=== PATIENT | male | born 1960 | race Caucasian/White ===

== ENCOUNTER → 2017-04-27 | Outpatient (CLI) | payer BC ==
[2017-04-27 08:56] LABS: ALT 48 U/L (21-72); AST 31 U/L (17-59); Cholesterol 203 mg/dL (<200); HDL Cholesterol 48 mg/dL (40-60)
== END | disposition home or self-care (01) ==
LOC: LABWHC1 07:50
PROVIDERS: ATTEND Internal Medicine Cardiovascular Disease
DX: E78.2 Mixed hyperlipidemia (principal)
CPT/HCPCS: 36415; 80061; 84450; 84460

== ENCOUNTER → 2018-04-25 | Outpatient (CLI) | payer BC ==
[2018-04-25 08:35] LABS: Basophils % (A) 1 %; Eosinophils # (A) 0.3 k/uL (0-0.7); Eosinophils % (A) 4 %; HCT 40.7 % (39.0-53.0); HGB 13.1 gm/dL (13.0-17.5); Lymphocytes # (A) 1.9 k/uL (1.0-4.8); Lymphocytes % (A) 31 %; MCH 30.8 pg (25.0-35.0); MCHC 32.3 g/dL (31.0-37.0); MCV 95.5 fL (80.0-100.0); Mean Platelet Volume 7.4; Monocytes # (A) 0.4 k/uL (0-1.0); Monocytes % (A) 7 %; Neutrophils # (A) 3.4 k/uL (1.3-7.7); Neutrophils % (A) 56 %; Platelet Count 195 k/uL (150-450); RBC 4.27 m/uL (4.30-5.90); RDW 13.4 % (11.5-15.5); WBC 6.1 k/uL (3.8-10.6)
[2018-04-25 08:41] LABS: Cholesterol 185 mg/dL (<200); HDL Cholesterol 54 mg/dL (40-60); LDL Cholesterol,Calculated 110 mg/dL (0-99); Triglycerides 105 mg/dL (<150)
[2018-04-25 12:41] LABS: Erythrocyte Sedimentation Rate 13 mm/hr (0-15)
== END | disposition home or self-care (01) ==
LOC: LABWHC1 07:45
PROVIDERS: ATTEND Ophthalmology
DX: H34.231 Retinal artery branch occlusion, right eye (principal)
CPT/HCPCS: 36415; 80061; 85025; 85652

== ENCOUNTER → 2018-05-17 | Outpatient (CLI) | payer BC ==
--- NOTE | 2018-05-17 10:52 | ECHOF ---
Referral Reason:H34.23 Branch retinal artery occlusion..... MEASUREMENTS -------- HEIGHT: 177.8 cm WEIGHT: 95.3 kg BP: 169/83 RVIDd: 3.3 cm (< 3.3) IVSd: 1.3 cm (0.6 - 1.1) LVIDd: 5.5 cm (3.9 - 5.3) LVPWd: 1.3 cm (0.6 - 1.1) IVSs: 1.9 cm LVIDs: 4.0 cm LVPWs: 1.4 cm LA Diam: 3.8 cm (2.7 - 3.8) LAESV Index (A-L): 30.45 ml/m Ao Diam: 4.0 cm (2.0 - 3.7) AV Cusp: 2.8 cm (1.5 - 2.6) MV EXCURSION: 19.436 mm (> 18.000) MV EF SLOPE: 74 mm/s (70 - 150) EPSS: 0.8 cm MV E Keon: 0.85 m/s MV DecT: 321 ms MV A Keon: 0.82 m/s MV E/A Ratio: 1.04 FINDINGS -------- Sinus rhythm. Resting bradycardia (HR<60bpm). This was a technically adequate study. The left ventricular size is normal. There is mild concentric left ventricular hypertrophy. Overa ll left ventricular systolic function is mildly impaired with, an EF between 45 - 50 %. Apical ante rior LV wall motion is hypokinetic. Apical inferior LV wall motion is hypokinetic. Apical septu m LV wall motion is hypokinetic. The right ventricle is mildly enlarged. LA is midly dilated 29-33ml/m2. The right atrium is normal in size. The aortic valve is trileaflet and appears structurally normal. Mild mitral annular calcification present. Mild mitral regurgitation is present. The tricuspid valve appears structurally normal. No regurgitation noted Trace/mild (physiologic) pulmonic regurgitation. The aortic root is dilated measuring 4.0cm. Normal inferior vena cava with normal inspiratory collapse consistent with estimated right atrial pre ssure of 5 mmHg. There is no pericardial effusion. CONCLUSIONS -------- 1. Sinus rhythm. 2. Resting bradycardia (HR<60bpm). 3. This was a technically adequate study. 4. The left ventricular size is normal. 5. There is mild concentric left ventricular hypertrophy. 6. Overall left ventricular systolic function is mildly impaired with, an EF between 45 - 50 %. 7. Apical anterior LV wall motion is hypokinetic. 8. Apical inferior LV wall motion is hypokinetic. 9. Apical septum LV wall motion is hypokinetic. 10. The right ventricle is mildly enlarged. 11. LA is midly dilated 29-33ml/m2. 12. The aortic valve is trileaflet and appears structurally normal. 13. Mild mitral annular calcification present. 14. Mild mitral regurgitation is present. 15. The tricuspid valve appears structurally normal. 16. Trace/mild (physiologic) pulmonic regurgitation. 17. The aortic root is dilated measuring 4.0cm. 18. Normal inferior vena cava with normal inspiratory collapse consistent with estimated right atrial pressure of 5 mmHg. 19. There is no pericardial effusion. TYING MACHINE OPERATOR: Soumya Mtz RDCS
--- NOTE | 2018-05-17 12:18 | US ---
EXAMINATION TYPE: US carotid duplex BILAT DATE OF EXAM: 05/17/2018 COMPARISON: NONE CLINICAL HISTORY: H34.23 Branch retinal artery occlusion...... no symptoms per patient, no h/o stroke EXAM MEASUREMENTS: RIGHT: Peak Systolic Velocity (PSV) cm/sec ----- Right CCA: 85.2 ----- Right ICA: 79.8 ----- Right ECA: 71.2 ICA/CCA ratio: 0.9 RIGHT: End Diastole cm/sec ----- Right CCA: 14.0 ----- Right ICA: 22.6 ----- Right ECA: 9.2 LEFT: Peak Systolic Velocity (PSV) cm/sec ----- Left CCA: 76.4 ----- Left ICA: 67.1 ----- Left ECA: 96.0 ICA/CCA ratio: 0.9 LEFT: End Diastole cm/sec ----- Left CCA: 17.9 ----- Left ICA: 23.0 ----- Left ECA: 15.7 VERTEBRALS (direction of flow): Right Vertebral: Antegrade Left Vertebral: Antegrade Rhythm: Normal Mild heterogeneous plaque at bulbs, no significant stenosis seen IMPRESSION: Mild heterogeneous plaque at bulbs, no significant stenosis seen Criteria for Assigning % of Stenosis / Diameter reduction (Estimation based on the indirect measurements of the internal carotid artery velocities (ICA PSV). 1. Normal (no stenosis)=ICA PSV < 125 cm/s: ratio < 2.0: ICA EDV<40 cm/s. 2. Less than 50% stenosis=ICA PSV < 125 cm/s: ratio < 2.0: ICA EDV<40 cm/s. 3. 50 to 69% stenosis=ICA PSV of 125 to 230 cm/s: ration 2.0 ? 4.0: ICA EDV 40-100 cm/s. 4. Greater than 70% stenosis to near occlusion= ICA PSV > 230 cm/s: ratio > 4.0: ICA EDV > 100 cm/s. 5. Near occlusion= ICA PSV velocities may be low or undetectable: variable ratio and ICA EDV. 6. Total occlusion=unable to detect flow.
== END | disposition home or self-care (01) ==
LOC: RADUSMAIN 09:06
PROVIDERS: ATTEND Ophthalmology
DX: I65.23 Occlusion and stenosis of bilateral carotid arteries (principal); I34.0 Nonrheumatic mitral (valve) insufficiency; R00.1 Bradycardia, unspecified
CPT/HCPCS: 93306; 93880

== ENCOUNTER → 2019-06-10 | Outpatient (CLI) | payer BC ==
[2019-06-10 08:58] LABS: Basophils # (A) 0.1 k/uL (0-0.2); Basophils % (A) 1 %; Eosinophils # (A) 0.2 k/uL (0-0.7); Eosinophils % (A) 2 %; HCT 38.6 % (39.0-53.0); HGB 12.6 gm/dL (13.0-17.5); Lymphocytes # (A) 2.2 k/uL (1.0-4.8); Lymphocytes % (A) 30 %; MCH 32.8 pg (25.0-35.0); MCHC 32.7 g/dL (31.0-37.0); MCV 100.2 fL (80.0-100.0); Macrocytosis Slight; Mean Platelet Volume 7.2; Monocytes # (A) 0.5 k/uL (0-1.0); Monocytes % (A) 7 %; Neutrophils % (A) 56 %; Platelet Count 338 k/uL (150-450); RBC 3.85 m/uL (4.30-5.90); RDW 15.9 % (11.5-15.5); WBC 7.2 k/uL (3.8-10.6)
[2019-06-10 16:57] LABS: African American GFR (CKD) 94.4 (60.0-200.0); Albumin 4.5 g/dL (3.80-4.90); Albumin/Globulin Ratio 2.5 (1.60-3.17); Anion Gap 8.3 mmol/L (4.00-12.00); Calcium 9.1 mg/dL (8.7-10.3); Carbon Dioxide 25.7 mmol/L (21.6-31.8); Chol/HDL Ratio 3.46; Globulin 1.8 g/dL (1.6-3.3); LDL Cholesterol,Calculated 105.4 mg/dL (0.0-131.0); Magnesium 2.1 mg/dL (1.5-2.4); Potassium 4.9 mmol/L (3.5-5.5); Total Bilirubin 0.5 mg/dL (0.3-1.2); Total Protein 6.3 g/dL (6.2-8.2); VLDL Calculation 17.6 mg/dL (5.00-40.00)
[2019-06-10 17:47] LABS: Hemoglobin A1C 5.2 % (4.0-6.0)
== END | disposition home or self-care (01) ==
LOC: LABWHC1 07:35
PROVIDERS: ATTEND Internal Medicine
DX: E78.2 Mixed hyperlipidemia (principal); I10 Essential (primary) hypertension
CPT/HCPCS: 36415; 80053; 80061; 83036; 83735; 84439; 84443; 85025

== ENCOUNTER → 2019-07-16 | Outpatient (CLI) | payer BC ==
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
== END | disposition home or self-care (01) ==
LOC: RADCTMAIN 12:17
PROVIDERS: ATTEND Internal Medicine
DX: G44.311 Acute post-traumatic headache, intractable (principal)
CPT/HCPCS: 70450

== ENCOUNTER → 2019-10-22 | Outpatient (CLI) | payer BC ==
[2019-10-22 09:12] LABS: Basophils # (A) 0.1 k/uL (0-0.2); Basophils % (A) 1 %; Eosinophils # (A) 0.2 k/uL (0-0.7); Eosinophils % (A) 3 %; HCT 42.6 % (39.0-53.0); HGB 13.6 gm/dL (13.0-17.5); Lymphocytes # (A) 2.2 k/uL (1.0-4.8); Lymphocytes % (A) 35 %; MCH 30.6 pg (25.0-35.0); MCV 95.8 fL (80.0-100.0); Mean Platelet Volume 7.9; Monocytes # (A) 0.5 k/uL (0-1.0); Monocytes % (A) 8 %; Neutrophils # (A) 3.2 k/uL (1.3-7.7); Neutrophils % (A) 51 %; Platelet Count 209 k/uL (150-450); RBC 4.45 m/uL (4.30-5.90); RDW 13.5 % (11.5-15.5); WBC 6.3 k/uL (3.8-10.6)
[2019-10-22 16:36] LABS: African American GFR (CKD) 93.7 (60.0-200.0); Albumin 4.5 g/dL (3.80-4.90); Albumin/Globulin Ratio 2.25 (1.60-3.17); Anion Gap 8.4 mmol/L (4.00-12.00); Calcium 9.3 mg/dL (8.7-10.3); Carbon Dioxide 25.6 mmol/L (21.6-31.8); Chol/HDL Ratio 3.16; LDL Cholesterol,Calculated 102.8 mg/dL (0.0-131.0); Non-African American GFR(CKD) 80.9 (60.0-200.0); Potassium 4.8 mmol/L (3.5-5.5); Total Bilirubin 0.4 mg/dL (0.2-1.2); Total Protein 6.5 g/dL (6.2-8.2); VLDL Calculation 16.2 mg/dL (5.00-40.00)
== END | disposition home or self-care (01) ==
LOC: LABWHC1 08:25
PROVIDERS: ATTEND Internal Medicine
DX: I10 Essential (primary) hypertension (principal); E78.2 Mixed hyperlipidemia; N40.0 Benign prostatic hyperplasia without lower urinary tract symptoms
CPT/HCPCS: 36415; 80053; 80061; 84153; 84443; 85025

== ENCOUNTER 2020-11-07 05:53 | Inpatient (IN) | payer BC ==
[2020-11-07 06:28] LABS: Basophils % (A) 1 %; Eosinophils # (A) 0.2 k/uL (0-0.7); Eosinophils % (A) 3 %; HCT 41.7 % (39.0-53.0); HGB 13.9 gm/dL (13.0-17.5); Lymphocytes # (A) 2.3 k/uL (1.0-4.8); Lymphocytes % (A) 37 %; MCH 32.8 pg (25.0-35.0); MCHC 33.3 g/dL (31.0-37.0); MCV 98.5 fL (80.0-100.0); Mean Platelet Volume 7.5; Monocytes # (A) 0.5 k/uL (0-1.0); Monocytes % (A) 8 %; Neutrophils % (A) 49 %; Platelet Count 180 k/uL (150-450); RBC 4.23 m/uL (4.30-5.90); RDW 12.8 % (11.5-15.5); WBC 6.1 k/uL (3.8-10.6)
[2020-11-07] MEDS ORDERED: MECLIZINE 12.5 MG TAB PO STA (06:31)
[2020-11-07] MEDS ORDERED: ASPIRIN 81 MG PO STA (06:31)
[2020-11-07] MEDS ORDERED: diphenhydrAMINE 50 MG/ML 1 ML VIAL IVP STA (06:31)
[2020-11-07] MEDS ORDERED: DIAZEPAM 5 MG/ML 2 ML INJ IVP STA (06:31)
[2020-11-07 06:35] LABS: INR 0.9 (<1.2); Prothrombin Time 9.4 sec (9.0-12.0)
[2020-11-07 06:37] LABS: ALT 29 U/L (4-49); AST 30 U/L (17-59); African American GFR (CKD) >90 (>60 ml/min/1.73 sqM); Alkaline Phosphatase 65 U/L (38-126); Anion Gap 6 mmol/L; Blood Urea Nitrogen 14 mg/dL (9-20); Calcium 8.9 mg/dL (8.4-10.2); Carbon Dioxide 28 mmol/L (22-30); Chloride 106 mmol/L (98-107); Glucose 107 mg/dL (74-99); Magnesium 2.2 mg/dL (1.6-2.3); Non-African American GFR(CKD) 81 (>60 ml/min/1.73 sqM); Potassium 4.8 mmol/L (3.5-5.1); Sodium 140 mmol/L (137-145); Total Bilirubin 0.4 mg/dL (0.2-1.3); Total Protein 6.9 g/dL (6.3-8.2)
--- NOTE | 2020-11-07 06:51 | XR ---
EXAM: XR Chest, 2 Views CLINICAL HISTORY: ITS.REASON XR Reason: Chest Pain TECHNIQUE: Frontal and lateral views of the chest. COMPARISON: 10/07/15. FINDINGS: Lungs: Bilateral central lung opacities, more prominent compared to prior. Pleural space: No significant pleural effusion or pneumothorax. Heart: Stable cardiomediastinal silhouette. Mediastinum: See above. Bones/joints: No acute fracture. IMPRESSION: Bilateral central lung opacities. Correlate clinically regarding inflammatory/infectious process.
--- NOTE | 2020-11-07 07:11 | ED ---
General Adult HPI - General Chief complaint: Chest Pain Stated complaint: Arms feel numb Time Seen by Provider: 11/07/20 06:07 Source: patient, family Mode of arrival: wheelchair Limitations: no limitations - History of Present Illness Initial comments: 60 yo male presenting for dizziness, "feeling weird". Patient states he woke up this mornin and noticed any movement he felt "lightheaded" and "weird" he states that he felt dizzy/slightly off balance when turning his head/quick movements. He states he does struggle with tinnutus inthe past and is deaf in the left ear. Patient denies nausea, vomiting, speech changes, weakness of the UE or LE. Patient states he became anxious after feeling off and felt like both arms were tingling, that has since subsided. Patient denies chest pain/pressure, jaw pain, back pain. Patient states everytime this happens when he feels off, he comes in and is told that his "troponin is slightly elevated" and has to stay. I do not see elevated troponin on previous visits. Patient states that he has had "caths" but only see 1 in 2016, he did have AK at age 40 in 2000-transferred from [facility] to this facility. Patient denies additional complaints. Upon arrival patient appears well nontoxic in no acute distress. No diaphoresis. Patient took nitroglycerin prior to arrival and states that now he has a headache. - Related Data Home Medications Medication Instructions Recorded Confirmed Aspirin 325 mg PO DAILY 09/26/15 10/08/15 Clopidogrel Bisulfate [Clopidogrel] 75 mg PO DAILY 09/26/15 10/08/15 Enalapril [Vasotec] 5 mg PO DAILY 09/26/15 10/08/15 Ezetimibe [Zetia] 10 mg PO DAILY 09/26/15 10/08/15 Levothyroxine Sodium [Synthroid] 175 mcg PO DAILY 09/26/15 10/08/15 Pravastatin Sodium [Pravachol] 80 mg PO HS 09/26/15 10/08/15 Allergies Allergy/AdvReac Type Severity Reaction Status Date / Time No Known Allergies Allergy Verified 11/07/20 05:58 Review of Systems ROS Statement: Those systems with pertinent positive or pertinent negative responses have been documented in the HPI. ROS Other: All systems not noted in ROS Statement are negative. Past Medical History Past Medical History: Coronary Artery Disease (CAD), GERD/Reflux, Hyperlipidemia, Hypertension, Myocardial Infarction ([place]), Thyroid Disorder Last Myocardial Infarction Date:: 2000 History of Any Multi-Drug Resistant Organisms: None Reported Past Surgical History: Heart Catheterization With Stent Additional Past Surgical History / Comment(s): Ruptured bicep Past Anesthesia/Blood Transfusion Reactions: No Reported Reaction Date of Last Stent Placement:: 09/28/14 Past Psychological History: No Psychological Hx Reported Smoking Status: Current every day smoker Past Alcohol Use History: Occasional Past Drug Use History: None Reported - Past Family History Father Additional Family Medical History / Comment(s): Had prostate surg General Exam - General Exam Comments Initial Comments: General: The patient is awake and alert, in no distress Eye: +3 mm pupils are equal, round and reactive to light, extra-ocular movements are intact. No nystagmus. There is normal conjunctiva bilaterally. No signs of icterus. Ears, nose, mouth and throat: There are moist mucous membranes and no oral lesions. HINTS (-) Neck: The neck is supple, there is no tenderness or JVD. Cardiovascular: There is a regular rate and rhythm. No murmur, rub or gallop is appreciated. Respiratory: Lungs are clear to auscultation, respirations are non-labored, breath sounds are equal. No wheezes, stridor, rales, or rhonchi. Gastrointestinal: [Soft, non-distended, non-tender abdomen without masses or organomegaly noted. There is no rebound or guarding present. Musculoskeletal: Normal ROM, no tenderness. Strength 5/5. Sensation intact. Radial pulses equal bilaterally 2+. Neurological: A&O x 3. CN II-XII intact, memory intact to immediately, intermediate and continuous churn buttermaker recall. Able to follow simple verbal. Able to name a common object (pen). High quality, labial (pa) and lingual (la) speech. Low quality posterior pharynx/larynx (ga) voice sounds. Able to express general knowledge (days in a week). No hemineglect or inattention noted. Finger agnosia (-) and spatially oriented (identified L index finger touched R shoulder with L index finger). Light touch and temperature sensation present over the face, chest, abdomen, back, UE bilaterally, and LE bilaterally. Able to localize point during point localization b/l and extinction. No visible bulk atrophy, hypertrophy, fasciculations, or myoclonus of the UE or LE b/l. Full PROM in UE and LE b/l. Bilateral muscle strength 5/5 for the following muscles: deltoid, biceps, triceps, brachioradialis, wrist extensors/flexor, hip flexor, hip abductors/adductors, hamstrings, quadriceps, feet dorsiflexors/plantar flexors. Finger to nose, finger to the examiners finger, and heel to beatty coordinated and accurate b/l. Coordinated and even demonstration of hand flip, finger to thumb, and toe tap b/l. Gait is coordinated and even in stride with tandem. (-) pronator drift. No nuchal rigidity. (-) Brudzinskis and Kernig signs. Skin: Skin is warm and dry and no rashes or lesions are noted. Psychiatric: Cooperative, appropriate mood & affect, normal judgment. Limitations: no limitations Course Vital Signs 11/07/20 11/07/20 05:58 06:15 Temperature 97.9 F Pulse Rate 59 L Respiratory 18 Rate Blood Pressure 156/92 165/93 O2 Sat by Pulse 97 Oximetry EKG Findings - EKG Comments: EKG Findings:: Ventricular rate 61 bpm, MI interval 140 ms, QR pentecostalism 94 ms, QT/QTC 474/477 ms. This is sinus rhythm with occasional PVCs. No ST elevation or depression there is some artifact on the EKG however no obvious abnormality Medical Decision Making - Medical Decision Making 60yo male with hx of CAD/stent 2000. Cath 2016. Presenting dizziness/arms tingli ng/just feels off. No CP/NO dyspnea. Hx CAD. Troponin (+). Patient EKG no ST elevations. Patient case discussed with Dr. Schroeder who is agreeable to admission, recommends starting heparin and admitting patient for cardiology evaluation of suspected NSTEMI. Patient agreeable to admission and care plan. - Lab Data Result diagrams: 11/07/20 06:13 11/07/20 06:13 Lab Results 11/07/20 11/07/20 11/07/20 Range/Units 06:13 06:13 06:13 WBC 6.1 (3.8-10.6) k/uL RBC 4.23 L (4.30-5.90) m/uL Hgb 13.9 (13.0-17.5) gm/dL Hct 41.7 (39.0-53.0) % MCV 98.5 (80.0-100.0) fL MCH 32.8 (25.0-35.0) pg MCHC 33.3 (31.0-37.0) g/dL RDW 12.8 (11.5-15.5) % Plt Count 180 (150-450) k/uL MPV 7.5 Neutrophils % 49 % Lymphocytes % 37 % Monocytes % 8 % Eosinophils % 3 % Basophils % 1 % Neutrophils # 3.0 (1.3-7.7) k/uL Lymphocytes # 2.3 (1.0-4.8) k/uL Monocytes # 0.5 (0-1.0) k/uL Eosinophils # 0.2 (0-0.7) k/uL Basophils # 0.0 (0-0.2) k/uL PT 9.4 (9.0-12.0) sec INR 0.9 (<1.2) APTT 23.0 (22.0-30.0) sec Sodium 140 (137-145) mmol/L Potassium 4.8 (3.5-5.1) mmol/L Chloride 106 (98-107) mmol/L Carbon Dioxide 28 (22-30) mmol/L Anion Gap 6 mmol/L BUN 14 (9-20) mg/dL Creatinine 0.99 (0.66-1.25) mg/dL Est GFR (CKD-EPI)AfAm >90 (>60 ml/min/1.73 sqM) Est GFR (CKD-EPI)NonAf 81 (>60 ml/min/1.73 sqM) Glucose 107 H (74-99) mg/dL Calcium 8.9 (8.4-10.2) mg/dL Magnesium 2.2 (1.6-2.3) mg/dL Total Bilirubin 0.4 (0.2-1.3) mg/dL AST 30 (17-59) U/L ALT 29 (4-49) U/L Alkaline Phosphatase 65 (38-126) U/L Troponin I (0.000-0.034) ng/mL Total Protein 6.9 (6.3-8.2) g/dL Albumin 4.0 (3.5-5.0) g/dL 02/21/21 Range/Units 06:13 WBC (3.8-10.6) k/uL RBC (4.30-5.90) m/uL Hgb (13.0-17.5) gm/dL Hct (39.0-53.0) % MCV (80.0-100.0) fL MCH (25.0-35.0) pg MCHC (31.0-37.0) g/dL RDW (11.5-15.5) % Plt Count (150-450) k/uL MPV Neutrophils % % Lymphocytes % % Monocytes % % Eosinophils % % Basophils % % Neutrophils # (1.3-7.7) k/uL Lymphocytes # (1.0-4.8) k/uL Monocytes # (0-1.0) k/uL Eosinophils # (0-0.7) k/uL Basophils # (0-0.2) k/uL PT (9.0-12.0) sec INR (<1.2) APTT (22.0-30.0) sec Sodium (137-145) mmol/L Potassium (3.5-5.1) mmol/L Chloride (98-107) mmol/L Carbon Dioxide (22-30) mmol/L Anion Gap mmol/L BUN (9-20) mg/dL Creatinine (0.66-1.25) mg/dL Est GFR (CKD-EPI)AfAm (>60 ml/min/1.73 sqM) Est GFR (CKD-EPI)NonAf (>60 ml/min/1.73 sqM) Glucose (74-99) mg/dL Calcium (8.4-10.2) mg/dL Magnesium (1.6-2.3) mg/dL Total Bilirubin (0.2-1.3) mg/dL AST (17-59) U/L ALT (4-49) U/L Alkaline Phosphatase (38-126) U/L Troponin I 0.106 H* (0.000-0.034) ng/mL Total Protein (6.3-8.2) g/dL Albumin (3.5-5.0) g/dL Disposition Clinical Impression: Complaint of paresthesia, Elevated troponin Disposition: ADMITTED IP TO THIS [facility] Condition: Stable Is patient prescribed a controlled substance at d/c from ED?: No Referrals: Gloria Nugent MD [Primary Care Provider] - 1-2 days Time of Disposition: 07:44 Decision to Admit Reason: Admit from EC Decision Date: 11/07/20 Decision Time: 07:44
--- NOTE | 2020-11-07 07:14 | CT ---
EXAMINATION TYPE: CT brain wo con DATE OF EXAM: 11/07/2020 COMPARISON: 07/16/2019 HISTORY: Arms feel numb CT DLP: 1114.[address] of the brain was performed. The ventricles, basal cisterns and sulci overlying the cerebral convexities demonstrate mild enlargem ent. There is no evidence for intracranial hemorrhage or sulcal effacement. There is decreased attenuation about the periventricular white matter and deep white matter of both c erebral hemispheres, compatible with chronic small vessel ischemia. Differential diagnosis does inclu de demyelination. No mass effects are seen.No midline shift. Osseous calvarium is intact. If symptoms persist consider MRI. IMPRESSION: 1. Age related atrophic and chronic small vessel ischemic change without acute intracranial process s een at this time.
[2020-11-07] MEDS ORDERED: HEPARIN SODIUM,PORCINE 5,000 UNIT/ML 1 ML VIAL IV ONE (07:38)
[2020-11-07] MEDS ORDERED: NITROGLYCERIN SL TABS 0.4 MG TAB SUBLINGUAL PRN ×2 (07:38→10:45)
[2020-11-07] MEDS ORDERED: MORPHINE SULFATE 4 MG/ML SYRINGE IVP PRN (08:07)
[2020-11-07] MEDS: HEPARIN SOD,PORK IN 0.45% NACL 25,000 UNIT in 0.45% NACL 1 250ML.BAG IV SCH ×2 (08:12→23:03)
[2020-11-07] MEDS ORDERED: PRAVASTATIN SODIUM 80 MG TAB PO STA (09:35)
--- NOTE | 2020-11-07 09:36 | P.CRDCN ---
History of Present Illness Consult date: 11/07/20 Requesting physician: Gloria Nugent Consult reason: chest pain Chief complaint: Bilateral arm discomfort History of present illness: This is a 60-year-old gentleman with known history of hypertension, hyperlipidemia, nicotine dependence, coronary artery disease with multivessel intervention. In 2000 and 2006 patient underwent stenting of the LAD and circumflex. On September 28 in 2015 patient underwent a cardiac catheterization which revealed a patent right coronary artery and LAD stent, circumflex with that was also stented in the proximal section was patent. The LAD had approxima tely 30% lesion at the end of the stented segment and the right coronary artery and a 40-50% mid lesion. There was moderate calcification in both of these vessels, the circumflex which was stented was patent but the mid circumflex had a long area of 80% stenosis for which the patient underwent angioplasty with stent placement by Dr. Geoff Espinoza. Following that patient did return to the hospital with symptoms, cardiac catheterization was unchanged. Patient overall has been doing well, today the patient was generally just not feeling well, he had discomfort in both of his upper arms. According to the patient the symptoms are very similar to what he has experienced in the past, when he's required a stent placement. He denies any discomfort in the chest and overall his breathing has been stable. Patient has taken Lipitor in the past and has had muscle reactions from that and is unable to tolerate it. His blood pressure on presentation here 156/90 with a heart rate is 60, 97% on room air temperature 97.9. White blood cell count 6.1, hemoglobin 13.9, platelet count 180, sodium 140, potassium 4.8, chloride 106, CO2 28, BUN 14, creatinine 0.9, magnesium 2.2, initial troponin 0.106. Coronavirus test negative. Chest x-ray showed bilateral central lung [place]. Correlation suggested regarding inflammatory infectious process possibility. His initial EKG shows a normal sinus rhythm with occasional PVCs and nonspecific ST T wave changes. CAT scan of the brain was performed which revealed age-related atrophic and chronic small vessel ischemic change without any intracranial process. At the time of my examination this morning, patient continues to not feel like himself, he is having bilateral upper arm discomfort. Past Medical History Past Medical History: Coronary Artery Disease (CAD), GERD/Reflux, Hyperlipidemia, Hypertension, Myocardial Infarction ([place]), Thyroid Disorder Last Myocardial Infarction Date:: 2000 History of Any Multi-Drug Resistant Organisms: None Reported Past Surgical History: Heart Catheterization With Stent Additional Past Surgical History / Comment(s): Ruptured bicep Past Anesthesia/Blood Transfusion Reactions: No Reported Reaction Date of Last Stent Placement:: 09/28/14 Past Psychological History: No Psychological Hx Reported Smoking Status: Current every day smoker Past Alcohol Use History: Occasional Past Drug Use History: None Reported - Past Family History Father Additional Family Medical History / Comment(s): Had prostate surg Medications and Allergies Home Medications Medication Instructions Recorded Confirmed Type Clopidogrel Bisulfate [Clopidogrel] 75 mg PO DAILY 09/26/15 11/07/20 History Enalapril [Vasotec] 5 mg PO DAILY 09/26/15 11/07/20 History Levothyroxine Sodium [Synthroid] 175 mcg PO DAILY 09/26/15 11/07/20 History Aspirin [[place] Aspirin EC] 81 mg PO DAILY 11/07/20 11/07/20 History Simvastatin 80 mg PO DAILY 11/07/20 11/07/20 History Allergies Allergy/AdvReac Type Severity Reaction Status Date / Time No Known Allergies Allergy Verified 11/07/20 07:59 Physical Exam Vitals: Vital Signs Temp Pulse Resp BP Pulse Ox 11/07/20 06:15 165/93 11/07/20 05:58 97.9 F 59 L 18 156/92 97 Intake and Output 11/06/20 11/07/20 11/07/20 22:59 06:59 14:59 Other: Weight 90.718 kg PHYSICAL EXAMINATION: GENERAL: 60-year-old gentleman in no acute distress at the time of my examination HEENT: Head is atraumatic, normocephalic. Pupils equal, round. Sclera anicteric. Conjunctiva are clear. Mucous membranes of the mouth are moist. Neck is supple. There is no elevated jugular venous pressure. No carotid bruit is heard. HEART EXAMINATION: Heart S1, S2 normal. No murmur or gallop heard. CHEST EXAMINATION: Lungs are clear to auscultation and precussion. No chest wall tenderness is noted on palpation or with deep breathing. ABDOMEN: Soft, nontender. Bowel sounds are heard. No organomegaly noted. EXTREMITIES: 2+ peripheral pulses with no evidence of peripheral edema and no calf tenderness noted. Bilateral upper arm discomfort. NEUROLOGIC patient is awake, alert and oriented 3 . . Results 11/07/20 06:13 11/07/20 06:13 Cardiac Enzymes 11/07/20 11/07/20 Range/Units 06:13 06:13 AST 30 (17-59) U/L Troponin I 0.106 H* (0.000-0.034) ng/mL Coagulation 11/07/20 Range/Units 06:13 PT 9.4 (9.0-12.0) sec APTT 23.0 (22.0-30.0) sec CBC 11/07/20 Range/Units 06:13 WBC 6.1 (3.8-10.6) k/uL RBC 4.23 L (4.30-5.90) m/uL Hgb 13.9 (13.0-17.5) gm/dL Hct 41.7 (39.0-53.0) % Plt Count 180 (150-450) k/uL Comprehensive Metabolic Panel 11/07/20 Range/Units 06:13 Sodium 140 (137-145) mmol/L Potassium 4.8 (3.5-5.1) mmol/L Chloride 106 (98-107) mmol/L Carbon Dioxide 28 (22-30) mmol/L BUN 14 (9-20) mg/dL Creatinine 0.99 (0.66-1.25) mg/dL Glucose 107 H (74-99) mg/dL Calcium 8.9 (8.4-10.2) mg/dL AST 30 (17-59) U/L ALT 29 (4-49) U/L Alkaline Phosphatase 65 (38-126) U/L Total Protein 6.9 (6.3-8.2) g/dL Albumin 4.0 (3.5-5.0) g/dL Current Medications Generic Name Dose Route Start Last Admin Trade Name Freq PRN Reason Stop Dose Admin Aspirin 81 mg 11/08/20 09:00 Aspirin 81 Mg PO DAILY SHAINA Heparin Sodium (Porcine) 0 unit 11/07/20 07:38 Heparin Sodium,Porcine 5,000 Unit/Ml 1 Ml Vial IV PER PROTOCOL PRN Low PTT Protocol Heparin Sodium/Sodium Chloride 250 mls @ 10.006 mls/hr 11/07/20 07:45 11/07/20 08:12 25,000 unit/ Sodium Chloride IV 11.03 units/kg/hr .Q24H SHAINA 10.006 mls/hr Administration Protocol 11.03 UNITS/KG/HR Morphine Sulfate 4 mg 11/07/20 08:07 Morphine Sulfate 4 Mg/Ml Syringe IVP Q4HR PRN Pain Nitroglycerin 0.4 mg 11/07/20 07:38 Nitroglycerin Sl Tabs 0.4 Mg Tab SUBLINGUAL Q5M PRN Chest Pain Intake and Output 11/06/20 11/07/20 11/07/20 22:59 06:59 14:59 Other: Weight 90.718 kg 11/07/20 06:13 11/07/20 06:13 EKG Interpretations (text) Initial EKG shows a normal sinus rhythm with occasional PVC and nonspecific ST-T wave changes. Assessment and Plan Plan: Assessment and plan #1 symptoms of generalized malaise and not feeling well with associated bilateral upper arm discomfort, initial troponin 0.106. EKG shows normal sinus rhythm with occasional PVC and nonspecific ST-T wave changes. Clinical picture suggestive of acute coronary syndrome. #2 hypertension #3 hyperlipidemia, patient is intolerant to Lipitor, he takes Zocor 80 at home #4 nicotine dependence #5 history of myocardial infarction with prior multivessel stenting #6 hypothyroidism Plan We will obtain a repeat EKG this morning, obtain an echocardiogram with Doppler study, obtain 2 subsequent troponins. Continue IV heparin, baby aspirin, start the patient on Pravachol. Patient has been advised that he will need to undergo cardiac catheterization for more definitive diagnosis, the risks and the benefits were explained to the patient and his in detail and he is willing to proceed. Further recommendations to follow. DNP note has been reviewed, I agree with a documented findings and plan of care. Patient was seen and examined.
[2020-11-07] MEDS ORDERED: SODIUM CHLORIDE 0.9% 1,000 ML in EMPTY BAG 1 BAG IV ONE (10:45)
[2020-11-07] MEDS ORDERED: ALPRAZolam 0.5 MG TAB PO PRN (10:45)
[2020-11-07] MEDS ORDERED: ASPIRIN 325 MG TAB PO STA (10:45)
[2020-11-07] MEDS ORDERED: ATORVASTATIN 80 MG TAB PO STA (10:45)
[2020-11-07] MEDS ORDERED: ALPRAZolam 0.25 MG TAB PO PRN (10:45)
--- NOTE | 2020-11-07 11:12 | P.HPIM ---
History of Present Illness H&P Date: 11/07/20 Chief Complaint: NSTEMI This is a 60-year-old gentleman one of my patient with known history of hypertension and hypertensive cardio vascular disease,, hyperlipidemia, nicotine dependence, coronary artery disease with multivessel intervention. In 2000 and 2006 patient underwent stenting of the LAD and circumflex. On September 28 in 2015 patient underwent a cardiac catheterization which revealed a patent right coronary artery and LAD stent, circumflex with that was also stented in the proximal section was patent. The LAD had approximately 30% lesion at the en d of the stented segment and the right coronary artery and a 40-50% mid lesion. There was moderate calcification in both of these vessels, the circumflex which was stented was patent but the mid circumflex had a long area of 80% stenosis for which the patient underwent angioplasty with stent placement by Dr. Geoff Espinoza. Following that patient did return to the hospital with symptoms, cardiac catheterization was unchanged. Patient overall has been doing well, today he woke up at around 5:30 in the morning went to the bathroom and suddenly developed to have bilateral shoulder pain with shoulder numbness and he was breaking out into cold sweats, he felt a bit nauseated, he ended up coming to the emergency care for evaluation, his troponin was slightly elevated, his EKG showed nonspecific ST-T wave changes, patient was ruled in for non-ST elevation myocardial infarction and had a long conversation with the patient and his at the bedside we are going to go for a left heart catheterization with Dr. Miguel today. Review of Systems Constitutional: Reports chronic pain, Reports fatigue, Reports weakness, Denies anorexia, Denies chronic headaches Eyes: denies blurred vision, denies bulging eye, denies decreased vision Ears: deny: decreased hearing Ears, nose, mouth and throat: Denies dysphagia, Denies neck lump, Denies sore throat Cardiovascular: Reports chest pain, Reports decreased exercise tolerance, Reports dyspnea on exertion, Denies lightheadedness, Denies rapid heart beat, Denies shortness of breath, Denies syncope Respiratory: Denies congestion, Denies cough, Denies cough with sputum, Denies pain, Denies sleep apnea, Denies snoring, Denies wheezing Gastrointestinal: Reports nausea, Denies abdominal pain, Denies change in bowel habits, Denies heartburn, Denies melena, Denies vomiting Genitourinary: Reports nocturia, Denies dysuria Musculoskeletal: Denies myalgias Musculoskeletal: bilateral: shoulder pain, shoulder stiffness, absent: ankle pain, ankle stiffness, ankle swelling, elbow pain, elbow stiffness, elbow swelling, foot pain, foot stiffness, foot swelling, hand pain, hand stiffness, hand swelling, hip pain, hip stiffness, hip swelling, knee pain, knee stiffness, knee swelling, shoulder swelling, wrist pain, wrist stiffness, wrist swelling Integumentary: Denies pruritus, Denies rash Neurological: Denies numbness, Denies weakness Psychiatric: Reports anxiety, Denies depression, Denies sadness/tearfulness, Denies sleep disturbances, Denies suicidal ideation Endocrine: Denies fatigue, Denies weight change Past Medical History Past Medical History: Coronary Artery Disease (CAD), GERD/Reflux, Hyperlipidemia, Hypertension, Myocardial Infarction (IA), Osteoarthritis (OA), Prostate Disorder, Thyroid Disorder Last Myocardial Infarction Date:: 2000 History of Any Multi-Drug Resistant Organisms: None Reported Past Surgical History: Heart Catheterization With Stent Additional Past Surgical History / Comment(s): Ruptured bicep Past Anesthesia/Blood Transfusion Reactions: No Reported Reaction Date of Last Stent Placement:: 09/28/14 Past Psychological History: No Psychological Hx Reported Smoking Status: Current every day smoker Past Alcohol Use History: Occasional Past Drug Use History: None Reported - Past Family History Father Family Medical History: COPD (Father at age of 86 from COPD, ammonia, he had prostate surgery as well.) Additional Family Medical History / Comment(s): Had prostate surg Mother History Unknown: Yes Family Medical History: No Reported History (Mother is 84-year-old no major medical problems.) Brother(s) Family Medical History: Diabetes Mellitus (Patient has 5 brothers one of them with diabetes mellitus type 2, one had from metastatic cancer.) Daughter(s) Family Medical History: No Reported History (Patient has 2 daughters no major medical problems.) Medications and Allergies Home Medications Medication Instructions Recorded Confirmed Type Clopidogrel Bisulfate [Clopidogrel] 75 mg PO DAILY 09/26/15 11/07/20 History Enalapril [Vasotec] 5 mg PO DAILY 09/26/15 11/07/20 History Levothyroxine Sodium [Synthroid] 175 mcg PO DAILY 09/26/15 11/07/20 History Aspirin [[place] Aspirin EC] 81 mg PO DAILY 11/07/20 11/07/20 History Simvastatin 80 mg PO DAILY 11/07/20 11/07/20 History Allergies Allergy/AdvReac Type Severity Reaction Status Date / Time No Known Allergies Allergy Verified 11/07/20 07:59 Physical Exam Vitals: Vital Signs Temp Pulse Resp BP Pulse Ox 11/07/20 06:15 165/93 11/07/20 05:58 97.9 F 59 L 18 156/92 97 Intake and Output 11/06/20 11/07/20 11/07/20 22:59 06:59 14:59 Other: Weight 90.718 kg Physical examination: HEENT: Head is atraumatic, normocephalic, pupils were equal round reactive to light recommendation, extraocular muscle movement were intact, sclera nonicteric, conjunctivae were slightly pale, mucous membranes of mouth are somewhat dry. Neck: Supple, no JVD, no carotid bruits of adenopathy. Chest: Decreased breath sounds at the bases, few rhonchi, no expiratory wheezes, no chest wall tenderness, no intercostal retractions. Heart: First heart sound is depressed, second heart sound is normal, there is no gallop or murmur. Abdomen: Soft, nontender, nondistended, positive bowel sounds. Extremities: There is no edema, no calf tenderness, dorsalis is +2 bilaterally. Neurologic examination: Patient is awake alert and oriented in 3, cranial nerves 3-12 appear grossly intact, muscle power 5 out of 5 in upper and lower extremities bilaterally. Results CBC & Chem 7: 11/07/20 06:13 11/07/20 06:13 Labs: Abnormal Lab Results - Last 24 Hours (Table) 11/07/20 11/07/20 11/07/20 Range/Units 06:13 06:13 06:13 RBC 4.23 L (4.30-5.90) m/uL Glucose 107 H (74-99) mg/dL Troponin I 0.106 H* (0.000-0.034) ng/mL 11/07/20 Range/Units 08:54 RBC (4.30-5.90) m/uL Glucose (74-99) mg/dL Troponin I 0.088 H* (0.000-0.034) ng/mL Thrombosis Risk Factor Assmnt - DVT/VTE Prophylaxis DVT/VTE Prophylaxis: Pharmacologic Prophylaxis ordered, Mechanical Prophylaxis ordered Assessment and Plan Assessment: Assessment and plan: 1. Non-ST elevation IA. Continue heparin drip, continue aspirin 325 mg once every day, continue Plavix 75 mg once every day, continue with simvastatin 80 mg orally once every day, cardiac enzymes were slightly elevated, patient scheduled to go for left heart catheterization with Dr. Miguel later on today. 2. History of CAD post multiple PCI. Continue treatment as in paragraph #1. 3. Hypertension and hypertensive cardio vascular disease. Continue patient on enalapril 5 mg orally once every day. 4. Hyperlipidemia. Continue patient on low-cholesterol diet, total left side changes and risk factor modification, continue with simvastatin 80 mg orally once every day. 5. Hypothyroidism. Continue patient on Synthroid 175 g orally once every day. 6. Enlarged prostate. We will continue with Flomax 0.4 g orally once every day. 7. Chronic tobacco use and dependence. Patient was counseled about smoking cessation and increased risk of CAD, CVA, and malignancies. 8. DVT prophylaxis. Currently on heparin drip. 9. GI prophylaxis. Continue with PPI. 10. Admit to inpatient. Estimate a length of stay 2 midnights. 11. Patient is full code.
[2020-11-07] MEDS ORDERED: LIDOCAINE 1% INJ 10MG/ML (20 ML MDV) ONE (11:28)
[2020-11-07] MEDS ORDERED: HEPARIN SODIUM 1,000 UN/ML (10ML VL) ONE (11:28)
[2020-11-07] MEDS ORDERED: VERAPAMIL 2.5 MG/ML 2 ML AMP ONE (11:28)
[2020-11-07] MEDS ORDERED: [UNRECOGNIZED DRUG - REMARK] IV ONE (11:37)
[2020-11-07] MEDS ORDERED: MIDAZOLAM 2 MG/2 ML VIAL IV ONE (11:44)
[2020-11-07] MEDS ORDERED: LIDOCAINE 1% INJ 10MG/ML (20 ML MDV) SQ ONE (11:45)
[2020-11-07] MEDS: VERAPAMIL SYRINGE (5 MG/10 ML) INTRAARTER ONE ×2 (11:46→11:59)
[2020-11-07] MEDS ORDERED: HEPARIN SODIUM 1,000 UN/ML (10ML VL) IV ONE (11:48)
[2020-11-07] MEDS ORDERED: IOPAMIDOL-370 125ML BTL INJ ONE (11:59)
[2020-11-07] MEDS ORDERED: RX INFO: IV CONTRAST WAS GIVEN 1 EACH MISC MISCELLANE PRN (12:06)
[2020-11-07] MEDS ORDERED: SODIUM CHLORIDE 0.9% 1,000 ML IV SCH (12:15)
--- NOTE | 2020-11-07 13:03 | CC ---
CARDIAC CATHETERIZATION REPORT DATE OF SERVICE: November 07, 2020 PERFORMING PHYSICIAN: Titus Miguel MD. PROCEDURE PERFORMED: 1. Selective right and left coronary angiogram. 2. Left heart catheterization. INDICATION: This is a 60-year-old gentleman with coronary artery disease and prior stenting of the LAD and LCX performed by Dr. Espinoza and the patient does follow with Dr. Ruiz on a regular basis as well as history of hypertension and dyslipidemia, who presented to the hospital complaining of bilateral shoulder discomfort. No chest pain or chest discomfort. The EKG showed sinus rhythm without any ischemic ST or T-wave abnormalities. The cardiac enzymes came into be slightly abnormal and below 1. Because of the ongoing bilateral shoulder discomfort and because of the abnormal cardiac enzymes, a heart catheterization was advised. APPROACH: Right radial artery. COMPLICATION: None. LEVEL OF SEDATION: Moderate with sedation length of 15 minutes. PROCEDURE DESCRIPTION: After obtaining informed consent, the patient was brought to the cardiac drop crew laborer. The right radial artery was cannulated using micropuncture technique and a micropuncture wire passed easily. Then I placed a 5-Martiniquais sheath at the right radial artery. After that, I did selective right and left coronary angiogram. That was performed using JR4 for the right coronary artery and JL3.5 for the left coronary system. Left heart catheterization was performed using 5-Martiniquais pigtail catheter. The procedure was completed without any complication. SELECTIVE CORONARY ANGIOGRAM: 1. Right coronary artery: It is a large caliber vessel and it is a dominant vessel. The RCA overall is extremely calcified. The proximal RCA has mild plaque only. The mid RCA has a lesion appeared to be in the range of 99.9%. Distal to that lesion, there is haziness concerning for thrombus. The distal right coronary artery has another tubular lesion appeared to be in the range of 70% to 80%. The RCA bifurcates into a small PDA and large PLV branches. 2. The left main is angiographically normal. It bifurcates into LCX and LAD. 3. The LCX is a large caliber vessel. It is a nondominant vessel. The proximal left circumflex is angiographically normal and gives rise into a large 1st obtuse marginal branch. The proximal portion of that OM branch has a lesion appeared to be in the range of 70%. The mid OM branch has 2 stents seems to be patent. The distal OM appeared to be angiographically normal. 4. The LAD: The proximal LAD is stented with critical in-stent restenosis. The proximal LAD gives rise into a large diagonal branch which appeared to have an ostial lesion in the range of 40% to 50%. The mid LAD appeared to have another lesion in the range of 60% to 70%. and the LAD distally appeared to be angiographically normal. HEMODYNAMICS: The LVEDP appeared to be in the range of 10-12 mmHg without significant gradient across the aortic valve. CONCLUSION: 1. Extremely calcified right and left coronary systems. 2. Critical disease involving the mid right coronary artery and severe disease involving the distal right coronary artery. 3. Normal left main coronary artery. 4. Critical disease involving the proximal and mid left anterior descending artery. 5. Severe disease involving the proximal first obtuse marginal branch of the left circumflex which is a large caliber vessel. POSTPROCEDURE MANAGEMENT: 1. Given the above anatomy, I recommended obtaining an opinion from cardiothoracic surgeon for the evaluation of coronary artery bypass grafting. 2. Obtain an echocardiogram with Doppler to assess the ejection fraction. 3. Restart the patient back on heparin IV once we have right radial hemostasis. 4. Anti-ischemic medications and anti-platelet medications with aspirin. 5. Follow up with the patient. MMODL / IJN: [id number] /
--- NOTE | 2020-11-07 13:24 | LTR ---
DATE OF SERVICE: November 07, [address] Nugent: Mr. Osman Villagran underwent a heart catheterization today. It did show severe triple- vessel coronary artery disease. With this anatomy, I advised obtaining an opinion from surgeon for the evaluation of coronary artery bypass grafting. Thank you for allowing us to participate in the care of this patient. Sincerely, CECILIA / MIRANDAN: [id number] /
[2020-11-08] MEDS ORDERED: LEVOTHYROXINE 88 MCG TAB PO SCH (06:30)
[2020-11-08] MEDS ORDERED: LEVOTHYROXINE 175 MG PO SCH (06:30)
[2020-11-08] MEDS ORDERED: HEPARIN SODIUM,PORCINE 10,000 UNIT in SODIUM CHLORIDE 0.9% 1,000 ML IRRIGATION PRN (07:00)
[2020-11-08] MEDS ORDERED: HEPARIN SODIUM,PORCINE 2,500 UNIT in SODIUM CHLORIDE 0.9% 250 ML IRRIGATION PRN (07:00)
[2020-11-08] MEDS ORDERED: MD COMMUNICATION TO PHARMACY 1 EACH MISC PO ONE (07:53)
[2020-11-08 07:58] LABS: Basophils % (A) 1 %; Eosinophils # (A) 0.1 k/uL (0-0.7); Eosinophils % (A) 2 %; HCT 42.4 % (39.0-53.0); HGB 13.8 gm/dL (13.0-17.5); Lymphocytes # (A) 1.7 k/uL (1.0-4.8); Lymphocytes % (A) 23 %; MCH 31.9 pg (25.0-35.0); MCHC 32.6 g/dL (31.0-37.0); MCV 97.8 fL (80.0-100.0); Mean Platelet Volume 7.6; Monocytes # (A) 0.4 k/uL (0-1.0); Monocytes % (A) 6 %; Neutrophils # (A) 5.1 k/uL (1.3-7.7); Neutrophils % (A) 68 %; Platelet Count 181 k/uL (150-450); RBC 4.33 m/uL (4.30-5.90); RDW 13.2 % (11.5-15.5); WBC 7.5 k/uL (3.8-10.6)
[2020-11-08 08:04] LABS: Cholesterol 179 mg/dL (<200); HDL Cholesterol 54 mg/dL (40-60); LDL Cholesterol,Calculated 107 mg/dL (0-99); Triglycerides 91 mg/dL (<150)
[2020-11-08] MEDS: HEPARIN SODIUM,PORCINE 5,000 UNIT/ML 1 ML VIAL IV PRN ×2 (08:29→16:00)
[2020-11-08] MEDS: ENALAPRIL 5 MG PO SCH (08:31)
[2020-11-08 08:57] LABS: ALT 29 U/L (4-49); AST 30 U/L (17-59); African American GFR (CKD) >90 (>60 ml/min/1.73 sqM); Albumin 3.9 g/dL (3.5-5.0); Alkaline Phosphatase 73 U/L (38-126); Anion Gap 7 mmol/L; Blood Urea Nitrogen 13 mg/dL (9-20); Calcium 8.8 mg/dL (8.4-10.2); Carbon Dioxide 26 mmol/L (22-30); Chloride 106 mmol/L (98-107); Glucose 110 mg/dL (74-99); Magnesium 2.3 mg/dL (1.6-2.3); Non-African American GFR(CKD) >90 (>60 ml/min/1.73 sqM); Potassium 4.3 mmol/L (3.5-5.1); Sodium 139 mmol/L (137-145); Total Bilirubin 0.6 mg/dL (0.2-1.3); Total Protein 6.7 g/dL (6.3-8.2)
[2020-11-08] MEDS ORDERED: ATORVASTATIN 40 MG TAB PO SCH (09:00)
[2020-11-08] MEDS ORDERED: ASPIRIN 325 MG PO SCH (09:00)
[2020-11-08] MEDS ORDERED: CLOPIDOGREL 75 MG PO SCH (09:00)
[2020-11-08] MEDS ORDERED: SIMVASTATIN 80 MG PO SCH (09:00)
[2020-11-08] MEDS ORDERED: ASPIRIN 81 MG PO SCH (09:00)
[2020-11-08] MEDS ORDERED: CLOPIDOGREL 75 MG TAB PO SCH (09:00)
[2020-11-08] MEDS ORDERED: ASPIRIN 325 MG TAB PO SCH (09:00)
[2020-11-08] MEDS ORDERED: lisinopriL 10 MG TAB PO SCH (09:00)
[2020-11-08] MEDS: ASPIRIN 81 MG PO SCH (09:03)
[2020-11-08] MEDS: ATORVASTATIN 80 MG TAB PO SCH (09:03)
[2020-11-08 09:32] LABS: Appearance,Urine Clear (Clear); Bilirubin,Urine Negative (Negative); Blood,Urine Negative (Negative); Color,Urine Light Yellow; Glucose,Urine (UA) Negative (Negative); Ketones,Urine Negative (Negative); Leukocyte Esterase,Urine Negative (Negative); Nitrite,Urine Negative (Negative); Protein,Urine Negative (Negative); Specific Gravity,Urine 1.009 (1.001-1.035); Urobilinogen,Urine <2.0 mg/dL (<2.0)
--- NOTE | 2020-11-08 09:43 | US ---
EXAMINATION TYPE: US carotid duplex BILAT DATE OF EXAM: 11/08/2020 COMPARISON: 05/17/2018 CLINICAL HISTORY: 60-year-old male Pre-Op Cardiac Surgery. Pre-CABG TECHNIQUE: Carotid duplex ultrasound examination. Indirect Doppler criteria was utilized. FINDINGS: EXAM MEASUREMENTS: RIGHT: Peak Systolic Velocity (PSV) cm/sec ----- Right CCA: 100.2 ----- Right ICA: 76.2 ----- Right ECA: 87.5 ICA/CCA ratio: 0.8 RIGHT: End Diastole cm/sec ----- Right CCA: 20.2 ----- Right ICA: 18.1 ----- Right ECA: 18.1 LEFT: Peak Systolic Velocity (PSV) cm/sec ----- Left CCA: 76.2 ----- Left ICA: 72.3 ----- Left ECA: 103.2 ICA/CCA ratio: 0.9 LEFT: End Diastole cm/sec ----- Left CCA: 20.6 ----- Left ICA: 30.9 ----- Left ECA: 16.0 VERTEBRALS (direction of flow): Right Vertebral: Antegrade Left Vertebral: Antegrade Rhythm: Normal Net Sorter notes: Mild atherosclerotic change at the bifurcations. No elevated velocities or signifi cant stenosis. Plaque visualized in bilateral bulbs and in distal bilateral CCA. IMPRESSION: No hemodynamically significant internal carotid artery stenosis on either side. Criteria for Assigning % of Stenosis / Diameter reduction (Estimation based on the indirect measurements of the internal carotid artery velocities (ICA PSV). 1. Normal (no stenosis)=ICA PSV < 125 cm/s: ratio < 2.0: ICA EDV<40 cm/s. 2. Less than 50% stenosis=ICA PSV < 125 cm/s: ratio < 2.0: ICA EDV<40 cm/s. 3. 50 to 69% stenosis=ICA PSV of 125 to 230 cm/s: ration 2.0 ? 4.0: ICA EDV 40-100 cm/s. 4. Greater than 70% stenosis to near occlusion= ICA PSV > 230 cm/s: ratio > 4.0: ICA EDV > 100 cm/s. 5. Near occlusion= ICA PSV velocities may be low or undetectable: variable ratio and ICA EDV. 6. Total occlusion=unable to detect flow.
[2020-11-08 09:59] LABS: T4, Free (Free Thyroxine) 1.44 ng/dL (0.78-2.19)
--- NOTE | 2020-11-08 11:00 | ECHOF ---
Referral Reason:abn trop MEASUREMENTS -------- HEIGHT: 175.3 cm WEIGHT: 90.7 kg BP: RVIDd: 3.5 cm (< 3.3) IVSd: 1.4 cm (0.6 - 1.1) LVIDd: 5.8 cm (3.9 - 5.3) LVPWd: 1.3 cm (0.6 - 1.1) IVSs: 2.0 cm LVIDs: 3.7 cm LVPWs: 2.0 cm LA Diam: 4.3 cm (2.7 - 3.8) LAESV Index (A-L): 31.14 ml/m Ao Diam: 4.3 cm (2.0 - 3.7) AV Cusp: 2.8 cm (1.5 - 2.6) MV EXCURSION: 15.618 mm (> 18.000) MV EF SLOPE: 55 mm/s (70 - 150) EPSS: 0.8 cm MV E Keon: 0.80 m/s MV DecT: 264 ms MV A Ke[place]: 0.85 m/s MV E/A Ratio: 0.95 FINDINGS -------- Sinus rhythm. This was a technically good study. The left ventricular size is normal. There is moderate concentric left ventricular hypertrophy. O verall left ventricular systolic function is mild-moderately impaired with, an EF between 40 - 45 %. Apical anterior LV wall motion is hypokinetic. Apical lateral LV wall motion is hypokinetic. Apical inferior LV wall motion is hypokinetic. Apical septum LV wall motion is hypokinetic. The right ventricle is mildly enlarged. LA is midly dilated 29-33ml/m2. The right atrium is normal in size. Interatrial and interventricular septum intact. There is mild aortic valve sclerosis. The mitral valve leaflets are mildly thickened. Mild mitral annular calcification present. Mild m itral regurgitation is present. The tricuspid valve appears structurally normal. Trace/mild (physiologic) pulmonic regurgitation. The aortic root is dilated measuring 4.3cm. Normal inferior vena cava with normal inspiratory collapse consistent with estimated right atrial pre ssure of 5 mmHg. There is no pericardial effusion. CONCLUSIONS -------- 1. The left ventricular size is normal. 2. There is moderate concentric left ventricular hypertrophy. 3. Overall left ventricular systolic function is mild-moderately impaired with, an EF between 40 - 45 %. 4. Apical anterior LV wall motion is hypokinetic. 5. Apical lateral LV wall motion is hypokinetic. 6. Apical inferior LV wall motion is hypokinetic. 7. Apical septum LV wall motion is hypokinetic. 8. The right ventricle is mildly enlarged. 9. LA is midly dilated 29-33ml/m2. 10. There is mild aortic valve sclerosis. 11. The mitral valve leaflets are mildly thickened. 12. Mild mitral annular calcification present. 13. Mild mitral regurgitation is present. 14. Trace/mild (physiologic) pulmonic regurgitation. 15. The aortic root is dilated measuring 4.3cm. 16. There is no pericardial effusion. TRUCK DRIVER FLATBED: Soumya Mtz RDCS
--- NOTE | 2020-11-08 12:02 | PN ---
PROGRESS NOTE Mr. Villagran is a 60-year-old male who is followed on a regular basis with Dr. Ruiz who presented with symptoms of chest discomfort and evidence of non STEMI. Underwent cardiac catheterization by Dr. Miguel, was found to have severe triple-vessel coronary artery disease with slight calcified coronary arteries. Surgical evaluation was recommended for coronary artery bypass grafting. He is feeling well this morning. He has no further symptoms of chest pain. He denies any dizziness or palpitations. He denies any nausea. He continues to be at this time on aspirin once a day, Lipitor 80 mg daily, IV heparin. At home, he was on enalapril. PHYSICAL EXAMINATION: Blood pressure 120/60 with a heart rate in the 50s. LUNGS: Clear. HEART: Regular rate and rhythm. S1, S2. No S3 with a systolic murmur. No rub. ABDOMEN: Soft, nontender. EXTREMITIES: No edema. LAB DATA: Revealed BUN and creatinine 13 and 0.8, potassium 4.3. His hemoglobin is 13.8. IMPRESSION: 1. Non ST-segment elevation myocardial infarction with severe triple-vessel coronary artery disease. 2. History of hyperlipidemia. 3. History of hypertension. RECOMMENDATIONS: We will review the results of his echocardiogram. Will await the input of the cardiovascular service to undergo coronary artery bypass grafting. I have discussed those findings with the patient and depending on his progress, further recommendation will be made. MMODL / IJN: [id number] /
--- NOTE | 2020-11-08 12:22 | P.GSCN ---
<Marie Garcia - Last Filed: 11/08/20 12:07> History of Present Illness Consult date: 11/08/20 Reason for Consult: Triple-vessel coronary artery disease Requesting physician: Titus Miguel History of present illness: This is a 60-year-old active gentleman who follows on an outpatient basis with Dr. Nugent for primary care and Dr. Ruiz for cardiology. He has a previous medical history of coronary artery disease with myocardial infarction and multiple stent placement, hypertension, hyperlipidemia, hypothyroid, current tobacco dependence, and current daily EtOH use. He presented to [facility] emergency room with complaints of shoulder discomfort similar to when he's had had stents placed in the past. He denied any active chest pain, shortness of breath, nausea, vomiting, dizziness, or any other aggravating or alleviating symptoms. Troponins were mildly elevated, EKG demonstrated sinus rhythm with PVCs and nonspecific ST changes. Patient was ruled in for non-STEMI and admitted for evaluation and treatment with consultation placed to cardiology. He was recommended to undergo heart catheterization which was completed yes terday and which demonstrated proximal LAD with in-stent restenosis, mid LAD 60- 70%, first diagonal 40-50%, first obtuse marginal branch of the circumflex with 70% stenosis, patent stents in the second obtuse marginal artery, mid RCA stenosis of 99% with distal RCA stenosis 70-80%. Due to these findings consultation was placed to Dr. Hernandez from cardiothoracic surgery for surgical revascularization recommendations. Review of Systems Review of systems was completed and was negative except as noted - Cardiovascular Cardiovascular Comment(s): Denies chest pain although complains of shoulder discomfort similar to when he's had stents placed in the past Reports as per HPI Past Medical History Past Medical History: Coronary Artery Disease (CAD), GERD/Reflux, Hyperlipidemia, Hypertension, Myocardial Infarction ([place]), Osteoarthritis (OA), Prostate Disorder, Thyroid Disorder Last Myocardial Infarction Date:: 2000 History of Any Multi-Drug Resistant Organisms: None Reported Past Surgical History: Heart Catheterization With Stent Additional Past Surgical History / Comment(s): Ruptured bicep Past Anesthesia/Blood Transfusion Reactions: No Reported Reaction Date of Last Stent Placement:: 09/28/14 Past Psychological History: No Psychological Hx Reported Smoking Status: Current every day smoker Past Alcohol Use History: Daily Additional Past Alcohol Use History / Comment(s): Reports daily whiskey and beer, denies any history of withdrawal; admits to half pack per day smoking history 40 years Past Drug Use History: None Reported - Past Family History Mother History Unknown: Yes Family Medical History: No Reported History (Mother is 84-year-old no major medical problems.) Brother(s) Family Medical History: Diabetes Mellitus (Patient has 5 brothers one of them with diabetes mellitus type 2) Daughter(s) Family Medical History: No Reported History (Patient has 2 daughters no major medical problems.) Father Family Medical History: Cancer, COPD (Father at age of 86 from COPD, ammonia, he had prostate surgery as well.), Dementia Additional Family Medical History / Comment(s): Had prostate surg Medications and Allergies Home Medications Medication Instructions Recorded Confirmed Type Clopidogrel Bisulfate [Clopidogrel] 75 mg PO DAILY 09/26/15 11/07/20 History Enalapril [Vasotec] 5 mg PO DAILY 09/26/15 11/07/20 History Levothyroxine Sodium [Synthroid] 175 mcg PO DAILY 09/26/15 11/07/20 History Aspirin [Novinger Aspirin EC] 81 mg PO DAILY 11/07/20 11/07/20 History Simvastatin 80 mg PO DAILY 11/07/20 11/07/20 History Allergies Allergy/AdvReac Type Severity Reaction Status Date / Time No Known Allergies Allergy Verified 11/07/20 07:59 Surgical - Exam Vital Signs Temp Pulse Resp BP Pulse Ox 97.9 F 59 L 18 156/92 97 11/07/20 05:58 11/07/20 05:58 11/07/20 05:58 11/07/20 05:58 11/07/20 05:58 - General well developed, well nourished, no distress, no pain - Eyes PERRL, normal ocular movement - ENT no hearing loss - Neck no masses, no bruits, trachea midline - Respiratory Lungs sounds clear bilaterally. Respirations even, nonlabored. Currently on room air with oxygen saturation 95%. No chest wall deformities. No clubbing or cyanosis present. - Cardiovascular S1, S2 present. Regular rate and rhythm, sinus rhythm to sinus bradycardia on telemetry with heart rate in the high 50s to low 60s. Palpable peripheral pulses bilaterally. No edema present. No calf pain or tenderness noted. - Abdomen Abdomen: soft, non tender, bowel sounds - Genitourinary Deferred - Rectum Deferred - Integumentary no rash, no growths - Neurologic normal coordination, normal sensation - Musculoskeletal normal gait, normal posture - Psychiatric oriented to time, oriented to person, oriented to place, speech is normal, memory intact Results - Labs 11/08/20 07:18 11/08/20 07:18 Abnormal Lab Results - Last 24 Hours (Table) 11/07/20 11/08/20 11/08/20 Range/Units 14:09 07:18 07:18 Glucose 110 H (74-99) mg/dL Troponin I 0.082 H* (0.000-0.034) ng/mL LDL Cholesterol, Calc 107 H (0-99) mg/dL TSH <0.015 L (0.465-4.680) mIU/L Diabetes panel 11/08/20 11/08/20 Range/Units 07:18 07:18 Sodium 139 (137-145) mmol/L Potassium 4.3 (3.5-5.1) mmol/L Chloride 106 (98-107) mmol/L Carbon Dioxide 26 (22-30) mmol/L BUN 13 (9-20) mg/dL Creatinine 0.89 (0.66-1.25) mg/dL Glucose 110 H (74-99) mg/dL Calcium 8.8 (8.4-10.2) mg/dL AST 30 (17-59) U/L ALT 29 (4-49) U/L Alkaline Phosphatase 73 (38-126) U/L Total Protein 6.7 (6.3-8.2) g/dL Albumin 3.9 (3.5-5.0) g/dL Triglycerides 91 (<150) mg/dL HDL Cholesterol 54 (40-60) mg/dL Thyroid panel 11/08/20 Range/Units 07:18 TSH <0.015 L (0.465-4.680) mIU/L Calcium panel 11/08/20 Range/Units 07:18 Calcium 8.8 (8.4-10.2) mg/dL Albumin 3.9 (3.5-5.0) g/dL Pituitary panel 11/08/20 Range/Units 07:18 Sodium 139 (137-145) mmol/L Potassium 4.3 (3.5-5.1) mmol/L Chloride 106 (98-107) mmol/L Carbon Dioxide 26 (22-30) mmol/L BUN 13 (9-20) mg/dL Creatinine 0.89 (0.66-1.25) mg/dL Glucose 110 H (74-99) mg/dL Calcium 8.8 (8.4-10.2) mg/dL TSH <0.015 L (0.465-4.680) mIU/L Adrenal panel 11/08/20 Range/Units 07:18 Sodium 139 (137-145) mmol/L Potassium 4.3 (3.5-5.1) mmol/L Chloride 106 (98-107) mmol/L Carbon Dioxide 26 (22-30) mmol/L BUN 13 (9-20) mg/dL Creatinine 0.89 (0.66-1.25) mg/dL Glucose 110 H (74-99) mg/dL Calcium 8.8 (8.4-10.2) mg/dL Total Bilirubin 0.6 (0.2-1.3) mg/dL AST 30 (17-59) U/L ALT 29 (4-49) U/L Alkaline Phosphatase 73 (38-126) U/L Total Protein 6.7 (6.3-8.2) g/dL Albumin 3.9 (3.5-5.0) g/dL - Imaging Chest x-ray: report reviewed, image reviewed EKG: image reviewed Additional studies: Her catheterization films reviewed Assessment and Plan Assessment: 1. Triple-vessel coronary artery disease, non-STEMI this admission 2. History of coronary artery disease with myocardial infarction and multiple stent placement 3. History of hypertension, treated 4. History of hyperlipidemia, treated, cholesterol 179, LDL 107 5. Hypothyroid 6. Current chronic tobacco dependence 7. Current daily EtOH use Plan: The patient was seen and examined at the bedside. Chart/diagnostics were reviewed. Heart catheterization films reviewed with Dr. Hernandez. The usual perioperative course of coronary artery bypass surgery was discussed in detail with the patient, his , and his sister, all risks and benefits were reviewed, all questions answered to the best of my ability. Preoperative testing was initiated. 5 m walk test to be completed. Once all testing has been completed STS risk score will be calculated and discussed with the patient. At this time we recommend continuing aspirin, statin therapy as well as initiation of beta jono therapy. Patient will need to be off Plavix for 5-7 days prior to surgery, last Plavix taken was 11/06/2020. The patient currently denies any chest pain or shortness of breath, currently denies shoulder discomfort. Risk factor and lifestyle management, he was counseled regarding the need to quit smoking. Continue medical management per primary care, cardiology. More recommendations to follow. Thank you Dr. Miguel for this consult. Time with Patient: Greater than 30 <Dennis Hernandez - Last Filed: 11/08/20 14:32> Surgical - Exam Vital Signs Temp Pulse Resp BP Pulse Ox 97.9 F 59 L 18 156/92 97 11/07/20 05:58 11/07/20 05:58 11/07/20 05:58 11/07/20 05:58 11/07/20 05:58 Results - Labs 11/08/20 07:18 11/08/20 07:18 Abnormal Lab Results - Last 24 Hours (Table) 11/07/20 11/08/20 11/08/20 Range/Units 14:09 07:18 07:18 Glucose 110 H (74-99) mg/dL Troponin I 0.082 H* (0.000-0.034) ng/mL LDL Cholesterol, Calc 107 H (0-99) mg/dL TSH <0.015 L (0.465-4.680) mIU/L Diabetes panel 11/08/20 11/08/20 11/08/20 Range/Units 07:18 07:18 07:18 Sodium 139 (137-145) mmol/L Potassium 4.3 (3.5-5.1) mmol/L Chloride 106 (98-107) mmol/L Carbon Dioxide 26 (22-30) mmol/L BUN 13 (9-20) mg/dL Creatinine 0.89 (0.66-1.25) mg/dL Glucose 110 H (74-99) mg/dL Hemoglobin A1c 5.7 (4.0-6.0) % Calcium 8.8 (8.4-10.2) mg/dL AST 30 (17-59) U/L ALT 29 (4-49) U/L Alkaline Phosphatase 73 (38-126) U/L Total Protein 6.7 (6.3-8.2) g/dL Albumin 3.9 (3.5-5.0) g/dL Triglycerides 91 (<150) mg/dL HDL Cholesterol 54 (40-60) mg/dL Thyroid panel 11/08/20 Range/Units 07:18 TSH <0.015 L (0.465-4.680) mIU/L Calcium panel 11/08/20 Range/Units 07:18 Calcium 8.8 (8.4-10.2) mg/dL Albumin 3.9 (3.5-5.0) g/dL Pituitary panel 11/08/20 Range/Units 07:18 Sodium 139 (137-145) mmol/L Potassium 4.3 (3.5-5.1) mmol/L Chloride 106 (98-107) mmol/L Carbon Dioxide 26 (22-30) mmol/L BUN 13 (9-20) mg/dL Creatinine 0.89 (0.66-1.25) mg/dL Glucose 110 H (74-99) mg/dL Calcium 8.8 (8.4-10.2) mg/dL TSH <0.015 L (0.465-4.680) mIU/L Adrenal panel 11/08/20 Range/Units 07:18 Sodium 139 (137-145) mmol/L Potassium 4.3 (3.5-5.1) mmol/L Chloride 106 (98-107) mmol/L Carbon Dioxide 26 (22-30) mmol/L BUN 13 (9-20) mg/dL Creatinine 0.89 (0.66-1.25) mg/dL Glucose 110 H (74-99) mg/dL Calcium 8.8 (8.4-10.2) mg/dL Total Bilirubin 0.6 (0.2-1.3) mg/dL AST 30 (17-59) U/L ALT 29 (4-49) U/L Alkaline Phosphatase 73 (38-126) U/L Total Protein 6.7 (6.3-8.2) g/dL Albumin 3.9 (3.5-5.0) g/dL Assessment and Plan Assessment: Patient refused to be seen or examined by me. Plan: Pateint will be seen by tomorrow.
[2020-11-08 14:26] LABS: Hemoglobin A1C 5.7 % (4.0-6.0)
[2020-11-08] MEDS: HEPARIN SOD,PORK IN 0.45% NACL 25,000 UNIT in 0.45% NACL 1 250ML.BAG IV SCH (15:58)
[2020-11-08 18:12] LABS: Hepatitis A Antibody IgM Non-Reactive (Non-Reactive); Hepatitis B Surface Antigen Non-Reactive (Non-Reactive); Hepatitis C IgG Antibody Non-Reactive (Non-Reactive)
--- NOTE | 2020-11-08 19:27 | P.PN ---
Subjective Progress Note Date: 11/08/20 This is a 60-year-old gentleman one of my patient with known history of hypertension and hypertensive cardio vascular disease,, hyperlipidemia, nicotine dependence, coronary artery disease with multivessel intervention. In 2000 and 2006 patient underwent stenting of the LAD and circumflex. On September 28 in 2015 patient underwent a cardiac catheterization which revealed a patent right coronary artery and LAD stent, circumflex with that was also stented in the proximal section was patent. The LAD had approximately 30% lesion at the end of the stented segment and the right coronary artery and a 40-50% mid lesion. There was moderate calcification in both of these vessels, the circumflex which was stented was patent but the mid circumflex had a long area of 80% stenosis for which the patient underwent angioplasty with stent placement by Dr. Geoff Espinoza. Following that patient did return to the hospital with symptoms, cardiac catheterization was unchanged. Patient overall has been doing well, today he woke up at around 5:30 in the morning went to the bathroom and suddenly developed to have bilateral shoulder pain with shoulder numbness and he was breaking out into cold sweats, he felt a bit nauseated, he ended up coming to the emergency care for evaluation, his troponin was slightly elevated, his EKG showed nonspecific ST-T wave changes, patient was ruled in for non-ST elevat ion myocardial infarction and had a long conversation with the patient and his at the bedside we are going to go for a left heart catheterization with Dr. Miguel today. 11/08: Patient underwent left heart catheterization yesterday that did show 3 vessel disease patient will be seen by cardiothoracic surgery, the plan is to have a coronary artery bypass graft scheduled hopefully later on this week or next week, patient denies any chest pain, he has no shortness breath at this time has no abdominal pain, nausea vomiting or diarrhea he is maintained on aspirin 81 mg once every day, Lipitor 80 mg orally once every day, he is not on beta blockers because of bradycardia. Objective - Vital Signs Vital signs: Vital Signs Temp 98.2 F 11/08/20 12:00 Pulse 50 L 11/08/20 12:00 Resp 18 11/08/20 12:00 BP 138/86 11/08/20 12:00 Pulse Ox 95 11/08/20 12:00 Intake & Output 11/07/20 11/08/20 11/08/20 18:59 06:59 18:59 Intake Total 50 928.589 154.056 Output Total 400 1000 600 Balance -350 -71.411 -445.944 Weight 91.59 kg 91 kg Intake: IV 50 80 10 Heparin Sod,Pork in 0.45% 80 NaCl 25,000 unit In 0.45 % NaCl 1 250ml.bag @ 11. 03 UNITS/KG/HR 10.006 mls /hr IV .Q24H [facility] Rx#: [id number] Invasive Line 2 10 Intake, IV Titration 448.589 94.056 Amount Heparin Sod,Pork in 0.45% 148.589 94.056 NaCl 25,000 unit In 0.45 % NaCl 1 250ml.bag @ 11. 03 UNITS/KG/HR 10.006 mls /hr IV .Q24H [facility] Rx#: [id number] Sodium Chloride 0.9% 1, 300 000 ml @ 75 mls/hr IV . [id number] [facility] Rx#:[id number] Oral 400 50 Output: Urine 400 1000 600 Other: Voiding Method Urinal Urinal - Exam Review of Systems Constitutional: Reports chronic pain, Reports fatigue, Reports weakness, Denies anorexia, Denies chronic headaches Eyes: denies blurred vision, denies bulging eye, denies decreased vision Ears: deny: decreased hearing Ears, nose, mouth and throat: Denies dysphagia, Denies neck lump, Denies sore throat Cardiovascular: Reports chest pain, Reports decreased exercise tolerance, Reports dyspnea on exertion, Denies lightheadedness, Denies rapid heart beat, Denies shortness of breath, Denies syncope Respiratory: Denies congestion, Denies cough, Denies cough with sputum, Denies pain, Denies sleep apnea, Denies snoring, Denies wheezing Gastrointestinal: Reports nausea, Denies abdominal pain, Denies change in bowel habits, Denies heartburn, Denies melena, Denies vomiting Genitourinary: Reports nocturia, Denies dysuria Musculoskeletal: Denies myalgias Musculoskeletal: bilateral: shoulder pain, shoulder stiffness, absent: ankle pain, ankle stiffness, ankle swelling, elbow pain, elbow stiffness, elbow swelling, foot pain, foot stiffness, foot swelling, hand pain, hand stiffness, hand swelling, hip pain, hip stiffness, hip swelling, knee pain, knee stiffness, knee swelling, shoulder swelling, wrist pain, wrist stiffness, wrist swelling Integumentary: Denies pruritus, Denies rash Neurological: Denies numbness, Denies weakness Psychiatric: Reports anxiety, Denies depression, Denies sadness/tearfulness, Denies sleep disturbances, Denies suicidal ideation Endocrine: Denies fatigue, Denies weight change Physical examination: HEENT: Head is atraumatic, normocephalic, pupils were equal round reactive to light recommendation, extraocular muscle movement were intact, sclera nonicteric, conjunctivae were slightly pale, mucous membranes of mouth are somewhat dry. Neck: Supple, no JVD, no carotid bruits of adenopathy. Chest: Decreased breath sounds at the bases, few rhonchi, no expiratory wheezes, no chest wall tenderness, no intercostal retractions. Heart: First heart sound is depressed, second heart sound is normal, there is no gallop or murmur. Abdomen: Soft, nontender, nondistended, positive bowel sounds. Extremities: There is no edema, no calf tenderness, dorsalis is +2 bilaterally. Neurologic examination: Patient is awake alert and oriented in 3, cranial nerves 3-12 appear grossly intact, muscle power 5 out of 5 in upper and lower extremities bilaterally. - Labs CBC & Chem 7: 11/08/20 07:18 11/08/20 07:18 Labs: Abnormal Lab Results - Last 24 Hours (Table) 11/07/20 11/08/20 11/08/20 Range/Units 14:09 07:18 07:18 Glucose 110 H (74-99) mg/dL Troponin I 0.082 H* (0.000-0.034) ng/mL LDL Cholesterol, Calc 107 H (0-99) mg/dL TSH <0.015 L (0.465-4.680) mIU/L Assessment and Plan Assessment: Assessment and plan: 1. Non-ST elevation [place]. Post left heart catheterization that showed triple- vessel disease. Continue aspirin 81 mg orally once every day, Lipitor 80 mg once every day, no beta jono due to bradycardia, cardiothoracic surgery evaluation for coronary artery bypass graft . 2. History of CAD post multiple PCI. Continue treatment as in paragraph #1. 3. Hypertension and hypertensive cardiovascular disease. Continue patient on enalapril 5 mg orally once every day. 4. Hyperlipidemia. Continue patient on low-cholesterol diet, total lifestyle changes and risk factor modification, continue with Lipitor 80 mg orally once every day per 5. Hypothyroidism. Continue patient on Synthroid 175 g orally once every day. 6. Enlarged prostate. We will continue with Flomax 0.4 g orally once every day. 7. Chronic tobacco use and dependence. Patient was counseled about smoking cessation and increased risk of CAD, CVA, and malignancies. 8. DVT prophylaxis. Currently on heparin drip. 9. GI prophylaxis. Continue with PPI. 10. Await cardiothoracic surgery input.
[2020-11-09] MEDS: HEPARIN SOD,PORK IN 0.45% NACL 25,000 UNIT in 0.45% NACL 1 250ML.BAG IV SCH ×2 (04:50→20:12)
[2020-11-09 08:08] LABS: Basophils % (A) 1 %; Eosinophils # (A) 0.2 k/uL (0-0.7); Eosinophils % (A) 3 %; HCT 43.2 % (39.0-53.0); Lymphocytes % (A) 35 %; MCH 32.2 pg (25.0-35.0); MCHC 32.5 g/dL (31.0-37.0); MCV 99.1 fL (80.0-100.0); Mean Platelet Volume 7.6; Monocytes # (A) 0.3 k/uL (0-1.0); Monocytes % (A) 6 %; Neutrophils # (A) 3.2 k/uL (1.3-7.7); Neutrophils % (A) 55 %; Platelet Count 175 k/uL (150-450); RBC 4.36 m/uL (4.30-5.90); RDW 12.8 % (11.5-15.5); WBC 5.8 k/uL (3.8-10.6)
[2020-11-09] MEDS: NON FORMULARY DRUG PO SCH (08:48)
[2020-11-09] MEDS: ENALAPRIL 5 MG PO SCH (08:49)
[2020-11-09] MEDS: ASPIRIN 81 MG PO SCH (08:54)
[2020-11-09] MEDS: ATORVASTATIN 80 MG TAB PO SCH (08:57)
[2020-11-09 09:12] LABS: ALT 27 U/L (4-49); AST 31 U/L (17-59); African American GFR (CKD) >90 (>60 ml/min/1.73 sqM); Alkaline Phosphatase 69 U/L (38-126); Anion Gap 6 mmol/L; Blood Urea Nitrogen 17 mg/dL (9-20); Calcium 8.9 mg/dL (8.4-10.2); Carbon Dioxide 25 mmol/L (22-30); Chloride 108 mmol/L (98-107); Glucose 114 mg/dL (74-99); Non-African American GFR(CKD) >90 (>60 ml/min/1.73 sqM); Potassium 4.6 mmol/L (3.5-5.1); Sodium 139 mmol/L (137-145); Total Bilirubin 0.5 mg/dL (0.2-1.3); Total Protein 6.7 g/dL (6.3-8.2)
--- NOTE | 2020-11-09 09:21 | P.PN ---
Subjective Progress Note Date: 11/09/20 Principal diagnosis: Triple-vessel coronary artery disease, non-STEMI this admission. Previous medical history of coronary artery disease with myocardial infarction and multiple stent placement, hypertension, hyperlipidemia, hypothyroid, current chronic tobacco dependence, current daily EtOH use The patient's currently sitting up in a recliner on the cardiac stepdown unit in no acute distress. Denies any chest pain or shortness of breath, or any shoulder discomfort. Has been ambulatory the room without difficulty. Remains on IV heparin per cardiology. Preoperative testing has been completed. Patient to see Dr. Alicea today. Objective - Vital Signs Vital signs: Vital Signs Temp 98.6 F 11/09/20 04:00 Pulse 54 L 11/09/20 04:00 Resp 16 11/09/20 04:00 BP 120/64 11/09/20 04:00 Pulse Ox 97 11/09/20 08:22 Intake & Output 11/08/20 11/09/20 11/09/20 18:59 06:59 18:59 Intake Total 1039.970 727.107 Output Total 1700 900 Balance -660.030 -172.893 Weight 90.8 kg Intake: IV 20 Invasive Line 2 10 Invasive Line 3 10 Intake, IV Titration 189.970 187.107 Amount Heparin Sod,Pork in 0.45% 189.970 187.107 NaCl 25,000 unit In 0.45 % NaCl 1 250ml.bag @ 11. 03 UNITS/KG/HR 10.006 mls /hr IV .Q24H [facility] Rx#: [id number] Oral 830 540 Output: Urine 1700 900 Other: Voiding Method Urinal - Constitutional General appearance: Present: cooperative, no acute distress - Respiratory Details: Lungs sounds clear bilaterally. Respirations even, nonlabored. Currently on room air with oxygen saturation 97%. Able to achieve 3000 mL on his incentive spirometry. No clubbing or cyanosis present. - Cardiovascular Details: S1, S2 present. Regular rate and rhythm, sinus bradycardia on telemetry with heart rate in the 50s. Palpable peripheral pulses bilaterally. No edema present. No calf pain or tenderness noted. - Gastrointestinal Gastrointestinal Comment(s): Abdomen soft, nontender, nondistended. Active bowel sounds present 4 quadrants. Tolerating diet. - Genitourinary Genitourinary Comment(s): Continues to void - Integumentary Integumentary Comment(s): Skin is warm and dry with evidence of good perfusion - Neurologic Neurologic: Present: CNII-XII intact - Musculoskeletal Musculoskeletal: Present: gait normal, strength equal bilaterally - Psychiatric Psychiatric: Present: A&O x's 3, appropriate affect, intact judgment & insight - Allied health notes Allied health notes reviewed: nursing - Labs CBC & Chem 7: 11/09/20 07:37 11/09/20 07:37 Labs: Abnormal Lab Results - Last 24 Hours (Table) 11/08/20 11/08/20 11/08/20 Range/Units 07:18 15:22 21:53 APTT 40.7 H 53.7 H (22.0-30.0) sec Glucose 110 H (74-99) mg/dL TSH <0.015 L (0.465-4.680) mIU/L 11/09/20 Range/Units 07:37 APTT 52.3 H (22.0-30.0) sec Glucose (74-99) mg/dL TSH (0.465-4.680) mIU/L Microbiology - Last 24 Hours (Table) 11/08/20 09:27 Nasal Screen MRSA/MSSA - Preliminary Nasopharyngeal Swab Assessment and Plan Assessment: 1. Triple-vessel coronary artery disease, non-STEMI this admission 2. History of coronary artery disease with myocardial infarction and multiple stent placement 3. History of hypertension, treated 4. History of hyperlipidemia, treated, cholesterol 179, LDL 107 5. Hypothyroid 6. Current chronic tobacco dependence, current FEV1 109% of predicted 7. Current daily EtOH use Plan: 1. Continue aspirin, statin, IV heparin. Would prefer initiation of beta jono per ACC guidelines, however patient has been bradycardic in the 50s. Once timing of surgery has been determined to will discontinue Juan Jose 48 hours preoperatively to prevent intra-and postoperative hypotension. Continue to hold Plavix, last dose 11/06/20 2. Encourage incentive spirometry use 10 times every hour while awake 3. STS risk score calculated and discussed with the patient 4. Risk factor modification discussed, continue to encourage smoking cessation 5. Continue preoperative teaching 6. Increase activity, ambulate as tolerated 7. Dr. Alicea to meet with patient today to discuss pending surgery 8. Will consult pulmonology for preoperative management 9. Monitor for signs of alcohol withdrawal 10. More recommendations to follow Time with Patient: Greater than 30
--- NOTE | 2020-11-09 13:51 | P.PN ---
Subjective This is a pleasant 60- male who presented to the hospital with non-ST elevated myocardial infarction and underwent cardiac catheterization with Dr. Miguel. He was found to have severe triple vessel disease with ossified arteries. He has been seen in evaluation by CT surgery. He is currently pending their final recommendations. He is seen and examined sitting up in a recliner with family at bedside. He continues to be maintained on heparin infusion. He denies any symptoms of chest discomfort, shortness of breath, dizziness or palp itations. Blood pressure 133/76 heart rate 55 afebrile maintaining oxygen saturation on room air. Laboratory data reviewed, CBC unremarkable, sodium 139, potassium 4.6, creatinine 0.84. Echocardiogram obtained on this admission reveals impaired LV systolic function with ejection fraction 40-45%, apical anterior, apical lateral, apical inferior and apical septal LV wall motion hypokinesia, mild mitral regurgitation noted. GENERAL: Well-appearing, well-nourished and in no acute distress. NECK: Supple without JVD or thyromegaly. LUNGS: Breath sounds clear to auscultation bilaterally. Respiration equal and unlabored. No wheezes, rales or rhonchi. HEART: Regular rate and rhythm with systolic ejection murmur at the base, no rubs or gallops. S1 and S2 heard. EXTREMITIES: Normal range of motion, no edema. No clubbing or cyanosis. Peripheral pulses intact. ASSESSMENT Non-ST elevated myocardial infarction Severe triple-vessel coronary artery disease Dyslipidemia Ischemic cardiomyopathy Hypertension PLAN Continue current medical regimen. MENDOZA inhibitor has been placed on hold by CT surgery. Await final input and recommendations from CT surgery. Nurse Practitioner note has been reviewed, I agree with a documented findings and plan of care. Patient was seen and examined. Objective - Vital Signs Vital signs: Vital Signs Temp 97.3 F L 11/09/20 12:00 Pulse 55 L 11/09/20 12:00 Resp 16 11/09/20 12:00 BP 133/76 11/09/20 12:00 Pulse Ox 95 11/09/20 12:00 Intake & Output 11/08/20 11/09/20 11/09/20 18:59 06:59 18:59 Intake Total 1039.970 636.871 3033 Output Total 1700 900 Balance -660.030 -285.760 9901 Weight 90.8 kg Intake: IV 20 Invasive Line 2 10 Invasive Line 3 10 Intake, IV Titration 189.970 187.107 Amount Heparin Sod,Pork in 0.45% 189.970 187.107 NaCl 25,000 unit In 0.45 % NaCl 1 250ml.bag @ 11. 03 UNITS/KG/HR 10.006 mls /hr IV .Q24H [facility] Rx#: [id number] Oral 997 379 0196 Output: Urine 1700 900 Other: Voiding Method Urinal - Labs CBC & Chem 7: 11/09/20 07:37 11/09/20 07:37 Labs: Abnormal Lab Results - Last 24 Hours (Table) 11/08/20 11/08/20 11/09/20 Range/Units 15:22 21:53 07:37 APTT 40.7 H 53.7 H (22.0-30.0) sec Chloride 108 H (98-107) mmol/L Glucose 114 H (74-99) mg/dL 11/09/20 Range/Units 07:37 APTT 52.3 H (22.0-30.0) sec Chloride (98-107) mmol/L Glucose (74-99) mg/dL Microbiology - Last 24 Hours (Table) 11/08/20 09:27 Nasal Screen MRSA/MSSA - Preliminary Nasopharyngeal Swab
--- NOTE | 2020-11-09 14:21 | P.CNPUL ---
History of Present Illness Consult date: 11/09/20 Requesting physician: Gloria Nugent Chief complaint: Preop clearance History of present illness: This is a 60-year-old male presented to the emergency department on November 07, at 553. The patient apparently complained of feeling weird and dizzy. He was lightheaded, and just felt like his balance was off especially with quick head movements. He denied any nausea, vomiting, or changes in his speech as well as any complaints of weakness in the upper or lower extremities. He denied any chest pain or pressure, jaw pain, back pain, etc. He does have a previous history of cardiac catheterization with stent placement, and previous myocardial infarction at age 40. The patient was more recently evaluated by cardiac catheterization, and was found to have an extremely calcified right and left coronary system, with critical disease involving the mid right coronary artery and severe disease involving the distal right coronary artery. The patient had a normal left main coronary artery, and critical disease involving the proximal and mid left anterior descending artery, as well as severe disease involving the proximal first obtuse marginal branch of the left circumflex, which was a large caliber vessel. Bypass grafting was recommended. He apparently is going to have bypass surgery towards the end of this week. We were asked to see him for preop clearance. The patient is a heavy smoker having been smoking for about 35-40 years or so. The patient denies a prior history of lung disease and actually did very well on his preoperative spirometry. It was reported to me that his FEV1 was 109% of predicted. I've yet to see his PFTs. He denies any shortness of breath, coughing, wheezing, or phlegm production. His past medical history includes coronary artery disease, gastroesophageal reflux disease, hyperlipidemia, hypertension, myocardial infarction, and hypothyroidism. Review of Systems REVIEW OF SYSTEMS: CONSTITUTIONAL: Feeling off, or weird. NEUROLOGIC: Lightheadedness and dizziness. HEENT: [ Negative.] CARDIAC: Denies chest pain or chest discomfort. PULMONARY: [Negative.] GI: [Negative.] : [Negative.] RHEUMATOLOGIC: [ Negative.] IMMUNOLOGIC: [ Negative.] ENDOCRINE: [Negative. ] DERMATOLOGIC: [Negative.] Past Medical History Past Medical History: Coronary Artery Disease (CAD), GERD/Reflux, Hyperlipidemia , Hypertension, Myocardial Infarction (AL), Osteoarthritis (OA), Prostate Disorder, Thyroid Disorder Last Myocardial Infarction Date:: 2000 History of Any Multi-Drug Resistant Organisms: None Reported Past Surgical History: Heart Catheterization With Stent Additional Past Surgical History / Comment(s): Ruptured bicep Past Anesthesia/Blood Transfusion Reactions: No Reported Reaction Date of Last Stent Placement:: 09/28/14 Past Psychological History: No Psychological Hx Reported Smoking Status: Current every day smoker Past Alcohol Use History: Daily Additional Past Alcohol Use History / Comment(s): Reports daily whiskey and beer, denies any history of withdrawal; admits to half pack per day smoking history 40 years Past Drug Use History: None Reported - Past Family History Mother History Unknown: Yes Family Medical History: No Reported History (Mother is 84-year-old no major medical problems.) Brother(s) Family Medical History: Diabetes Mellitus (Patient has 5 brothers one of them with diabetes mellitus type 2) Daughter(s) Family Medical History: No Reported History (Patient has 2 daughters no major medical problems.) Father Family Medical History: Cancer, COPD (Father at age of 86 from COPD, ammonia, he had prostate surgery as well.), Dementia Additional Family Medical History / Comment(s): Had prostate surg Medications and Allergies Home Medications Medication Instructions Recorded Confirmed Type Clopidogrel Bisulfate [Clopidogrel] 75 mg PO DAILY 09/26/15 11/07/20 History Enalapril [Vasotec] 5 mg PO DAILY 09/26/15 11/07/20 History Levothyroxine Sodium [Synthroid] 175 mcg PO DAILY 09/26/15 11/07/20 History Aspirin [Brule Aspirin EC] 81 mg PO DAILY 11/07/20 11/07/20 History Simvastatin 80 mg PO DAILY 11/07/20 11/07/20 History Allergies Allergy/AdvReac Type Severity Reaction Status Date / Time No Known Allergies Allergy Verified 11/07/20 07:59 Physical Exam Osteopathic Statement: *. No significant issues noted on an osteopathic structural exam other than those noted in the History and Physical/Consult. Vitals: Vital Signs Temp Pulse Resp BP Pulse Ox 11/09/20 12:00 97.3 F L 55 L 16 133/76 95 11/09/20 08:47 98.6 F 51 L 16 150/91 94 L 11/09/20 08:22 97 11/09/20 04:00 98.6 F 54 L 16 120/64 97 02/23/21 01:17 54 L 16 11/09/20 00:00 98.2 F 54 L 16 124/72 94 L 11/08/20 20:00 98.7 F 62 18 152/81 96 11/08/20 16:00 98.6 F 56 L 18 134/85 95 Intake and Output 11/08/20 11/09/20 11/09/20 22:59 06:59 14:59 Intake Total 995.914 289.903 6129 Output Total 200 700 Balance 795.914 -422.755 6322 Intake: Intake, IV Titration 95.914 187.107 Amount Heparin Sod,Pork in 0.45% 95.914 187.107 NaCl 25,000 unit In 0.45 % NaCl 1 250ml.bag @ 11. 03 UNITS/KG/HR 10.006 mls /hr IV .Q24H [facility] Rx#: [id number] Oral 699 155 9379 Output: Urine 200 700 Other: Voiding Method Urinal Urinal Weight 90.8 kg No acute distress, oriented 3. HEENT examination is grossly unremarkable. Mucous membranes are moist. No oral lesions. Neck supple. Full range of motion. No adenopathy thyromegaly or neck vein distention. Cardiovascular examination reveals regular rhythm rate. S1-S2 normal. No S3 or S4. No discernible murmur noted. Heart rate is 55 bpm. Lungs reveal clear breath sounds. Her sounds are equal bilaterally. No adventitious lung sounds including wheezes rhonchi or crackles. Abdomen soft bowel sounds are heard. No masses or tenderness. Extremities are intact. No cyanosis clubbing or edema. Skin is without rash or lesion. Neurologic examination is brief but nonfocal. Results - Laboratory Findings CBC and BMP: 11/09/20 07:37 11/09/20 07:37 PT/INR, D-dimer PT 9.4 sec (9.0-12.0) 11/07/20 06:13 INR 0.9 (<1.2) 11/07/20 06:13 Abnormal lab findings: Abnormal Labs 11/07/20 11/07/20 11/07/20 06:13 06:13 06:13 RBC 4.23 L APTT Chloride Glucose 107 H Troponin I 0.106 H* LDL Cholesterol, Calc TSH 11/07/20 11/07/20 11/08/20 08:54 14:09 07:18 RBC APTT Chloride Glucose Troponin I 0.088 H* 0.082 H* LDL Cholesterol, Calc 107 H TSH 11/08/20 11/08/20 11/08/20 07:18 15:22 21:53 RBC APTT 40.7 H 53.7 H Chloride Glucose 110 H Troponin I LDL Cholesterol, Calc TSH <0.015 L 11/09/20 11/09/20 07:37 07:37 RBC APTT 52.3 H Chloride 108 H Glucose 114 H Troponin I LDL Cholesterol, Calc TSH - Diagnostic Findings Chest x-ray: image reviewed Assessment and Plan Assessment: Acute non-ST segment elevation myocardial infarction, with severe triple-vessel coronary disease. Anticipated bypass grafting later this week. History of heavy tobacco use, without symptoms of COPD, and apparently, relatively normal spirometry. History of hypertension. History of hyperlipidemia. History of coronary artery disease, with previous PCI and stent placement. Hypothyroidism. Ongoing tobacco use with nicotine addiction. Prior history of myocardial infarction. Plan: Plan dated 11/09/2020. The patient is encouraged to stop smoking. We have not yet seen his spirometry. Apparently it was reported that his FEV1 is 109% of predicted. The patient denies any evidence or symptoms of COPD. We will continue to follow this patient and make recommendations. I did explain to the patient what our role was in this whole process including getting him off mechanical ventilator, and also seeing him afterwards, to keep his lungs healthy. Additional recommendations suggestions are forthcoming. Time with Patient: Greater than 30
--- NOTE | 2020-11-09 18:54 | P.PN ---
Subjective Progress Note Date: 11/09/20 This is a 60-year-old gentleman one of my patient with known history of hypertension and hypertensive cardio vascular disease,, hyperlipidemia, nicotine dependence, coronary artery disease with multivessel intervention. In 2000 and 2006 patient underwent stenting of the LAD and circumflex. On September 28 in 2015 patient underwent a cardiac catheterization which revealed a patent right coronary artery and LAD stent, circumflex with that was also stented in the proximal section was patent. The LAD had approximately 30% lesion at the end of the stented segment and the right coronary artery and a 40-50% mid lesion. There was moderate calcification in both of these vessels, the circumflex which was stented was patent but the mid circumflex had a long area of 80% stenosis for which the patient underwent angioplasty with stent placement by Dr. Geoff Espinoza. Following that patient did return to the hospital with symptoms, cardiac catheterization was unchanged. Patient overall has been doing well, today he woke up at around 5:30 in the morning went to the bathroom and suddenly developed to have bilateral shoulder pain with shoulder numbness and he was breaking out into cold sweats, he felt a bit nauseated, he ended up coming to the emergency care for evaluation, his troponin was slightly elevated, his EKG showed nonspecific ST-T wave changes, patient was ruled in for non-ST elevat ion myocardial infarction and had a long conversation with the patient and his at the bedside we are going to go for a left heart catheterization with Dr. Miguel today. 11/08: Patient underwent left heart catheterization yesterday that did show 3 vessel disease patient will be seen by cardiothoracic surgery, the plan is to have a coronary artery bypass graft scheduled hopefully later on this week or next week, patient denies any chest pain, he has no shortness breath at this time has no abdominal pain, nausea vomiting or diarrhea he is maintained on aspirin 81 mg once every day, Lipitor 80 mg orally once every day, he is not on beta blockers because of bradycardia. 11/09: patient is sitting up in bed in distress, a bit anxious about upcoming procedure, was seen today by ,we will continue with heparin drip, ASA 81 mg orally daily, Atorvastatin 80 mg orally daily, no beta blockers due to bradycardia, seems to be ready for his CABG in the near future, had his 5 minute walk test, echocardiogram that showed moderate impairment in LVF 40-45 % with apical anterio, lateral and inferior hypokinesia, US of the carotids no hemodynamically significant stenosis, LHC showed severe proximal RCA disease, critical distal RCA disease, moderate OM1 disease, critical proximal LAD and di stal LAD disease, and normal Left main, patient is aware of smoking cessation and total life style changes as a must prior to his heart surgery. Objective - Vital Signs Vital signs: Vital Signs Temp 98.2 F 11/09/20 00:00 Pulse 54 L 11/09/20 01:17 Resp 16 11/09/20 01:17 BP 124/72 11/09/20 00:00 Pulse Ox 94 L 11/09/20 00:00 Intake & Output 11/08/20 11/08/20 11/09/20 06:59 18:59 06:59 Intake Total 341.471 5826.970 300 Output Total 1000 1700 200 Balance -71.411 -660.030 100 Weight 91 kg Intake: IV 80 20 Heparin Sod,Pork in 0.45% 80 NaCl 25,000 unit In 0.45 % NaCl 1 250ml.bag @ 11. 03 UNITS/KG/HR 10.006 mls /hr IV .Q24H [facility] Rx#: [id number] Invasive Line 2 10 Invasive Line 3 10 Intake, IV Titration 448.589 189.970 Amount Heparin Sod,Pork in 0.45% 148.589 189.970 NaCl 25,000 unit In 0.45 % NaCl 1 250ml.bag @ 11. 03 UNITS/KG/HR 10.006 mls /hr IV .Q24H [facility] Rx#: [id number] Sodium Chloride 0.9% 1, 300 000 ml @ 75 mls/hr IV . [id number] [facility] Rx#:[id number] Oral 400 830 300 Output: Urine 1000 1700 200 Other: Voiding Method Urinal Urinal - Exam Review of Systems Constitutional: Reports chronic pain, Reports fatigue, Reports weakness, Denies anorexia, Denies chronic headaches Eyes: denies blurred vision, denies bulging eye, denies decreased vision Ears: deny: decreased hearing Ears, nose, mouth and throat: Denies dysphagia, Denies neck lump, Denies sore throat Cardiovascular: Reports chest pain, Reports decreased exercise tolerance, Repo rts dyspnea on exertion, Denies lightheadedness, Denies rapid heart beat, Denies shortness of breath, Denies syncope Respiratory: Denies congestion, Denies cough, Denies cough with sputum, Denies pain, Denies sleep apnea, Denies snoring, Denies wheezing Gastrointestinal: Reports nausea, Denies abdominal pain, Denies change in bowel habits, Denies heartburn, Denies melena, Denies vomiting Genitourinary: Reports nocturia, Denies dysuria Musculoskeletal: Denies myalgias Musculoskeletal: bilateral: shoulder pain, shoulder stiffness, absent: ankle pain, ankle stiffness, ankle swelling, elbow pain, elbow stiffness, elbow swelling, foot pain, foot stiffness, foot swelling, hand pain, hand stiffness, hand swelling, hip pain, hip stiffness, hip swelling, knee pain, knee stiffness, knee swelling, shoulder swelling, wrist pain, wrist stiffness, wrist swelling Integumentary: Denies pruritus, Denies rash Neurological: Denies numbness, Denies weakness Psychiatric: Reports anxiety, Denies depression, Denies sadness/tearfulness, Denies sleep disturbances, Denies suicidal ideation Endocrine: Denies fatigue, Denies weight change Physical examination: HEENT: Head is atraumatic, normocephalic, pupils were equal round reactive to light recommendation, extraocular muscle movement were intact, sclera nonicteric, conjunctivae were slightly pale, mucous membranes of mouth are somewhat dry. Neck: Supple, no JVD, no carotid bruits of adenopathy. Chest: Decreased breath sounds at the bases, few rhonchi, no expiratory wheezes, no chest wall tenderness, no intercostal retractions. Heart: First heart sound is depressed, second heart sound is normal, there is no gallop or murmur. Abdomen: Soft, nontender, nondistended, positive bowel sounds. Extremities: There is no edema, no calf tenderness, dorsalis is +2 bilaterally. Neurologic examination: Patient is awake alert and oriented in 3, cranial nerves 3-12 appear grossly intact, muscle power 5 out of 5 in upper and lower extremities bilaterally. - Labs CBC & Chem 7: 11/08/20 07:18 11/08/20 07:18 Labs: Abnormal Lab Results - Last 24 Hours (Table) 11/08/20 11/08/20 11/08/20 Range/Units 07:18 07:18 15:22 APTT 40.7 H (22.0-30.0) sec Glucose 110 H (74-99) mg/dL LDL Cholesterol, Calc 107 H (0-99) mg/dL TSH <0.015 L (0.465-4.680) mIU/L 11/08/20 Range/Units 21:53 APTT 53.7 H (22.0-30.0) sec Glucose (74-99) mg/dL LDL Cholesterol, Calc (0-99) mg/dL TSH (0.465-4.680) mIU/L Microbiology - Last 24 Hours (Table) 11/08/20 09:27 Nasal Screen MRSA/MSSA - Preliminary Nasopharyngeal Swab Assessment and Plan Assessment: Assessment and plan: 1. Non-ST elevation NV. Post left heart catheterization that showed triple- vessel disease with critical disease in the proximal RCA and severe disease in the distal RCA, critical disease in the proximal and mid LAD and severe disease in the OM1 off the LCX with moderate impairement of the LVF Continue aspirin 81 mg orally once every day, Lipitor 80 mg once every day, no beta jono due to bradycardia Enalapril 5 mg orally daily, cardiothoracic surgery evaluation for coronary artery bypass graft . 2. History of CAD post multiple PCI. Continue ASA 81 mg orally daily, Atorvastatin 80 mg orally daily and Enalapril 5 mg orally daily. 3. Hypertension and hypertensive cardiovascular disease. Continue patient on enalapril 5 mg orally once every day. 4. Hyperlipidemia. Continue patient on low-cholesterol diet, total lifestyle changes and risk factor modification, continue with Lipitor 80 mg orally once every day per 5. Hypothyroidism. Continue patient on Synthroid 175 g orally once every day. 6. Enlarged prostate. We will continue with Flomax 0.4 g orally once every day. 7. Chronic tobacco use and dependence. Patient was counseled about smoking cessation and increased risk of CAD, CVA, and malignancies. 8. DVT prophylaxis. Currently on heparin drip. 9. GI prophylaxis. Continue with PPI. 10. Await cardiothoracic surgery input.
[2020-11-10] MEDS ORDERED: MD COMMUNICATION TO PHARMACY 1 EACH MISC PO ONE ×5 (08:11)
[2020-11-10 08:18] LABS: Basophils % (A) 1 %; Eosinophils # (A) 0.2 k/uL (0-0.7); Eosinophils % (A) 3 %; HGB 13.5 gm/dL (13.0-17.5); Lymphocytes # (A) 2.1 k/uL (1.0-4.8); Lymphocytes % (A) 34 %; MCH 33.8 pg (25.0-35.0); MCHC 34.5 g/dL (31.0-37.0); MCV 97.9 fL (80.0-100.0); Mean Platelet Volume 7.9; Monocytes # (A) 0.5 k/uL (0-1.0); Monocytes % (A) 7 %; Neutrophils # (A) 3.4 k/uL (1.3-7.7); Neutrophils % (A) 54 %; Platelet Count 160 k/uL (150-450); RBC 3.99 m/uL (4.30-5.90); RDW 12.8 % (11.5-15.5); WBC 6.3 k/uL (3.8-10.6)
[2020-11-10] MEDS ORDERED: MUPIROCIN 2% OINT 22 GM TUBE NASAL SCH (09:00)
[2020-11-10] MEDS: ASPIRIN 81 MG PO SCH (09:15)
[2020-11-10] MEDS: ATORVASTATIN 80 MG TAB PO SCH (09:15)
--- NOTE | 2020-11-10 09:40 | P.VSCSTY ---
Greater Saphenous Vein Mapping Bilateral radial artery studies: Reason for study: Preop CABG Date of study: 11/08/2020 Findings: We see no significant right to left or segmental pressure gradients. There are no critical pressure drops on digital plethysmography with radial artery compression. Imaging shows the right to measure 3.4 x 3.2 distally, 4.3 x 3.7 mm mid, and 4 x 4.3 mm proximally. The left radial measures 3.3 x 2.9 mm distally, 3.5 x 3 mm mid, and 3 x 3.5 mm proximally. Impression: Both radial arteries appear to be usable.
--- NOTE | 2020-11-10 09:41 | P.ARTDOP ---
Arterial Doppler LOWER EXTREMITY ARTERIAL DOPPLER: DATE OF SERVICE: 11/08/2020 Reason for study: Preop CABG. Doppler waveforms: Multiphasic bilaterally throughout. Pulse volume recording: []. Pressure gradients: None. Ankle-brachial indices: Greater than 1 bilaterally. Toe brachial indices: [] on the right, [] on the left Impression: Normal study.
--- NOTE | 2020-11-10 09:44 | P.VSCSTY ---
Greater Saphenous Vein Mapping This is bilateral lower extremity greater saphenous vein mapping. Date of service: 11/08/2020 Vein quality and ultrasound appearance: We see no intraluminal thrombus or obvious wall changes. Vein size groin right : 4.5 x 3.8 groin left: 9.8 x 8.8 High thigh right: 6.2 x 4.7 high thigh left: 6.1 x 4.6 Mid thigh right: 5.3 x 4.1 mid thigh left: 5.9 x 4.3 Above-knee right: 4.7 by 4.2 above-knee left: 4.5 x 4.1 Below knee right: 3.3 x 2.9 below-knee left: 4.2 x 3.3 Mid calf right: 3.3 x 2.1 mid calf left: 3.1 x 2.0 Ankle right: 4.0 x 2.5 ankle left: 2.8 x 2.0 Impression: Usable bilateral greater saphenous vein.
[2020-11-10] MEDS: NON FORMULARY DRUG PO SCH (10:47)
--- NOTE | 2020-11-10 11:01 | P.PN ---
Subjective This is a pleasant 60- male who presented to the hospital with non-ST elevated myocardial infarction and underwent cardiac catheterization with Dr. Miguel. He was found to have severe triple vessel disease with ossified arteries. He follows in the office with Dr. Ruiz. He is scheduled to undergo coronary artery bypass grafting tomorrow morning with Dr. Alicea. Echocardiogram obtained on this admission reveals impaired LV systolic function with ejection fraction 40-45%, apical anterior, apical lateral, apical inferior and apical septal LV wall motion hypokinesia, mild mitral regurgitation noted. He is seen and examined sitting up in the recliner in no acute distress. He continues to be maintained on heparin infusion. He denies chest pain, shortness of breath, dizziness or palpitations. Blood pressure 112/67 heart rate 44 afebrile and maintaining oxygen saturation on room air. GENERAL: Well-appearing, well-nourished and in no acute distress. NECK: Supple without JVD or thyromegaly. LUNGS: Breath sounds clear to auscultation bilaterally. Respiration equal and unlabored. No wheezes, rales or rhonchi. HEART: Regular rate and rhythm with systolic ejection murmur at the base, no rubs or gallops. S1 and S2 heard. EXTREMITIES: Normal range of motion, no edema. No clubbing or cyanosis. Peripheral pulses intact. ASSESSMENT Non-ST elevated myocardial infarction Severe triple-vessel coronary artery disease Dyslipidemia Ischemic cardiomyopathy Hypertension PLAN Continue current medical regimen. Heparin infusion per CT surgery. Continue aspirin and atorvastatin as previously ordered. Nurse Practitioner note has been reviewed, I agree with a documented findings and plan of care. Patient was seen and examined. Objective - Vital Signs Vital signs: Vital Signs Temp 98.0 F 11/10/20 04:00 Pulse 44 L 11/10/20 04:00 Resp 16 11/10/20 04:00 BP 112/67 11/10/20 04:00 Pulse Ox 97 11/10/20 04:00 Intake & Output 11/09/20 11/10/20 11/10/20 18:59 06:59 18:59 Intake Total 1340 763.462 Output Total 775 575 Balance 1340 -11.538 -575 Weight 91.5 kg Intake: Intake, IV Titration 223.462 Amount Heparin Sod,Pork in 0.45% 223.462 NaCl 25,000 unit In 0.45 % NaCl 1 250ml.bag @ 11. 03 UNITS/KG/HR 10.006 mls /hr IV .Q24H [facility] Rx#: [id number] Oral 1340 540 Output: Urine 775 575 Other: Voiding Method Urinal # Voids 2 - Labs CBC & Chem 7: 11/10/20 07:18 11/09/20 07:37 Labs: Abnormal Lab Results - Last 24 Hours (Table) 11/10/20 11/10/20 Range/Units 07:18 07:18 RBC 3.99 L (4.30-5.90) m/uL APTT 50.8 H (22.0-30.0) sec Microbiology - Last 24 Hours (Table) 11/08/20 09:27 Nasal Screen MRSA/MSSA - Final Nasopharyngeal Swab
--- NOTE | 2020-11-10 11:42 | P.PN ---
Subjective Progress Note Date: 11/10/20 Principal diagnosis: Preoperative clearance, coronary artery disease This is a 60-year-old male presented to the emergency department on November 07, at 553. The patient apparently complained of feeling weird and dizzy. He was lightheaded, and just felt like his balance was off especially with quick head movements. He denied any nausea, vomiting, or changes in his speech as well as any complaints of weakness in the upper or lower extremities. He denied any chest pain or pressure, jaw pain, back pain, etc. He does have a previous history of cardiac catheterization with stent placement, and previous myocardial infarction at age 40. The patient was more recently evaluated by cardiac catheterization, and was found to have an extremely calcified right and left coronary system, with critical disease involving the mid right coronary artery and severe disease involving the distal right coronary artery. The patient had a normal left main coronary artery, and critical disease involving the proximal and mid left anterior descending artery, as well as severe disease involving the proximal first obtuse marginal branch of the left circumflex, which was a large caliber vessel. Bypass grafting was recommended. He apparently is going to have bypass surgery towards the end of this week. We were asked to see him for preop clearance. The patient is a heavy smoker having been smoking for about 35-40 years or so. The patient denies a prior history of lung disease and actually did very well on his preoperative spirometry. It was reported to me that his FEV1 was 109% of predicted. I've yet to see his PFTs. He denies any shortness of breath, coughing, wheezing, or phlegm production. His past medical history includes coronary artery disease, gastroesophageal reflux disease, hyperlipidemia, hypertension, myocardial infarction, and hypothyroidism. On 11/10/2020 patient seen in follow-up on selective care unit, he is ambulating around the hallway, denied any chest pain with exertion, no shortness of breath, he is on room air, he is breathing comfortably, pulse ox on room air is 97%, vital signs have been stable, heparin was discontinued yesterday. Today's labs have been reviewed, CBC was done only. Relatively unremarkable, no acute events overnight. No cough, no chest pain, no wheezing or phlegm production. Objective - Vital Signs Vital signs: Vital Signs Temp 98.2 F 11/10/20 08:00 Pulse 62 11/10/20 08:00 Resp 18 11/10/20 08:00 BP 133/81 11/10/20 08:00 Pulse Ox 96 11/10/20 08:00 Intake & Output 11/09/20 11/10/20 11/10/20 18:59 06:59 18:59 Intake Total 1340 763.462 Output Total 775 575 Balance 1340 -11.538 -575 Weight 91.5 kg Intake: Intake, IV Titration 223.462 Amount Heparin Sod,Pork in 0.45% 223.462 NaCl 25,000 unit In 0.45 % NaCl 1 250ml.bag @ 11. 03 UNITS/KG/HR 10.006 mls /hr IV .Q24H [facility] Rx#: [id number] Oral 1340 540 Output: Urine 775 575 Other: Voiding Method Urinal Urinal # Voids 2 - Exam GENERAL EXAM: Alert, very pleasant, 60-year-old white male, on room air, ambulating in the hallway, comfortable in no apparent distress. HEAD: Normocephalic/atraumatic. EYES: Normal reaction of pupils, equal size. Conjunctiva pink, sclera white. NOSE: Clear with pink turbinates. THROAT: No erythema or exudates. NECK: No masses, no JVD, no thyroid enlargement, no adenopathy. CHEST: No chest wall deformity. Symmetrical expansion. LUNGS: Equal air entry with no crackles, wheeze, rhonchi or dullness. CVS: Regular rate and rhythm, normal S1 and S2, no gallops, no murmurs, no rubs ABDOMEN: Soft, nontender. No hepatosplenomegaly, normal bowel sounds, no guarding or rigidity. EXTREMITIES: No clubbing, no edema, no cyanosis, 2+ pulses and upper and lower extremities. MUSCULOSKELETAL: Muscle strength and tone normal. SPINE: No scoliosis or deformity SKIN: No rashes CENTRAL NERVOUS SYSTEM: Alert and oriented -3. No focal deficits, tone is normal in all 4 extremities. PSYCHIATRIC: Alert and oriented -3. Appropriate affect. Intact judgment and insight. - Labs CBC & Chem 7: 11/10/20 07:18 11/09/20 07:37 Labs: Abnormal Lab Results - Last 24 Hours (Table) 11/10/20 11/10/20 Range/Units 07:18 07:18 RBC 3.99 L (4.30-5.90) m/uL APTT 50.8 H (22.0-30.0) sec Microbiology - Last 24 Hours (Table) 11/08/20 09:27 Nasal Screen MRSA/MSSA - Final Nasopharyngeal Swab Assessment and Plan Plan: Assessment: Acute non-ST segment elevation myocardial infarction, with severe triple-vessel coronary disease. Anticipated bypass grafting later this week. History of heavy tobacco use, without symptoms of COPD, and apparently, r elatively normal spirometry with preop FEV1 of 109% of predicted History of hypertension. History of hyperlipidemia. History of coronary artery disease, with previous PCI and stent placement. Hypothyroidism. Ongoing tobacco use with nicotine addiction. Prior history of myocardial infarction. Plan: Continue encouraging deep breathing and coughing, incentive spirometry use, patient is tolerating ambulation, no symptoms of chest pain or shortness of breath, he is on room air, no acute events overnight. We'll continue to follow I performed a history & physical examination of the patient and discussed their management with my nurse practitioner, Dasha Silveira. I reviewed the nurse pra ctitioner's note and agree with the documented findings and plan of care. Lung sounds are positive for diminished breath sounds. The findings and the impression was discussed with the patient. I attest to the documentation by the nurse practitioner. Time with Patient: Less than 30
--- NOTE | 2020-11-10 12:39 | P.PN ---
Subjective Progress Note Date: 11/10/20 This is a 60-year-old gentleman one of my patient with known history of hypertension and hypertensive cardio vascular disease,, hyperlipidemia, nicotine dependence, coronary artery disease with multivessel intervention. In 2000 and 2006 patient underwent stenting of the LAD and circumflex. On September 28 in 2015 patient underwent a cardiac catheterization which revealed a patent right coronary artery and LAD stent, circumflex with that was also stented in the proximal section was patent. The LAD had approximately 30% lesion at the end of the stented segment and the right coronary artery and a 40-50% mid lesion. There was moderate calcification in both of these vessels, the circumflex which was stented was patent but the mid circumflex had a long area of 80% stenosis for which the patient underwent angioplasty with stent placement by Dr. Geoff Espinoza. Following that patient did return to the hospital with symptoms, cardiac catheterization was unchanged. Patient overall has been doing well, today he woke up at around 5:30 in the morning went to the bathroom and suddenly developed to have bilateral shoulder pain with shoulder numbness and he was breaking out into cold sweats, he felt a bit nauseated, he ended up coming to the emergency care for evaluation, his troponin was slightly elevated, his EKG showed nonspecific ST-T wave changes, patient was ruled in for non-ST elevat ion myocardial infarction and had a long conversation with the patient and his at the bedside we are going to go for a left heart catheterization with Dr. Miguel today. 11/08: Patient underwent left heart catheterization yesterday that did show 3 vessel disease patient will be seen by cardiothoracic surgery, the plan is to have a coronary artery bypass graft scheduled hopefully later on this week or next week, patient denies any chest pain, he has no shortness breath at this time has no abdominal pain, nausea vomiting or diarrhea he is maintained on aspirin 81 mg once every day, Lipitor 80 mg orally once every day, he is not on beta blockers because of bradycardia. 11/09: patient is sitting up in bed in distress, a bit anxious about upcoming procedure, was seen today by ,we will continue with heparin drip, ASA 81 mg orally daily, Atorvastatin 80 mg orally daily, no beta blockers due to bradycardia, seems to be ready for his CABG in the near future, had his 5 minute walk test, echocardiogram that showed moderate impairment in LVF 40-45 % with apical anterio, lateral and inferior hypokinesia, US of the carotids no hemodynamically significant stenosis, LHC showed severe proximal RCA disease, critical distal RCA disease, moderate OM1 disease, critical proximal LAD and di stal LAD disease, and normal Left main, patient is aware of smoking cessation and total life style changes as a must prior to his heart surgery. 11/10: She denies having any chest pain or shortness of breath. He has no complaints of lightheadedness or dizziness. Patient denies having any cough, sp utum production, fever or chills. He has been ambulating without difficulty. Patient is scheduled to see cardiothoracic surgery today. Patient is followed by cardiology and pulmonary medicine. Patient is afebrile, heart rate 62, blood pressure 133/81, pulse ox 96% on 2 L nasal cannula. monitoring analyst is a sinus rhythm with PVCs. Repeat CBC today is unremarkable. Patient is off heparin drip. Patient is reaching 3000 miles on incentive spirometry. Objective - Vital Signs Vital signs: Vital Signs Temp 98.2 F 11/10/20 08:00 Pulse 62 11/10/20 08:00 Resp 18 11/10/20 08:00 BP 133/81 11/10/20 08:00 Pulse Ox 96 11/10/20 08:00 Intake & Output 11/09/20 11/10/20 11/10/20 18:59 06:59 18:59 Intake Total 1340 763.462 Output Total 775 575 Balance 1340 -11.538 -575 Weight 91.5 kg Intake: Intake, IV Titration 223.462 Amount Heparin Sod,Pork in 0.45% 223.462 NaCl 25,000 unit In 0.45 % NaCl 1 250ml.bag @ 11. 03 UNITS/KG/HR 10.006 mls /hr IV .Q24H [facility] Rx#: [id number] Oral 1340 540 Output: Urine 775 575 Other: Voiding Method Urinal Urinal # Voids 2 - Exam Review of Systems Constitutional: Reports chronic pain, Reports fatigue, Reports weakness, Denies anorexia, Denies chronic headaches Eyes: denies blurred vision, denies bulging eye, denies decreased vision Ears: deny: decreased hearing Ears, nose, mouth and throat: Denies dysphagia, Denies neck lump, Denies sore throat Cardiovascular: Denies chest pain, Reports decreased exercise tolerance, Reports dyspnea on exertion, Denies lightheadedness, Denies rapid heart beat, Denies shortness of breath, Denies syncope Respiratory: Denies congestion, Denies cough, Denies cough with sputum, Denies pain, Denies sleep apnea, Denies snoring, Denies wheezing Gastrointestinal: Reports nausea, Denies abdominal pain, Denies change in bowel habits, Denies heartburn, Denies melena, Denies vomiting Genitourinary: Reports nocturia, Denies dysuria Musculoskeletal: Denies myalgias Musculoskeletal: bilateral: shoulder pain, shoulder stiffness, absent: ankle pain, ankle stiffness, ankle swelling, elbow pain, elbow stiffness, elbow swelling, foot pain, foot stiffness, foot swelling, hand pain, hand stiffness, hand swelling, hip pain, hip stiffness, hip swelling, knee pain, knee stiffness, knee swelling, shoulder swelling, wrist pain, wrist stiffness, wrist swelling Integumentary: Denies pruritus, Denies rash Neurological: Denies numbness, Denies weakness Psychiatric: Reports anxiety, Denies depression, Denies sadness/tearfulness, Denies sleep disturbances, Denies suicidal ideation Endocrine: Denies fatigue, Denies weight change Physical examination: HEENT: Head is atraumatic, normocephalic, pupils were equal round reactive to light recommendation, extraocular muscle movement were intact, sclera nonicteric, conjunctivae were slightly pale, mucous membranes of mouth are somewhat dry. Neck: Supple, no JVD, no carotid bruits of adenopathy. Chest: Decreased breath sounds at the bases, few rhonchi, no expiratory wheezes, no chest wall tenderness, no intercostal retractions. Heart: First heart sound is depressed, second heart sound is normal, there is no gallop or murmur. Abdomen: Soft, nontender, nondistended, positive bowel sounds. Extremities: There is no edema, no calf tenderness, dorsalis is +2 bilaterally. Neurologic examination: Patient is awake alert and oriented in 3, cranial nerves 3-12 appear grossly intact, muscle power 5 out of 5 in upper and lower extremities bilaterally. - Labs CBC & Chem 7: 11/10/20 07:18 11/09/20 07:37 Labs: Abnormal Lab Results - Last 24 Hours (Table) 11/10/20 11/10/20 Range/Units 07:18 07:18 RBC 3.99 L (4.30-5.90) m/uL APTT 50.8 H (22.0-30.0) sec Microbiology - Last 24 Hours (Table) 11/08/20 09:27 Nasal Screen MRSA/MSSA - Final Nasopharyngeal Swab Assessment and Plan Plan: 1. Non-ST elevation [place]. Post left heart catheterization that showed triple- vessel disease with critical disease in the proximal RCA and severe disease in the distal RCA, critical disease in the proximal and mid LAD and severe disease in the OM1 off the LCX with moderate impairement of the LVF Continue aspirin 81 mg orally once every day, Lipitor 80 mg once every day, no beta jono due to bradycardia Enalapril 5 mg orally daily, cardiothoracic surgery evaluation for coronary artery bypass graft. Anticipate patient will be scheduled for surgery this week. 2. History of CAD post multiple PCI. Continue ASA 81 mg orally daily, Atorvastatin 80 mg orally daily and Enalapril 5 mg orally daily. 3. Hypertension and hypertensive cardiovascular disease. Continue patient on enalapril 5 mg orally once every day. 4. Hyperlipidemia. Continue patient on low-cholesterol diet, total lifestyle changes and risk factor modification, continue with Lipitor 80 mg orally once every day per 5. Hypothyroidism. Continue patient on Synthroid 175 g orally once every day. 6. Enlarged prostate. We will continue with Flomax 0.4 g orally once every day. 7. Chronic tobacco use and dependence. Patient was counseled about smoking cessation and increased risk of CAD, CVA, and malignancies. 8. DVT prophylaxis. Currently on heparin drip. 9. GI prophylaxis. Continue with PPI. 10. Await cardiothoracic surgery input. Discharge plan: To be determined Impression and plan of care have been directed as dictated by the signing physician. Payton Santos nurse practitioner acting as scribe for signing physician.
[2020-11-10] MEDS: FOLIC ACID 1 MG TAB PO SCH (13:04)
[2020-11-10] MEDS: THIAMINE 100 MG TAB PO SCH (13:04)
[2020-11-10] MEDS: HEPARIN SOD,PORK IN 0.45% NACL 25,000 UNIT in 0.45% NACL 1 250ML.BAG IV SCH (13:10)
--- NOTE | 2020-11-10 14:52 | P.PN ---
Subjective Progress Note Date: 11/10/20 This is a 60-year-old gentleman one of my patient with known history of hypertension and hypertensive cardio vascular disease,, hyperlipidemia, nicotine dependence, coronary artery disease with multivessel intervention. In 2000 and 2006 patient underwent stenting of the LAD and circumflex. On September 28 in 2015 patient underwent a cardiac catheterization which revealed a patent right coronary artery and LAD stent, circumflex with that was also stented in the proximal section was patent. The LAD had approximately 30% lesion at the end of the stented segment and the right coronary artery and a 40-50% mid lesion. There was moderate calcification in both of these vessels, the circumflex which was stented was patent but the mid circumflex had a long area of 80% stenosis for which the patient underwent angioplasty with stent placement by Dr. Geoff Espinoza. Following that patient did return to the hospital with symptoms, cardiac catheterization was unchanged. Patient overall has been doing well, today he woke up at around 5:30 in the morning went to the bathroom and suddenly developed to have bilateral shoulder pain with shoulder numbness and he was breaking out into cold sweats, he felt a bit nauseated, he ended up coming to the emergency care for evaluation, his troponin was slightly elevated, his EKG showed nonspecific ST-T wave changes, patient was ruled in for non-ST elevat ion myocardial infarction and had a long conversation with the patient and his at the bedside we are going to go for a left heart catheterization with Dr. Miguel today. 11/08: Patient underwent left heart catheterization yesterday that did show 3 vessel disease patient will be seen by cardiothoracic surgery, the plan is to have a coronary artery bypass graft scheduled hopefully later on this week or next week, patient denies any chest pain, he has no shortness breath at this time has no abdominal pain, nausea vomiting or diarrhea he is maintained on aspirin 81 mg once every day, Lipitor 80 mg orally once every day, he is not on beta blockers because of bradycardia. 11/09: patient is sitting up in bed in distress, a bit anxious about upcoming procedure, was seen today by ,we will continue with heparin drip, ASA 81 mg orally daily, Atorvastatin 80 mg orally daily, no beta blockers due to bradycardia, seems to be ready for his CABG in the near future, had his 5 minute walk test, echocardiogram that showed moderate impairment in LVF 40-45 % with apical anterio, lateral and inferior hypokinesia, US of the carotids no hemodynamically significant stenosis, LHC showed severe proximal RCA disease, critical distal RCA disease, moderate OM1 disease, critical proximal LAD and di stal LAD disease, and normal Left main, patient is aware of smoking cessation and total life style changes as a must prior to his heart surgery. 11/10: patient has been seen by pulmonary medicine yesterday as well as Cardiothoracic surgery and reinforced smoking cessation and the way to do it, has no chest pain or shortness of breath, no abdominal pain , nausea, vomiting or diarrhea, reviewed test results with him , his and his relative physician at the beside, wanda plan to proceed with CABG X 3 hopefully in AM. Objective - Vital Signs Vital signs: Vital Signs Temp 98.0 F 11/10/20 04:00 Pulse 44 L 11/10/20 04:00 Resp 16 11/10/20 04:00 BP 112/67 11/10/20 04:00 Pulse Ox 97 11/10/20 04:00 Intake & Output 11/09/20 11/09/20 11/10/20 06:59 18:59 06:59 Intake Total 968.159 4922 763.462 Output Total 900 775 Balance -066.696 2350 -11.538 Weight 90.8 kg Intake: Intake, IV Titration 187.107 223.462 Amount Heparin Sod,Pork in 0.45% 187.107 223.462 NaCl 25,000 unit In 0.45 % NaCl 1 250ml.bag @ 11. 03 UNITS/KG/HR 10.006 mls /hr IV .Q24H [facility] Rx#: [id number] Oral 540 1340 540 Output: Urine 900 775 Other: Voiding Method Urinal Urinal # Voids 2 - Exam Review of Systems Constitutional: Reports chronic pain, Reports fatigue, Reports weakness, Denies anorexia, Denies chronic headaches Eyes: denies blurred vision, denies bulging eye, denies decreased vision Ears: deny: decreased hearing Ears, nose, mouth and throat: Denies dysphagia, Denies neck lump, Denies sore throat Cardiovascular: Reports chest pain, Reports decreased exercise tolerance, Reports dyspnea on exertion, Denies lightheadedness, Denies rapid heart beat, Denies shortness of breath, Denies syncope Respiratory: Denies congestion, Denies cough, Denies cough with sputum, Denies pain, Denies sleep apnea, Denies snoring, Denies wheezing Gastrointestinal: Reports nausea, Denies abdominal pain, Denies change in bowel habits, Denies heartburn, Denies melena, Denies vomiting Genitourinary: Reports nocturia, Denies dysuria Musculoskeletal: Denies myalgias Musculoskeletal: bilateral: shoulder pain, shoulder stiffness, absent: ankle pain, ankle stiffness, ankle swelling, elbow pain, elbow stiffness, elbow swelling, foot pain, foot stiffness, foot swelling, hand pain, hand stiffness, hand swelling, hip pain, hip stiffness, hip swelling, knee pain, knee stiffness, knee swelling, shoulder swelling, wrist pain, wrist stiffness, wrist swelling Integumentary: Denies pruritus, Denies rash Neurological: Denies numbness, Denies weakness Psychiatric: Reports anxiety, Denies depression, Denies sadness/tearfulness, Denies sleep disturbances, Denies suicidal ideation Endocrine: Denies fatigue, Denies weight change Physical examination: HEENT: Head is atraumatic, normocephalic, pupils were equal round reactive to light recommendation, extraocular muscle movement were intact, sclera nonicteric, conjunctivae were slightly pale, mucous membranes of mouth are somewhat dry. Neck: Supple, no JVD, no carotid bruits of adenopathy. Chest: Decreased breath sounds at the bases, few rhonchi, no expiratory wheezes, no chest wall tenderness, no intercostal retractions. Heart: First heart sound is depressed, second heart sound is normal, there is no gallop or murmur. Abdomen: Soft, nontender, nondistended, positive bowel sounds. Extremities: There is no edema, no calf tenderness, dorsalis is +2 bilaterally. Neurologic examination: Patient is awake alert and oriented in 3, cranial nerves 3-12 appear grossly intact, muscle power 5 out of 5 in upper and lower extremities bilaterally. - Labs CBC & Chem 7: 11/10/20 07:18 11/09/20 07:37 Labs: Abnormal Lab Results - Last 24 Hours (Table) 11/09/20 11/09/20 Range/Units 07:37 07:37 APTT 52.3 H (22.0-30.0) sec Chloride 108 H (98-107) mmol/L Glucose 114 H (74-99) mg/dL Microbiology - Last 24 Hours (Table) 11/08/20 09:27 Nasal Screen MRSA/MSSA - Final Nasopharyngeal Swab Assessment and Plan Assessment: Assessment and plan: 1. Non-ST elevation [place]. Post left heart catheterization that showed triple- vessel disease with critical disease in the proximal RCA and severe disease in the distal RCA, critical disease in the proximal and mid LAD and severe disease in the OM1 off the LCX with moderate impairement of the LVF Continue aspirin 81 mg orally once every day, Lipitor 80 mg once every day, no beta jono due to bradycardia Enalapril 5 mg orally daily, cardiothoracic surgery evaluation for coronary artery bypass graft hopefully in AM. 2. History of CAD post multiple PCI. Continue ASA 81 mg orally daily, Atorvastatin 80 mg orally daily and Enalapril 5 mg orally daily. 3. Hypertension and hypertensive cardiovascular disease. Continue patient on enalapril 5 mg orally once every day. 4. Hyperlipidemia. Continue patient on low-cholesterol diet, total lifestyle changes and risk factor modification, continue with Lipitor 80 mg orally once every day per 5. Hypothyroidism. Continue patient on Synthroid 175 g orally once every day. 6. Enlarged prostate. We will continue with Flomax 0.4 g orally once every day. 7. Chronic tobacco use and dependence. Patient was counseled about smoking cessation and increased risk of CAD, CVA, and malignancies. 8. DVT prophylaxis. Currently on heparin drip. 9. GI prophylaxis. Continue with PPI. 10. Hopefully CABG x 3 in AM.
--- NOTE | 2020-11-10 15:18 | P.PN ---
Subjective Progress Note Date: 11/10/20 Principal diagnosis: Triple-vessel coronary artery disease, non-STEMI this admission. Past medical history significant for coronary artery disease with myocardial infarction and m ultiple stent placement, hypertension, hyperlipidemia, hypothyroid, current chronic tobacco dependence, current daily EtOH use. The patient was seen in follow-up today 11/10/2020 at his bedside on the cardiac stepdown unit. Currently he is sitting up to the bedside chair, is awake, alert and oriented 3. Denies any complaints of pain or shortness of breath at this time. The patient reports that he has been ambulating in the cardiac stepdown unit hallway without difficulty. Heparin drip remains infusing per protocol. The importance of smoking cessation was discussed with the patient. Pre operative teaching was reinforced with the patient. Questions were answered to the best my ability. Oxygen saturations are 97% on room air and he is achieving 3500 mL on his incentive spirometry. Objective - Vital Signs Vital signs: Vital Signs Temp 98.2 F 11/10/20 08:00 Pulse 62 11/10/20 08:00 Resp 18 11/10/20 08:00 BP 133/81 11/10/20 08:00 Pulse Ox 96 11/10/20 08:00 Intake & Output 11/09/20 11/10/20 11/10/20 18:59 06:59 18:59 Intake Total 1340 763.462 246.729 Output Total 775 575 Balance 1340 -11.538 -328.271 Weight 91.5 kg Intake: Intake, IV Titration 223.462 246.729 Amount Heparin Sod,Pork in 0.45% 223.462 246.729 NaCl 25,000 unit In 0.45 % NaCl 1 250ml.bag @ 11. 03 UNITS/KG/HR 10.006 mls /hr IV .Q24H [facility] Rx#: [id number] Oral 1340 540 Output: Urine 775 575 Other: Voiding Method Urinal Urinal # Voids 2 - Constitutional General appearance: Present: average body habitus, cooperative, no acute distress - EENT Eyes: Present: normal appearance. Absent: scleral icterus ENT: Present: hearing grossly normal - Neck Details: Neck is supple, no JVD. - Respiratory Details: Lung sounds essentially clear throughout. No wheezes, rhonchi or crackles. Respirations are symmetrical and nonlabored. Oxygen saturation 97% on room air. Achieving 3500 mL on his incentive spirometry. - Cardiovascular Details: Regular rhythm and rate. S1 and S2 present, negative for S3, gallop or murmur. No edema present. Remote telemetry showing sinus bradycardia heart rate 57 BPM. - Gastrointestinal Gastrointestinal Comment(s): Abdomen is soft, nontender nondistended. Active bowel sounds present in all 4 abdominal quadrants. No guarding or rigidity. No organomegaly appreciated. - Genitourinary Genitourinary Comment(s): Continues to void. - Integumentary Integumentary Comment(s): Skin is warm and dry. No clubbing or cyanosis is present. No rash or abnormal pigmentation is present. - Neurologic Neurologic: Present: CNII-XII intact. Absent: focal deficits - Musculoskeletal Musculoskeletal: Present: gait normal, strength equal bilaterally - Psychiatric Psychiatric: Present: A&O x's 3, appropriate affect, intact judgment & insight - Allied health notes Allied health notes reviewed: nursing - Labs CBC & Chem 7: 11/10/20 07:18 11/09/20 07:37 Labs: Abnormal Lab Results - Last 24 Hours (Table) 11/10/20 11/10/20 Range/Units 07:18 07:18 RBC 3.99 L (4.30-5.90) m/uL APTT 50.8 H (22.0-30.0) sec Microbiology - Last 24 Hours (Table) 11/08/20 09:27 Nasal Screen MRSA/MSSA - Final Nasopharyngeal Swab Assessment and Plan Assessment: 1. Triple-vessel coronary artery disease, non-STEMI this admission 2. History of coronary artery disease with myocardial infarction and multiple stent placement 3. History of hypertension, treated 4. History of hyperlipidemia, treated, cholesterol 179, LDL 107 5. Hypothyroid 6. Current chronic tobacco dependence, current FEV1 109% of predicted 7. Current daily EtOH use Plan: 1. Continue aspirin, statin, IV heparin per protocol. Would prefer initiation of beta jono per ACC guidelines, however patient has been bradycardic in the 50s. MENDOZA inhibitor has been discontinued to prevent intra-and postoperative hypotension. Continue to hold Plavix, last dose 11/06/20. 2. Encourage incentive spirometry use 10 times every hour while awake. 3. STS risk score calculated and has been discussed with the patient. 4. Risk factor modification discussed, continue to encourage smoking cessation. 5. Preoperative teaching reinforced with the patient. 6. Increase activity, ambulate as tolerated. 7. Discontinue heparin drip 2 hours prior to surgery at 6 AM tomorrow 11/11/2020. 8. Patient was started on thiamine and folic acid 4 history of EtOH use daily. 9. Continue to monitor for signs of alcohol withdrawal. 10. The patient has been scheduled for myocardial revascularization surgery with left internal mammary artery, endoscopic vein harvest and possible left radial artery endoscopic harvest tomorrow 11/11/2020 to be performed by Dr. Roberto Alicea. 11. Nothing by mouth after midnight. 12. More recommendations to follow based on patient's clinical course. Time with Patient: Greater than 30
[2020-11-10 19:32] LABS: African American GFR (CKD) >90 (>60 ml/min/1.73 sqM); Anion Gap 9 mmol/L; Blood Urea Nitrogen 24 mg/dL (9-20); Carbon Dioxide 26 mmol/L (22-30); Chloride 105 mmol/L (98-107); Glucose 155 mg/dL (74-99); Magnesium 2.1 mg/dL (1.6-2.3); Non-African American GFR(CKD) 84 (>60 ml/min/1.73 sqM); Potassium 4.2 mmol/L (3.5-5.1); Sodium 140 mmol/L (137-145)
[2020-11-10 20:06] LABS: Hepatitis B Core IgM Non-Reactive (Non-Reactive)
[2020-11-11] MEDS ORDERED: MAGNESIUM SULFATE SYG 4.06 MEQ/ML SYRINGE IV ONE (05:00)
[2020-11-11] MEDS ORDERED: CLEVIDIPINE BUTYRATE 25 MG in EMPTY BAG 1 BAG IV SCH (05:00)
[2020-11-11] MEDS ORDERED: HEPARIN SODIUM,PORCINE 5,000 UNIT in SODIUM CHLORIDE 0.9% 500 ML 500 ML IV ONE (05:00)
[2020-11-11] MEDS ORDERED: TRANEXAMIC ACID 2,000 MG in SODIUM CHLORIDE 0.9% 80 ML IV ONE (05:00)
[2020-11-11] MEDS ORDERED: DILTIAZEM 125 MG in SODIUM CHLORIDE 0.9% 100 ML IV SCH (05:00)
[2020-11-11] MEDS ORDERED: NITROGLYCERIN-D5W PMX 50 MG in DEXTROSE/WATER 1 250ML.BAG IV SCH ×2 (05:00→13:51)
[2020-11-11] MEDS ORDERED: NOREPINEPHRINE 4 MG in SODIUM CHLORIDE 0.9% 250 ML IV SCH (05:00)
[2020-11-11] MEDS ORDERED: PROTAMINE SULFATE 250 MG in EMPTY BAG 1 BAG IV ONE (05:00)
[2020-11-11] MEDS ORDERED: PAPAVERINE 360 MG in SODIUM CHLORIDE 0.9% 90 ML IV ONE ×2 (05:00→09:43)
[2020-11-11] MEDS ORDERED: SODIUM BICARB 8.4% 50 ML SYR (1 MEQ/ML) IV ONE (05:00)
[2020-11-11] MEDS ORDERED: CHLORHEXIDINE GLUCONATE 15 ML CUP MUCOUS MEM ONE (05:00)
[2020-11-11] MEDS ORDERED: HEPARIN SODIUM 1,000 UN/ML (10ML VL) IV ONE (05:00)
[2020-11-11] MEDS ORDERED: ceFAZolin 1,000 MG in SODIUM CHLORIDE 0.9% IRRIGATIO 1,000 ML IRRIGATION ONE (05:00)
[2020-11-11] MEDS ORDERED: PHENYLEPHRINE 40 MG in SODIUM CHLORIDE 0.9% 250 ML IV ONE (05:00)
[2020-11-11] MEDS ORDERED: METOPROLOL TARTRATE 12.5 MG TAB PO ONE (05:00)
[2020-11-11] MEDS ORDERED: ATORVASTATIN 10 MG TAB PO ONE (05:00)
[2020-11-11] MEDS ORDERED: CALCIUM CHLORIDE 100 MG/ML 10 ML SYRINGE IVP ONE (05:00)
[2020-11-11] MEDS ORDERED: NITROGLYCERIN-D5W PMX 25 MG/250 ML BTL IV ONE (05:00)
[2020-11-11] MEDS ORDERED: PROTAMINE SULFATE 10 MG/ML 25 ML VIAL IV ONE ×2 (05:00→07:36)
[2020-11-11] MEDS ORDERED: ALBUMIN HUMAN 25% 50 ML in EMPTY BAG 1 BAG IVPB ONE (05:00)
[2020-11-11] MEDS ORDERED: MANNITOL 25% 12.5 GM/50 ML VIAL IV ONE ×2 (05:00)
[2020-11-11] MEDS ORDERED: ALBUMIN HUMAN 5% 500 ML in EMPTY BAG 1 BAG IVPB ONE ×6 (05:00)
[2020-11-11] MEDS ORDERED: ASPIRIN 81 MG PO ONE (05:00)
[2020-11-11 05:27] LABS: Glucose,Whole Blood 110 mg/dL (75-99)
[2020-11-11] MEDS ORDERED: IV FLUID CONTINUATION 1,000 ML IV ONE (05:55)
[2020-11-11] MEDS ORDERED: DEXTROSE 5% IN WATER 1,000 ML with POTASSIUM CHLORIDE 25 MEQ, SODIUM CHLORIDE 4MEQ/ML V... IV SCH ×6 (06:00)
[2020-11-11] MEDS ORDERED: INSULIN REGULAR 100 UNIT in SODIUM CHLORIDE 0.9% 100 ML IV SCH ×2 (06:00→13:51)
[2020-11-11] MEDS ORDERED: DEXTROSE 5% IN WATER 1,000 ML with POTASSIUM CHLORIDE 110 MEQ, MAGNESIUM SULFATE 16 MEQ... IV SCH ×5 (06:00)
[2020-11-11 06:01] LABS: Basophils # (A) 0.1 k/uL (0-0.2); Basophils % (A) 1 %; Eosinophils # (A) 0.2 k/uL (0-0.7); Eosinophils % (A) 3 %; HCT 43.2 % (39.0-53.0); HGB 14.3 gm/dL (13.0-17.5); Lymphocytes # (A) 2.8 k/uL (1.0-4.8); Lymphocytes % (A) 36 %; MCH 32.2 pg (25.0-35.0); MCHC 33.2 g/dL (31.0-37.0); MCV 97.2 fL (80.0-100.0); Mean Platelet Volume 7.8; Monocytes # (A) 0.6 k/uL (0-1.0); Monocytes % (A) 7 %; Neutrophils % (A) 52 %; Platelet Count 176 k/uL (150-450); RBC 4.45 m/uL (4.30-5.90); RDW 12.7 % (11.5-15.5); WBC 7.8 k/uL (3.8-10.6)
[2020-11-11 06:02] LABS: Prothrombin Time 10.3 sec (9.0-12.0)
[2020-11-11 06:19] LABS: African American GFR (CKD) >90 (>60 ml/min/1.73 sqM); Anion Gap 7 mmol/L; Blood Urea Nitrogen 18 mg/dL (9-20); Calcium 9.3 mg/dL (8.4-10.2); Carbon Dioxide 27 mmol/L (22-30); Chloride 105 mmol/L (98-107); Glucose 112 mg/dL (74-99); Non-African American GFR(CKD) >90 (>60 ml/min/1.73 sqM); Potassium 4.3 mmol/L (3.5-5.1); Sodium 139 mmol/L (137-145)
[2020-11-11] MEDS ORDERED: INSULIN REGULAR 100 UNIT/ML VIAL ONE (07:36)
[2020-11-11] MEDS ORDERED: VECURONIUM 10 MG VIAL IV ONE (07:36)
[2020-11-11] MEDS ORDERED: MIDAZOLAM 2 MG/2 ML VIAL ONE (07:36)
[2020-11-11] MEDS ORDERED: MAGNESIUM SULFATE 4 MEQ/ML 10ML VIAL ONE (07:36)
[2020-11-11] MEDS ORDERED: TRANEXAMIC ACID 1,000 MG/10 ML VIAL ONE (07:36)
[2020-11-11] MEDS ORDERED: NITROGLYCERIN-D5W PMX 50 MG/250 ML BOTTLE IV ONE (07:36)
[2020-11-11] MEDS ORDERED: fentaNYL (PF) 50 MCG/ML 50 ML VIAL ONE (07:36)
[2020-11-11] MEDS ORDERED: LIDOCAINE 2% SYG (PF) 100 MG/5 ML ONE (07:36)
[2020-11-11] MEDS ORDERED: SODIUM CHLORIDE 0.9% 250 ML BAG ONE (07:36)
[2020-11-11] MEDS ORDERED: ELECTROLYTE-R (PH 7.4) 1,000 ML IV.SOLN IV ONE (07:36)
[2020-11-11] MEDS ORDERED: SUCCINYLCHOLINE CHLORIDE 100 MG/5 ML SYR IV ONE (07:36)
[2020-11-11] MEDS ORDERED: ePHEDrine SULFATE/0.9% NACL/PF 50 MG/5 ML SYRINGE IV ONE (07:36)
[2020-11-11] MEDS ORDERED: HEPARIN SODIUM,PORCINE 10,000 UNIT/ML 1 ML VIAL ONE (07:36)
[2020-11-11] MEDS ORDERED: PROPOFOL 10 MG/ML 20 ML VIAL IV ONE (07:36)
[2020-11-11] MEDS ORDERED: SODIUM CHLORIDE 0.9% IRRIG 1,000 ML BTL IRRIGATION ONE (07:36)
[2020-11-11] MEDS ORDERED: fentaNYL (PF) 50 MCG/ML 2 ML AMP ONE (07:36)
[2020-11-11 08:42] LABS: ABG Base Excess 1.2 mmol/L; ABG Glucose Whole Blood 102 mg/dL (75-99); ABG HCO3 27 mmol/L (21-25); ABG Hematocrit 40 % (34.0-46.0); ABG Ionized Calcium 4.6 mg/dL (4.5-5.3); ABG Lactic Acid Whole Blood 0.8 mmol/L (0.5-1.6); ABG PCO2 45 mmHg (35-45); ABG PH 7.38 (7.35-7.45); ABG Potassium Whole Blood 4.8 mmol/L (3.4-4.5); ABG Sodium Whole Blood 141 mmol/L (135-146); ABG TCO2 28 mmol/L (19-24)
[2020-11-11] MEDS ORDERED: ceFAZolin 1,000 MG in SODIUM CHLORIDE 0.9% 1,000 ML IRRIGATION ONE (09:43)
[2020-11-11] MEDS ORDERED: SODIUM CHLORIDE 0.9% 500 ML 500 ML with HEPARIN SODIUM,PORCINE 5,000 UNIT IV ONE ×2 (09:43)
[2020-11-11 09:48] LABS: ABG Base Excess -1.3 mmol/L; ABG Glucose Whole Blood 133 mg/dL (75-99); ABG HCO3 27 mmol/L (21-25); ABG Hematocrit 39 % (34.0-46.0); ABG Ionized Calcium 4.7 mg/dL (4.5-5.3); ABG Lactic Acid Whole Blood 0.5 mmol/L (0.5-1.6); ABG Oxygen Saturation 99.1 % (94-97); ABG PCO2 58 mmHg (35-45); ABG PH 7.27 (7.35-7.45); ABG PO2 173 mmHg (83-108); ABG Potassium Whole Blood 4.4 mmol/L (3.4-4.5); ABG Sodium Whole Blood 141 mmol/L (135-146); ABG TCO2 28 mmol/L (19-24)
[2020-11-11 11:05] LABS: ABG Base Excess -1.5 mmol/L; ABG Glucose Whole Blood 197 mg/dL (75-99); ABG HCO3 25 mmol/L (21-25); ABG Hematocrit 33 % (34.0-46.0); ABG Ionized Calcium 4.3 mg/dL (4.5-5.3); ABG Lactic Acid Whole Blood 0.8 mmol/L (0.5-1.6); ABG Oxygen Saturation 99.6 % (94-97); ABG PCO2 49 mmHg (35-45); ABG PH 7.32 (7.35-7.45); ABG PO2 211 mmHg (83-108); ABG Potassium Whole Blood 5.2 mmol/L (3.4-4.5); ABG Sodium Whole Blood 136 mmol/L (135-146); ABG TCO2 26 mmol/L (19-24)
[2020-11-11 11:30] LABS: ABG Base Excess -1.9 mmol/L; ABG Glucose Whole Blood 189 mg/dL (75-99); ABG HCO3 24 mmol/L (21-25); ABG Hematocrit 34 % (34.0-46.0); ABG Ionized Calcium 4.3 mg/dL (4.5-5.3); ABG Lactic Acid Whole Blood 1.2 mmol/L (0.5-1.6); ABG Oxygen Saturation 99.8 % (94-97); ABG PCO2 45 mmHg (35-45); ABG PH 7.33 (7.35-7.45); ABG PO2 325 mmHg (83-108); ABG Potassium Whole Blood 4.7 mmol/L (3.4-4.5); ABG Sodium Whole Blood 138 mmol/L (135-146); ABG TCO2 26 mmol/L (19-24)
[2020-11-11 12:09] LABS: ABG Base Excess -2.1 mmol/L; ABG Glucose Whole Blood 136 mg/dL (75-99); ABG HCO3 24 mmol/L (21-25); ABG Hematocrit 33 % (34.0-46.0); ABG Ionized Calcium 4.4 mg/dL (4.5-5.3); ABG Lactic Acid Whole Blood 1.9 mmol/L (0.5-1.6); ABG Oxygen Saturation 99.6 % (94-97); ABG PCO2 47 mmHg (35-45); ABG PH 7.32 (7.35-7.45); ABG PO2 247 mmHg (83-108); ABG Potassium Whole Blood 4.3 mmol/L (3.4-4.5); ABG Sodium Whole Blood 139 mmol/L (135-146); ABG TCO2 26 mmol/L (19-24)
[2020-11-11 13:25] LABS: ABG Base Excess -1.2 mmol/L; ABG Glucose Whole Blood 56 mg/dL (75-99); ABG HCO3 25 mmol/L (21-25); ABG Hematocrit 36 % (34.0-46.0); ABG Ionized Calcium 4.6 mg/dL (4.5-5.3); ABG Lactic Acid Whole Blood 1.4 mmol/L (0.5-1.6); ABG Oxygen Saturation 96.6 % (94-97); ABG PCO2 47 mmHg (35-45); ABG PH 7.33 (7.35-7.45); ABG PO2 91 mmHg (83-108); ABG Potassium Whole Blood 3.7 mmol/L (3.4-4.5); ABG Sodium Whole Blood 142 mmol/L (135-146); ABG TCO2 26 mmol/L (19-24)
[2020-11-11 13:26] LABS: ABG PO2 >420 mmHg (83-108)
[2020-11-11] MEDS ORDERED: METOCLOPRAMIDE 5 MG/ML 2 ML VIAL IVP PRN (13:51)
[2020-11-11] MEDS ORDERED: DEXMEDETOMIDINE/0.9% NACL(PMX) 400 MCG in EMPTY BAG 1 BAG IV SCH (13:51)
[2020-11-11] MEDS ORDERED: Phosphorus Replacement Protoco 1 EACH MISC MISCELLANE PRN (13:51)
[2020-11-11] MEDS ORDERED: Magnesium Replacement Protocol 1 EACH MISC MISCELLANE PRN (13:51)
[2020-11-11] MEDS ORDERED: IPRATROPIUM-ALBUTEROL 3 ML NEB INHALATION PRN (13:51)
[2020-11-11] MEDS ORDERED: AMIODARONE 360 MG in DEXTROSE 5% IN WATER 200 ML IV PRN ×2 (13:51)
[2020-11-11] MEDS ORDERED: AMIODARONE 450 MG in DEXTROSE 5% IN WATER 250 ML IV PRN ×2 (13:51)
[2020-11-11] MEDS ORDERED: CALCIUM GLUCONATE 2 GM in SODIUM CHLORIDE 0.9% 100 ML IVPB PRN (13:51)
[2020-11-11] MEDS ORDERED: DEXTROSE 5% IN WATER 100 ML with AMIODARONE 150 MG IV PRN (13:51)
[2020-11-11] MEDS ORDERED: hydrALAZINE HCL 20 MG/ML 1 ML VIAL IVP PRN (13:51)
[2020-11-11] MEDS ORDERED: BENZOCAINE/MENTHOL LOZENG 1 EACH LOZENGE MUCOUS MEM PRN (13:51)
[2020-11-11] MEDS ORDERED: Potassium Replacement Protocol 1 EACH MISC MISCELLANE PRN (13:51)
[2020-11-11] MEDS ORDERED: ONDANSETRON 4 MG/2 ML VIAL IVP PRN (13:51)
[2020-11-11 14:32] LABS: Basophils % (A) 0 %; Eosinophils % (A) 0 %; HCT 34.9 % (39.0-53.0); HGB 11.8 gm/dL (13.0-17.5); Lymphocytes # (A) 1.4 k/uL (1.0-4.8); Lymphocytes % (A) 12 %; MCH 33.1 pg (25.0-35.0); MCHC 33.8 g/dL (31.0-37.0); MCV 98.1 fL (80.0-100.0); Mean Platelet Volume 8.8; Monocytes # (A) 0.7 k/uL (0-1.0); Monocytes % (A) 6 %; Neutrophils # (A) 9.1 k/uL (1.3-7.7); Neutrophils % (A) 81 %; Platelet Count 111 k/uL (150-450); RBC 3.55 m/uL (4.30-5.90); RDW 12.8 % (11.5-15.5); WBC 11.2 k/uL (3.8-10.6)
[2020-11-11 14:36] LABS: Ionized Calcium 5.1 mg/dL (4.5-5.3)
[2020-11-11 14:41] LABS: Glucose,Whole Blood 70 mg/dL (75-99)
[2020-11-11 14:43] LABS: ALT 33 U/L (4-49); AST 45 U/L (17-59); African American GFR (CKD) >90 (>60 ml/min/1.73 sqM); Albumin 3.6 g/dL (3.5-5.0); Alkaline Phosphatase 42 U/L (38-126); Anion Gap 7 mmol/L; Blood Urea Nitrogen 16 mg/dL (9-20); Calcium 8.3 mg/dL (8.4-10.2); Carbon Dioxide 26 mmol/L (22-30); Chloride 107 mmol/L (98-107); Glucose 71 mg/dL (74-99); Magnesium 2.8 mg/dL (1.6-2.3); Non-African American GFR(CKD) >90 (>60 ml/min/1.73 sqM); Potassium 4.4 mmol/L (3.5-5.1); Sodium 140 mmol/L (137-145); Total Bilirubin 0.5 mg/dL (0.2-1.3); Total Protein 5.7 g/dL (6.3-8.2)
[2020-11-11 14:44] LABS: Partial Thromboplastin Time 22.3 sec (22.0-30.0); Prothrombin Time 10.8 sec (9.0-12.0)
[2020-11-11] MEDS: CLEVIDIPINE BUTYRATE 25 MG in EMPTY BAG 1 BAG IV SCH (14:50)
[2020-11-11] MEDS: THIAMINE 100 MG TAB PO SCH (14:51)
[2020-11-11] MEDS: ATORVASTATIN 80 MG TAB PO SCH (14:51)
[2020-11-11] MEDS: FOLIC ACID 1 MG TAB PO SCH (14:51)
[2020-11-11] MEDS: DILTIAZEM 125 MG in SODIUM CHLORIDE 0.9% 100 ML IV SCH (14:52)
[2020-11-11] MEDS: LACTATED RINGERS 1,000 ML IV SCH (14:52)
--- NOTE | 2020-11-11 14:58 | XR ---
EXAMINATION TYPE: XR chest 1V portable DATE OF EXAM: 11/11/2020 CLINICAL HISTORY: Post open cardiac surgery. TECHNIQUE: Single AP portable supine view of the chest is obtained. COMPARISON: Chest x-ray from 4 days earlier FINDINGS: There is new endotracheal tube terminating below clavicles roughly 6 cm above heidy. Ther e is new orogastric tube projecting below diaphragm.. New right internal jugular Cullen-Tejinder catheter t erminating at level of pulmonary outflow tract. There are 2 new overlying mediastinal drainage cathet ers. There is new left basilar chest tube. New left-sided subcutaneous emphysema without visualized l eft-sided pneumothorax. Lateral left basilar linear atelectatic change. Sternal wires and mediastinal clips. New left atrial appendage clipping. New overlying epicardial pac er wires. Right lung remains clear. New Cardiomegaly. No new mediastinal shift. Osseous structures ar e intact. IMPRESSION: 1. New tubes and lines satisfactory in position as detailed above. 2. New left-sided chest tube without pneumothorax. New lateral left basilar linear atelectatic change . New cardiomegaly.
[2020-11-11 15:07] LABS: Glucose,Whole Blood 95 mg/dL (75-99)
[2020-11-11 15:13] LABS: ABG Base Excess -1.2 mmol/L; ABG HCO3 24 mmol/L (21-25); ABG PCO2 44 mmHg (35-45); ABG PH 7.35 (7.35-7.45); ABG PO2 322 mmHg (83-108); ABG TCO2 26 mmol/L (19-24); Allen Test Performed? Yes
--- NOTE | 2020-11-11 15:44 | P.PN ---
Subjective Progress Note Date: 11/11/20 Principal diagnosis: Preoperative clearance, coronary artery disease This is a 60-year-old male presented to the emergency department on November 07, at 553. The patient apparently complained of feeling weird and dizzy. He was lightheaded, and just felt like his balance was off especially with quick head movements. He denied any nausea, vomiting, or changes in his speech as well as any complaints of weakness in the upper or lower extremities. He denied any chest pain or pressure, jaw pain, back pain, etc. He does have a previous history of cardiac catheterization with stent placement, and previous myocardial infarction at age 40. The patient was more recently evaluated by cardiac catheterization, and was found to have an extremely calcified right and left coronary system, with critical disease involving the mid right coronary artery and severe disease involving the distal right coronary artery. The patient had a normal left main coronary artery, and critical disease involving the proximal and mid left anterior descending artery, as well as severe disease involving the proximal first obtuse marginal branch of the left circumflex, which was a large caliber vessel. Bypass grafting was recommended. He apparently is going to have bypass surgery towards the end of this week. We were asked to see him for preop clearance. The patient is a heavy smoker having been smoking for about 35-40 years or so. The patient denies a prior history of lung disease and actually did very well on his preoperative spirometry. It was reported to me that his FEV1 was 109% of predicted. I've yet to see his PFTs. He denies any shortness of breath, coughing, wheezing, or phlegm production. His past medical history includes coronary artery disease, gastroesophageal reflux disease, hyperlipidemia, hypertension, myocardial infarction, and hypothyroidism. On 11/10/2020 patient seen in follow-up on selective care unit, he is ambulating around the hallway, denied any chest pain with exertion, no shortness of breath, he is on room air, he is breathing comfortably, pulse ox on room air is 97%, vital signs have been stable, heparin was discontinued yesterday. Today's labs have been reviewed, CBC was done only. Relatively unremarkable, no acute events overnight. No cough, no chest pain, no wheezing or phlegm production. On 11/11/2020 patient seen in follow-up in the intensive care unit following his four-vessel bypass with PHAM to the LAD, left radial graft to the OM, SVG to the diagonal, and SVG to the PLB, and exclusion of the left atrial appendage with 35 mm atriclip. Patient is sedated, intubated on mechanical ventilator, with assist control mode of ventilation, with a rate of 12, tidal volume is 400, FiO2 100% and PEEP of 5, postoperative blood gases showed pO2 of 322, pCO2 44, and pH of 7.35, this was done 100%, and FiO2 was cut back to 40%. He is currently on lactated Ringer's at 50 ML per hour, Diprivan and is at 20 mics per kilo per min derrick, Cardizem drip is at 5 mg per hour, and nitroglycerin is at 5 mics per kilo per minute. He is in sinus mechanism with a rate of 59-60 BPM, PA pressures 29/16, CVP is 12, cardiac output is 8.2, and cardiac index is 4.0. Postoperative blood gas shows a new lateral left basilar atelectasis. Labs have been reviewed, white blood cell count is 11.2, hemoglobin is 11.8, renal profile and electrolytes are unremarkable, mediastinal chest tubes 2 with a total of 400 mL of sanguinous output, and left pleural chest tube with no output. Hemodynamically patient is stable. He is starting to wake up. Objective - Vital Signs Vital signs: Vital Signs Temp 97.5 F L 11/11/20 05:55 Pulse 58 L 11/11/20 05:55 Resp 16 11/11/20 05:55 BP 174/94 11/11/20 05:55 Pulse Ox 97 11/11/20 05:55 Intake & Output 11/10/20 11/11/20 11/11/20 18:59 06:59 18:59 Intake Total 1666.729 540 6.567 Output Total 621 503 2824 Balance 1091.729 -160 -2293.433 Weight 90.9 kg Intake: IV 6 Intake, IV Titration 246.729 0.567 Amount Clevidipine Butyrate 25 0.567 mg In Empty Bag 1 bag @ 1 MG/HR 2 mls/hr IV .Q24H [facility] Rx#:[id number] Heparin Sod,Pork in 0.45% 246.729 NaCl 25,000 unit In 0.45 % NaCl 1 250ml.bag @ 11. 03 UNITS/KG/HR 10.006 mls /hr IV .Q24H [facility] Rx#: [id number] Oral 1420 540 Output: Urine 595 334 6459 Estimated Blood Loss 1100 Other: Voiding Method Urinal Urinal # Voids 4 - Exam GENERAL EXAM: Sedated, intubated 60-year-old white male, on Diprivan on 20 mics/kg/min, on assist control mode of ventilation, with a rate of 16, tidal volume 400, FiO2 100%, PEEP of 5 HEAD: Normocephalic/atraumatic. EYES: Normal reaction of pupils, equal size. Conjunctiva pink, sclera white. NOSE: Clear with pink turbinates. THROAT: No erythema or exudates. NECK: No masses, no JVD, no thyroid enlargement, no adenopathy. CHEST: No chest wall deformity. Symmetrical expansion. Midsternal incision is clean dry and intact, 2 mediastinal and left pleural chest tubes in place. There is 100 cc out of the mediastinal chest tubes that are connected together and draining into the same for Pleuravac, no output in the left pleural chest tube Pleur-evac LUNGS: Equal air entry with no crackles, wheeze, rhonchi or dullness. CVS: Regular rate and rhythm, normal S1 and S2, no gallops, no murmurs, no rubs ABDOMEN: Soft, nontender. No hepatosplenomegaly, normal bowel sounds, no guarding or rigidity. EXTREMITIES: No clubbing, no edema, no cyanosis, 2+ pulses and upper and lower extremities. Left lower leg incision covered with dressings, and left radial graft site covered with dressings, and Juan Jose wrapped MUSCULOSKELETAL: Muscle strength and tone normal. SPINE: No scoliosis or deformity SKIN: No rashes CENTRAL NERVOUS SYSTEM: Sedated No focal deficits, tone is normal in all 4 extremities. - Labs CBC & Chem 7: 11/11/20 14:24 11/11/20 14:24 Labs: Abnormal Lab Results - Last 24 Hours (Table) 11/10/20 11/11/20 11/11/20 Range/Units 18:37 05:24 05:24 WBC (3.8-10.6) k/uL RBC (4.30-5.90) m/uL Hgb (13.0-17.5) gm/dL Hct (39.0-53.0) % Plt Count (150-450) k/uL Neutrophils # (1.3-7.7) k/uL ABG pH (7.35-7.45) ABG pCO2 (35-45) mmHg ABG pO2 (83-108) mmHg ABG HCO3 (21-25) mmol/L ABG Total CO2 (19-24) mmol/L ABG O2 Saturation (94-97) % ABG Hematocrit (34.0-46.0) % ABG Potassium (3.4-4.5) mmol/L ABG Ionized Calcium (4.5-5.3) mg/dL ABG Glucose (75-99) mg/dL ABG Lactic Acid (0.5-1.6) mmol/L Hemoglobin (13.0-17.5) gm/dL BUN 24 H (9-20) mg/dL Glucose 155 H 112 H (74-99) mg/dL POC Glucose (mg/dL) 110 H (75-99) mg/dL Calcium (8.4-10.2) mg/dL Magnesium (1.6-2.3) mg/dL Total Protein (6.3-8.2) g/dL Arterial Blood Potassium (3.4-4.5) mmol/L Arterial Blood Glucose (75-99) mg/dL Crossmatch 11/11/20 11/11/20 11/11/20 Range/Units 05:31 08:43 09:50 WBC (3.8-10.6) k/uL RBC (4.30-5.90) m/uL Hgb (13.0-17.5) gm/dL Hct (39.0-53.0) % Plt Count (150-450) k/uL Neutrophils # (1.3-7.7) k/uL ABG pH 7.27 L (7.35-7.45) ABG pCO2 58 H (35-45) mmHg ABG pO2 >420 H 173 H (83-108) mmHg ABG HCO3 27 H 27 H (21-25) mmol/L ABG Total CO2 28 H 28 H (19-24) mmol/L ABG O2 Saturation 100.0 H 99.1 H (94-97) % ABG Hematocrit (34.0-46.0) % ABG Potassium 4.8 H (3.4-4.5) mmol/L ABG Ionized Calcium (4.5-5.3) mg/dL ABG Glucose 102 H 133 H (75-99) mg/dL ABG Lactic Acid (0.5-1.6) mmol/L Hemoglobin 12.9 L (13.0-17.5) gm/dL BUN (9-20) mg/dL Glucose (74-99) mg/dL POC Glucose (mg/dL) (75-99) mg/dL Calcium (8.4-10.2) mg/dL Magnesium (1.6-2.3) mg/dL Total Protein (6.3-8.2) g/dL Arterial Blood Potassium 4.8 H (3.4-4.5) mmol/L Arterial Blood Glucose 102 H 133 H (75-99) mg/dL Crossmatch See Detail 11/11/20 11/11/20 11/11/20 Range/Units 11:07 11:31 12:11 WBC (3.8-10.6) k/uL RBC (4.30-5.90) m/uL Hgb (13.0-17.5) gm/dL Hct (39.0-53.0) % Plt Count (150-450) k/uL Neutrophils # (1.3-7.7) k/uL ABG pH 7.32 L 7.33 L 7.32 L (7.35-7.45) ABG pCO2 49 H 47 H (35-45) mmHg ABG pO2 211 H 325 H 247 H (83-108) mmHg ABG HCO3 (21-25) mmol/L ABG Total CO2 26 H 26 H 26 H (19-24) mmol/L ABG O2 Saturation 99.6 H 99.8 H 99.6 H (94-97) % ABG Hematocrit 33 L 33 L (34.0-46.0) % ABG Potassium 5.2 H 4.7 H (3.4-4.5) mmol/L ABG Ionized Calcium 4.3 L 4.3 L 4.4 L (4.5-5.3) mg/dL ABG Glucose 197 H 189 H 136 H (75-99) mg/dL ABG Lactic Acid 1.9 H (0.5-1.6) mmol/L Hemoglobin 10.9 L 11.0 L 10.9 L (13.0-17.5) gm/dL BUN (9-20) mg/dL Glucose (74-99) mg/dL POC Glucose (mg/dL) (75-99) mg/dL Calcium (8.4-10.2) mg/dL Magnesium (1.6-2.3) mg/dL Total Protein (6.3-8.2) g/dL Arterial Blood Potassium 5.2 H 4.7 H (3.4-4.5) mmol/L Arterial Blood Glucose 197 H 189 H 136 H (75-99) mg/dL Crossmatch 11/11/20 11/11/20 11/11/20 Range/Units 13:27 14:24 14:24 WBC 11.2 H (3.8-10.6) k/uL RBC 3.55 L (4.30-5.90) m/uL Hgb 11.8 L (13.0-17.5) gm/dL Hct 34.9 L (39.0-53.0) % Plt Count 111 L (150-450) k/uL Neutrophils # 9.1 H (1.3-7.7) k/uL ABG pH 7.33 L (7.35-7.45) ABG pCO2 47 H (35-45) mmHg ABG pO2 (83-108) mmHg ABG HCO3 (21-25) mmol/L ABG Total CO2 26 H (19-24) mmol/L ABG O2 Saturation (94-97) % ABG Hematocrit (34.0-46.0) % ABG Potassium (3.4-4.5) mmol/L ABG Ionized Calcium (4.5-5.3) mg/dL ABG Glucose 56 L (75-99) mg/dL ABG Lactic Acid (0.5-1.6) mmol/L Hemoglobin 11.7 L (13.0-17.5) gm/dL BUN (9-20) mg/dL Glucose 71 L (74-99) mg/dL POC Glucose (mg/dL) (75-99) mg/dL Calcium 8.3 L (8.4-10.2) mg/dL Magnesium 2.8 H (1.6-2.3) mg/dL Total Protein 5.7 L (6.3-8.2) g/dL Arterial Blood Potassium (3.4-4.5) mmol/L Arterial Blood Glucose 56 L (75-99) mg/dL Crossmatch 11/11/20 11/11/20 Range/Units 14:29 15:11 WBC (3.8-10.6) k/uL RBC (4.30-5.90) m/uL Hgb (13.0-17.5) gm/dL Hct (39.0-53.0) % Plt Count (150-450) k/uL Neutrophils # (1.3-7.7) k/uL ABG pH (7.35-7.45) ABG pCO2 (35-45) mmHg ABG pO2 322 H (83-108) mmHg ABG HCO3 (21-25) mmol/L ABG Total CO2 26 H (19-24) mmol/L ABG O2 Saturation 100.0 H (94-97) % ABG Hematocrit (34.0-46.0) % ABG Potassium (3.4-4.5) mmol/L ABG Ionized Calcium (4.5-5.3) mg/dL ABG Glucose (75-99) mg/dL ABG Lactic Acid (0.5-1.6) mmol/L Hemoglobin (13.0-17.5) gm/dL BUN (9-20) mg/dL Glucose (74-99) mg/dL POC Glucose (mg/dL) 70 L (75-99) mg/dL Calcium (8.4-10.2) mg/dL Magnesium (1.6-2.3) mg/dL Total Protein (6.3-8.2) g/dL Arterial Blood Potassium (3.4-4.5) mmol/L Arterial Blood Glucose (75-99) mg/dL Crossmatch Assessment and Plan Plan: Assessment: #1. Triple-vessel coronary artery disease, status post four-vessel bypass grafting with PHAM to the LAD, left radial artery graft to the OM, SVG to the diagonal, and SCDs to the PLV, left atrial appendage exclusion, postoperative day #0 #2. Routine postoperative ventilator management #3. Acute non-ST segment elevation myocardial infarction, with severe triple-vessel coronary disease. Anticipated bypass grafting later this week. #4. History of heavy tobacco use, without symptoms of COPD, and apparently, relatively normal spirometry with preop FEV1 of 109% of predicted #5. History of hypertension. #6. History of hyperlipidemia. #7. History of coronary artery disease, with previous PCI and stent placement. #8. Hypothyroidism. #9. Ongoing tobacco use with nicotine addiction. #10. Prior history of myocardial infarction. Plan: Blood gases have been reviewed, labs have been reviewed, chest x-ray reviewed, hemodynamically patient is stable, no significant chest tube output, not requiring any vasopressor support, we'll proceed with spontaneous breathing trials and extubation once the patient is awake. Continue DuoNeb every 4 hours while on the vent, and 4 times a day once extubated. Incentive spirometry to the bedside, follow-up chest x-ray and labs in the morning, continue close hemodynamic monitoring, maintain pain control, continue to monitor in the intensive care unit.` I performed a history & physical examination of the patient and discussed their management with my nurse practitioner, Dasha Silveira. I reviewed the nurse practitioner's note and agree with the documented findings and plan of care. Lung sounds are positive for diminished breath sounds. The findings and the impression was discussed with the patient. I attest to the documentation by the nurse practitioner. Time with Patient: Greater than 30
[2020-11-11] MEDS ORDERED: IPRATROPIUM-ALBUTEROL 3 ML NEB INHALATION SCH (16:00)
[2020-11-11] MEDS ORDERED: LORazepam 2 MG/ML INJ IV PRN ×3 (16:18)
[2020-11-11 16:21] LABS: Glucose,Whole Blood 132 mg/dL (75-99)
[2020-11-11 17:04] LABS: Glucose,Whole Blood 134 mg/dL (75-99)
[2020-11-11] MEDS: ALBUMIN HUMAN 5% 250 ML in EMPTY BAG 1 BAG IVPB PRN (17:15)
[2020-11-11 17:21] LABS: Basophils % (A) 0 %; Eosinophils % (A) 0 %; HCT 34.7 % (39.0-53.0); HGB 11.8 gm/dL (13.0-17.5); Lymphocytes # (A) 0.7 k/uL (1.0-4.8); Lymphocytes % (A) 7 %; MCHC 33.9 g/dL (31.0-37.0); MCV 97.4 fL (80.0-100.0); Mean Platelet Volume 8.2; Monocytes # (A) 0.7 k/uL (0-1.0); Monocytes % (A) 7 %; Neutrophils # (A) 9.2 k/uL (1.3-7.7); Neutrophils % (A) 85 %; Platelet Count 133 k/uL (150-450); RBC 3.56 m/uL (4.30-5.90); RDW 12.8 % (11.5-15.5); WBC 10.8 k/uL (3.8-10.6)
[2020-11-11] MEDS: ACETAMINOPHEN IV (For NPO) 1,000 MG in EMPTY BAG 1 BAG IVPB SCH (17:57)
[2020-11-11 17:58] LABS: Glucose,Whole Blood 141 mg/dL (75-99)
[2020-11-11] MEDS: KETOROLAC 15 MG/ML 1 ML VIAL IVP SCH (18:01)
[2020-11-11 19:04] LABS: Glucose,Whole Blood 102 mg/dL (75-99)
[2020-11-11] MEDS: IPRATROPIUM-ALBUTEROL 3 ML NEB INHALATION SCH ×2 (19:41→22:28)
[2020-11-11 20:06] LABS: Glucose,Whole Blood 120 mg/dL (75-99)
[2020-11-11 20:13] LABS: Basophils % (A) 0 %; Eosinophils % (A) 0 %; HCT 31.9 % (39.0-53.0); HGB 10.7 gm/dL (13.0-17.5); Lymphocytes # (A) 0.7 k/uL (1.0-4.8); Lymphocytes % (A) 7 %; MCH 32.5 pg (25.0-35.0); MCHC 33.6 g/dL (31.0-37.0); MCV 96.8 fL (80.0-100.0); Mean Platelet Volume 9.3; Monocytes # (A) 0.6 k/uL (0-1.0); Monocytes % (A) 7 %; Neutrophils # (A) 8.4 k/uL (1.3-7.7); Neutrophils % (A) 85 %; Platelet Count 125 k/uL (150-450); RBC 3.29 m/uL (4.30-5.90); RDW 12.7 % (11.5-15.5); WBC 9.9 k/uL (3.8-10.6)
[2020-11-11 21:02] LABS: Glucose,Whole Blood 123 mg/dL (75-99)
--- NOTE | 2020-11-11 21:02 | OP ---
OPERATIVE REPORT DATE OF SURGERY: 11/11/2020 PREOPERATIVE DIAGNOSIS: Coronary artery disease. POSTOPERATIVE DIAGNOSIS: Coronary artery disease. PROCEDURES: 1. Coronary artery bypass grafting x 4 vessels (left internal mammary artery to left anterior descending artery, radial artery to obtuse marginal artery, saphenous vein graft to diagonal artery, saphenous vein graft to posterolateral branch of right coronary artery). 2. Endoscopic harvest of left greater saphenous vein. 3. Endoscopic harvest of left radial artery. 4. Epiaortic ultrasound. 5. Ligation of left atrial appendage using 35 mm AtriClip. 6. Transesophageal cardiogram. 7. Biopsy of mammary bed lymph node. SURGEON: Roberto Alicea MD. ASSISTANTS: 1. VENANCIO Holland. 2. VENANCIO Oconnor. ANESTHESIA: General. SPECIMEN: Mammary bed lymph node. COMPLICATIONS: None. INDICATION: The patient is a 60-year-old male with a past medical history significant for coronary artery disease, status post multiple stents, GERD, hyperlipidemia, hypertension, myocardial infarction, tobacco use and alcohol use who presented to the hospital with shoulder discomfort. Workup revealed a [id number] myocardial infarction. Cardiac catheterization revealed multivessel coronary artery disease, including in- stent restenosis. Coronary artery bypass was recommended. The risks, benefits and alternatives to this procedure were discussed with the patient. All of his questions were answered. Consent was obtained. Plavix was held 4 days prior to surgical intervention. FINDINGS: The left internal mammary artery was a good conduit with brisk flow. The saphenous vein was a good conduit. The radial artery was a good conduit. The LAD measured 1.5 mm. The diagonal artery measured 1.5 mm. The OM measured 1.5 mm. The PLB measured 1.3 mm. PROCEDURE IN DETAIL: The patient was taken to the operating room and placed supine on the operating table. After the induction of general anesthesia, he was prepped and draped in the usual sterile fashion. Preoperative transesophageal echocardiogram confirmed an ejection fraction of approximately 40% with trace to mild mitral regurgitation. A median sternotomy was performed. The left internal mammary artery was harvested in the standard fashion, taking care to clip all branches. Intravenous heparin was administered and the vessel was transected distally, revealing brisk flow. It should be noted that a mammary lymph node was encountered while dissecting out the left internal mammary artery. This lymph node was sent to Pathology. Simultaneously, greater saphenous vein was harvested from the left lower extremity using endoscopic technique. All branches were tied. In addition, the radial artery was harvested from the left upper extremity using endoscopic technique. All 3 vessels were good conduits. A pericardial cradle was created. The ascending aorta was palpated. There was no significant calcific plaque noted. Epiaortic ultrasound was then performed on the ascending aorta. Again no calcific plaque or atheromatous disease was identified. An arterial cannula was placed in the distal ascending aorta. A venous cannula was placed through the right atrial appendage and directed into the IVC. Both antegrade and retrograde catheters were placed as well. The patient was then placed on cardiopulmonary bypass with good decompression of the heart. The aortic cross- clamp was applied. Cold blood potassium cardioplegia was delivered in both antegrade and retrograde fashion to achieve arrest of the heart. Of note, cardioplegia was delivered every 15 to 20 minutes while the patient remained under cross-clamp. I began by identifying the left atrial appendage. A 35 mm AtriClip was placed across its base to ensure ligation. Next the inferior wall was inspected. Both the PDA and PLB were identified. The PDA was diffusely diseased. The PLB had a good target proximally just before it bifurcated. A small arteriotomy was created in the PLB. This vessel accepted a 1.0 mm probe. Using the saphenous vein in a reverse fashion, an end- to-side anastomosis was created. This was performed using running 7-0 Prolene suture. The graft was hemostatic and had great flow. Next, the lateral wall was inspected. The obtuse marginal was identified. It was dissected free in its mid portion. A small arteriotomy was created. This vessel accepted a 1.5 mm probe distally. Using the radial artery, an end-to-side anastomosis was created. This was performed using running 7-0 Prolene suture. The graft was hemostatic and great flow. Next, the anterior wall was inspected. The diagonal artery was dissected free. A small arteriotomy was created. This vessel accepted a 1.5 mm probe. Using the saphenous vein in a reverse fashion, an end-to-side anastomosis was created. This was performed using running 7-0 Prolene suture. The graft was hemostatic and had great flow. Finally the left anterior descending artery was identified. It was dissected free in its mid portion. A small arteriotomy was created. This vessel accepted a 1.5 mm probe. Using the left internal mammary artery, an end-to-side anastomosis was created. This was performed running 8-0 Prolene suture. The anastomosis was hemostatic. The mammary pedicle was then tacked down to the anterior surface of the heart. Attention was then turned to the proximal anastomoses. These were all performed in an end-to-side fashion using running 6-0 Prolene suture. One liter of warm blood was delivered in retrograde fashion. Both lidocaine and magnesium were administered as well. The aortic cross-clamp was removed. The vein grafts were de-aired in the standard fashion. Distal anastomoses were inspected and appeared to be hemostatic. Temporary atrial and ventricular pacing wires were placed and brought through skin. The patient was then weaned off cardiopulmonary bypass. He without the addition of any pressor support. Follow-up transesophageal cardiogram confirmed improvement in the ejection fraction and no change in valvular pathology. Protamine was administered. There were no adverse reactions. The remaining cannulas were removed. The mediastinum was copiously irrigated with warm saline solution. Again all surgical sites were inspected and appeared to be hemostatic. Soft tissues were reapproximated over the ascending aorta as well as over the apex of the heart. Straight 32-Romansh chest tubes were placed in both the left pleural space and the mediastinum. These were all secured to the skin using sutures. The sternum was then reapproximated using the Maybeury cable system. The cables were placed in a [id number] fashion. At the completion of the closure, the sternum was well aligned. The remainder of the wound was closed in layers. A sterile dressing was applied. The patient appeared to tolerate the procedure well. There were no immediate complications. He returned to the ICU in critical but stable condition. It should be noted that he did not receive any intraoperative blood products and he was not on any pressor support. MMODL / IJN: [id number] / MTDD
[2020-11-11] MEDS: HEPARIN SODIUM,PORCINE 5,000 UNIT/ML 1 ML VIAL SQ SCH (21:50)
[2020-11-11 22:02] LABS: Glucose,Whole Blood 142 mg/dL (75-99)
[2020-11-11 23:12] LABS: Glucose,Whole Blood 146 mg/dL (75-99)
[2020-11-12 00:17] LABS: Glucose,Whole Blood 141 mg/dL (75-99)
[2020-11-12] MEDS: ACETAMINOPHEN IV (For NPO) 1,000 MG in EMPTY BAG 1 BAG IVPB SCH (00:20)
[2020-11-12] MEDS: KETOROLAC 15 MG/ML 1 ML VIAL IVP SCH ×5 (00:21→23:33)
[2020-11-12] MEDS ORDERED: HYDROcodone/APAP 5-325MG 1 EACH TAB PO PRN (01:04)
[2020-11-12 01:21] LABS: Glucose,Whole Blood 120 mg/dL (75-99)
[2020-11-12 02:13] LABS: Glucose,Whole Blood 120 mg/dL (75-99)
[2020-11-12 03:20] LABS: Glucose,Whole Blood 129 mg/dL (75-99)
[2020-11-12] MEDS: DILTIAZEM 125 MG in SODIUM CHLORIDE 0.9% 100 ML IV SCH (03:42)
[2020-11-12] MEDS: HYDROcodone/APAP 5-325MG 1 EACH TAB PO PRN ×4 (03:50→20:54)
[2020-11-12 04:26] LABS: Glucose,Whole Blood 133 mg/dL (75-99)
[2020-11-12 04:30] LABS: Basophils % (A) 0 %; Eosinophils % (A) 0 %; HCT 31.6 % (39.0-53.0); HGB 10.7 gm/dL (13.0-17.5); Lymphocytes # (A) 1.2 k/uL (1.0-4.8); Lymphocytes % (A) 12 %; MCH 32.8 pg (25.0-35.0); MCHC 33.7 g/dL (31.0-37.0); MCV 97.2 fL (80.0-100.0); Mean Platelet Volume 9.3; Monocytes # (A) 0.8 k/uL (0-1.0); Monocytes % (A) 8 %; Neutrophils % (A) 78 %; Platelet Count 135 k/uL (150-450); RBC 3.25 m/uL (4.30-5.90); RDW 12.9 % (11.5-15.5); WBC 10.2 k/uL (3.8-10.6)
[2020-11-12 04:45] LABS: Ionized Calcium 4.7 mg/dL (4.5-5.3)
[2020-11-12 04:56] LABS: ALT 32 U/L (4-49); AST 61 U/L (17-59); African American GFR (CKD) >90 (>60 ml/min/1.73 sqM); Albumin 3.5 g/dL (3.5-5.0); Alkaline Phosphatase 41 U/L (38-126); Anion Gap 9 mmol/L; Blood Urea Nitrogen 21 mg/dL (9-20); Calcium 8.1 mg/dL (8.4-10.2); Carbon Dioxide 23 mmol/L (22-30); Chloride 101 mmol/L (98-107); Glucose 130 mg/dL (74-99); Magnesium 1.9 mg/dL (1.6-2.3); Non-African American GFR(CKD) >90 (>60 ml/min/1.73 sqM); Potassium 4.2 mmol/L (3.5-5.1); Sodium 133 mmol/L (137-145); Total Bilirubin 0.7 mg/dL (0.2-1.3); Total Protein 5.5 g/dL (6.3-8.2)
[2020-11-12 05:09] LABS: Glucose,Whole Blood 138 mg/dL (75-99)
[2020-11-12] MEDS: MAGNESIUM SULFATE-D5W PMX 1 GM in DEXTROSE/WATER 1 100ML.BAG IVPB SCH ×2 (05:11→06:24)
[2020-11-12] MEDS: ALBUMIN HUMAN 5% 250 ML in EMPTY BAG 1 BAG IVPB PRN (06:11)
[2020-11-12 06:46] LABS: Glucose,Whole Blood 156 mg/dL (75-99)
[2020-11-12 07:45] LABS: Glucose,Whole Blood 161 mg/dL (75-99)
--- NOTE | 2020-11-12 07:56 | XR ---
EXAMINATION TYPE: XR chest 1V portable DATE OF EXAM: 11/12/2020 HISTORY: Post Op CABG COMPARISON: 11/11/2020 TECHNIQUE: Single view of the chest is submitted. FINDINGS: Endotracheal tube, NG tube, SG catheter, mediastinal drains and chest tubes are appropriately placed. Post operative changes of CABG. No sizeable pneumothorax. Scattered Pleural-parenchymal opacities may reflect atelectasis. The heart is not enlarged. IMPRESSION: 1. Post operative changes of CABG.
[2020-11-12] MEDS: CLOPIDOGREL 75 MG TAB PO SCH (08:26)
[2020-11-12] MEDS: ATORVASTATIN 80 MG TAB PO SCH (08:26)
[2020-11-12] MEDS: FOLIC ACID 1 MG TAB PO SCH (08:26)
[2020-11-12] MEDS: METOPROLOL TARTRATE 12.5 MG TAB PO SCH ×2 (08:27→20:54)
[2020-11-12] MEDS: HEPARIN SODIUM,PORCINE 5,000 UNIT/ML 1 ML VIAL SQ SCH ×3 (08:27→23:34)
[2020-11-12] MEDS: THIAMINE 100 MG TAB PO SCH (08:27)
[2020-11-12] MEDS: ASPIRIN 325 MG TAB PO SCH (08:27)
[2020-11-12] MEDS: MULTIVITAMINS, THERA 1 EACH TAB PO SCH (08:27)
[2020-11-12] MEDS: amLODIPine 5 MG TAB PO SCH (08:27)
--- NOTE | 2020-11-12 08:35 | PN ---
PROGRESS NOTE Mr. Villagran is a 60-year-old male with history of coronary artery disease, presented with non ST-segment elevation myocardial infarction, underwent cardiac catheterization and was found to have significant obstructive coronary artery disease, underwent coronary artery bypass grafting yesterday by Dr. Alicea where he received a PHAM to the LAD, radial to the obtuse marginal branch, saphenous vein grafts to the diagonal, saphenous vein graft to the PLV. He is extubated, sitting up in the chair, feeling well. He has chest wall tenderness, but no anginal pain. He is in sinus mechanism. Hemodynamically, he is stable. He continues to be at this time on aspirin once a day, Lipitor 80 mg daily and metoprolol tartrate 12.5 mg twice a day. PHYSICAL EXAMINATION: Blood pressure 115/50 with the heart rate in the 60s. LUNGS: With no crackles or wheezes. HEART: Regular rate and rhythm. S1, S2. No S3, plus rub. ABDOMEN: Soft, nontender. EXTREMITIES: No edema. LAB DATA: Lab data revealed BUN and creatinine 21and 0.86. Hemoglobin 10.7, white blood cell of 10.2. IMPRESSION: 1. Status post coronary artery bypass grafting, stable. 2. History of hyperlipidemia. 3. Prior history of coronary artery disease. 4. Hypertension. RECOMMENDATION: From the cardiac standpoint, will continue present therapy, increase his level of activity, follow his blood pressure, reinitiate MENDOZA inhibitor as tolerated. MMODL / IJN: [id number] /
[2020-11-12] MEDS: IPRATROPIUM-ALBUTEROL 3 ML NEB INHALATION SCH ×4 (08:57→18:48)
[2020-11-12] MEDS ORDERED: PANTOPRAZOLE 40 MG/10 ML VIAL IVP SCH (09:00)
[2020-11-12] MEDS ORDERED: bisacodyL 10 MG SUPP RECTAL PRN (09:00)
[2020-11-12] MEDS ORDERED: MAGNESIUM HYDROXIDE 2,400 MG/10 ML CUP PO PRN (09:00)
[2020-11-12 09:02] LABS: Glucose,Whole Blood 119 mg/dL (75-99)
--- NOTE | 2020-11-12 09:20 | P.PN ---
Subjective Progress Note Date: 11/12/20 Principal diagnosis: Triple-vessel coronary artery disease, non-STEMI this admission. Previous medical history of coronary artery disease with myocardial infarction and multiple stent placement, hypertension, hyperlipidemia, hypothyroid, current chronic tobacco dependence, current daily EtOH use POD #1 coronary artery bypass grafting 4 vessels, left internal mammary artery to left anterior descending artery, radial artery to the obtuse marginal artery, reverse saphenous vein graft to the diagonal artery, reverse saphenous vein graft to the posterior lateral branch of the right coronary artery. Endoscopic harvesting of the left greater saphenous vein. Endoscopic harvesting of the left radial artery. Epi-aortic ultrasound. Ligation of left atrial appendage using a 35 mm AtriClip. Intraoperative transesophageal echocardiogram. Biopsy of mammary bed lymph node. The patient's currently sitting up in a recliner in the ICU in no acute distress. He was successfully extubated yesterday at 16:44. States post surgical pain controlled on current medication regimen, denies shortness of breath. Remains in sinus rhythm, hemodynamically stable on no inotropes or p ressors. IV Cardizem and nitro infusing. Right internal jugular [place], right radial arterial line, mediastinal and left pleural chest tubes all remain. No new concerns. Objective - Vital Signs Vital signs: Vital Signs Temp 99.1 F 11/12/20 08:00 Pulse 68 11/12/20 08:57 Resp 15 11/12/20 08:00 BP 118/52 11/12/20 08:00 Pulse Ox 97 11/12/20 08:00 Intake & Output 11/11/20 11/12/20 11/12/20 18:59 06:59 18:59 Intake Total 788.375 9990.762 224.121 Output Total 3270 1120 127 Balance -2873.354 2420.762 97.121 Weight 94 kg Intake: IV 376 1306 145 Albumin Human 5% 500 ml 500 In Empty Bag 1 bag @ 250 mls/hr IVPB ONCE ONE Rx#: [id number] CO/CI 120 140 30 Lactated Ringers 1,000 ml 250 600 100 @ 20 mls/hr IV .Q24H SHAINA Rx#:[id number] pressure bag 66 15 Intake, IV Titration 20.646 74.762 79.121 Amount Clevidipine Butyrate 25 11.101 mg In Empty Bag 1 bag @ 1 MG/HR 2 mls/hr IV .Q24H SHAINA Rx#:[id number] Dexmedetomidine/0.9% NaCl 9.545 (Pmx) 400 mcg In Empty Bag 1 bag @ Titrate IV . Q0M SHAINA Rx#:[id number] Diltiazem 125 mg In 64.167 Sodium Chloride 0.9% 100 ml @ 5 MG/HR 5 mls/hr IV .Q24H SHAINA Rx#:[id number] Insulin Regular 100 unit 10.595 2.146 In Sodium Chloride 0.9% 100 ml @ Per Protocol IV .Q0M SHAINA Rx#:[id number] Nitroglycerin-D5w Pmx 50 26.975 mg In Dextrose/Water 1 250ml.bag @ 5 MCG/MIN 1.5 mls/hr IV .Q24H SHAINA Rx#: [id number] ceFAZolin 2 gm In Sodium 50 Chloride 0.9% 50 ml @ 100 mls/hr IVPB Q8HR SHAINA Rx# :[id number] Oral 2160 Output: Chest Tube Drainage 360 455 37 LP 30 145 17 MS x2 330 310 20 Urine 1810 665 90 Estimated Blood Loss 1100 Other: Voiding Method Indwelling Catheter Indwelling Catheter ABP, PAP, CO, CI - Last Documented Arterial Blood Pressure 101/43 Pulmonary Artery Pressure 19/7 Cardiac Output 6.6 Cardiac Index 3.2 - Constitutional General appearance: Present: cooperative, no acute distress - Respiratory Details: Lungs sounds diminished bilaterally. Respirations even, nonlabored. Currently on 2 L nasal cannula with oxygen saturation 96%. Able to achieve 1250 mL on his incentive spirometry. Strong cough. Mediastinal chest tubes present to continuous wall suction, 200 mL serosanguineous drainage overnight, 750 mL since surgery, no air leak present. Left pleural chest tube present to continuous wall suction, 125 mL serosanguineous drainage overnight, 200 mL since surgery, no air leaks present. - Cardiovascular Details: S1, S2 present. Regular rate and rhythm, sinus rhythm on telemetry. Sternum stable. A/V epicardial pacemaker wires present, grounded. Palpable peripheral pulses bilaterally. No edema present. No calf pain or tenderness noted. Heart hugger in place with patient demonstrating appropriate use. Antiembolism stockings, SCDs present. Right internal [place], right radial arterial line present, last CO/CI 6.6/3.2, PA 19/7, CVP 5 on no inotropes or pressors. - Gastrointestinal Gastrointestinal Comment(s): Abdomen soft, nontender, nondistended. Hypoactive bowel sounds present 4 quadrants. Tolerating clear liquids. Positive belching, negative flatus - Genitourinary Genitourinary Comment(s): Linares present draining clear, yellow urine. Output 25-75 mL/h overnight, 2475 mL last 24 hours - Integumentary Integumentary Comment(s): Skin is warm and dry with evidence of good perfusion. Anterior chest incision well approximated and covered with dry intact dressing. Left radial artery harvest site well approximated with bandages in place, patient has numbness and tingling in his ring finger and pinky finger, skin is warm and pink, patient able to automobile brake bonder appropriately. Left lower extremity EVH site well approximated without redness or drainage. - Neurologic Neurologic: Present: CNII-XII intact - Musculoskeletal Musculoskeletal: Present: gait normal, strength equal bilaterally - Psychiatric Psychiatric: Present: A&O x's 3, appropriate affect, intact judgment & insight - Allied health notes Allied health notes reviewed: nursing - Labs CBC & Chem 7: 11/12/20 04:10 11/12/20 04:10 Labs: Abnormal Lab Results - Last 24 Hours (Table) 11/11/20 11/11/20 11/11/20 Range/Units 05:31 08:43 09:50 WBC (3.8-10.6) k/uL RBC (4.30-5.90) m/uL Hgb (13.0-17.5) gm/dL Hct (39.0-53.0) % Plt Count (150-450) k/uL Neutrophils # (1.3-7.7) k/uL Lymphocytes # (1.0-4.8) k/uL ABG pH 7.27 L (7.35-7.45) ABG pCO2 58 H (35-45) mmHg ABG pO2 >420 H 173 H (83-108) mmHg ABG HCO3 27 H 27 H (21-25) mmol/L ABG Total CO2 28 H 28 H (19-24) mmol/L ABG O2 Saturation 100.0 H 99.1 H (94-97) % ABG Hematocrit (34.0-46.0) % ABG Potassium 4.8 H (3.4-4.5) mmol/L ABG Ionized Calcium (4.5-5.3) mg/dL ABG Glucose 102 H 133 H (75-99) mg/dL ABG Lactic Acid (0.5-1.6) mmol/L Hemoglobin 12.9 L (13.0-17.5) gm/dL Sodium (137-145) mmol/L BUN (9-20) mg/dL Glucose (74-99) mg/dL POC Glucose (mg/dL) (75-99) mg/dL Calcium (8.4-10.2) mg/dL Magnesium (1.6-2.3) mg/dL AST (17-59) U/L Total Protein (6.3-8.2) g/dL Arterial Blood Potassium 4.8 H (3.4-4.5) mmol/L Arterial Blood Glucose 102 H 133 H (75-99) mg/dL Crossmatch See Detail 11/11/20 11/11/20 11/11/20 Range/Units 11:07 11:31 12:11 WBC (3.8-10.6) k/uL RBC (4.30-5.90) m/uL Hgb (13.0-17.5) gm/dL Hct (39.0-53.0) % Plt Count (150-450) k/uL Neutrophils # (1.3-7.7) k/uL Lymphocytes # (1.0-4.8) k/uL ABG pH 7.32 L 7.33 L 7.32 L (7.35-7.45) ABG pCO2 49 H 47 H (35-45) mmHg ABG pO2 211 H 325 H 247 H (83-108) mmHg ABG HCO3 (21-25) mmol/L ABG Total CO2 26 H 26 H 26 H (19-24) mmol/L ABG O2 Saturation 99.6 H 99.8 H 99.6 H (94-97) % ABG Hematocrit 33 L 33 L (34.0-46.0) % ABG Potassium 5.2 H 4.7 H (3.4-4.5) mmol/L ABG Ionized Calcium 4.3 L 4.3 L 4.4 L (4.5-5.3) mg/dL ABG Glucose 197 H 189 H 136 H (75-99) mg/dL ABG Lactic Acid 1.9 H (0.5-1.6) mmol/L Hemoglobin 10.9 L 11.0 L 10.9 L (13.0-17.5) gm/dL Sodium (137-145) mmol/L BUN (9-20) mg/dL Glucose (74-99) mg/dL POC Glucose (mg/dL) (75-99) mg/dL Calcium (8.4-10.2) mg/dL Magnesium (1.6-2.3) mg/dL AST (17-59) U/L Total Protein (6.3-8.2) g/dL Arterial Blood Potassium 5.2 H 4.7 H (3.4-4.5) mmol/L Arterial Blood Glucose 197 H 189 H 136 H (75-99) mg/dL Crossmatch 11/11/20 11/11/20 11/11/20 Range/Units 13:27 14:24 14:24 WBC 11.2 H (3.8-10.6) k/uL RBC 3.55 L (4.30-5.90) m/uL Hgb 11.8 L (13.0-17.5) gm/dL Hct 34.9 L (39.0-53.0) % Plt Count 111 L (150-450) k/uL Neutrophils # 9.1 H (1.3-7.7) k/uL Lymphocytes # (1.0-4.8) k/uL ABG pH 7.33 L (7.35-7.45) ABG pCO2 47 H (35-45) mmHg ABG pO2 (83-108) mmHg ABG HCO3 (21-25) mmol/L ABG Total CO2 26 H (19-24) mmol/L ABG O2 Saturation (94-97) % ABG Hematocrit (34.0-46.0) % ABG Potassium (3.4-4.5) mmol/L ABG Ionized Calcium (4.5-5.3) mg/dL ABG Glucose 56 L (75-99) mg/dL ABG Lactic Acid (0.5-1.6) mmol/L Hemoglobin 11.7 L (13.0-17.5) gm/dL Sodium (137-145) mmol/L BUN (9-20) mg/dL Glucose 71 L (74-99) mg/dL POC Glucose (mg/dL) (75-99) mg/dL Calcium 8.3 L (8.4-10.2) mg/dL Magnesium 2.8 H (1.6-2.3) mg/dL AST (17-59) U/L Total Protein 5.7 L (6.3-8.2) g/dL Arterial Blood Potassium (3.4-4.5) mmol/L Arterial Blood Glucose 56 L (75-99) mg/dL Crossmatch 11/11/20 11/11/20 11/11/20 Range/Units 14:29 15:11 16:19 WBC (3.8-10.6) k/uL RBC (4.30-5.90) m/uL Hgb (13.0-17.5) gm/dL Hct (39.0-53.0) % Plt Count (150-450) k/uL Neutrophils # (1.3-7.7) k/uL Lymphocytes # (1.0-4.8) k/uL ABG pH (7.35-7.45) ABG pCO2 (35-45) mmHg ABG pO2 322 H (83-108) mmHg ABG HCO3 (21-25) mmol/L ABG Total CO2 26 H (19-24) mmol/L ABG O2 Saturation 100.0 H (94-97) % ABG Hematocrit (34.0-46.0) % ABG Potassium (3.4-4.5) mmol/L ABG Ionized Calcium (4.5-5.3) mg/dL ABG Glucose (75-99) mg/dL ABG Lactic Acid (0.5-1.6) mmol/L Hemoglobin (13.0-17.5) gm/dL Sodium (137-145) mmol/L BUN (9-20) mg/dL Glucose (74-99) mg/dL POC Glucose (mg/dL) 70 L 132 H (75-99) mg/dL Calcium (8.4-10.2) mg/dL Magnesium (1.6-2.3) mg/dL AST (17-59) U/L Total Protein (6.3-8.2) g/dL Arterial Blood Potassium (3.4-4.5) mmol/L Arterial Blood Glucose (75-99) mg/dL Crossmatch 11/11/20 11/11/20 11/11/20 Range/Units 17:00 17:02 17:57 WBC 10.8 H (3.8-10.6) k/uL RBC 3.56 L (4.30-5.90) m/uL Hgb 11.8 L (13.0-17.5) gm/dL Hct 34.7 L (39.0-53.0) % Plt Count 133 L (150-450) k/uL Neutrophils # 9.2 H (1.3-7.7) k/uL Lymphocytes # 0.7 L (1.0-4.8) k/uL ABG pH (7.35-7.45) ABG pCO2 (35-45) mmHg ABG pO2 (83-108) mmHg ABG HCO3 (21-25) mmol/L ABG Total CO2 (19-24) mmol/L ABG O2 Saturation (94-97) % ABG Hematocrit (34.0-46.0) % ABG Potassium (3.4-4.5) mmol/L ABG Ionized Calcium (4.5-5.3) mg/dL ABG Glucose (75-99) mg/dL ABG Lactic Acid (0.5-1.6) mmol/L Hemoglobin (13.0-17.5) gm/dL Sodium (137-145) mmol/L BUN (9-20) mg/dL Glucose (74-99) mg/dL POC Glucose (mg/dL) 134 H 141 H (75-99) mg/dL Calcium (8.4-10.2) mg/dL Magnesium (1.6-2.3) mg/dL AST (17-59) U/L Total Protein (6.3-8.2) g/dL Arterial Blood Potassium (3.4-4.5) mmol/L Arterial Blood Glucose (75-99) mg/dL Crossmatch 11/11/20 11/11/20 11/11/20 Range/Units 19:02 20:00 20:04 WBC (3.8-10.6) k/uL RBC 3.29 L (4.30-5.90) m/uL Hgb 10.7 L (13.0-17.5) gm/dL Hct 31.9 L (39.0-53.0) % Plt Count 125 L (150-450) k/uL Neutrophils # 8.4 H (1.3-7.7) k/uL Lymphocytes # 0.7 L (1.0-4.8) k/uL ABG pH (7.35-7.45) ABG pCO2 (35-45) mmHg ABG pO2 (83-108) mmHg ABG HCO3 (21-25) mmol/L ABG Total CO2 (19-24) mmol/L ABG O2 Saturation (94-97) % ABG Hematocrit (34.0-46.0) % ABG Potassium (3.4-4.5) mmol/L ABG Ionized Calcium (4.5-5.3) mg/dL ABG Glucose (75-99) mg/dL ABG Lactic Acid (0.5-1.6) mmol/L Hemoglobin (13.0-17.5) gm/dL Sodium (137-145) mmol/L BUN (9-20) mg/dL Glucose (74-99) mg/dL POC Glucose (mg/dL) 102 H 120 H (75-99) mg/dL Calcium (8.4-10.2) mg/dL Magnesium (1.6-2.3) mg/dL AST (17-59) U/L Total Protein (6.3-8.2) g/dL Arterial Blood Potassium (3.4-4.5) mmol/L Arterial Blood Glucose (75-99) mg/dL Crossmatch 11/11/20 11/11/20 11/11/20 Range/Units 21:00 22:00 23:11 WBC (3.8-10.6) k/uL RBC (4.30-5.90) m/uL Hgb (13.0-17.5) gm/dL Hct (39.0-53.0) % Plt Count (150-450) k/uL Neutrophils # (1.3-7.7) k/uL Lymphocytes # (1.0-4.8) k/uL ABG pH (7.35-7.45) ABG pCO2 (35-45) mmHg ABG pO2 (83-108) mmHg ABG HCO3 (21-25) mmol/L ABG Total CO2 (19-24) mmol/L ABG O2 Saturation (94-97) % ABG Hematocrit (34.0-46.0) % ABG Potassium (3.4-4.5) mmol/L ABG Ionized Calcium (4.5-5.3) mg/dL ABG Glucose (75-99) mg/dL ABG Lactic Acid (0.5-1.6) mmol/L Hemoglobin (13.0-17.5) gm/dL Sodium (137-145) mmol/L BUN (9-20) mg/dL Glucose (74-99) mg/dL POC Glucose (mg/dL) 123 H 142 H 146 H (75-99) mg/dL Calcium (8.4-10.2) mg/dL Magnesium (1.6-2.3) mg/dL AST (17-59) U/L Total Protein (6.3-8.2) g/dL Arterial Blood Potassium (3.4-4.5) mmol/L Arterial Blood Glucose (75-99) mg/dL Crossmatch 11/12/20 11/12/20 11/12/20 Range/Units 00:14 01:20 02:11 WBC (3.8-10.6) k/uL RBC (4.30-5.90) m/uL Hgb (13.0-17.5) gm/dL Hct (39.0-53.0) % Plt Count (150-450) k/uL Neutrophils # (1.3-7.7) k/uL Lymphocytes # (1.0-4.8) k/uL ABG pH (7.35-7.45) ABG pCO2 (35-45) mmHg ABG pO2 (83-108) mmHg ABG HCO3 (21-25) mmol/L ABG Total CO2 (19-24) mmol/L ABG O2 Saturation (94-97) % ABG Hematocrit (34.0-46.0) % ABG Potassium (3.4-4.5) mmol/L ABG Ionized Calcium (4.5-5.3) mg/dL ABG Glucose (75-99) mg/dL ABG Lactic Acid (0.5-1.6) mmol/L Hemoglobin (13.0-17.5) gm/dL Sodium (137-145) mmol/L BUN (9-20) mg/dL Glucose (74-99) mg/dL POC Glucose (mg/dL) 141 H 120 H 120 H (75-99) mg/dL Calcium (8.4-10.2) mg/dL Magnesium (1.6-2.3) mg/dL AST (17-59) U/L Total Protein (6.3-8.2) g/dL Arterial Blood Potassium (3.4-4.5) mmol/L Arterial Blood Glucose (75-99) mg/dL Crossmatch 11/12/20 11/12/20 11/12/20 Range/Units 03:18 04:10 04:10 WBC (3.8-10.6) k/uL RBC 3.25 L (4.30-5.90) m/uL Hgb 10.7 L (13.0-17.5) gm/dL Hct 31.6 L (39.0-53.0) % Plt Count 135 L (150-450) k/uL Neutrophils # 8.0 H (1.3-7.7) k/uL Lymphocytes # (1.0-4.8) k/uL ABG pH (7.35-7.45) ABG pCO2 (35-45) mmHg ABG pO2 (83-108) mmHg ABG HCO3 (21-25) mmol/L ABG Total CO2 (19-24) mmol/L ABG O2 Saturation (94-97) % ABG Hematocrit (34.0-46.0) % ABG Potassium (3.4-4.5) mmol/L ABG Ionized Calcium (4.5-5.3) mg/dL ABG Glucose (75-99) mg/dL ABG Lactic Acid (0.5-1.6) mmol/L Hemoglobin (13.0-17.5) gm/dL Sodium 133 L (137-145) mmol/L BUN 21 H (9-20) mg/dL Glucose 130 H (74-99) mg/dL POC Glucose (mg/dL) 129 H (75-99) mg/dL Calcium 8.1 L (8.4-10.2) mg/dL Magnesium (1.6-2.3) mg/dL AST 61 H (17-59) U/L Total Protein 5.5 L (6.3-8.2) g/dL Arterial Blood Potassium (3.4-4.5) mmol/L Arterial Blood Glucose (75-99) mg/dL Crossmatch 11/12/20 11/12/20 11/12/20 Range/Units 04:20 05:07 06:45 WBC (3.8-10.6) k/uL RBC (4.30-5.90) m/uL Hgb (13.0-17.5) gm/dL Hct (39.0-53.0) % Plt Count (150-450) k/uL Neutrophils # (1.3-7.7) k/uL Lymphocytes # (1.0-4.8) k/uL ABG pH (7.35-7.45) ABG pCO2 (35-45) mmHg ABG pO2 (83-108) mmHg ABG HCO3 (21-25) mmol/L ABG Total CO2 (19-24) mmol/L ABG O2 Saturation (94-97) % ABG Hematocrit (34.0-46.0) % ABG Potassium (3.4-4.5) mmol/L ABG Ionized Calcium (4.5-5.3) mg/dL ABG Glucose (75-99) mg/dL ABG Lactic Acid (0.5-1.6) mmol/L Hemoglobin (13.0-17.5) gm/dL Sodium (137-145) mmol/L BUN (9-20) mg/dL Glucose (74-99) mg/dL POC Glucose (mg/dL) 133 H 138 H 156 H (75-99) mg/dL Calcium (8.4-10.2) mg/dL Magnesium (1.6-2.3) mg/dL AST (17-59) U/L Total Protein (6.3-8.2) g/dL Arterial Blood Potassium (3.4-4.5) mmol/L Arterial Blood Glucose (75-99) mg/dL Crossmatch 11/12/20 11/12/20 Range/Units 07:44 09:00 WBC (3.8-10.6) k/uL RBC (4.30-5.90) m/uL Hgb (13.0-17.5) gm/dL Hct (39.0-53.0) % Plt Count (150-450) k/uL Neutrophils # (1.3-7.7) k/uL Lymphocytes # (1.0-4.8) k/uL ABG pH (7.35-7.45) ABG pCO2 (35-45) mmHg ABG pO2 (83-108) mmHg ABG HCO3 (21-25) mmol/L ABG Total CO2 (19-24) mmol/L ABG O2 Saturation (94-97) % ABG Hematocrit (34.0-46.0) % ABG Potassium (3.4-4.5) mmol/L ABG Ionized Calcium (4.5-5.3) mg/dL ABG Glucose (75-99) mg/dL ABG Lactic Acid (0.5-1.6) mmol/L Hemoglobin (13.0-17.5) gm/dL Sodium (137-145) mmol/L BUN (9-20) mg/dL Glucose (74-99) mg/dL POC Glucose (mg/dL) 161 H 119 H (75-99) mg/dL Calcium (8.4-10.2) mg/dL Magnesium (1.6-2.3) mg/dL AST (17-59) U/L Total Protein (6.3-8.2) g/dL Arterial Blood Potassium (3.4-4.5) mmol/L Arterial Blood Glucose (75-99) mg/dL Crossmatch - Imaging and Cardiology Chest x-ray: report reviewed, image reviewed Assessment and Plan Assessment: 1. Triple-vessel coronary artery disease, non-STEMI this admission, status post four-vessel CABG 2. History of coronary artery disease with myocardial infarction and multiple stent placement 3. History of hypertension, treated 4. History of hyperlipidemia, treated, cholesterol 179, LDL 107 5. Hypothyroid 6. Current chronic tobacco dependence, current FEV1 109% of predicted 7. Current daily EtOH use Plan: 1. Continue aspirin, statin, Plavix, low-dose beta jono. Will increase beta jono as tolerated. Discontinue IV nitro 2. Will start oral calcium channel jono for radial artery spasm prophylaxis, discontinue IV Cardizem after oral administration. Do not discontinue CCB without discussing with surgery 3. Wean O2 as tolerated. Encourage incentive spirometry use 10 times every h our while awake. Bronchodilators per pulmonology 4. Risk factor modification discussed, continue to encourage smoking cessation 5. Increase activity, ambulate as tolerated. PT/OT/cardiac rehab consulted 6. Will monitor daily labs and x-rays. Electrolyte replacement per protocol 7. GI/DVT prophylaxis 8. Pain control current medication regimen 9. Insulin management per primary care service. Patient is not diabetic, hemoglobin A1c 5.7% 10. Discontinue [place]. Connect Cordis to continuous CVP monitoring 11. Will continue mediastinal, left pleural chest tubes for another 24 hours 12. Continue [place] for another 24 hours. Strict accurate intake and output. Daily weight 13. Monitor for signs of alcohol withdrawal, CIWA protocol 14. More recommendations to follow Time with Patient: Greater than 30
[2020-11-12] MEDS: LACTATED RINGERS 1,000 ML IV SCH (09:26)
[2020-11-12 10:02] LABS: Glucose,Whole Blood 116 mg/dL (75-99)
--- NOTE | 2020-11-12 10:56 | P.PN ---
Subjective Progress Note Date: 11/12/20 Principal diagnosis: Ventilator management/ICU management This is a 60-year-old male presented to the emergency department on November 07, at 553. The patient apparently complained of feeling weird and dizzy. He was lightheaded, and just felt like his balance was off especially with quick head movements. He denied any nausea, vomiting, or changes in his speech as well as any complaints of weakness in the upper or lower extremities. He denied any chest pain or pressure, jaw pain, back pain, etc. He does have a previous history of cardiac catheterization with stent placement, and previous myocardial infarction at age 40. The patient was more recently evaluated by cardiac catheterization, and was found to have an extremely calcified right and left coronary system, with critical disease involving the mid right coronary artery and severe disease involving the distal right coronary artery. The patient had a normal left main coronary artery, and critical disease involving the proximal and mid left anterior descending artery, as well as severe disease involving the proximal first obtuse marginal branch of the left circumflex, which was a large caliber vessel. Bypass grafting was recommended. He apparently is going to have bypass surgery towards the end of this week. We were asked to see him for preop clearance. The patient is a heavy smoker having been smoking for about 35-40 years or so. The patient denies a prior history of lung disease and actually did very well on his preoperative spirometry. It was reported to me that his FEV1 was 109% of predicted. I've yet to see his PFTs. He denies any shortness of breath, coughing, wheezing, or phlegm production. His past medical history includes coronary artery disease, gastroesophageal reflux disease, hyperlipidemia, hypertension, myocardial infarction, and hypothyroidism. On 11/10/2020 patient seen in follow-up on selective care unit, he is ambulating around the hallway, denied any chest pain with exertion, no shortness of breath, he is on room air, he is breathing comfortably, pulse ox on room air is 97%, vital signs have been stable, heparin was discontinued yesterday. Today's labs have been reviewed, CBC was done only. Relatively unremarkable, no acute events overnight. No cough, no chest pain, no wheezing or phlegm production. On 11/11/2020 patient seen in follow-up in the intensive care unit following his four-vessel bypass with PHAM to the LAD, left radial graft to the OM, SVG to the diagonal, and SVG to the PLB, and exclusion of the left atrial appendage with 35 mm atriclip. Patient is sedated, intubated on mechanical ventilator, with assist control mode of ventilation, with a rate of 12, tidal volume is 400, FiO2 100% and PEEP of 5, postoperative blood gases showed pO2 of 322, pCO2 44, and pH of 7.35, this was done 100%, and FiO2 was cut back to 40%. He is currently on lactated Ringer's at 50 ML per hour, Diprivan and is at 20 mics per kilo per minute, Cardizem drip is at 5 mg per hour, and nitroglycerin is at 5 mics per kilo per minute. He is in sinus mechanism with a rate of 59-60 BPM, PA pressures 29/16, CVP is 12, cardiac output is 8.2, and cardiac index is 4.0. Postoperative blood gas shows a new lateral left basilar atelectasis. Labs have been reviewed, white blood cell count is 11.2, hemoglobin is 11.8, renal profile and electrolytes are unremarkable, mediastinal chest tubes 2 with a total of 400 mL of sanguinous output, and left pleural chest tube with no output. Hemodynamically patient is stable. He is starting to wake up. Progress note dated 11/12/2020. 60-year-old male, postop day #1, status post four-vessel bypass grafting. The patient was extubated in less than 3 hours after leaving the operating room. Currently, he is on 2 L nasal cannula. He is getting lactated Ringer's at 50 mL an hour, Cardizem drip at 5 mg an hour, nitroglycerin drip at 5 mcg/m, and insulin drip at 3.5 units per hour. Currently, he sitting up in a chair. He is very stable. He has no major complaints other than pain at the surgical site. He had a four-vessel bypass grafting. It was done by Dr. Alicea. Current white count is 10.2, hemoglobin 10.7, hematocrit 31.6, and platelet count 135,000. Sodium 133, potassium 4.2, chlorides 101, CO2 23, anion gap is 9, BUN 21, and creatinine 0.86. Chest x-ray shows typical postoperative changes, with some bibasilar atelectasis. There also may be small effusions bilaterally. Objective - Vital Signs Vital signs: Vital Signs Temp 99.1 F 11/12/20 08:00 Pulse 77 11/12/20 10:00 Resp 28 H 11/12/20 10:00 BP 108/63 11/12/20 09:00 Pulse Ox 97 11/12/20 10:00 Intake & Output 11/11/20 11/12/20 11/12/20 18:59 06:59 18:59 Intake Total 249.335 5756.762 532.863 Output Total 3270 1120 327 Balance -2873.354 2420.762 205.863 Weight 94 kg Intake: IV 376 1306 323 Albumin Human 5% 500 ml 500 In Empty Bag 1 bag @ 250 mls/hr IVPB ONCE ONE Rx#: [id number] CO/CI 120 140 90 Lactated Ringers 1,000 ml 250 600 200 @ 20 mls/hr IV .Q24H SHAINA Rx#:[id number] pressure bag 66 33 Intake, IV Titration 20.646 74.762 109.863 Amount Clevidipine Butyrate 25 11.101 mg In Empty Bag 1 bag @ 1 MG/HR 2 mls/hr IV .Q24H SHAINA Rx#:[id number] Dexmedetomidine/0.9% NaCl 9.545 (Pmx) 400 mcg In Empty Bag 1 bag @ Titrate IV . Q0M SHAINA Rx#:[id number] Diltiazem 125 mg In 64.167 26.5 Sodium Chloride 0.9% 100 ml @ 5 MG/HR 5 mls/hr IV .Q24H SHAINA Rx#:[id number] Insulin Regular 100 unit 10.595 6.388 In Sodium Chloride 0.9% 100 ml @ Per Protocol IV .Q0M SHAINA Rx#:[id number] Nitroglycerin-D5w Pmx 50 26.975 mg In Dextrose/Water 1 250ml.bag @ 5 MCG/MIN 1.5 mls/hr IV .Q24H SHAINA Rx#: [id number] ceFAZolin 2 gm In Sodium 50 Chloride 0.9% 50 ml @ 100 mls/hr IVPB Q8HR SHAINA Rx# :[id number] Oral 2160 100 Output: Chest Tube Drainage 360 455 47 LP 30 145 22 MS x2 330 310 25 Urine 1810 665 280 Estimated Blood Loss 1100 Other: Voiding Method Indwelling Catheter Indwelling Catheter Indwelling Catheter ABP, PAP, CO, CI - Last Documented Arterial Blood Pressure 128/49 Pulmonary Artery Pressure 23/10 Cardiac Output 6.6 Cardiac Index 3.2 - Exam GENERAL EXAM: Extubated, on nasal O2 at 2 L, sitting at the bedside. HEAD: Normocephalic/atraumatic. EYES: Normal reaction of pupils, equal size. Conjunctiva pink, sclera white. NOSE: Clear with pink turbinates. THROAT: No erythema or exudates. NECK: No masses, no JVD, no thyroid enlargement, no adenopathy. CHEST: No chest wall deformity. Symmetrical expansion. Midsternal incision is clean dry and intact, 2 mediastinal and left pleural chest tubes in place. LUNGS: Equal air entry with no crackles, wheeze, rhonchi or dullness. CVS: Regular rate and rhythm, normal S1 and S2, no gallops, no murmurs, no rubs ABDOMEN: Soft, nontender. No hepatosplenomegaly, normal bowel sounds, no guarding or rigidity. EXTREMITIES: No clubbing, no edema, no cyanosis, 2+ pulses and upper and lower extremities. Left lower leg incision covered with dressings, and left radial graft site covered with dressings, and Juan Jose wrapped MUSCULOSKELETAL: Muscle strength and tone normal. SPINE: No scoliosis or deformity SKIN: No rashes CENTRAL NERVOUS SYSTEM: Alert and oriented. Neurologic examination is brief but nonfocal. - Labs CBC & Chem 7: 11/12/20 04:10 11/12/20 04:10 Labs: Abnormal Lab Results - Last 24 Hours (Table) 11/11/20 11/11/20 11/11/20 Range/Units 05:31 08:43 09:50 WBC (3.8-10.6) k/uL RBC (4.30-5.90) m/uL Hgb (13.0-17.5) gm/dL Hct (39.0-53.0) % Plt Count (150-450) k/uL Neutrophils # (1.3-7.7) k/uL Lymphocytes # (1.0-4.8) k/uL ABG pH 7.27 L (7.35-7.45) ABG pCO2 58 H (35-45) mmHg ABG pO2 >420 H 173 H (83-108) mmHg ABG HCO3 27 H 27 H (21-25) mmol/L ABG Total CO2 28 H 28 H (19-24) mmol/L ABG O2 Saturation 100.0 H 99.1 H (94-97) % ABG Hematocrit (34.0-46.0) % ABG Potassium 4.8 H (3.4-4.5) mmol/L ABG Ionized Calcium (4.5-5.3) mg/dL ABG Glucose 102 H 133 H (75-99) mg/dL ABG Lactic Acid (0.5-1.6) mmol/L Hemoglobin 12.9 L (13.0-17.5) gm/dL Sodium (137-145) mmol/L BUN (9-20) mg/dL Glucose (74-99) mg/dL POC Glucose (mg/dL) (75-99) mg/dL Calcium (8.4-10.2) mg/dL Magnesium (1.6-2.3) mg/dL AST (17-59) U/L Total Protein (6.3-8.2) g/dL Arterial Blood Potassium 4.8 H (3.4-4.5) mmol/L Arterial Blood Glucose 102 H 133 H (75-99) mg/dL Crossmatch See Detail 11/11/20 11/11/20 11/11/20 Range/Units 11:07 11:31 12:11 WBC (3.8-10.6) k/uL RBC (4.30-5.90) m/uL Hgb (13.0-17.5) gm/dL Hct (39.0-53.0) % Plt Count (150-450) k/uL Neutrophils # (1.3-7.7) k/uL Lymphocytes # (1.0-4.8) k/uL ABG pH 7.32 L 7.33 L 7.32 L (7.35-7.45) ABG pCO2 49 H 47 H (35-45) mmHg ABG pO2 211 H 325 H 247 H (83-108) mmHg ABG HCO3 (21-25) mmol/L ABG Total CO2 26 H 26 H 26 H (19-24) mmol/L ABG O2 Saturation 99.6 H 99.8 H 99.6 H (94-97) % ABG Hematocrit 33 L 33 L (34.0-46.0) % ABG Potassium 5.2 H 4.7 H (3.4-4.5) mmol/L ABG Ionized Calcium 4.3 L 4.3 L 4.4 L (4.5-5.3) mg/dL ABG Glucose 197 H 189 H 136 H (75-99) mg/dL ABG Lactic Acid 1.9 H (0.5-1.6) mmol/L Hemoglobin 10.9 L 11.0 L 10.9 L (13.0-17.5) gm/dL Sodium (137-145) mmol/L BUN (9-20) mg/dL Glucose (74-99) mg/dL POC Glucose (mg/dL) (75-99) mg/dL Calcium (8.4-10.2) mg/dL Magnesium (1.6-2.3) mg/dL AST (17-59) U/L Total Protein (6.3-8.2) g/dL Arterial Blood Potassium 5.2 H 4.7 H (3.4-4.5) mmol/L Arterial Blood Glucose 197 H 189 H 136 H (75-99) mg/dL Crossmatch 11/11/20 11/11/20 11/11/20 Range/Units 13:27 14:24 14:24 WBC 11.2 H (3.8-10.6) k/uL RBC 3.55 L (4.30-5.90) m/uL Hgb 11.8 L (13.0-17.5) gm/dL Hct 34.9 L (39.0-53.0) % Plt Count 111 L (150-450) k/uL Neutrophils # 9.1 H (1.3-7.7) k/uL Lymphocytes # (1.0-4.8) k/uL ABG pH 7.33 L (7.35-7.45) ABG pCO2 47 H (35-45) mmHg ABG pO2 (83-108) mmHg ABG HCO3 (21-25) mmol/L ABG Total CO2 26 H (19-24) mmol/L ABG O2 Saturation (94-97) % ABG Hematocrit (34.0-46.0) % ABG Potassium (3.4-4.5) mmol/L ABG Ionized Calcium (4.5-5.3) mg/dL ABG Glucose 56 L (75-99) mg/dL ABG Lactic Acid (0.5-1.6) mmol/L Hemoglobin 11.7 L (13.0-17.5) gm/dL Sodium (137-145) mmol/L BUN (9-20) mg/dL Glucose 71 L (74-99) mg/dL POC Glucose (mg/dL) (75-99) mg/dL Calcium 8.3 L (8.4-10.2) mg/dL Magnesium 2.8 H (1.6-2.3) mg/dL AST (17-59) U/L Total Protein 5.7 L (6.3-8.2) g/dL Arterial Blood Potassium (3.4-4.5) mmol/L Arterial Blood Glucose 56 L (75-99) mg/dL Crossmatch 11/11/20 11/11/20 11/11/20 Range/Units 14:29 15:11 16:19 WBC (3.8-10.6) k/uL RBC (4.30-5.90) m/uL Hgb (13.0-17.5) gm/dL Hct (39.0-53.0) % Plt Count (150-450) k/uL Neutrophils # (1.3-7.7) k/uL Lymphocytes # (1.0-4.8) k/uL ABG pH (7.35-7.45) ABG pCO2 (35-45) mmHg ABG pO2 322 H (83-108) mmHg ABG HCO3 (21-25) mmol/L ABG Total CO2 26 H (19-24) mmol/L ABG O2 Saturation 100.0 H (94-97) % ABG Hematocrit (34.0-46.0) % ABG Potassium (3.4-4.5) mmol/L ABG Ionized Calcium (4.5-5.3) mg/dL ABG Glucose (75-99) mg/dL ABG Lactic Acid (0.5-1.6) mmol/L Hemoglobin (13.0-17.5) gm/dL Sodium (137-145) mmol/L BUN (9-20) mg/dL Glucose (74-99) mg/dL POC Glucose (mg/dL) 70 L 132 H (75-99) mg/dL Calcium (8.4-10.2) mg/dL Magnesium (1.6-2.3) mg/dL AST (17-59) U/L Total Protein (6.3-8.2) g/dL Arterial Blood Potassium (3.4-4.5) mmol/L Arterial Blood Glucose (75-99) mg/dL Crossmatch 11/11/20 11/11/20 11/11/20 Range/Units 17:00 17:02 17:57 WBC 10.8 H (3.8-10.6) k/uL RBC 3.56 L (4.30-5.90) m/uL Hgb 11.8 L (13.0-17.5) gm/dL Hct 34.7 L (39.0-53.0) % Plt Count 133 L (150-450) k/uL Neutrophils # 9.2 H (1.3-7.7) k/uL Lymphocytes # 0.7 L (1.0-4.8) k/uL ABG pH (7.35-7.45) ABG pCO2 (35-45) mmHg ABG pO2 (83-108) mmHg ABG HCO3 (21-25) mmol/L ABG Total CO2 (19-24) mmol/L ABG O2 Saturation (94-97) % ABG Hematocrit (34.0-46.0) % ABG Potassium (3.4-4.5) mmol/L ABG Ionized Calcium (4.5-5.3) mg/dL ABG Glucose (75-99) mg/dL ABG Lactic Acid (0.5-1.6) mmol/L Hemoglobin (13.0-17.5) gm/dL Sodium (137-145) mmol/L BUN (9-20) mg/dL Glucose (74-99) mg/dL POC Glucose (mg/dL) 134 H 141 H (75-99) mg/dL Calcium (8.4-10.2) mg/dL Magnesium (1.6-2.3) mg/dL AST (17-59) U/L Total Protein (6.3-8.2) g/dL Arterial Blood Potassium (3.4-4.5) mmol/L Arterial Blood Glucose (75-99) mg/dL Crossmatch 11/11/20 11/11/20 11/11/20 Range/Units 19:02 20:00 20:04 WBC (3.8-10.6) k/uL RBC 3.29 L (4.30-5.90) m/uL Hgb 10.7 L (13.0-17.5) gm/dL Hct 31.9 L (39.0-53.0) % Plt Count 125 L (150-450) k/uL Neutrophils # 8.4 H (1.3-7.7) k/uL Lymphocytes # 0.7 L (1.0-4.8) k/uL ABG pH (7.35-7.45) ABG pCO2 (35-45) mmHg ABG pO2 (83-108) mmHg ABG HCO3 (21-25) mmol/L ABG Total CO2 (19-24) mmol/L ABG O2 Saturation (94-97) % ABG Hematocrit (34.0-46.0) % ABG Potassium (3.4-4.5) mmol/L ABG Ionized Calcium (4.5-5.3) mg/dL ABG Glucose (75-99) mg/dL ABG Lactic Acid (0.5-1.6) mmol/L Hemoglobin (13.0-17.5) gm/dL Sodium (137-145) mmol/L BUN (9-20) mg/dL Glucose (74-99) mg/dL POC Glucose (mg/dL) 102 H 120 H (75-99) mg/dL Calcium (8.4-10.2) mg/dL Magnesium (1.6-2.3) mg/dL AST (17-59) U/L Total Protein (6.3-8.2) g/dL Arterial Blood Potassium (3.4-4.5) mmol/L Arterial Blood Glucose (75-99) mg/dL Crossmatch 11/11/20 11/11/20 11/11/20 Range/Units 21:00 22:00 23:11 WBC (3.8-10.6) k/uL RBC (4.30-5.90) m/uL Hgb (13.0-17.5) gm/dL Hct (39.0-53.0) % Plt Count (150-450) k/uL Neutrophils # (1.3-7.7) k/uL Lymphocytes # (1.0-4.8) k/uL ABG pH (7.35-7.45) ABG pCO2 (35-45) mmHg ABG pO2 (83-108) mmHg ABG HCO3 (21-25) mmol/L ABG Total CO2 (19-24) mmol/L ABG O2 Saturation (94-97) % ABG Hematocrit (34.0-46.0) % ABG Potassium (3.4-4.5) mmol/L ABG Ionized Calcium (4.5-5.3) mg/dL ABG Glucose (75-99) mg/dL ABG Lactic Acid (0.5-1.6) mmol/L Hemoglobin (13.0-17.5) gm/dL Sodium (137-145) mmol/L BUN (9-20) mg/dL Glucose (74-99) mg/dL POC Glucose (mg/dL) 123 H 142 H 146 H (75-99) mg/dL Calcium (8.4-10.2) mg/dL Magnesium (1.6-2.3) mg/dL AST (17-59) U/L Total Protein (6.3-8.2) g/dL Arterial Blood Potassium (3.4-4.5) mmol/L Arterial Blood Glucose (75-99) mg/dL Crossmatch 11/12/20 11/12/20 11/12/20 Range/Units 00:14 01:20 02:11 WBC (3.8-10.6) k/uL RBC (4.30-5.90) m/uL Hgb (13.0-17.5) gm/dL Hct (39.0-53.0) % Plt Count (150-450) k/uL Neutrophils # (1.3-7.7) k/uL Lymphocytes # (1.0-4.8) k/uL ABG pH (7.35-7.45) ABG pCO2 (35-45) mmHg ABG pO2 (83-108) mmHg ABG HCO3 (21-25) mmol/L ABG Total CO2 (19-24) mmol/L ABG O2 Saturation (94-97) % ABG Hematocrit (34.0-46.0) % ABG Potassium (3.4-4.5) mmol/L ABG Ionized Calcium (4.5-5.3) mg/dL ABG Glucose (75-99) mg/dL ABG Lactic Acid (0.5-1.6) mmol/L Hemoglobin (13.0-17.5) gm/dL Sodium (137-145) mmol/L BUN (9-20) mg/dL Glucose (74-99) mg/dL POC Glucose (mg/dL) 141 H 120 H 120 H (75-99) mg/dL Calcium (8.4-10.2) mg/dL Magnesium (1.6-2.3) mg/dL AST (17-59) U/L Total Protein (6.3-8.2) g/dL Arterial Blood Potassium (3.4-4.5) mmol/L Arterial Blood Glucose (75-99) mg/dL Crossmatch 11/12/20 11/12/20 11/12/20 Range/Units 03:18 04:10 04:10 WBC (3.8-10.6) k/uL RBC 3.25 L (4.30-5.90) m/uL Hgb 10.7 L (13.0-17.5) gm/dL Hct 31.6 L (39.0-53.0) % Plt Count 135 L (150-450) k/uL Neutrophils # 8.0 H (1.3-7.7) k/uL Lymphocytes # (1.0-4.8) k/uL ABG pH (7.35-7.45) ABG pCO2 (35-45) mmHg ABG pO2 (83-108) mmHg ABG HCO3 (21-25) mmol/L ABG Total CO2 (19-24) mmol/L ABG O2 Saturation (94-97) % ABG Hematocrit (34.0-46.0) % ABG Potassium (3.4-4.5) mmol/L ABG Ionized Calcium (4.5-5.3) mg/dL ABG Glucose (75-99) mg/dL ABG Lactic Acid (0.5-1.6) mmol/L Hemoglobin (13.0-17.5) gm/dL Sodium 133 L (137-145) mmol/L BUN 21 H (9-20) mg/dL Glucose 130 H (74-99) mg/dL POC Glucose (mg/dL) 129 H (75-99) mg/dL Calcium 8.1 L (8.4-10.2) mg/dL Magnesium (1.6-2.3) mg/dL AST 61 H (17-59) U/L Total Protein 5.5 L (6.3-8.2) g/dL Arterial Blood Potassium (3.4-4.5) mmol/L Arterial Blood Glucose (75-99) mg/dL Crossmatch 11/12/20 11/12/20 11/12/20 Range/Units 04:20 05:07 06:45 WBC (3.8-10.6) k/uL RBC (4.30-5.90) m/uL Hgb (13.0-17.5) gm/dL Hct (39.0-53.0) % Plt Count (150-450) k/uL Neutrophils # (1.3-7.7) k/uL Lymphocytes # (1.0-4.8) k/uL ABG pH (7.35-7.45) ABG pCO2 (35-45) mmHg ABG pO2 (83-108) mmHg ABG HCO3 (21-25) mmol/L ABG Total CO2 (19-24) mmol/L ABG O2 Saturation (94-97) % ABG Hematocrit (34.0-46.0) % ABG Potassium (3.4-4.5) mmol/L ABG Ionized Calcium (4.5-5.3) mg/dL ABG Glucose (75-99) mg/dL ABG Lactic Acid (0.5-1.6) mmol/L Hemoglobin (13.0-17.5) gm/dL Sodium (137-145) mmol/L BUN (9-20) mg/dL Glucose (74-99) mg/dL POC Glucose (mg/dL) 133 H 138 H 156 H (75-99) mg/dL Calcium (8.4-10.2) mg/dL Magnesium (1.6-2.3) mg/dL AST (17-59) U/L Total Protein (6.3-8.2) g/dL Arterial Blood Potassium (3.4-4.5) mmol/L Arterial Blood Glucose (75-99) mg/dL Crossmatch 11/12/20 11/12/20 11/12/20 Range/Units 07:44 09:00 10:00 WBC (3.8-10.6) k/uL RBC (4.30-5.90) m/uL Hgb (13.0-17.5) gm/dL Hct (39.0-53.0) % Plt Count (150-450) k/uL Neutrophils # (1.3-7.7) k/uL Lymphocytes # (1.0-4.8) k/uL ABG pH (7.35-7.45) ABG pCO2 (35-45) mmHg ABG pO2 (83-108) mmHg ABG HCO3 (21-25) mmol/L ABG Total CO2 (19-24) mmol/L ABG O2 Saturation (94-97) % ABG Hematocrit (34.0-46.0) % ABG Potassium (3.4-4.5) mmol/L ABG Ionized Calcium (4.5-5.3) mg/dL ABG Glucose (75-99) mg/dL ABG Lactic Acid (0.5-1.6) mmol/L Hemoglobin (13.0-17.5) gm/dL Sodium (137-145) mmol/L BUN (9-20) mg/dL Glucose (74-99) mg/dL POC Glucose (mg/dL) 161 H 119 H 116 H (75-99) mg/dL Calcium (8.4-10.2) mg/dL Magnesium (1.6-2.3) mg/dL AST (17-59) U/L Total Protein (6.3-8.2) g/dL Arterial Blood Potassium (3.4-4.5) mmol/L Arterial Blood Glucose (75-99) mg/dL Crossmatch Assessment and Plan Assessment: Acute non-ST segment elevation myocardial infarction, with severe triple-vessel coronary disease. Postop day #1, status post four-vessel bypass grafting. Routine postoperative ventilator management, with extubation less than 3 hours after leaving the operating room. History of heavy tobacco use, without symptoms of COPD, and apparently, relatively normal spirometry. History of hypertension. History of hyperlipidemia. History of coronary artery disease, with previous PCI and stent placement. Hypothyroidism. Ongoing tobacco use with nicotine addiction. Prior history of myocardial infarction. Plan: Plan dated 11/12/2020. The patient was extubated yesterday, less than 3 hours after leaving the operating room. Mean parameters were excellent, and he had a positive cuff leak test. His rapid shallow breathing index was in the 35 range. The patient's currently on 2 L nasal cannula. He is getting lactated Ringer's at 50 mL an hour. He remains on a Cardizem drip at 5 mg an hour, and nitroglycerin drip at 5 mcg/m. The patient's also on insulin drip at 3.5 units an hour. We will encourage the patient to deep breathe, cough, and clear secretions. We also recommend that he use the incentive spirometer every hour while awake. The patient's out of bed which is good. We will continue to follow. Additional recommendations and suggestions are forthcoming. Time with Patient: Greater than 30
[2020-11-12 11:16] LABS: Glucose,Whole Blood 128 mg/dL (75-99)
[2020-11-12] MEDS: LEVOTHYROXINE 88 MCG TAB PO SCH (11:34)
[2020-11-12] MEDS: CLEVIDIPINE BUTYRATE 25 MG in EMPTY BAG 1 BAG IV SCH (11:37)
--- NOTE | 2020-11-12 12:11 | P.PN ---
Subjective Progress Note Date: 11/11/20 This is a 60-year-old gentleman one of my patient with known history of hypertension and hypertensive cardio vascular disease,, hyperlipidemia, nicotine dependence, coronary artery disease with multivessel intervention. In 2000 and 2006 patient underwent stenting of the LAD and circumflex. On September 28 in 2015 patient underwent a cardiac catheterization which revealed a patent right coronary artery and LAD stent, circumflex with that was also stented in the proximal section was patent. The LAD had approximately 30% lesion at the end of the stented segment and the right coronary artery and a 40-50% mid lesion. There was moderate calcification in both of these vessels, the circumflex which was stented was patent but the mid circumflex had a long area of 80% stenosis for which the patient underwent angioplasty with stent placement by Dr. Geoff Espinoza. Following that patient did return to the hospital with symptoms, cardiac catheterization was unchanged. Patient overall has been doing well, today he woke up at around 5:30 in the morning went to the bathroom and suddenly developed to have bilateral shoulder pain with shoulder numbness and he was breaking out into cold sweats, he felt a bit nauseated, he ended up coming to the emergency care for evaluation, his troponin was slightly elevated, his EKG showed nonspecific ST-T wave changes, patient was ruled in for non-ST elevat ion myocardial infarction and had a long conversation with the patient and his at the bedside we are going to go for a left heart catheterization with Dr. Miguel today. 11/08: Patient underwent left heart catheterization yesterday that did show 3 vessel disease patient will be seen by cardiothoracic surgery, the plan is to have a coronary artery bypass graft scheduled hopefully later on this week or next week, patient denies any chest pain, he has no shortness breath at this time has no abdominal pain, nausea vomiting or diarrhea he is maintained on aspirin 81 mg once every day, Lipitor 80 mg orally once every day, he is not on beta blockers because of bradycardia. 11/09: patient is sitting up in bed in distress, a bit anxious about upcoming procedure, was seen today by ,we will continue with heparin drip, ASA 81 mg orally daily, Atorvastatin 80 mg orally daily, no beta blockers due to bradycardia, seems to be ready for his CABG in the near future, had his 5 minute walk test, echocardiogram that showed moderate impairment in LVF 40-45 % with apical anterio, lateral and inferior hypokinesia, US of the carotids no hemodynamically significant stenosis, LHC showed severe proximal RCA disease, critical distal RCA disease, moderate OM1 disease, critical proximal LAD and di stal LAD disease, and normal Left main, patient is aware of smoking cessation and total life style changes as a must prior to his heart surgery. 11/10: patient has been seen by pulmonary medicine yesterday as well as Cardiothoracic surgery and reinforced smoking cessation and the way to do it, has no chest pain or shortness of breath, no abdominal pain , nausea, vomiting or diarrhea, reviewed test results with him , his and his relative physician at the beside, wanda plan to proceed with CABG X 3 hopefully in AM. 11/11: Patient underwent coronary artery bypass grafting 4 vessels, left inte rnal mammary artery to left anterior descending artery, radial artery to the obtuse marginal artery, reverse saphenous vein graft to the diagonal artery, reverse saphenous vein graft to the posterior lateral branch of the right coronary artery by Dr. Alicea, postop day 0. Patient is seen today sitting up in the ICU room. He was intubated and on mechanical ventilation with tidal volume 400, FiO2 100% and PEEP of 5. He has mediastinal chest tubes [address] with sanguinous output. A left pleural chest tube is also in place with no output. 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 Patient is not requiring vasopressors. Plan is for patient to be extubated this afternoon. Objective - Vital Signs Vital signs: Vital Signs Temp 97.5 F L 11/11/20 05:55 Pulse 58 L 11/11/20 05:55 Resp 16 11/11/20 05:55 BP 174/94 11/11/20 05:55 Pulse Ox 97 11/11/20 05:55 Intake & Output 11/10/20 11/11/20 11/11/20 18:59 06:59 18:59 Intake Total 1666.729 540 6 Output Total 631 665 3318 Balance 1091.729 -160 2298 Weight 90.9 kg Intake: IV 6 Intake, IV Titration 246.729 Amount Heparin Sod,Pork in 0.45% 246.729 NaCl 25,000 unit In 0.45 % NaCl 1 250ml.bag @ 11. 03 UNITS/KG/HR 10.006 mls /hr IV .Q24H [facility] Rx#: [id number] Oral 1420 540 Output: Urine 631 137 9366 Estimated Blood Loss 1100 Other: Voiding Method Urinal Urinal # Voids 4 - Exam Review of Systems Unable to obtain due to intubation Physical examination: HEENT: Head is atraumatic, normocephalic, pupils were equal round, sclera nonicteric, conjunctivae were slightly pale, mucous membranes of mouth are moist. Oral ET tube. Neck: Supple, no JVD, no carotid bruits of adenopathy. Chest: Decreased breath sounds at the bases, few rhonchi, no expiratory wheezes, no chest wall tenderness, no intercostal retractions. Heart: First heart sound is depressed, second heart sound is normal, there is no gallop or murmur. Abdomen: Soft, nontender, nondistended, positive bowel sounds. Extremities: There is no edema, no calf tenderness, dorsalis is +2 bilaterally. Neurologic examination: Patient is sedated. - Labs CBC & Chem 7: 11/12/20 04:10 11/12/20 04:10 Labs: Abnormal Lab Results - Last 24 Hours (Table) 11/10/20 11/11/20 11/11/20 Range/Units 18:37 05:24 05:24 ABG pH (7.35-7.45) ABG pCO2 (35-45) mmHg ABG pO2 (83-108) mmHg ABG HCO3 (21-25) mmol/L ABG Total CO2 (19-24) mmol/L ABG O2 Saturation (94-97) % ABG Hematocrit (34.0-46.0) % ABG Potassium (3.4-4.5) mmol/L ABG Ionized Calcium (4.5-5.3) mg/dL ABG Glucose (75-99) mg/dL ABG Lactic Acid (0.5-1.6) mmol/L Hemoglobin (13.0-17.5) gm/dL BUN 24 H (9-20) mg/dL Glucose 155 H 112 H (74-99) mg/dL POC Glucose (mg/dL) 110 H (75-99) mg/dL Arterial Blood Potassium (3.4-4.5) mmol/L Arterial Blood Glucose (75-99) mg/dL Crossmatch 02/11/11/20 11/11/20 Range/Units 05:31 08:43 09:50 ABG pH 7.27 L (7.35-7.45) ABG pCO2 58 H (35-45) mmHg ABG pO2 >420 H 173 H (83-108) mmHg ABG HCO3 27 H 27 H (21-25) mmol/L ABG Total CO2 28 H 28 H (19-24) mmol/L ABG O2 Saturation 100.0 H 99.1 H (94-97) % ABG Hematocrit (34.0-46.0) % ABG Potassium 4.8 H (3.4-4.5) mmol/L ABG Ionized Calcium (4.5-5.3) mg/dL ABG Glucose 102 H 133 H (75-99) mg/dL ABG Lactic Acid (0.5-1.6) mmol/L Hemoglobin 12.9 L (13.0-17.5) gm/dL BUN (9-20) mg/dL Glucose (74-99) mg/dL POC Glucose (mg/dL) (75-99) mg/dL Arterial Blood Potassium 4.8 H (3.4-4.5) mmol/L Arterial Blood Glucose 102 H 133 H (75-99) mg/dL Crossmatch See Detail 11/11/20 11/11/20 11/11/20 Range/Units 11:07 11:31 12:11 ABG pH 7.32 L 7.33 L 7.32 L (7.35-7.45) ABG pCO2 49 H 47 H (35-45) mmHg ABG pO2 211 H 325 H 247 H (83-108) mmHg ABG HCO3 (21-25) mmol/L ABG Total CO2 26 H 26 H 26 H (19-24) mmol/L ABG O2 Saturation 99.6 H 99.8 H 99.6 H (94-97) % ABG Hematocrit 33 L 33 L (34.0-46.0) % ABG Potassium 5.2 H 4.7 H (3.4-4.5) mmol/L ABG Ionized Calcium 4.3 L 4.3 L 4.4 L (4.5-5.3) mg/dL ABG Glucose 197 H 189 H 136 H (75-99) mg/dL ABG Lactic Acid 1.9 H (0.5-1.6) mmol/L Hemoglobin 10.9 L 11.0 L 10.9 L (13.0-17.5) gm/dL BUN (9-20) mg/dL Glucose (74-99) mg/dL POC Glucose (mg/dL) (75-99) mg/dL Arterial Blood Potassium 5.2 H 4.7 H (3.4-4.5) mmol/L Arterial Blood Glucose 197 H 189 H 136 H (75-99) mg/dL Crossmatch 11/11/20 Range/Units 13:27 ABG pH 7.33 L (7.35-7.45) ABG pCO2 47 H (35-45) mmHg ABG pO2 (83-108) mmHg ABG HCO3 (21-25) mmol/L ABG Total CO2 26 H (19-24) mmol/L ABG O2 Saturation (94-97) % ABG Hematocrit (34.0-46.0) % ABG Potassium (3.4-4.5) mmol/L ABG Ionized Calcium (4.5-5.3) mg/dL ABG Glucose 56 L (75-99) mg/dL ABG Lactic Acid (0.5-1.6) mmol/L Hemoglobin 11.7 L (13.0-17.5) gm/dL BUN (9-20) mg/dL Glucose (74-99) mg/dL POC Glucose (mg/dL) (75-99) mg/dL Arterial Blood Potassium (3.4-4.5) mmol/L Arterial Blood Glucose 56 L (75-99) mg/dL Crossmatch Assessment and Plan Assessment: Assessment and plan: 1. Non-ST elevation [place]. Post left heart catheterization that showed triple- vessel disease with critical disease in the proximal RCA and severe disease in the distal RCA, critical disease in the proximal and mid LAD and severe disease in the OM1 off the LCX with moderate impairement of the LVF. Status post coronary artery bypass grafting 4 vessels, left internal mammary artery to left anterior descending artery, radial artery to the obtuse marginal artery, reverse saphenous vein graft to the diagonal artery, reverse saphenous vein graft to the posterior lateral branch of the right coronary artery performed today by Dr. Alicea. Continue aspirin 325 mg orally once every day, Lipitor 80 mg once every day, Lopressor 12.5 mg twice daily, currently off MENDOZA inhibitor. Continue current management per cardiothoracic team. 2. History of CAD post multiple PCI. Continue ASA 325 mg orally daily, Atorvastatin 80 mg orally daily. 3. Hypertension and hypertensive cardiovascular disease. Continue Lopressor 12.5 mg twice daily. 4. Hyperlipidemia. Continue patient on low-cholesterol diet, total lifestyle changes and risk factor modification, continue with Lipitor 80 mg orally once every day per 5. Hypothyroidism. Continue patient on Synthroid 175 g orally once every day. 6. Enlarged prostate. We will continue with Flomax 0.4 g orally once every day. 7. Chronic tobacco use and dependence. Patient was counseled about smoking osiris sation and increased risk of CAD, CVA, and malignancies. 8. DVT prophylaxis. Currently on heparin drip. 9. GI prophylaxis. Continue with PPI. 10. Discharge plan: To be determined.
--- NOTE | 2020-11-12 12:22 | P.PN ---
Subjective Progress Note Date: 11/12/20 This is a 60-year-old gentleman one of my patient with known history of hypertension and hypertensive cardio vascular disease,, hyperlipidemia, nicotine dependence, coronary artery disease with multivessel intervention. In 2000 and 2006 patient underwent stenting of the LAD and circumflex. On September 28 in 2015 patient underwent a cardiac catheterization which revealed a patent right coronary artery and LAD stent, circumflex with that was also stented in the proximal section was patent. The LAD had approximately 30% lesion at the end of the stented segment and the right coronary artery and a 40-50% mid lesion. There was moderate calcification in both of these vessels, the circumflex which was stented was patent but the mid circumflex had a long area of 80% stenosis for which the patient underwent angioplasty with stent placement by Dr. Geoff Espinoza. Following that patient did return to the hospital with symptoms, cardiac catheterization was unchanged. Patient overall has been doing well, today he woke up at around 5:30 in the morning went to the bathroom and suddenly developed to have bilateral shoulder pain with shoulder numbness and he was breaking out into cold sweats, he felt a bit nauseated, he ended up coming to the emergency care for evaluation, his troponin was slightly elevated, his EKG showed nonspecific ST-T wave changes, patient was ruled in for non-ST elevat ion myocardial infarction and had a long conversation with the patient and his at the bedside we are going to go for a left heart catheterization with Dr. Miguel today. 11/08: Patient underwent left heart catheterization yesterday that did show 3 vessel disease patient will be seen by cardiothoracic surgery, the plan is to have a coronary artery bypass graft scheduled hopefully later on this week or next week, patient denies any chest pain, he has no shortness breath at this time has no abdominal pain, nausea vomiting or diarrhea he is maintained on aspirin 81 mg once every day, Lipitor 80 mg orally once every day, he is not on beta blockers because of bradycardia. 11/09: patient is sitting up in bed in distress, a bit anxious about upcoming procedure, was seen today by ,we will continue with heparin drip, ASA 81 mg orally daily, Atorvastatin 80 mg orally daily, no beta blockers due to bradycardia, seems to be ready for his CABG in the near future, had his 5 minute walk test, echocardiogram that showed moderate impairment in LVF 40-45 % with apical anterio, lateral and inferior hypokinesia, US of the carotids no hemodynamically significant stenosis, LHC showed severe proximal RCA disease, critical distal RCA disease, moderate OM1 disease, critical proximal LAD and di stal LAD disease, and normal Left main, patient is aware of smoking cessation and total life style changes as a must prior to his heart surgery. 11/10: patient has been seen by pulmonary medicine yesterday as well as Cardiothoracic surgery and reinforced smoking cessation and the way to do it, has no chest pain or shortness of breath, no abdominal pain , nausea, vomiting or diarrhea, reviewed test results with him , his and his relative physician at the beside, wanda plan to proceed with CABG X 3 hopefully in AM. 11/11: Patient underwent coronary artery bypass grafting 4 vessels, left inte rnal mammary artery to left anterior descending artery, radial artery to the obtuse marginal artery, reverse saphenous vein graft to the diagonal artery, reverse saphenous vein graft to the posterior lateral branch of the right coronary artery by Dr. Alicea, postop day 0. Patient is seen today sitting up in the ICU room. He was intubated and on mechanical ventilation with tidal volume 400, FiO2 100% and PEEP of 5. He has mediastinal chest tubes [address] with sanguinous output. A left pleural chest tube is also in place with no output. 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 Patient is not requiring vasopressors. Plan is for patient to be extubated this afternoon. 11/12: Patient was successfully extubated yesterday afternoon and currently on 2 L nasal cannula Patient is continued on insulin drip Repeat chest x-ray reveals. Objective - Vital Signs Vital signs: Vital Signs Temp 99.1 F 11/12/20 08:00 Pulse 73 11/12/20 11:00 Resp 22 11/12/20 11:00 BP 108/63 11/12/20 09:00 Pulse Ox 97 11/12/20 11:00 Intake & Output 11/11/20 11/12/20 11/12/20 18:59 06:59 18:59 Intake Total 187.522 0247.762 625.120 Output Total 3270 1120 652 Balance -2873.354 2420.762 -26.880 Weight 94 kg Intake: IV 376 1306 412 Albumin Human 5% 500 ml 500 In Empty Bag 1 bag @ 250 mls/hr IVPB ONCE ONE Rx#: [id number] CO/CI 120 140 120 Lactated Ringers 1,000 ml 250 600 250 @ 20 mls/hr IV .Q24H [facility] Rx#:[id number] pressure bag 66 42 Intake, IV Titration 20.646 74.762 113.120 Amount Clevidipine Butyrate 25 11.101 mg In Empty Bag 1 bag @ 1 MG/HR 2 mls/hr IV .Q24H [facility] Rx#:[id number] Dexmedetomidine/0.9% NaCl 9.545 (Pmx) 400 mcg In Empty Bag 1 bag @ Titrate IV . Q0M [facility] Rx#:[id number] Diltiazem 125 mg In 64.167 26.5 Sodium Chloride 0.9% 100 ml @ 5 MG/HR 5 mls/hr IV .Q24H [facility] Rx#:[id number] Insulin Regular 100 unit 10.595 9.645 In Sodium Chloride 0.9% 100 ml @ Per Protocol IV .Q0M [facility] Rx#:[id number] Nitroglycerin-D5w Pmx 50 26.975 mg In Dextrose/Water 1 250ml.bag @ 5 MCG/MIN 1.5 mls/hr IV .Q24H [facility] Rx#: [id number] ceFAZolin 2 gm In Sodium 50 Chloride 0.9% 50 ml @ 100 mls/hr IVPB Q8HR [facility] Rx# :[id number] Oral 2160 100 Output: Chest Tube Drainage 360 455 47 LP 30 145 22 MS x2 330 310 25 Urine 1810 665 605 Estimated Blood Loss 1100 Other: Voiding Method Indwelling Catheter Indwelling Catheter Indwelling Catheter ABP, PAP, CO, CI - Last Documented Arterial Blood Pressure 112/52 Pulmonary Artery Pressure 21/6 Cardiac Output 6.6 Cardiac Index 3.2 - Exam Review of Systems Constitutional: Reports chronic pain, Reports fatigue, Reports weakness, Denies anorexia, Denies chronic headaches Eyes: denies blurred vision, denies bulging eye, denies decreased vision Ears: deny: decreased hearing Ears, nose, mouth and throat: Denies dysphagia, Denies neck lump, Denies sore throat Cardiovascular: Mild chest discomfort from surgery, Reports decreased exercise tolerance, Reports dyspnea on exertion, Denies lightheadedness, Denies rapid heart beat, Denies shortness of breath, Denies syncope Respiratory: Denies congestion, Denies cough, Denies cough with sputum, Denies pain, Denies sleep apnea, Denies snoring, Denies wheezing Gastrointestinal: Reports nausea, Denies abdominal pain, Denies change in bowel habits, Denies heartburn, Denies melena, Denies vomiting Genitourinary: Reports nocturia, Denies dysuria Musculoskeletal: Denies myalgias Musculoskeletal: bilateral: shoulder pain, shoulder stiffness, absent: ankle pain, ankle stiffness, ankle swelling, elbow pain, elbow stiffness, elbow swelling, foot pain, foot stiffness, foot swelling, hand pain, hand stiffness, hand swelling, hip pain, hip stiffness, hip swelling, knee pain, knee stiffness, knee swelling, shoulder swelling, wrist pain, wrist stiffness, wrist swelling Integumentary: Denies pruritus, Denies rash Neurological: Denies numbness, Denies weakness Psychiatric: Reports anxiety, Denies depression, Denies sadness/tearfulness, Denies sleep disturbances, Denies suicidal ideation Endocrine: Denies fatigue, Denies weight change Physical examination: HEENT: Head is atraumatic, normocephalic, pupils were equal round, sclera nonicteric, conjunctivae were slightly pale, mucous membranes of mouth are moist. Neck: Supple, no JVD, no carotid bruits of adenopathy. Chest: Decreased breath sounds at the bases, few rhonchi, no expiratory wheezes, no chest wall tenderness, no intercostal retractions. Mediastinal incision with dressing. 2 mediastinal and one left pleural chest tubes in place. Heart: First heart sound is depressed, second heart sound is normal, there is no gallop or murmur. Abdomen: Soft, nontender, nondistended, positive bowel sounds. Extremities: There is no edema, no calf tenderness, dorsalis is +2 bilaterally. Neurologic examination: Patient is awake, alert and oriented 3.. - Labs CBC & Chem 7: 11/12/20 04:10 11/12/20 04:10 Labs: Abnormal Lab Results - Last 24 Hours (Table) 11/11/20 11/11/20 11/11/20 Range/Units 05:31 08:43 09:50 WBC (3.8-10.6) k/uL RBC (4.30-5.90) m/uL Hgb (13.0-17.5) gm/dL Hct (39.0-53.0) % Plt Count (150-450) k/uL Neutrophils # (1.3-7.7) k/uL Lymphocytes # (1.0-4.8) k/uL ABG pH 7.27 L (7.35-7.45) ABG pCO2 58 H (35-45) mmHg ABG pO2 >420 H 173 H (83-108) mmHg ABG HCO3 27 H 27 H (21-25) mmol/L ABG Total CO2 28 H 28 H (19-24) mmol/L ABG O2 Saturation 100.0 H 99.1 H (94-97) % ABG Hematocrit (34.0-46.0) % ABG Potassium 4.8 H (3.4-4.5) mmol/L ABG Ionized Calcium (4.5-5.3) mg/dL ABG Glucose 102 H 133 H (75-99) mg/dL ABG Lactic Acid (0.5-1.6) mmol/L Hemoglobin 12.9 L (13.0-17.5) gm/dL Sodium (137-145) mmol/L BUN (9-20) mg/dL Glucose (74-99) mg/dL POC Glucose (mg/dL) (75-99) mg/dL Calcium (8.4-10.2) mg/dL Magnesium (1.6-2.3) mg/dL AST (17-59) U/L Total Protein (6.3-8.2) g/dL Arterial Blood Potassium 4.8 H (3.4-4.5) mmol/L Arterial Blood Glucose 102 H 133 H (75-99) mg/dL Crossmatch See Detail 11/11/20 11/11/20 11/11/20 Range/Units 11:07 11:31 12:11 WBC (3.8-10.6) k/uL RBC (4.30-5.90) m/uL Hgb (13.0-17.5) gm/dL Hct (39.0-53.0) % Plt Count (150-450) k/uL Neutrophils # (1.3-7.7) k/uL Lymphocytes # (1.0-4.8) k/uL ABG pH 7.32 L 7.33 L 7.32 L (7.35-7.45) ABG pCO2 49 H 47 H (35-45) mmHg ABG pO2 211 H 325 H 247 H (83-108) mmHg ABG HCO3 (21-25) mmol/L ABG Total CO2 26 H 26 H 26 H (19-24) mmol/L ABG O2 Saturation 99.6 H 99.8 H 99.6 H (94-97) % ABG Hematocrit 33 L 33 L (34.0-46.0) % ABG Potassium 5.2 H 4.7 H (3.4-4.5) mmol/L ABG Ionized Calcium 4.3 L 4.3 L 4.4 L (4.5-5.3) mg/dL ABG Glucose 197 H 189 H 136 H (75-99) mg/dL ABG Lactic Acid 1.9 H (0.5-1.6) mmol/L Hemoglobin 10.9 L 11.0 L 10.9 L (13.0-17.5) gm/dL Sodium (137-145) mmol/L BUN (9-20) mg/dL Glucose (74-99) mg/dL POC Glucose (mg/dL) (75-99) mg/dL Calcium (8.4-10.2) mg/dL Magnesium (1.6-2.3) mg/dL AST (17-59) U/L Total Protein (6.3-8.2) g/dL Arterial Blood Potassium 5.2 H 4.7 H (3.4-4.5) mmol/L Arterial Blood Glucose 197 H 189 H 136 H (75-99) mg/dL Crossmatch 11/11/20 11/11/20 11/11/20 Range/Units 13:27 14:24 14:24 WBC 11.2 H (3.8-10.6) k/uL RBC 3.55 L (4.30-5.90) m/uL Hgb 11.8 L (13.0-17.5) gm/dL Hct 34.9 L (39.0-53.0) % Plt Count 111 L (150-450) k/uL Neutrophils # 9.1 H (1.3-7.7) k/uL Lymphocytes # (1.0-4.8) k/uL ABG pH 7.33 L (7.35-7.45) ABG pCO2 47 H (35-45) mmHg ABG pO2 (83-108) mmHg ABG HCO3 (21-25) mmol/L ABG Total CO2 26 H (19-24) mmol/L ABG O2 Saturation (94-97) % ABG Hematocrit (34.0-46.0) % ABG Potassium (3.4-4.5) mmol/L ABG Ionized Calcium (4.5-5.3) mg/dL ABG Glucose 56 L (75-99) mg/dL ABG Lactic Acid (0.5-1.6) mmol/L Hemoglobin 11.7 L (13.0-17.5) gm/dL Sodium (137-145) mmol/L BUN (9-20) mg/dL Glucose 71 L (74-99) mg/dL POC Glucose (mg/dL) (75-99) mg/dL Calcium 8.3 L (8.4-10.2) mg/dL Magnesium 2.8 H (1.6-2.3) mg/dL AST (17-59) U/L Total Protein 5.7 L (6.3-8.2) g/dL Arterial Blood Potassium (3.4-4.5) mmol/L Arterial Blood Glucose 56 L (75-99) mg/dL Crossmatch 11/11/20 11/11/20 11/11/20 Range/Units 14:29 15:11 16:19 WBC (3.8-10.6) k/uL RBC (4.30-5.90) m/uL Hgb (13.0-17.5) gm/dL Hct (39.0-53.0) % Plt Count (150-450) k/uL Neutrophils # (1.3-7.7) k/uL Lymphocytes # (1.0-4.8) k/uL ABG pH (7.35-7.45) ABG pCO2 (35-45) mmHg ABG pO2 322 H (83-108) mmHg ABG HCO3 (21-25) mmol/L ABG Total CO2 26 H (19-24) mmol/L ABG O2 Saturation 100.0 H (94-97) % ABG Hematocrit (34.0-46.0) % ABG Potassium (3.4-4.5) mmol/L ABG Ionized Calcium (4.5-5.3) mg/dL ABG Glucose (75-99) mg/dL ABG Lactic Acid (0.5-1.6) mmol/L Hemoglobin (13.0-17.5) gm/dL Sodium (137-145) mmol/L BUN (9-20) mg/dL Glucose (74-99) mg/dL POC Glucose (mg/dL) 70 L 132 H (75-99) mg/dL Calcium (8.4-10.2) mg/dL Magnesium (1.6-2.3) mg/dL AST (17-59) U/L Total Protein (6.3-8.2) g/dL Arterial Blood Potassium (3.4-4.5) mmol/L Arterial Blood Glucose (75-99) mg/dL Crossmatch 11/11/20 11/11/20 11/11/20 Range/Units 17:00 17:02 17:57 WBC 10.8 H (3.8-10.6) k/uL RBC 3.56 L (4.30-5.90) m/uL Hgb 11.8 L (13.0-17.5) gm/dL Hct 34.7 L (39.0-53.0) % Plt Count 133 L (150-450) k/uL Neutrophils # 9.2 H (1.3-7.7) k/uL Lymphocytes # 0.7 L (1.0-4.8) k/uL ABG pH (7.35-7.45) ABG pCO2 (35-45) mmHg ABG pO2 (83-108) mmHg ABG HCO3 (21-25) mmol/L ABG Total CO2 (19-24) mmol/L ABG O2 Saturation (94-97) % ABG Hematocrit (34.0-46.0) % ABG Potassium (3.4-4.5) mmol/L ABG Ionized Calcium (4.5-5.3) mg/dL ABG Glucose (75-99) mg/dL ABG Lactic Acid (0.5-1.6) mmol/L Hemoglobin (13.0-17.5) gm/dL Sodium (137-145) mmol/L BUN (9-20) mg/dL Glucose (74-99) mg/dL POC Glucose (mg/dL) 134 H 141 H (75-99) mg/dL Calcium (8.4-10.2) mg/dL Magnesium (1.6-2.3) mg/dL AST (17-59) U/L Total Protein (6.3-8.2) g/dL Arterial Blood Potassium (3.4-4.5) mmol/L Arterial Blood Glucose (75-99) mg/dL Crossmatch 11/11/20 11/11/20 11/11/20 Range/Units 19:02 20:00 20:04 WBC (3.8-10.6) k/uL RBC 3.29 L (4.30-5.90) m/uL Hgb 10.7 L (13.0-17.5) gm/dL Hct 31.9 L (39.0-53.0) % Plt Count 125 L (150-450) k/uL Neutrophils # 8.4 H (1.3-7.7) k/uL Lymphocytes # 0.7 L (1.0-4.8) k/uL ABG pH (7.35-7.45) ABG pCO2 (35-45) mmHg ABG pO2 (83-108) mmHg ABG HCO3 (21-25) mmol/L ABG Total CO2 (19-24) mmol/L ABG O2 Saturation (94-97) % ABG Hematocrit (34.0-46.0) % ABG Potassium (3.4-4.5) mmol/L ABG Ionized Calcium (4.5-5.3) mg/dL ABG Glucose (75-99) mg/dL ABG Lactic Acid (0.5-1.6) mmol/L Hemoglobin (13.0-17.5) gm/dL Sodium (137-145) mmol/L BUN (9-20) mg/dL Glucose (74-99) mg/dL POC Glucose (mg/dL) 102 H 120 H (75-99) mg/dL Calcium (8.4-10.2) mg/dL Magnesium (1.6-2.3) mg/dL AST (17-59) U/L Total Protein (6.3-8.2) g/dL Arterial Blood Potassium (3.4-4.5) mmol/L Arterial Blood Glucose (75-99) mg/dL Crossmatch 11/11/20 11/11/20 11/11/20 Range/Units 21:00 22:00 23:11 WBC (3.8-10.6) k/uL RBC (4.30-5.90) m/uL Hgb (13.0-17.5) gm/dL Hct (39.0-53.0) % Plt Count (150-450) k/uL Neutrophils # (1.3-7.7) k/uL Lymphocytes # (1.0-4.8) k/uL ABG pH (7.35-7.45) ABG pCO2 (35-45) mmHg ABG pO2 (83-108) mmHg ABG HCO3 (21-25) mmol/L ABG Total CO2 (19-24) mmol/L ABG O2 Saturation (94-97) % ABG Hematocrit (34.0-46.0) % ABG Potassium (3.4-4.5) mmol/L ABG Ionized Calcium (4.5-5.3) mg/dL ABG Glucose (75-99) mg/dL ABG Lactic Acid (0.5-1.6) mmol/L Hemoglobin (13.0-17.5) gm/dL Sodium (137-145) mmol/L BUN (9-20) mg/dL Glucose (74-99) mg/dL POC Glucose (mg/dL) 123 H 142 H 146 H (75-99) mg/dL Calcium (8.4-10.2) mg/dL Magnesium (1.6-2.3) mg/dL AST (17-59) U/L Total Protein (6.3-8.2) g/dL Arterial Blood Potassium (3.4-4.5) mmol/L Arterial Blood Glucose (75-99) mg/dL Crossmatch 11/12/20 11/12/20 11/12/20 Range/Units 00:14 01:20 02:11 WBC (3.8-10.6) k/uL RBC (4.30-5.90) m/uL Hgb (13.0-17.5) gm/dL Hct (39.0-53.0) % Plt Count (150-450) k/uL Neutrophils # (1.3-7.7) k/uL Lymphocytes # (1.0-4.8) k/uL ABG pH (7.35-7.45) ABG pCO2 (35-45) mmHg ABG pO2 (83-108) mmHg ABG HCO3 (21-25) mmol/L ABG Total CO2 (19-24) mmol/L ABG O2 Saturation (94-97) % ABG Hematocrit (34.0-46.0) % ABG Potassium (3.4-4.5) mmol/L ABG Ionized Calcium (4.5-5.3) mg/dL ABG Glucose (75-99) mg/dL ABG Lactic Acid (0.5-1.6) mmol/L Hemoglobin (13.0-17.5) gm/dL Sodium (137-145) mmol/L BUN (9-20) mg/dL Glucose (74-99) mg/dL POC Glucose (mg/dL) 141 H 120 H 120 H (75-99) mg/dL Calcium (8.4-10.2) mg/dL Magnesium (1.6-2.3) mg/dL AST (17-59) U/L Total Protein (6.3-8.2) g/dL Arterial Blood Potassium (3.4-4.5) mmol/L Arterial Blood Glucose (75-99) mg/dL Crossmatch 11/12/20 11/12/20 11/12/20 Range/Units 03:18 04:10 04:10 WBC (3.8-10.6) k/uL RBC 3.25 L (4.30-5.90) m/uL Hgb 10.7 L (13.0-17.5) gm/dL Hct 31.6 L (39.0-53.0) % Plt Count 135 L (150-450) k/uL Neutrophils # 8.0 H (1.3-7.7) k/uL Lymphocytes # (1.0-4.8) k/uL ABG pH (7.35-7.45) ABG pCO2 (35-45) mmHg ABG pO2 (83-108) mmHg ABG HCO3 (21-25) mmol/L ABG Total CO2 (19-24) mmol/L ABG O2 Saturation (94-97) % ABG Hematocrit (34.0-46.0) % ABG Potassium (3.4-4.5) mmol/L ABG Ionized Calcium (4.5-5.3) mg/dL ABG Glucose (75-99) mg/dL ABG Lactic Acid (0.5-1.6) mmol/L Hemoglobin (13.0-17.5) gm/dL Sodium 133 L (137-145) mmol/L BUN 21 H (9-20) mg/dL Glucose 130 H (74-99) mg/dL POC Glucose (mg/dL) 129 H (75-99) mg/dL Calcium 8.1 L (8.4-10.2) mg/dL Magnesium (1.6-2.3) mg/dL AST 61 H (17-59) U/L Total Protein 5.5 L (6.3-8.2) g/dL Arterial Blood Potassium (3.4-4.5) mmol/L Arterial Blood Glucose (75-99) mg/dL Crossmatch 11/12/20 11/12/20 11/12/20 Range/Units 04:20 05:07 06:45 WBC (3.8-10.6) k/uL RBC (4.30-5.90) m/uL Hgb (13.0-17.5) gm/dL Hct (39.0-53.0) % Plt Count (150-450) k/uL Neutrophils # (1.3-7.7) k/uL Lymphocytes # (1.0-4.8) k/uL ABG pH (7.35-7.45) ABG pCO2 (35-45) mmHg ABG pO2 (83-108) mmHg ABG HCO3 (21-25) mmol/L ABG Total CO2 (19-24) mmol/L ABG O2 Saturation (94-97) % ABG Hematocrit (34.0-46.0) % ABG Potassium (3.4-4.5) mmol/L ABG Ionized Calcium (4.5-5.3) mg/dL ABG Glucose (75-99) mg/dL ABG Lactic Acid (0.5-1.6) mmol/L Hemoglobin (13.0-17.5) gm/dL Sodium (137-145) mmol/L BUN (9-20) mg/dL Glucose (74-99) mg/dL POC Glucose (mg/dL) 133 H 138 H 156 H (75-99) mg/dL Calcium (8.4-10.2) mg/dL Magnesium (1.6-2.3) mg/dL AST (17-59) U/L Total Protein (6.3-8.2) g/dL Arterial Blood Potassium (3.4-4.5) mmol/L Arterial Blood Glucose (75-99) mg/dL Crossmatch 11/12/20 11/12/20 11/12/20 Range/Units 07:44 09:00 10:00 WBC (3.8-10.6) k/uL RBC (4.30-5.90) m/uL Hgb (13.0-17.5) gm/dL Hct (39.0-53.0) % Plt Count (150-450) k/uL Neutrophils # (1.3-7.7) k/uL Lymphocytes # (1.0-4.8) k/uL ABG pH (7.35-7.45) ABG pCO2 (35-45) mmHg ABG pO2 (83-108) mmHg ABG HCO3 (21-25) mmol/L ABG Total CO2 (19-24) mmol/L ABG O2 Saturation (94-97) % ABG Hematocrit (34.0-46.0) % ABG Potassium (3.4-4.5) mmol/L ABG Ionized Calcium (4.5-5.3) mg/dL ABG Glucose (75-99) mg/dL ABG Lactic Acid (0.5-1.6) mmol/L Hemoglobin (13.0-17.5) gm/dL Sodium (137-145) mmol/L BUN (9-20) mg/dL Glucose (74-99) mg/dL POC Glucose (mg/dL) 161 H 119 H 116 H (75-99) mg/dL Calcium (8.4-10.2) mg/dL Magnesium (1.6-2.3) mg/dL AST (17-59) U/L Total Protein (6.3-8.2) g/dL Arterial Blood Potassium (3.4-4.5) mmol/L Arterial Blood Glucose (75-99) mg/dL Crossmatch 11/12/20 Range/Units 11:15 WBC (3.8-10.6) k/uL RBC (4.30-5.90) m/uL Hgb (13.0-17.5) gm/dL Hct (39.0-53.0) % Plt Count (150-450) k/uL Neutrophils # (1.3-7.7) k/uL Lymphocytes # (1.0-4.8) k/uL ABG pH (7.35-7.45) ABG pCO2 (35-45) mmHg ABG pO2 (83-108) mmHg ABG HCO3 (21-25) mmol/L ABG Total CO2 (19-24) mmol/L ABG O2 Saturation (94-97) % ABG Hematocrit (34.0-46.0) % ABG Potassium (3.4-4.5) mmol/L ABG Ionized Calcium (4.5-5.3) mg/dL ABG Glucose (75-99) mg/dL ABG Lactic Acid (0.5-1.6) mmol/L Hemoglobin (13.0-17.5) gm/dL Sodium (137-145) mmol/L BUN (9-20) mg/dL Glucose (74-99) mg/dL POC Glucose (mg/dL) 128 H (75-99) mg/dL Calcium (8.4-10.2) mg/dL Magnesium (1.6-2.3) mg/dL AST (17-59) U/L Total Protein (6.3-8.2) g/dL Arterial Blood Potassium (3.4-4.5) mmol/L Arterial Blood Glucose (75-99) mg/dL Crossmatch Assessment and Plan Assessment: Assessment and plan: 1. Non-ST elevation OK. Post left heart catheterization that showed triple- vessel disease with critical disease in the proximal RCA and severe disease in the distal RCA, critical disease in the proximal and mid LAD and severe disease in the OM1 off the LCX with moderate impairement of the LVF. Status post coronary artery bypass grafting 4 vessels, left internal mammary artery to left anterior descending artery, radial artery to the obtuse marginal artery, reverse saphenous vein graft to the diagonal artery, reverse saphenous vein graft to the posterior lateral branch of the right coronary artery performed today by Dr. Alicea, stopped a #1. Continue aspirin 325 mg orally once every day, Lipitor 80 mg once every day, Lopressor 12.5 mg twice daily, currently off MENDOZA inhibitor. Continue current management per cardiothoracic team. Patient was successfully extubated yesterday afternoon. 2. History of CAD post multiple PCI. Continue ASA 325 mg orally daily, Atorvastatin 80 mg orally daily. 3. Hypertension and hypertensive cardiovascular disease. Continue Lopressor 12.5 mg twice daily. 4. Hyperlipidemia. Continue patient on low-cholesterol diet, total lifestyle changes and risk factor modification, continue with Lipitor 80 mg orally once every day per 5. Hypothyroidism. Continue patient on Synthroid 175 g orally once every day. 6. Enlarged prostate. We will continue with Flomax 0.4 g orally once every day. 7. Chronic tobacco use and dependence. Patient was counseled about smoking cessation and increased risk of CAD, CVA, and malignancies. 8. DVT prophylaxis. Currently on heparin drip. 9. GI prophylaxis. Continue with PPI. 10. Discharge plan: To be determined.
[2020-11-12 12:39] LABS: Glucose,Whole Blood 124 mg/dL (75-99)
[2020-11-12 12:56] LABS: Glucose,Whole Blood 112 mg/dL (75-99)
[2020-11-12 13:29] VITALS: BMI 30.6
[2020-11-12 14:05] LABS: Glucose,Whole Blood 180 mg/dL (75-99)
[2020-11-12 15:36] LABS: Glucose,Whole Blood 133 mg/dL (75-99)
[2020-11-12 16:31] LABS: Glucose,Whole Blood 134 mg/dL (75-99)
[2020-11-12 17:10] LABS: Glucose,Whole Blood 161 mg/dL (75-99)
[2020-11-12 18:01] LABS: Glucose,Whole Blood 150 mg/dL (75-99)
[2020-11-12 19:11] LABS: Glucose,Whole Blood 164 mg/dL (75-99)
[2020-11-12 20:18] LABS: Glucose,Whole Blood 126 mg/dL (75-99)
[2020-11-12] MEDS: SENNOSIDES-DOCUSATE SODIUM 1 EACH TAB PO SCH (20:54)
[2020-11-12 21:06] LABS: Glucose,Whole Blood 113 mg/dL (75-99)
[2020-11-12 23:06] LABS: Glucose,Whole Blood 141 mg/dL (75-99)
[2020-11-13 00:08] LABS: Glucose,Whole Blood 129 mg/dL (75-99)
[2020-11-13] MEDS: HYDROcodone/APAP 5-325MG 1 EACH TAB PO PRN ×2 (00:30→13:23)
[2020-11-13 01:44] LABS: Glucose,Whole Blood 130 mg/dL (75-99)
[2020-11-13] MEDS: ALBUMIN HUMAN 5% 250 ML in EMPTY BAG 1 BAG IVPB PRN (02:41)
[2020-11-13 02:49] LABS: Glucose,Whole Blood 119 mg/dL (75-99)
[2020-11-13 03:46] LABS: Glucose,Whole Blood 124 mg/dL (75-99)
[2020-11-13 04:06] LABS: Ionized Calcium 4.8 mg/dL (4.5-5.3)
[2020-11-13 04:17] LABS: ALT 23 U/L (4-49); AST 49 U/L (17-59); African American GFR (CKD) >90 (>60 ml/min/1.73 sqM); Albumin 3.4 g/dL (3.5-5.0); Alkaline Phosphatase 40 U/L (38-126); Anion Gap 4 mmol/L; Blood Urea Nitrogen 20 mg/dL (9-20); Calcium 8.3 mg/dL (8.4-10.2); Carbon Dioxide 26 mmol/L (22-30); Chloride 98 mmol/L (98-107); Glucose 114 mg/dL (74-99); Magnesium 2.3 mg/dL (1.6-2.3); Non-African American GFR(CKD) >90 (>60 ml/min/1.73 sqM); Potassium 4.3 mmol/L (3.5-5.1); Sodium 128 mmol/L (137-145); Total Bilirubin 0.9 mg/dL (0.2-1.3); Total Protein 5.5 g/dL (6.3-8.2)
[2020-11-13 04:34] LABS: Basophils % (A) 0 %; Eosinophils % (A) 1 %; HGB 9.6 gm/dL (13.0-17.5); Lymphocytes # (A) 1.4 k/uL (1.0-4.8); Lymphocytes % (A) 16 %; MCH 33.4 pg (25.0-35.0); MCHC 34.3 g/dL (31.0-37.0); MCV 97.3 fL (80.0-100.0); Mean Platelet Volume 8.6; Monocytes # (A) 0.7 k/uL (0-1.0); Monocytes % (A) 8 %; Neutrophils # (A) 6.4 k/uL (1.3-7.7); Neutrophils % (A) 73 %; Platelet Count 102 k/uL (150-450); RBC 2.88 m/uL (4.30-5.90); RDW 12.9 % (11.5-15.5); WBC 8.7 k/uL (3.8-10.6)
[2020-11-13 05:00] LABS: Glucose,Whole Blood 120 mg/dL (75-99)
[2020-11-13] MEDS: KETOROLAC 15 MG/ML 1 ML VIAL IVP SCH ×3 (05:55→20:57)
[2020-11-13] MEDS: LEVOTHYROXINE 88 MCG TAB PO SCH (05:55)
--- NOTE | 2020-11-13 06:47 | XR ---
EXAMINATION TYPE: XR chest 1V portable DATE OF EXAM: 11/13/2020 CLINICAL HISTORY: Difficulty breathing progress study. Postopen cardiac surgery TECHNIQUE: Single AP portable upright view of the chest is obtained. COMPARISON: Chest x-ray from one day earlier and older studies. FINDINGS: Interval removal of right internal jugular [place]-Tejinder catheter, a Cordis sheath remains pr esent. There are persistent 2 mediastinal drainage catheters and left basilar chest tube. Overlying s ternal wires and mediastinal clips along with left atrial appendage clip are redemonstrated. Persistent cardiomegaly and chronic parenchymal change with patchy left basilar atelectasis. No pneum othorax seen. Lung apices not entirely imaged. Visualized osseous structures are intact. IMPRESSION: Cardiomegaly and chronic parenchymal changes with patchy left basilar atelectasis all rem ain present. No pneumothorax noted with left-sided chest tube in place.
[2020-11-13] MEDS: PANTOPRAZOLE 40 MG TABLET PO SCH (06:50)
[2020-11-13 06:55] LABS: Glucose,Whole Blood 115 mg/dL (75-99)
[2020-11-13] MEDS: IPRATROPIUM-ALBUTEROL 3 ML NEB INHALATION SCH ×4 (07:38→19:58)
[2020-11-13] MEDS: ASPIRIN 325 MG TAB PO SCH (08:11)
[2020-11-13] MEDS: ATORVASTATIN 80 MG TAB PO SCH (08:11)
[2020-11-13] MEDS: METOPROLOL TARTRATE 12.5 MG TAB PO SCH ×2 (08:11→20:58)
[2020-11-13] MEDS: CLOPIDOGREL 75 MG TAB PO SCH (08:11)
[2020-11-13] MEDS: HEPARIN SODIUM,PORCINE 5,000 UNIT/ML 1 ML VIAL SQ SCH ×2 (08:12→15:47)
[2020-11-13] MEDS: FOLIC ACID 1 MG TAB PO SCH (08:12)
[2020-11-13] MEDS: amLODIPine 5 MG TAB PO SCH (08:12)
[2020-11-13] MEDS: THIAMINE 100 MG TAB PO SCH (08:12)
[2020-11-13] MEDS: MULTIVITAMINS, THERA 1 EACH TAB PO SCH (08:12)
[2020-11-13 08:23] LABS: Glucose,Whole Blood 189 mg/dL (75-99)
--- NOTE | 2020-11-13 08:41 | PN ---
PROGRESS NOTE Mr. Villagran is a 60-year-old male status post coronary artery bypass grafting. He is doing well this morning. He has continued to be in sinus mechanism. He denies any chest discomfort. He denies any dizziness or palpitation. He denies any nausea. Hemodynamically, he is stable. He is on no vasopressor. He is doing well with the incentive spirometry. He continues to be at this time on aspirin once a day, Plavix 75 mg daily, amlodipine 5 mg daily, Lipitor 80 mg daily, metoprolol tartrate 12.5 mg twice a day. PHYSICAL EXAMINATION: VITAL SIGNS: Blood pressure 122/50 with a heart rate in 70s. LUNGS: With a few crackles at the bases. HEART: Regular rate and rhythm, S1, S2. No S3. No rub. ABDOMEN: Soft, nontender. EXTREMITIES: No edema. LAB DATA: Lab data revealed BUN and creatinine 20 and 0.87, potassium 4.3, hemoglobin 9.6, sodium 128. IMPRESSION: 1. Status post coronary artery bypass grafting, stable. 2. History of hypertension. 3. History of hyperlipidemia. RECOMMENDATION: From the cardiac standpoint he is stable. We will continue to increase his activity. Continue incentive spirometry. Depending on his progress, further recommendations will be made. MMODL / IJN: [id number] /
--- NOTE | 2020-11-13 08:45 | P.PN ---
Subjective Progress Note Date: 11/13/20 Principal diagnosis: Ventilator management/ICU management This is a 60-year-old male presented to the emergency department on November 07, at 553. The patient apparently complained of feeling weird and dizzy. He was lightheaded, and just felt like his balance was off especially with quick head movements. He denied any nausea, vomiting, or changes in his speech as well as any complaints of weakness in the upper or lower extremities. He denied any chest pain or pressure, jaw pain, back pain, etc. He does have a previous history of cardiac catheterization with stent placement, and previous myocardial infarction at age 40. The patient was more recently evaluated by cardiac catheterization, and was found to have an extremely calcified right and left coronary system, with critical disease involving the mid right coronary artery and severe disease involving the distal right coronary artery. The patient had a normal left main coronary artery, and critical disease involving the proximal and mid left anterior descending artery, as well as severe disease involving the proximal first obtuse marginal branch of the left circumflex, which was a large caliber vessel. Bypass grafting was recommended. He apparently is going to have bypass surgery towards the end of this week. We were asked to see him for preop clearance. The patient is a heavy smoker having been smoking for about 35-40 years or so. The patient denies a prior history of lung disease and actually did very well on his preoperative spirometry. It was reported to me that his FEV1 was 109% of predicted. I've yet to see his PFTs. He denies any shortness of breath, coughing, wheezing, or phlegm production. His past medical history includes coronary artery disease, gastroesophageal reflux disease, hyperlipidemia, hypertension, myocardial infarction, and hypothyroidism. On 11/10/2020 patient seen in follow-up on selective care unit, he is ambulating around the hallway, denied any chest pain with exertion, no shortness of breath, he is on room air, he is breathing comfortably, pulse ox on room air is 97%, vital signs have been stable, heparin was discontinued yesterday. Today's labs have been reviewed, CBC was done only. Relatively unremarkable, no acute events overnight. No cough, no chest pain, no wheezing or phlegm production. On 11/11/2020 patient seen in follow-up in the intensive care unit following his four-vessel bypass with PHAM to the LAD, left radial graft to the OM, SVG to the diagonal, and SVG to the PLB, and exclusion of the left atrial appendage with 35 mm atriclip. Patient is sedated, intubated on mechanical ventilator, with assist control mode of ventilation, with a rate of 12, tidal volume is 400, FiO2 100% and PEEP of 5, postoperative blood gases showed pO2 of 322, pCO2 44, and pH of 7.35, this was done 100%, and FiO2 was cut back to 40%. He is currently on lactated Ringer's at 50 ML per hour, Diprivan and is at 20 mics per kilo per minute, Cardizem drip is at 5 mg per hour, and nitroglycerin is at 5 mics per kilo per minute. He is in sinus mechanism with a rate of 59-60 BPM, PA pressures 29/16, CVP is 12, cardiac output is 8.2, and cardiac index is 4.0. Postoperative blood gas shows a new lateral left basilar atelectasis. Labs have been reviewed, white blood cell count is 11.2, hemoglobin is 11.8, renal profile and electrolytes are unremarkable, mediastinal chest tubes 2 with a total of 400 mL of sanguinous output, and left pleural chest tube with no output. Hemodynamically patient is stable. He is starting to wake up. Progress note dated 11/12/2020. 60-year-old male, postop day #1, status post four-vessel bypass grafting. The patient was extubated in less than 3 hours after leaving the operating room. Currently, he is on 2 L nasal cannula. He is getting lactated Ringer's at 50 mL an hour, Cardizem drip at 5 mg an hour, nitroglycerin drip at 5 mcg/m, and insulin drip at 3.5 units per hour. Currently, he sitting up in a chair. He is very stable. He has no major complaints other than pain at the surgical site. He had a four-vessel bypass grafting. It was done by Dr. Alicea. Current white count is 10.2, hemoglobin 10.7, hematocrit 31.6, and platelet count 135,000. Sodium 133, potassium 4.2, chlorides 101, CO2 23, anion gap is 9, BUN 21, and creatinine 0.86. Chest x-ray shows typical postoperative changes, with some bibasilar atelectasis. There also may be small effusions bilaterally. Progress note dated 11/13/2020. 60-year-old male, postop day #2, status post four-vessel bypass grafting. The patient's currently on 2 L nasal cannula, and lactated Ringer's at 20 mL an hour. He is getting about 1500 on his incentive spirometer. Patient is doing well without major complaints. The Cardizem drip and nitroglycerin drip at both been turned off. Also, his insulin drip has been turned off. His vital signs are stable. He is not having any issues with his breathing very chest x-ray looks excellent. We encourage him to continue with incentive spirometer every hour, and also deep breathing, coughing, clearing of secretions. Current laboratory data includes a white count of 8.7, hemoglobin 9.6, hematocrit 28.0, platelet count 102,000. Sodium 128, potassium 4.3, chlorides 98, CO2 26, anion gap 4, BUN 20, creatinine 0.87. Objective - Vital Signs Vital signs: Vital Signs Temp 98 F 11/13/20 08:00 Pulse 80 11/13/20 08:00 Resp 17 11/13/20 08:00 BP 108/63 11/12/20 12:00 Pulse Ox 95 11/13/20 08:00 Intake & Output 11/12/20 11/13/20 11/13/20 18:59 06:59 18:59 Intake Total 1359.055 645.212 25.811 Output Total 1432 1405 0 Balance -72.945 -759.788 25.811 Weight 94 kg 102.4 kg Intake: IV 834 333 23 CO/CI 150 Lactated Ringers 1,000 ml 600 270 20 @ 20 mls/hr IV .Q24H [facility] Rx#:[id number] pressure bag 84 63 3 Intake, IV Titration 125.055 12.212 2.811 Amount Diltiazem 125 mg In 26.5 Sodium Chloride 0.9% 100 ml @ 5 MG/HR 5 mls/hr IV .Q24H [facility] Rx#:[id number] Insulin Regular 100 unit 21.580 12.212 2.811 In Sodium Chloride 0.9% 100 ml @ Per Protocol IV .Q0M [facility] Rx#:[id number] Nitroglycerin-D5w Pmx 50 26.975 mg In Dextrose/Water 1 250ml.bag @ 5 MCG/MIN 1.5 mls/hr IV .Q24H [facility] Rx#: [id number] ceFAZolin 2 gm In Sodium 50 Chloride 0.9% 50 ml @ 100 mls/hr IVPB Q8HR [facility] Rx# :[id number] Oral 400 300 Output: Chest Tube Drainage 202 240 LP 87 120 MS x2 115 120 Urine 1230 1165 0 Other: Voiding Method Indwelling Catheter Indwelling Catheter ABP, PAP, CO, CI - Last Documented Arterial Blood Pressure 132/57 Pulmonary Artery Pressure 22/10 Cardiac Output 6.4 Cardiac Index 3.1 - Exam GENERAL EXAM: Extubated, on nasal O2 at 2 L, sitting at the bedside. HEAD: Normocephalic/atraumatic. EYES: Normal reaction of pupils, equal size. Conjunctiva pink, sclera white. NOSE: Clear with pink turbinates. THROAT: No erythema or exudates. NECK: No masses, no JVD, no thyroid enlargement, no adenopathy. CHEST: No chest wall deformity. Symmetrical expansion. Midsternal incision is clean dry and intact. LUNGS: Equal air entry with no crackles, wheeze, rhonchi or dullness. CVS: Regular rate and rhythm, normal S1 and S2, no gallops, no murmurs, no rubs. Heart rate 80 bpm. ABDOMEN: Soft, nontender. No hepatosplenomegaly, normal bowel sounds, no guarding or rigidity. EXTREMITIES: No clubbing, no edema, no cyanosis, 2+ pulses and upper and lower extremities. Left lower leg incision covered with dressings, and left radial graft site covered with dressings, and Juan Jose wrapped MUSCULOSKELETAL: Muscle strength and tone normal. SPINE: No scoliosis or deformity SKIN: No rashes CENTRAL NERVOUS SYSTEM: Alert and oriented. Neurologic examination is brief but nonfocal. - Labs CBC & Chem 7: 11/13/20 03:40 11/13/20 03:40 Labs: Abnormal Lab Results - Last 24 Hours (Table) 11/11/20 11/12/20 11/12/20 Range/Units 05:31 09:00 10:00 RBC (4.30-5.90) m/uL Hgb (13.0-17.5) gm/dL Hct (39.0-53.0) % Plt Count (150-450) k/uL Sodium (137-145) mmol/L Glucose (74-99) mg/dL POC Glucose (mg/dL) 119 H 116 H (75-99) mg/dL Calcium (8.4-10.2) mg/dL Total Protein (6.3-8.2) g/dL Albumin (3.5-5.0) g/dL Crossmatch See Detail 11/12/20 11/12/20 11/12/20 Range/Units 11:15 12:38 12:54 RBC (4.30-5.90) m/uL Hgb (13.0-17.5) gm/dL Hct (39.0-53.0) % Plt Count (150-450) k/uL Sodium (137-145) mmol/L Glucose (74-99) mg/dL POC Glucose (mg/dL) 128 H 124 H 112 H (75-99) mg/dL Calcium (8.4-10.2) mg/dL Total Protein (6.3-8.2) g/dL Albumin (3.5-5.0) g/dL Crossmatch 11/12/20 11/12/20 11/12/20 Range/Units 14:03 15:34 16:29 RBC (4.30-5.90) m/uL Hgb (13.0-17.5) gm/dL Hct (39.0-53.0) % Plt Count (150-450) k/uL Sodium (137-145) mmol/L Glucose (74-99) mg/dL POC Glucose (mg/dL) 180 H 133 H 134 H (75-99) mg/dL Calcium (8.4-10.2) mg/dL Total Protein (6.3-8.2) g/dL Albumin (3.5-5.0) g/dL Crossmatch 11/12/20 11/12/20 11/12/20 Range/Units 17:08 18:00 19:10 RBC (4.30-5.90) m/uL Hgb (13.0-17.5) gm/dL Hct (39.0-53.0) % Plt Count (150-450) k/uL Sodium (137-145) mmol/L Glucose (74-99) mg/dL POC Glucose (mg/dL) 161 H 150 H 164 H (75-99) mg/dL Calcium (8.4-10.2) mg/dL Total Protein (6.3-8.2) g/dL Albumin (3.5-5.0) g/dL Crossmatch 11/12/20 11/12/20 11/12/20 Range/Units 20:17 21:05 23:04 RBC (4.30-5.90) m/uL Hgb (13.0-17.5) gm/dL Hct (39.0-53.0) % Plt Count (150-450) k/uL Sodium (137-145) mmol/L Glucose (74-99) mg/dL POC Glucose (mg/dL) 126 H 113 H 141 H (75-99) mg/dL Calcium (8.4-10.2) mg/dL Total Protein (6.3-8.2) g/dL Albumin (3.5-5.0) g/dL Crossmatch 11/13/20 11/13/20 11/13/20 Range/Units 00:07 01:43 02:48 RBC (4.30-5.90) m/uL Hgb (13.0-17.5) gm/dL Hct (39.0-53.0) % Plt Count (150-450) k/uL Sodium (137-145) mmol/L Glucose (74-99) mg/dL POC Glucose (mg/dL) 129 H 130 H 119 H (75-99) mg/dL Calcium (8.4-10.2) mg/dL Total Protein (6.3-8.2) g/dL Albumin (3.5-5.0) g/dL Crossmatch 11/13/20 11/13/20 11/13/20 Range/Units 03:40 03:40 03:44 RBC 2.88 L (4.30-5.90) m/uL Hgb 9.6 L (13.0-17.5) gm/dL Hct 28.0 L (39.0-53.0) % Plt Count 102 L (150-450) k/uL Sodium 128 L (137-145) mmol/L Glucose 114 H (74-99) mg/dL POC Glucose (mg/dL) 124 H (75-99) mg/dL Calcium 8.3 L (8.4-10.2) mg/dL Total Protein 5.5 L (6.3-8.2) g/dL Albumin 3.4 L (3.5-5.0) g/dL Crossmatch 11/13/20 11/13/20 11/13/20 Range/Units 04:59 06:53 08:22 RBC (4.30-5.90) m/uL Hgb (13.0-17.5) gm/dL Hct (39.0-53.0) % Plt Count (150-450) k/uL Sodium (137-145) mmol/L Glucose (74-99) mg/dL POC Glucose (mg/dL) 120 H 115 H 189 H (75-99) mg/dL Calcium (8.4-10.2) mg/dL Total Protein (6.3-8.2) g/dL Albumin (3.5-5.0) g/dL Crossmatch Assessment and Plan Assessment: Acute non-ST segment elevation myocardial infarction, with severe triple-vessel coronary disease. Postop day #2, status post four-vessel bypass grafting. Routine postoperative ventilator management, with extubation less than 3 hours after leaving the operating room. History of heavy tobacco use, without symptoms of COPD, and apparently, relatively normal spirometry. History of hypertension. History of hyperlipidemia. History of coronary artery disease, with previous PCI and stent placement. Hypothyroidism. Ongoing tobacco use with nicotine addiction. Prior history of myocardial infarction. Plan: Plan dated 11/13/2020. The patient seems to be improving and progressing very nicely. Patient's labs are reviewed. Vital signs are reviewed. Chest x-ray looks excellent other than for some mild bibasilar atelectasis. The patient's postop day #2. He is on 2 L nasal cannula. He is getting 1500 mL on his incentive spirometer. He is on lactated Ringer's at 20 mL an hour. No additional recommendations are made. We will continue to follow make recommendations were appropriate. The patient will have follow-up in my office post discharge. Time with Patient: Less than 30
[2020-11-13 10:52] LABS: Glucose,Whole Blood 112 mg/dL (75-99)
[2020-11-13 11:56] LABS: Glucose,Whole Blood 101 mg/dL (75-99)
[2020-11-13] MEDS: INSULIN ASPART (NovoLOG) 100 UNIT/ML VIAL SQ SCH ×3 (12:18→20:58)
--- NOTE | 2020-11-13 12:46 | P.PN ---
Subjective Progress Note Date: 11/13/20 This is a 60-year-old gentleman one of my patient with known history of hypertension and hypertensive cardio vascular disease,, hyperlipidemia, nicotine dependence, coronary artery disease with multivessel intervention. In 2000 and 2006 patient underwent stenting of the LAD and circumflex. On September 28 in 2015 patient underwent a cardiac catheterization which revealed a patent right coronary artery and LAD stent, circumflex with that was also stented in the proximal section was patent. The LAD had approximately 30% lesion at the end of the stented segment and the right coronary artery and a 40-50% mid lesion. There was moderate calcification in both of these vessels, the circumflex which was stented was patent but the mid circumflex had a long area of 80% stenosis for which the patient underwent angioplasty with stent placement by Dr. Geoff Espinoza. Following that patient did return to the hospital with symptoms, cardiac catheterization was unchanged. Patient overall has been doing well, today he woke up at around 5:30 in the morning went to the bathroom and suddenly developed to have bilateral shoulder pain with shoulder numbness and he was breaking out into cold sweats, he felt a bit nauseated, he ended up coming to the emergency care for evaluation, his troponin was slightly elevated, his EKG showed nonspecific ST-T wave changes, patient was ruled in for non-ST elevation myocardial infarction and had a long conversation with the patient and his at the bedside we are going to go for a left heart catheterization with Dr. Miguel today. 11/08: Patient underwent left heart catheterization yesterday that did show 3 vessel disease patient will be seen by cardiothoracic surgery, the plan is to have a coronary artery bypass graft scheduled hopefully later on this week or next week, patient denies any chest pain, he has no shortness breath at this time has no abdominal pain, nausea vomiting or diarrhea he is maintained on aspirin 81 mg once every day, Lipitor 80 mg orally once every day, he is not on beta blockers because of bradycardia. 11/09: patient is sitting up in bed in distress, a bit anxious about upcoming procedure, was seen today by ,we will continue with heparin drip, ASA 81 mg orally daily, Atorvastatin 80 mg orally daily, no beta blockers due to bradycardia, seems to be ready for his CABG in the near future, had his 5 minute walk test, echocardiogram that showed moderate impairment in LVF 40-45 % with apical anterio, lateral and inferior hypokinesia, US of the carotids no hemodynamically significant stenosis, LHC showed severe proximal RCA disease, critical distal RCA disease, moderate OM1 disease, critical proximal LAD and dis nestor LAD disease, and normal Left main, patient is aware of smoking cessation and total life style changes as a must prior to his heart surgery. 11/10: patient has been seen by pulmonary medicine yesterday as well as Cardiothoracic surgery and reinforced smoking cessation and the way to do it, has no chest pain or shortness of breath, no abdominal pain , nausea, vomiting or diarrhea, reviewed test results with him , his and his relative physician at the beside, wanda plan to proceed with CABG X 3 hopefully in AM. 11/11: Patient underwent coronary artery bypass grafting 4 vessels, left inter nal mammary artery to left anterior descending artery, radial artery to the obtuse marginal artery, reverse saphenous vein graft to the diagonal artery, reverse saphenous vein graft to the posterior lateral branch of the right coronary artery by Dr. Alicea, postop day 0. Patient is seen today sitting up in the ICU room. He was intubated and on mechanical ventilation with tidal volume 400, FiO2 100% and PEEP of 5. He has mediastinal chest tubes [address] with sanguinous output. A left pleural chest tube is also in place with no output. monitoring manager is a sinus rhythm. Patient is not requiring vasopressors. Plan is for patient to be extubated this afternoon. 11/12: Patient was successfully extubated yesterday afternoon and currently on 2 L nasal cannula Patient is continued on insulin drip Repeat chest x-ray reveals. 11/13: Patient seen in follow-up in ICU, he is off of 2 days postextubation currently on 2 L nasal cannula saturating above 90%. 2 mediastinal and one left pleural chest tubes remain in place. He is off of vasoactive drips. Blood sugars controlled with current regimen, 101 this afternoon. Constitutional: Reports chronic pain, Reports fatigue, Reports weakness, Cardiovascular: Mild chest discomfort from surgery, Reports decreased exercise tolerance, Reports dyspnea on exertion, Denies lightheadedness, Denies rapid heart beat, Denies shortness of breath, Denies syncope Respiratory: Denies congestion, Denies cough, Denies cough with sputum, Gastrointestinal: Reports nausea, Denies abdominal pain, Genitourinary: Reports nocturia, Denies dysuria Neurological: Denies numbness, Denies weakness Endocrine: Denies fatigue, Denies weight change Objective - Vital Signs Vital signs: Vital Signs Temp 99 F 11/13/20 12:00 Pulse 86 11/13/20 12:00 Resp 18 11/13/20 12:00 BP 108/63 11/12/20 12:00 Pulse Ox 92 L 11/13/20 12:00 Intake & Output 11/12/20 11/13/20 11/13/20 18:59 06:59 18:59 Intake Total 1359.055 645.212 131.235 Output Total 1432 1405 350 Balance -72.945 -759.788 -218.765 Weight 94 kg 102.4 kg Intake: IV 834 333 121 CO/CI 150 Lactated Ringers 1,000 ml 600 270 100 @ 20 mls/hr IV .Q24H [facility] Rx#:[id number] pressure bag 84 63 21 Intake, IV Titration 125.055 12.212 10.235 Amount Diltiazem 125 mg In 26.5 Sodium Chloride 0.9% 100 ml @ 5 MG/HR 5 mls/hr IV .Q24H [facility] Rx#:[id number] Insulin Regular 100 unit 21.580 12.212 10.235 In Sodium Chloride 0.9% 100 ml @ Per Protocol IV .Q0M [facility] Rx#:[id number] Nitroglycerin-D5w Pmx 50 26.975 mg In Dextrose/Water 1 250ml.bag @ 5 MCG/MIN 1.5 mls/hr IV .Q24H [facility] Rx#: [id number] ceFAZolin 2 gm In Sodium 50 Chloride 0.9% 50 ml @ 100 mls/hr IVPB Q8HR [facility] Rx# :[id number] Oral 400 300 Output: Chest Tube Drainage 202 240 LP 87 120 MS x2 115 120 Urine 1230 1165 350 Other: Voiding Method Indwelling Catheter Indwelling Catheter Urinal ABP, PAP, CO, CI - Last Documented Arterial Blood Pressure 131/58 Pulmonary Artery Pressure 22/10 Cardiac Output 6.4 Cardiac Index 3.1 - Exam Physical examination: HEENT: Head is atraumatic, normocephalic, pupils were equal round, sclera nonicteric, conjunctivae were slightly pale, mucous membranes of mouth are moist. Neck: Supple, no JVD, no carotid bruits of adenopathy. Chest: Diminished breath sounds bilaterally, few scattered rhonchi no expiratory wheezes, no chest wall tenderness, no intercostal retractions. Mediastinal incision with dressing. 2 mediastinal and one left pleural chest tubes in place. Heart: First heart sound is depressed, second heart sound is normal, there is no gallop or murmur. Abdomen: Soft, nontender, nondistended, positive bowel sounds. Extremities: There is no edema, no calf tenderness, dorsalis is +2 bilaterally. Neurologic examination: Patient is awake, alert and oriented 3.. - Labs CBC & Chem 7: 11/13/20 03:40 11/13/20 03:40 Labs: Abnormal Lab Results - Last 24 Hours (Table) 11/11/20 11/12/20 11/12/20 Range/Units 05:31 12:54 14:03 RBC (4.30-5.90) m/uL Hgb (13.0-17.5) gm/dL Hct (39.0-53.0) % Plt Count (150-450) k/uL Sodium (137-145) mmol/L Glucose (74-99) mg/dL POC Glucose (mg/dL) 112 H 180 H (75-99) mg/dL Calcium (8.4-10.2) mg/dL Total Protein (6.3-8.2) g/dL Albumin (3.5-5.0) g/dL Crossmatch See Detail 11/12/20 11/12/20 11/12/20 Range/Units 15:34 16:29 17:08 RBC (4.30-5.90) m/uL Hgb (13.0-17.5) gm/dL Hct (39.0-53.0) % Plt Count (150-450) k/uL Sodium (137-145) mmol/L Glucose (74-99) mg/dL POC Glucose (mg/dL) 133 H 134 H 161 H (75-99) mg/dL Calcium (8.4-10.2) mg/dL Total Protein (6.3-8.2) g/dL Albumin (3.5-5.0) g/dL Crossmatch 11/12/20 11/12/20 11/12/20 Range/Units 18:00 19:10 20:17 RBC (4.30-5.90) m/uL Hgb (13.0-17.5) gm/dL Hct (39.0-53.0) % Plt Count (150-450) k/uL Sodium (137-145) mmol/L Glucose (74-99) mg/dL POC Glucose (mg/dL) 150 H 164 H 126 H (75-99) mg/dL Calcium (8.4-10.2) mg/dL Total Protein (6.3-8.2) g/dL Albumin (3.5-5.0) g/dL Crossmatch 11/12/20 11/12/20 11/13/20 Range/Units 21:05 23:04 00:07 RBC (4.30-5.90) m/uL Hgb (13.0-17.5) gm/dL Hct (39.0-53.0) % Plt Count (150-450) k/uL Sodium (137-145) mmol/L Glucose (74-99) mg/dL POC Glucose (mg/dL) 113 H 141 H 129 H (75-99) mg/dL Calcium (8.4-10.2) mg/dL Total Protein (6.3-8.2) g/dL Albumin (3.5-5.0) g/dL Crossmatch 11/13/20 11/13/20 11/13/20 Range/Units 01:43 02:48 03:40 RBC 2.88 L (4.30-5.90) m/uL Hgb 9.6 L (13.0-17.5) gm/dL Hct 28.0 L (39.0-53.0) % Plt Count 102 L (150-450) k/uL Sodium (137-145) mmol/L Glucose (74-99) mg/dL POC Glucose (mg/dL) 130 H 119 H (75-99) mg/dL Calcium (8.4-10.2) mg/dL Total Protein (6.3-8.2) g/dL Albumin (3.5-5.0) g/dL Crossmatch 11/13/20 11/13/20 11/13/20 Range/Units 03:40 03:44 04:59 RBC (4.30-5.90) m/uL Hgb (13.0-17.5) gm/dL Hct (39.0-53.0) % Plt Count (150-450) k/uL Sodium 128 L (137-145) mmol/L Glucose 114 H (74-99) mg/dL POC Glucose (mg/dL) 124 H 120 H (75-99) mg/dL Calcium 8.3 L (8.4-10.2) mg/dL Total Protein 5.5 L (6.3-8.2) g/dL Albumin 3.4 L (3.5-5.0) g/dL Crossmatch 11/13/20 11/13/20 11/13/20 Range/Units 06:53 08:22 10:51 RBC (4.30-5.90) m/uL Hgb (13.0-17.5) gm/dL Hct (39.0-53.0) % Plt Count (150-450) k/uL Sodium (137-145) mmol/L Glucose (74-99) mg/dL POC Glucose (mg/dL) 115 H 189 H 112 H (75-99) mg/dL Calcium (8.4-10.2) mg/dL Total Protein (6.3-8.2) g/dL Albumin (3.5-5.0) g/dL Crossmatch 11/13/20 Range/Units 11:54 RBC (4.30-5.90) m/uL Hgb (13.0-17.5) gm/dL Hct (39.0-53.0) % Plt Count (150-450) k/uL Sodium (137-145) mmol/L Glucose (74-99) mg/dL POC Glucose (mg/dL) 101 H (75-99) mg/dL Calcium (8.4-10.2) mg/dL Total Protein (6.3-8.2) g/dL Albumin (3.5-5.0) g/dL Crossmatch Assessment and Plan Assessment: 1. Non-ST elevation AR. Post left heart catheterization that showed triple- vessel disease with critical disease in the proximal RCA and severe disease in the distal RCA, critical disease in the proximal and mid LAD and severe disease in the OM1 off the LCX with moderate impairement of the LVF. Status post coronary artery bypass grafting 4 vessels, left internal mammary artery to left anterior descending artery, radial artery to the obtuse marginal artery, reverse saphenous vein graft to the diagonal artery, reverse saphenous vein graft to the posterior lateral branch of the right coronary artery performed today by leeanne Oden #1. Continue aspirin 325 mg orally once every day, Lipitor 80 mg once every day, Lopressor 12.5 mg twice daily, currently off MENDOZA inhibitor. Continue current management per cardiothoracic team. Patient was successfully extubated 2 days ago. 2 mediastinal and one left pleural chest tube remained in place. 2. History of CAD post multiple PCI. Continue ASA 325 mg orally daily, Atorvastatin 80 mg orally daily. 3. Hypertension and hypertensive cardiovascular disease. Continue Lopressor 12.5 mg twice daily. 4. Hyperlipidemia. Continue patient on low-cholesterol diet, total lifestyle changes and risk factor modification, continue with Lipitor 80 mg orally once every day per 5. Hypothyroidism. Continue patient on Synthroid 175 g orally once every day. 6. Enlarged prostate. We will continue with Flomax 0.4 g orally once every day . 7. Chronic tobacco use and dependence. Patient was counseled about smoking cessation and increased risk of CAD, CVA, and malignancies. 8. DVT prophylaxis. Currently on heparin drip. 9. GI prophylaxis. Continue with PPI. 10. Discharge plan: To be determined.
[2020-11-13] MEDS ORDERED: FUROSEMIDE 10 MG/ML 2 ML VIAL IV ONE (13:31)
--- NOTE | 2020-11-13 14:49 | P.PN ---
Subjective Progress Note Date: 11/13/20 Principal diagnosis: Triple-vessel coronary artery disease, non-STEMI this admission. Past medical history significant for coronary artery disease with myocardial infarction and m ultiple stent placement, hypertension, hyperlipidemia, hypothyroid, chronic ongoing tobacco dependence, current daily EtOH use. POD #2 coronary artery bypass grafting 4 vessels, left internal mammary artery to left anterior descending artery, radial artery to the obtuse marginal coronary artery, a reverse greater saphenous vein graft to the diagonal coronary artery, a reverse greater saphenous vein graft to the posterior lateral branch of the right coronary artery. Endoscopic harvesting of the left greater saphenous vein. Endoscopic harvesting of the left radial artery. Epi-aortic ultrasound. Ligation of left atrial appendage using a 35 mm AtriClip. Intraoperative transesophageal echocardiogram. Biopsy of mammary bed lymph node. Postoperative acute blood loss anemia, expected due to hemodilution and cardiopulmonary bypass. The patient was seen in follow-up today 11/13/2020 at his bedside in the intensive care unit. Currently he is standing up at his bedside, is awake, alert and oriented 3. He is in no acute apparent distress. Denies any complaints of shortness of breath or pain at this time. He remained hemodynamically stable and is currently on no inotropic or pressor support. Oxygen saturations are 96% on 2 L nasal cannula. He is achieving 1500 mL on his incentive spirometry with encouragement. Right IJ cordis remains in place with tenuous CVP monitoring, current CVP pressure 6 mmHg. Right radial arterial line in place and functioning. Mediastinal and left pleural chest tubes remain in place to low continuous wall suction -20 cm H2O. No air leak is present. Draining thin serosanguineous drainage with his mediastinal chest tubes draining 80 mL output in the last 8 hours and 221 L output in the last 24 hours. His left pleural chest tube drained 80 mL in the last 8 hours and 200 mL in the last 24 hours. Objective - Vital Signs Vital signs: Vital Signs Temp 98 F 11/13/20 08:00 Pulse 80 11/13/20 08:00 Resp 17 11/13/20 08:00 BP 108/63 11/12/20 12:00 Pulse Ox 95 11/13/20 08:00 Intake & Output 11/12/20 11/13/20 11/13/20 18:59 06:59 18:59 Intake Total 1359.055 645.212 71.811 Output Total 1432 1405 0 Balance -72.945 -759.788 71.811 Weight 94 kg 102.4 kg Intake: IV 834 333 69 CO/CI 150 Lactated Ringers 1,000 ml 600 270 60 @ 20 mls/hr IV .Q24H SHAINA Rx#:[id number] pressure bag 84 63 9 Intake, IV Titration 125.055 12.212 2.811 Amount Diltiazem 125 mg In 26.5 Sodium Chloride 0.9% 100 ml @ 5 MG/HR 5 mls/hr IV .Q24H SHAINA Rx#:[id number] Insulin Regular 100 unit 21.580 12.212 2.811 In Sodium Chloride 0.9% 100 ml @ Per Protocol IV .Q0M SHAINA Rx#:[id number] Nitroglycerin-D5w Pmx 50 26.975 mg In Dextrose/Water 1 250ml.bag @ 5 MCG/MIN 1.5 mls/hr IV .Q24H SHAINA Rx#: [id number] ceFAZolin 2 gm In Sodium 50 Chloride 0.9% 50 ml @ 100 mls/hr IVPB Q8HR SHAINA Rx# :[id number] Oral 400 300 Output: Chest Tube Drainage 202 240 LP 87 120 MS x2 115 120 Urine 1230 1165 0 Other: Voiding Method Indwelling Catheter Indwelling Catheter Urinal ABP, PAP, CO, CI - Last Documented Arterial Blood Pressure 132/57 Pulmonary Artery Pressure 22/10 Cardiac Output 6.4 Cardiac Index 3.1 - Constitutional General appearance: Present: cooperative, no acute distress, obese - EENT Eyes: Present: normal appearance. Absent: scleral icterus ENT: Present: hearing grossly normal - Neck Details: Neck is supple, no JVD. Right IJ Cordis in place with continuous CVP monitori ng. - Respiratory Details: Lung sounds essentially clear throughout, few scattered crackles to his bilateral bases. Respirations are symmetrical and nonlabored. Oxygen saturation 96% on 2 L nasal cannula. Achieving 1500 mL on his incentive spirometry. Mediastinal and left pleural chest tubes remain in place to low continuous wall suction -20 cm H2O. No air leak is present. Draining thin serosanguineous drainage. Mediastinal chest tubes drained 80 mL output in the last 8 hours, 220 mL output in the last 24 hours. Left pleural chest tube drained 80 mL output in the last 8 hours, 200 mL output in the last 24 hours. - Cardiovascular Details: Regular rhythm and rate. S1 and S2 present, negative for S3, gallop or murmur. Sternum is stable. Atrial and ventricular epicardial pacemaker wires in place and grounded. Heart hugger is in place and he is demonstrating appropriate use. Knee-high EDITH hose and sequential compression devices in place was bilateral lower extremities. Right IJ Cordis in place with continuous CVP monitoring, current CVP pressure 6 mmHg. - Gastrointestinal Gastrointestinal Comment(s): Abdomen is soft, nontender and nondistended. Active bowel sounds present in all 4 abdominal quadrants. No guarding or rigidity. No organomegaly appreciated. Passing flatus. Tolerating oral intake. - Genitourinary Genitourinary Comment(s): Linares catheter discontinued this morning. Urine output 800 mL in the last 8 hours. - Integumentary Integumentary Comment(s): Skin is warm and dry. No clubbing or cyanosis is present. Midline sternal incision is clean, dry and approximated. No drainage or redness is present. Left radial artery harvest sites are clean, dry and approximated. No drainage or redness is present. Scattered ecchymosis to his left forearm. Ulnar pulse palpable to his left arm. Left arm and hand warm to touch. Left lower extremity EVH site is clean, dry and approximated. No drainage or redness is present. - Neurologic Neurologic: Present: CNII-XII intact. Absent: focal deficits - Musculoskeletal Musculoskeletal: Present: gait normal, strength equal bilaterally - Psychiatric Psychiatric: Present: A&O x's 3, appropriate affect, intact judgment & insight - Allied health notes Allied health notes reviewed: nursing - Labs CBC & Chem 7: 11/13/20 03:40 11/13/20 03:40 Labs: Abnormal Lab Results - Last 24 Hours (Table) 11/11/20 11/12/20 11/12/20 Range/Units 05:31 10:00 11:15 RBC (4.30-5.90) m/uL Hgb (13.0-17.5) gm/dL Hct (39.0-53.0) % Plt Count (150-450) k/uL Sodium (137-145) mmol/L Glucose (74-99) mg/dL POC Glucose (mg/dL) 116 H 128 H (75-99) mg/dL Calcium (8.4-10.2) mg/dL Total Protein (6.3-8.2) g/dL Albumin (3.5-5.0) g/dL Crossmatch See Detail 11/12/20 11/12/20 11/12/20 Range/Units 12:38 12:54 14:03 RBC (4.30-5.90) m/uL Hgb (13.0-17.5) gm/dL Hct (39.0-53.0) % Plt Count (150-450) k/uL Sodium (137-145) mmol/L Glucose (74-99) mg/dL POC Glucose (mg/dL) 124 H 112 H 180 H (75-99) mg/dL Calcium (8.4-10.2) mg/dL Total Protein (6.3-8.2) g/dL Albumin (3.5-5.0) g/dL Crossmatch 11/12/20 11/12/20 11/12/20 Range/Units 15:34 16:29 17:08 RBC (4.30-5.90) m/uL Hgb (13.0-17.5) gm/dL Hct (39.0-53.0) % Plt Count (150-450) k/uL Sodium (137-145) mmol/L Glucose (74-99) mg/dL POC Glucose (mg/dL) 133 H 134 H 161 H (75-99) mg/dL Calcium (8.4-10.2) mg/dL Total Protein (6.3-8.2) g/dL Albumin (3.5-5.0) g/dL Crossmatch 11/12/20 11/12/20 11/12/20 Range/Units 18:00 19:10 20:17 RBC (4.30-5.90) m/uL Hgb (13.0-17.5) gm/dL Hct (39.0-53.0) % Plt Count (150-450) k/uL Sodium (137-145) mmol/L Glucose (74-99) mg/dL POC Glucose (mg/dL) 150 H 164 H 126 H (75-99) mg/dL Calcium (8.4-10.2) mg/dL Total Protein (6.3-8.2) g/dL Albumin (3.5-5.0) g/dL Crossmatch 11/12/20 11/12/20 11/13/20 Range/Units 21:05 23:04 00:07 RBC (4.30-5.90) m/uL Hgb (13.0-17.5) gm/dL Hct (39.0-53.0) % Plt Count (150-450) k/uL Sodium (137-145) mmol/L Glucose (74-99) mg/dL POC Glucose (mg/dL) 113 H 141 H 129 H (75-99) mg/dL Calcium (8.4-10.2) mg/dL Total Protein (6.3-8.2) g/dL Albumin (3.5-5.0) g/dL Crossmatch 11/13/20 11/13/20 11/13/20 Range/Units 01:43 02:48 03:40 RBC 2.88 L (4.30-5.90) m/uL Hgb 9.6 L (13.0-17.5) gm/dL Hct 28.0 L (39.0-53.0) % Plt Count 102 L (150-450) k/uL Sodium (137-145) mmol/L Glucose (74-99) mg/dL POC Glucose (mg/dL) 130 H 119 H (75-99) mg/dL Calcium (8.4-10.2) mg/dL Total Protein (6.3-8.2) g/dL Albumin (3.5-5.0) g/dL Crossmatch 11/13/20 11/13/20 11/13/20 Range/Units 03:40 03:44 04:59 RBC (4.30-5.90) m/uL Hgb (13.0-17.5) gm/dL Hct (39.0-53.0) % Plt Count (150-450) k/uL Sodium 128 L (137-145) mmol/L Glucose 114 H (74-99) mg/dL POC Glucose (mg/dL) 124 H 120 H (75-99) mg/dL Calcium 8.3 L (8.4-10.2) mg/dL Total Protein 5.5 L (6.3-8.2) g/dL Albumin 3.4 L (3.5-5.0) g/dL Crossmatch 11/13/20 11/13/20 Range/Units 06:53 08:22 RBC (4.30-5.90) m/uL Hgb (13.0-17.5) gm/dL Hct (39.0-53.0) % Plt Count (150-450) k/uL Sodium (137-145) mmol/L Glucose (74-99) mg/dL POC Glucose (mg/dL) 115 H 189 H (75-99) mg/dL Calcium (8.4-10.2) mg/dL Total Protein (6.3-8.2) g/dL Albumin (3.5-5.0) g/dL Crossmatch - Imaging and Cardiology Chest x-ray: report reviewed, image reviewed Assessment and Plan Assessment: 1. Triple-vessel coronary artery disease, non-STEMI this admission, status post four-vessel coronary artery bypass grafting surgery 2. History of coronary artery disease with myocardial infarction and multiple stent placement 3. History of hypertension, treated 4. History of hyperlipidemia, treated, cholesterol 179, LDL 107 5. Hypothyroid 6. Current chronic tobacco dependence, current FEV1 109% of predicted 7. Current daily EtOH use, on the CIWA protocol 8. Postoperative acute blood loss anemia, expected Plan: 1. Continue aspirin, statin, Plavix, low-dose beta jono. Will increase beta jono as tolerated. 2. Continue Norvasc 5 mg by mouth daily for radial artery spasm prophylaxis. Please do not discontinue the calcium channel jono without checking with cardiothoracic surgery. 3. Wean O2 as tolerated. Encourage incentive spirometry use 10 times every hour while awake. Bronchodilator management per pulmonology/critical care medicine. 4. Risk factor modification discussed, the importance of smoking cessation was discussed with the patient. 5. Increase activity, ambulate as tolerated. PT/OT/cardiac rehab following. 6. Will monitor daily labs and x-rays. Electrolyte replacement per protocol. 7. GI/DVT prophylaxis. 8. Pain control current when necessary orders. 9. Insulin management per primary care service. Patient is not diabetic, preoperative hemoglobin A1c 5.7%. 10. Discontinue right IJ Cordis. 11. We will remove his mediastinal, left pleural chest tubes. 12. Continue to monitor strict accurate intake and output. Daily weight. 13. Continue to monitor for signs of alcohol withdrawal, continue CIWA protocol. 14. Transfer to the third floor cardiac stepdown unit. 15. Lasix 20 mg IV x 1 now. 16. Atrial and Ventricular pacemaker wires were removed without incident. Bedrest for 1 hour post PMW removal. 17. More recommendations to follow based on patient's clinical course. Time with Patient: Greater than 30
[2020-11-13 16:43] LABS: Glucose,Whole Blood 140 mg/dL (75-99)
[2020-11-13 20:07] LABS: Glucose,Whole Blood 137 mg/dL (75-99)
[2020-11-13] MEDS: SENNOSIDES-DOCUSATE SODIUM 1 EACH TAB PO SCH (20:59)
[2020-11-14] MEDS: HEPARIN SODIUM,PORCINE 5,000 UNIT/ML 1 ML VIAL SQ SCH ×4 (00:15→23:57)
[2020-11-14] MEDS: KETOROLAC 15 MG/ML 1 ML VIAL IVP SCH ×3 (04:29→15:42)
[2020-11-14 06:17] LABS: Glucose,Whole Blood 120 mg/dL (75-99)
[2020-11-14] MEDS: LEVOTHYROXINE 88 MCG TAB PO SCH (06:42)
[2020-11-14] MEDS: PANTOPRAZOLE 40 MG TABLET PO SCH (06:42)
[2020-11-14] MEDS: IPRATROPIUM-ALBUTEROL 3 ML NEB INHALATION SCH ×4 (07:33→19:37)
--- NOTE | 2020-11-14 08:06 | XR ---
EXAMINATION TYPE: XR chest 2V DATE OF EXAM: 11/14/2020 COMPARISON: Chest x-ray from yesterday HISTORY: Post open cardiac surgery. TECHNIQUE: Frontal and lateral views of the chest are obtained. FINDINGS: Interval removal of right internal jugular Cordis sheath. Interval removal of 2 mediastina l drainage catheters and left basilar chest tube. Overlying sternal wires and mediastinal clips along with left atrial appendage clip are all redemonstrated. Persistent cardiomegaly and chronic parenchymal change with patchy left basilar atelectasis. No pneum othorax seen bilaterally. Visualized osseous structures are intact. Tiny left pleural effusion on la teral view. IMPRESSION: Cardiomegaly and chronic parenchymal changes with patchy left basilar atelectasis and tin y left pleural effusion all remain present and stable. No pneumothorax noted with interval left-sided chest tube removal.
[2020-11-14 08:45] LABS: Basophils % (A) 0 %; Eosinophils % (A) 0 %; HCT 27.6 % (39.0-53.0); HGB 9.5 gm/dL (13.0-17.5); Lymphocytes # (A) 1.4 k/uL (1.0-4.8); Lymphocytes % (A) 18 %; MCH 33.4 pg (25.0-35.0); MCHC 34.3 g/dL (31.0-37.0); MCV 97.3 fL (80.0-100.0); Mean Platelet Volume 9.3; Monocytes # (A) 0.4 k/uL (0-1.0); Monocytes % (A) 6 %; Neutrophils # (A) 5.8 k/uL (1.3-7.7); Neutrophils % (A) 75 %; Platelet Count 104 k/uL (150-450); RBC 2.83 m/uL (4.30-5.90); RDW 12.7 % (11.5-15.5); WBC 7.7 k/uL (3.8-10.6)
[2020-11-14 09:10] LABS: African American GFR (CKD) >90 (>60 ml/min/1.73 sqM); Anion Gap 9 mmol/L; Blood Urea Nitrogen 21 mg/dL (9-20); Calcium 8.4 mg/dL (8.4-10.2); Carbon Dioxide 26 mmol/L (22-30); Chloride 98 mmol/L (98-107); Glucose 169 mg/dL (74-99); Non-African American GFR(CKD) >90 (>60 ml/min/1.73 sqM); Potassium 3.9 mmol/L (3.5-5.1); Sodium 133 mmol/L (137-145)
[2020-11-14] MEDS: INSULIN ASPART (NovoLOG) 100 UNIT/ML VIAL SQ SCH ×4 (09:10→21:04)
[2020-11-14] MEDS: MULTIVITAMINS, THERA 1 EACH TAB PO SCH (09:21)
[2020-11-14] MEDS: ASPIRIN 325 MG TAB PO SCH (09:21)
[2020-11-14] MEDS: CLOPIDOGREL 75 MG TAB PO SCH (09:21)
[2020-11-14] MEDS: FOLIC ACID 1 MG TAB PO SCH (09:22)
[2020-11-14] MEDS: amLODIPine 5 MG TAB PO SCH (09:22)
[2020-11-14] MEDS: ATORVASTATIN 80 MG TAB PO SCH (09:22)
[2020-11-14] MEDS: THIAMINE 100 MG TAB PO SCH (09:22)
[2020-11-14] MEDS ORDERED: POTASSIUM CHLORIDE ER 20 MEQ TAB.ER PO STA (10:27)
[2020-11-14] MEDS ORDERED: FUROSEMIDE 10 MG/ML 2 ML VIAL IV STA (10:28)
--- NOTE | 2020-11-14 10:36 | P.PN ---
Subjective Progress Note Date: 11/14/20 Principal diagnosis: Triple-vessel coronary artery disease, non-STEMI this admission. Past medical history significant for coronary artery disease with myocardial infarction and m ultiple stent placement, hypertension, hyperlipidemia, hypothyroid, chronic ongoing tobacco dependence, current daily EtOH use. POD #3 coronary artery bypass grafting 4 vessels, left internal mammary artery to left anterior descending artery, radial artery to the obtuse marginal coronary artery, a reverse greater saphenous vein graft to the diagonal coronary artery, a reverse greater saphenous vein graft to the posterior lateral branch of the right coronary artery. Endoscopic harvesting of the left greater saphenous vein. Endoscopic harvesting of the left radial artery. Epi-aortic ultrasound. Ligation of left atrial appendage using a 35 mm AtriClip. Intraoperative transesophageal echocardiogram. Biopsy of mammary bed lymph node. Postoperative acute blood loss anemia, expected due to hemodilution and cardiopulmonary bypass. The patient was seen in follow-up today 11/14/2020 at his bedside in the intensive care unit. Currently he is up walking in the cardiac stepdown unit hallway, he is alert and oriented 3. He is in no acute apparent distress. Denies any complaints of shortness of breath or pain at this time. He remains hemodynamically stable and is currently on no inotropic or pressor support. Oxygen saturations are 94% on room air. He is achieving 2000 mL on his incentive spirometry with encouragement. Remains afebrile the last 24 hours, remote telemetry showing normal sinus rhythm heart rate 75 BPM. Objective - Vital Signs Vital signs: Vital Signs Temp 98.8 F 11/14/20 09:14 Pulse 73 11/14/20 09:14 Resp 15 11/14/20 09:14 BP 99/61 11/14/20 09:14 Pulse Ox 96 11/14/20 09:14 Intake & Output 11/13/20 11/14/20 11/14/20 18:59 06:59 18:59 Intake Total 439.235 250 Output Total 1625 950 275 Balance -1185.765 -950 -25 Weight 94.3 kg Intake: IV 179 Lactated Ringers 1,000 ml 140 @ 20 mls/hr IV .Q24H SHAINA Rx#:[id number] pressure bag 39 Intake, IV Titration 10.235 Amount Insulin Regular 100 unit 10.235 In Sodium Chloride 0.9% 100 ml @ Per Protocol IV .Q0M SHAINA Rx#:[id number] Oral 250 250 Output: Urine 1625 950 275 Other: Voiding Method Urinal Urinal Urinal # Bowel Movements 1 ABP, PAP, CO, CI - Last Documented Arterial Blood Pressure 95/45 Pulmonary Artery Pressure 22/10 Cardiac Output 6.4 Cardiac Index 3.1 - Constitutional General appearance: Present: cooperative, no acute distress, obese - EENT Eyes: Present: normal appearance. Absent: scleral icterus ENT: Present: hearing grossly normal - Neck Details: Neck is supple, no JVD. No lymphadenopathy. - Respiratory Details: Lung sounds essentially clear throughout. No wheezes, rhonchi or crackles. Respirations are symmetrical and nonlabored. Oxygen saturation are 94% on room air. Achieving 2000 mL on his incentive spirometry. - Cardiovascular Details: Regular rhythm and rate. S1 and S2 present, negative for S3, gallop or murmur. Sternum is stable. Heart hugger is in place and he is demonstrating appropriate use. Knee-high EDITH hose and sequential compression devices in place to his bilateral lower extremities. Remote telemetry showing normal sinus rhythm heart rate 75 BPM. No edema present. - Gastrointestinal Gastrointestinal Comment(s): Abdomen is soft, nontender and nondistended. Active bowel sounds present in all 4 abdominal quadrants. No guarding or rigidity. No organomegaly appreciated. Tolerating oral intake. Bowel movement this a.m. - Genitourinary Genitourinary Comment(s): Continues to void. 725 mL urine output in the last 8 hours. - Integumentary Integumentary Comment(s): Skin is warm and dry. No clubbing or cyanosis is present. Midline sternal incision is clean, dry and approximated. No drainage or redness is present. Left lower extremity EVH site is clean, dry and approximated. No drainage or redness is present. Left arm radial artery harvest sites are clean and dry. No redness or drainage present. Scattered ecchymosis to his left forearm with some minimal swelling. Left hand warm to touch. Palpable ulnar pulses to his left arm. - Neurologic Neurologic: Present: CNII-XII intact. Absent: focal deficits - Musculoskeletal Musculoskeletal: Present: gait normal, strength equal bilaterally - Psychiatric Psychiatric: Present: A&O x's 3, appropriate affect, intact judgment & insight - Allied health notes Allied health notes reviewed: nursing - Labs CBC & Chem 7: 11/14/20 08:29 11/14/20 08:29 Labs: Abnormal Lab Results - Last 24 Hours (Table) 11/13/20 11/13/20 11/13/20 Range/Units 10:51 11:54 16:42 RBC (4.30-5.90) m/uL Hgb (13.0-17.5) gm/dL Hct (39.0-53.0) % Plt Count (150-450) k/uL Sodium (137-145) mmol/L BUN (9-20) mg/dL Glucose (74-99) mg/dL POC Glucose (mg/dL) 112 H 101 H 140 H (75-99) mg/dL 11/13/20 11/14/20 11/14/20 Range/Units 20:05 06:15 08:29 RBC 2.83 L (4.30-5.90) m/uL Hgb 9.5 L (13.0-17.5) gm/dL Hct 27.6 L (39.0-53.0) % Plt Count 104 L (150-450) k/uL Sodium (137-145) mmol/L BUN (9-20) mg/dL Glucose (74-99) mg/dL POC Glucose (mg/dL) 137 H 120 H (75-99) mg/dL 11/14/20 Range/Units 08:29 RBC (4.30-5.90) m/uL Hgb (13.0-17.5) gm/dL Hct (39.0-53.0) % Plt Count (150-450) k/uL Sodium 133 L (137-145) mmol/L BUN 21 H (9-20) mg/dL Glucose 169 H (74-99) mg/dL POC Glucose (mg/dL) (75-99) mg/dL - Imaging and Cardiology Chest x-ray: report reviewed, image reviewed Assessment and Plan Assessment: 1. Triple-vessel coronary artery disease, non-STEMI this admission, status post four-vessel coronary artery bypass grafting surgery 2. History of coronary artery disease with myocardial infarction and multiple stent placement 3. History of hypertension, treated 4. History of hyperlipidemia, treated, cholesterol 179, LDL 107 5. Hypothyroid 6. Current chronic tobacco dependence, current FEV1 109% of predicted 7. Current daily EtOH use, on the CIWA protocol 8. Postoperative acute blood loss anemia, expected Plan: 1. Continue aspirin, statin, Plavix, and beta jono. Will increase metoprolol tartrate to 25 mg by mouth twice a day. 2. Continue Norvasc 5 mg by mouth daily for radial artery spasm prophylaxis. Please do not discontinue the calcium channel jono without checking with cardiothoracic surgery. 3. Encourage incentive spirometry use 10 times every hour while awake. Bronchodilator management per pulmonology/critical care medicine. 4. Risk factor modification discussed, the importance of smoking cessation was discussed with the patient. 5. Increase activity, ambulate as tolerated. PT/OT/cardiac rehab following. 6. Will monitor daily labs and x-rays. Electrolyte replacement per protocol. 7. GI/DVT prophylaxis. 8. Pain control current when necessary orders. 9. Insulin management per primary care service. Patient is not diabetic, preoperative hemoglobin A1c 5.7%. 10. Lasix 20 mg IV 1 now. Potassium 20 mEq by mouth 1 now. 11. Continue to monitor for signs of alcohol withdrawal, continue CIWA protocol. 12. Continue to monitor strict accurate intake and output. Daily weight. 13. Discharge planning in place. Anticipate discharge home in the next 24 hours with home health care. 14. More recommendations to follow based on patient's clinical course. Time with Patient: Greater than 30
--- NOTE | 2020-11-14 11:06 | P.PN ---
Subjective This is a pleasant 60- male who presented to the hospital with non-ST elevated myocardial infarction and underwent cardiac catheterization with Dr. Miguel. He was found to have severe triple vessel disease with ossified arteries. He follows in the office with Dr. Ruiz. He is status post coronary artery bypass grafting with PHAM to LAD, EMMA to OM, SVG to diagonal and SVG to RCA. He is seen and examined up ambulating around the room. He denies chest pain, shortness of breath, dizziness or palpitations. He is using his incentive s pirometer regularly. Blood pressure 99/61 heart rate 73 afebrile maintaining oxygen saturation on room air. Laboratory data reviewed, WBC 7.7, hemoglobin 9.5, platelets 104, sodium 133, potassium 3.9, creatinine 0.89. Currently maintained on amlodipine 5 mg daily, aspirin 325 mg daily, atorvastatin 80 mg daily, Plavix 75 mg daily and metoprolol 25 mg twice a day. Chest xray reveals chronic parenchymal changes with patchy left basilar atelectasis and tiny left pleural effusion present and stable. No pneumothorax noted at the site of the chest tube removal. GENERAL: Well-appearing, well-nourished and in no acute distress. NECK: Supple without JVD or thyromegaly. LUNGS: Breath sounds clear to auscultation bilaterally. Respiration equal and unlabored. No wheezes, rales or rhonchi. HEART: Regular rate and rhythm with systolic ejection murmur at the base, no rubs or gallops. S1 and S2 heard. Heart hugger in place. Dressing to mid-sternal incision clean and dry with no evidence of drainage or bleeding. EXTREMITIES: Normal range of motion, no edema. No clubbing or cyanosis. Peripheral pulses intact. ASSESSMENT Non-ST elevated myocardial infarction Severe triple-vessel coronary artery disease POD# 4V CABG Dyslipidemia Ischemic cardiomyopathy Hypertension PLAN Continue current medical regimen. Increase activity as tolerated. Encourage incentive spirometer use. Further recommendations to follow based upon clinical course. Nurse Practitioner note has been reviewed, I agree with a documented findings and plan of care. Patient was seen and examined. Objective - Vital Signs Vital signs: Vital Signs Temp 98.8 F 11/14/20 09:14 Pulse 73 11/14/20 09:14 Resp 15 11/14/20 09:14 BP 99/61 11/14/20 09:14 Pulse Ox 96 11/14/20 09:14 Intake & Output 11/13/20 11/14/20 11/14/20 18:59 06:59 18:59 Intake Total 439.235 250 Output Total 1625 950 275 Balance -1185.765 -950 -25 Weight 94.3 kg Intake: IV 179 Lactated Ringers 1,000 ml 140 @ 20 mls/hr IV .Q24H SHAINA Rx#:[id number] pressure bag 39 Intake, IV Titration 10.235 Amount Insulin Regular 100 unit 10.235 In Sodium Chloride 0.9% 100 ml @ Per Protocol IV .Q0M SHAINA Rx#:[id number] Oral 250 250 Output: Urine 1625 950 275 Other: Voiding Method Urinal Urinal Urinal # Bowel Movements 1 ABP, PAP, CO, CI - Last Documented Arterial Blood Pressure 95/45 Pulmonary Artery Pressure 22/10 Cardiac Output 6.4 Cardiac Index 3.1 - Labs CBC & Chem 7: 11/14/20 08:29 11/14/20 08:29 Labs: Abnormal Lab Results - Last 24 Hours (Table) 11/13/20 11/13/20 11/13/20 Range/Units 11:54 16:42 20:05 RBC (4.30-5.90) m/uL Hgb (13.0-17.5) gm/dL Hct (39.0-53.0) % Plt Count (150-450) k/uL Sodium (137-145) mmol/L BUN (9-20) mg/dL Glucose (74-99) mg/dL POC Glucose (mg/dL) 101 H 140 H 137 H (75-99) mg/dL 11/14/20 11/14/20 11/14/20 Range/Units 06:15 08:29 08:29 RBC 2.83 L (4.30-5.90) m/uL Hgb 9.5 L (13.0-17.5) gm/dL Hct 27.6 L (39.0-53.0) % Plt Count 104 L (150-450) k/uL Sodium 133 L (137-145) mmol/L BUN 21 H (9-20) mg/dL Glucose 169 H (74-99) mg/dL POC Glucose (mg/dL) 120 H (75-99) mg/dL
[2020-11-14] MEDS: METOPROLOL TARTRATE 25 MG TAB PO SCH ×2 (12:18→21:04)
[2020-11-14] MEDS: ASPIRIN 81 MG PO SCH (12:38)
[2020-11-14] MEDS: NON FORMULARY DRUG PO SCH (12:39)
[2020-11-14 12:49] LABS: Glucose,Whole Blood 95 mg/dL (75-99)
--- NOTE | 2020-11-14 13:31 | P.PN ---
Subjective Progress Note Date: 11/14/20 This is a 60-year-old gentleman one of my patient with known history of hypertension and hypertensive cardio vascular disease,, hyperlipidemia, nicotine dependence, coronary artery disease with multivessel intervention. In 2000 and 2006 patient underwent stenting of the LAD and circumflex. On September 28 in 2015 patient underwent a cardiac catheterization which revealed a patent right coronary artery and LAD stent, circumflex with that was also stented in the proximal section was patent. The LAD had approximately 30% lesion at the end of the stented segment and the right coronary artery and a 40-50% mid lesion. There was moderate calcification in both of these vessels, the circumflex which was stented was patent but the mid circumflex had a long area of 80% stenosis for which the patient underwent angioplasty with stent placement by Dr. Geoff Espinoza. Following that patient did return to the hospital with symptoms, cardiac catheterization was unchanged. Patient overall has been doing well, today he woke up at around 5:30 in the morning went to the bathroom and suddenly developed to have bilateral shoulder pain with shoulder numbness and he was breaking out into cold sweats, he felt a bit nauseated, he ended up coming to the emergency care for evaluation, his troponin was slightly elevated, his EKG showed nonspecific ST-T wave changes, patient was ruled in for non-ST elevation myocardial infarction and had a long conversation with the patient and his at the bedside we are going to go for a left heart catheterization with Dr. Miguel today. 11/08: Patient underwent left heart catheterization yesterday that did show 3 vessel disease patient will be seen by cardiothoracic surgery, the plan is to have a coronary artery bypass graft scheduled hopefully later on this week or next week, patient denies any chest pain, he has no shortness breath at this time has no abdominal pain, nausea vomiting or diarrhea he is maintained on aspirin 81 mg once every day, Lipitor 80 mg orally once every day, he is not on beta blockers because of bradycardia. 11/09: patient is sitting up in bed in distress, a bit anxious about upcoming procedure, was seen today by ,we will continue with heparin drip, ASA 81 mg orally daily, Atorvastatin 80 mg orally daily, no beta blockers due to bradycardia, seems to be ready for his CABG in the near future, had his 5 minute walk test, echocardiogram that showed moderate impairment in LVF 40-45 % with apical anterio, lateral and inferior hypokinesia, US of the carotids no hemodynamically significant stenosis, LHC showed severe proximal RCA disease, critical distal RCA disease, moderate OM1 disease, critical proximal LAD and dis nestor LAD disease, and normal Left main, patient is aware of smoking cessation and total life style changes as a must prior to his heart surgery. 11/10: patient has been seen by pulmonary medicine yesterday as well as Cardiothoracic surgery and reinforced smoking cessation and the way to do it, has no chest pain or shortness of breath, no abdominal pain , nausea, vomiting or diarrhea, reviewed test results with him , his and his relative physician at the beside, wanda plan to proceed with CABG X 3 hopefully in AM. 11/11: Patient underwent coronary artery bypass grafting 4 vessels, left inter nal mammary artery to left anterior descending artery, radial artery to the obtuse marginal artery, reverse saphenous vein graft to the diagonal artery, reverse saphenous vein graft to the posterior lateral branch of the right coronary artery by Dr. Alicea, postop day 0. Patient is seen today sitting up in the ICU room. He was intubated and on mechanical ventilation with tidal volume 400, FiO2 100% and PEEP of 5. He has mediastinal chest tubes [address] with sanguinous output. A left pleural chest tube is also in place with no output. compliance monitor is a sinus rhythm. Patient is not requiring vasopressors. Plan is for patient to be extubated this afternoon. 11/12: Patient was successfully extubated yesterday afternoon and currently on 2 L nasal cannula Patient is continued on insulin drip Repeat chest x-ray reveals. 11/13: Patient seen in follow-up in ICU, he is off of 2 days postextubation currently on 2 L nasal cannula saturating above 90%. 2 mediastinal and one left pleural chest tubes remain in place. He is off of vasoactive drips. Blood sugars controlled with current regimen, 101 this afternoon. 11/14: Patient seen on follow-up, out of ICU currently medical floor. Chest tubes have been removed, all vasoactive drips. Vital signs are stable, on room air saturating above 90%. Patient up sitting in chair, alert, anxious to go home. Constitutional: Reports chronic pain, Reports fatigue, Reports weakness, Cardiovascular: Mild chest discomfort from surgery, Reports decreased exercise tolerance, Reports dyspnea on exertion, Respiratory: Denies congestion, Denies cough, Denies cough with sputum, Gastrointestinal: Reports nausea, Denies abdominal pain, Genitourinary: Reports nocturia, Denies dysuria Neurological: Denies numbness, Denies weakness Endocrine: Denies fatigue, Denies weight change Objective - Vital Signs Vital signs: Vital Signs Temp 98.5 F 11/14/20 12:21 Pulse 85 11/14/20 12:21 Resp 16 11/14/20 12:21 BP 113/66 11/14/20 12:21 Pulse Ox 95 11/14/20 12:21 Intake & Output 11/13/20 11/14/20 11/14/20 18:59 06:59 18:59 Intake Total 439.235 250 Output Total 1625 950 275 Balance -1185.765 -950 -25 Weight 94.3 kg Intake: IV 179 Lactated Ringers 1,000 ml 140 @ 20 mls/hr IV .Q24H SHAINA Rx#:[id number] pressure bag 39 Intake, IV Titration 10.235 Amount Insulin Regular 100 unit 10.235 In Sodium Chloride 0.9% 100 ml @ Per Protocol IV .Q0M SHAINA Rx#:[id number] Oral 250 250 Output: Urine 1625 950 275 Other: Voiding Method Urinal Urinal Urinal # Bowel Movements 1 ABP, PAP, CO, CI - Last Documented Arterial Blood Pressure 95/45 Pulmonary Artery Pressure 22/10 Cardiac Output 6.4 Cardiac Index 3.1 - Exam Physical examination: HEENT: Head is atraumatic, normocephalic, pupils were equal round, sclera nonicteric, conjunctivae were slightly pale, mucous membranes of mouth are moist. Neck: Supple, no JVD, no carotid bruits of adenopathy. Chest: Diminished breath sounds bilaterally, few scattered rhonchi no expiratory wheezes, no chest wall tenderness, no intercostal retractions. Mediastinal incision with dressing. 2 mediastinal and one left pleural chest tubes in place. Heart: First heart sound is depressed, second heart sound is normal, there is no gallop or murmur. Abdomen: Soft, nontender, nondistended, positive bowel sounds. Extremities: There is no edema, no calf tenderness, dorsalis is +2 bilaterally. Neurologic examination: Patient is awake, alert and oriented 3.. - Labs CBC & Chem 7: 11/14/20 08:29 11/14/20 08:29 Labs: Abnormal Lab Results - Last 24 Hours (Table) 11/13/20 11/13/20 11/14/20 Range/Units 16:42 20:05 06:15 RBC (4.30-5.90) m/uL Hgb (13.0-17.5) gm/dL Hct (39.0-53.0) % Plt Count (150-450) k/uL Sodium (137-145) mmol/L BUN (9-20) mg/dL Glucose (74-99) mg/dL POC Glucose (mg/dL) 140 H 137 H 120 H (75-99) mg/dL 11/14/20 11/14/20 Range/Units 08:29 08:29 RBC 2.83 L (4.30-5.90) m/uL Hgb 9.5 L (13.0-17.5) gm/dL Hct 27.6 L (39.0-53.0) % Plt Count 104 L (150-450) k/uL Sodium 133 L (137-145) mmol/L BUN 21 H (9-20) mg/dL Glucose 169 H (74-99) mg/dL POC Glucose (mg/dL) (75-99) mg/dL Assessment and Plan Assessment: 1. Non-ST elevation PA. Post left heart catheterization that showed triple- vessel disease with critical disease in the proximal RCA and severe disease in the distal RCA, critical disease in the proximal and mid LAD and severe disease in the OM1 off the LCX with moderate impairement of the LVF. Status post coronary artery bypass grafting 4 vessels, left internal mammary artery to left anterior descending artery, radial artery to the obtuse marginal artery, reverse saphenous vein graft to the diagonal artery, reverse saphenous vein graft to the posterior lateral branch of the right coronary artery performed today by Dr. Alicea, leeanne a #1. Continue aspirin 325 mg orally once every day, Lipitor 80 mg once every day, Lopressor 12.5 mg twice daily, currently off MENDOZA inhibitor. Continue current management per cardiothoracic team. Patient was successfully extubated 3 days ago. 2 mediastinal and one left pleural chest tube now removed. post multiple PCI. Continue ASA 325 mg orally daily, Atorvastatin 80 mg orally daily. 3. Hypertension and hypertensive cardiovascular disease. Continue Lopressor 12.5 mg twice daily. 4. Hyperlipidemia. Continue patient on low-cholesterol diet, total lifestyle changes and risk factor modification, continue with Lipitor 80 mg orally once every day per 5. Hypothyroidism. Continue patient on Synthroid 175 g orally once every day. 6. Enlarged prostate. We will continue with Flomax 0.4 g orally once every day. 7. Chronic tobacco use and dependence. Patient was counseled about smoking cessation and increased risk of CAD, CVA, and malignancies. 8. DVT prophylaxis. Currently on heparin drip. 9. GI prophylaxis. Continue with PPI. 10. Discharge plan: To be determined.
--- NOTE | 2020-11-14 14:00 | P.PN ---
Subjective Progress Note Date: 11/14/20 Principal diagnosis: Ventilator management/ICU management This is a 60-year-old male presented to the emergency department on November 07, at 553. The patient apparently complained of feeling weird and dizzy. He was lightheaded, and just felt like his balance was off especially with quick head movements. He denied any nausea, vomiting, or changes in his speech as well as any complaints of weakness in the upper or lower extremities. He denied any chest pain or pressure, jaw pain, back pain, etc. He does have a previous history of cardiac catheterization with stent placement, and previous myocardial infarction at age 40. The patient was more recently evaluated by cardiac catheterization, and was found to have an extremely calcified right and left coronary system, with critical disease involving the mid right coronary artery and severe disease involving the distal right coronary artery. The patient had a normal left main coronary artery, and critical disease involving the proximal and mid left anterior descending artery, as well as severe disease involving the proximal first obtuse marginal branch of the left circumflex, which was a large caliber vessel. Bypass grafting was recommended. He apparently is going to have bypass surgery towards the end of this week. We were asked to see him for preop clearance. The patient is a heavy smoker having been smoking for about 35-40 years or so. The patient denies a prior history of lung disease and actually did very well on his preoperative spirometry. It was reported to me that his FEV1 was 109% of predicted. I've yet to see his PFTs. He denies any shortness of breath, coughing, wheezing, or phlegm production. His past medical history includes coronary artery disease, gastroesophageal reflux disease, hyperlipidemia, hypertension, myocardial infarction, and hypothyroidism. On 11/10/2020 patient seen in follow-up on selective care unit, he is ambulating around the hallway, denied any chest pain with exertion, no shortness of breath, he is on room air, he is breathing comfortably, pulse ox on room air is 97%, vital signs have been stable, heparin was discontinued yesterday. Today's labs have been reviewed, CBC was done only. Relatively unremarkable, no acute events overnight. No cough, no chest pain, no wheezing or phlegm production. On 11/11/2020 patient seen in follow-up in the intensive care unit following his four-vessel bypass with PHAM to the LAD, left radial graft to the OM, SVG to the diagonal, and SVG to the PLB, and exclusion of the left atrial appendage with 35 mm atriclip. Patient is sedated, intubated on mechanical ventilator, with assist control mode of ventilation, with a rate of 12, tidal volume is 400, FiO2 100% and PEEP of 5, postoperative blood gases showed pO2 of 322, pCO2 44, and pH of 7.35, this was done 100%, and FiO2 was cut back to 40%. He is currently on lactated Ringer's at 50 ML per hour, Diprivan and is at 20 mics per kilo per minute, Cardizem drip is at 5 mg per hour, and nitroglycerin is at 5 mics per kilo per minute. He is in sinus mechanism with a rate of 59-60 BPM, PA pressures 29/16, CVP is 12, cardiac output is 8.2, and cardiac index is 4.0. Postoperative blood gas shows a new lateral left basilar atelectasis. Labs have been reviewed, white blood cell count is 11.2, hemoglobin is 11.8, renal profile and electrolytes are unremarkable, mediastinal chest tubes 2 with a total of 400 mL of sanguinous output, and left pleural chest tube with no output. Hemodynamically patient is stable. He is starting to wake up. Progress note dated 11/12/2020. 60-year-old male, postop day #1, status post four-vessel bypass grafting. The patient was extubated in less than 3 hours after leaving the operating room. Currently, he is on 2 L nasal cannula. He is getting lactated Ringer's at 50 mL an hour, Cardizem drip at 5 mg an hour, nitroglycerin drip at 5 mcg/m, and insulin drip at 3.5 units per hour. Currently, he sitting up in a chair. He is very stable. He has no major complaints other than pain at the surgical site. He had a four-vessel bypass grafting. It was done by Dr. Alicea. Current white count is 10.2, hemoglobin 10.7, hematocrit 31.6, and platelet count 135,000. Sodium 133, potassium 4.2, chlorides 101, CO2 23, anion gap is 9, BUN 21, and creatinine 0.86. Chest x-ray shows typical postoperative changes, with some bibasilar atelectasis. There also may be small effusions bilaterally. Progress note dated 11/13/2020. 60-year-old male, postop day #2, status post four-vessel bypass grafting. The patient's currently on 2 L nasal cannula, and lactated Ringer's at 20 mL an hour. He is getting about 1500 on his incentive spirometer. Patient is doing well without major complaints. The Cardizem drip and nitroglycerin drip at both been turned off. Also, his insulin drip has been turned off. His vital signs are stable. He is not having any issues with his breathing very chest x-ray looks excellent. We encourage him to continue with incentive spirometer every hour, and also deep breathing, coughing, clearing of secretions. Current laboratory data includes a white count of 8.7, hemoglobin 9.6, hematocrit 28.0, platelet count 102,000. Sodium 128, potassium 4.3, chlorides 98, CO2 26, anion gap 4, BUN 20, creatinine 0.87. Progress note dated 11/14/2020. 60-year-old male, postop day #3, status post four-vessel bypass grafting. Currently, the patient has been weaned off of oxygen therapy. He's not receiving any IV fluids. He is doing very well on his incentive spirometer. He is resting comfortably without major complaints. He denies any cough, wheezing, phlegm production, chest pain, or chest pressure. He does have pain at the surgical site. White count is 7.7, hemoglobin 9.5, hematocrit 27.6, and platelet count 104,000. Sodium 133, potassium 3.9, chlorides 98, CO2 26, anion gap 9, BUN 21, and creatinine 0.89. Chest x-rays consistent with cardiomegaly, with some chronic parenchymal changes, basilar atelectasis, and small effusions. Vital signs are stable and room air saturations are 96%. Objective - Vital Signs Vital signs: Vital Signs Temp 98.5 F 11/14/20 12:21 Pulse 85 11/14/20 12:21 Resp 16 11/14/20 12:21 BP 113/66 11/14/20 12:21 Pulse Ox 95 11/14/20 12:21 Intake & Output 02/27/21 02/28/21 02/28/21 18:59 06:59 18:59 Intake Total 439.235 250 Output Total 1625 950 275 Balance -1185.765 -950 -25 Weight 94.3 kg Intake: IV 179 Lactated Ringers 1,000 ml 140 @ 20 mls/hr IV .Q24H SHAINA Rx#:[id number] pressure bag 39 Intake, IV Titration 10.235 Amount Insulin Regular 100 unit 10.235 In Sodium Chloride 0.9% 100 ml @ Per Protocol IV .Q0M SHAINA Rx#:[id number] Oral 250 250 Output: Urine 1625 950 275 Other: Voiding Method Urinal Urinal Urinal # Bowel Movements 1 ABP, PAP, CO, CI - Last Documented Arterial Blood Pressure 95/45 Pulmonary Artery Pressure 22/10 Cardiac Output 6.4 Cardiac Index 3.1 - Exam No acute distress, resting comfortably. Not requiring any supplemental oxygen. HEENT examination is grossly unremarkable. Mucous membranes are moist. Neck supple. Full range of motion. No adenopathy, thyromegaly, or neck vein distention. Cardiovascular examination reveals regular rhythm rate. Heart rate 85 bpm. S1- S2 normal. There is no murmur. Lungs are mostly clear. A few scattered rhonchi noted. No wheezes or crackles. Abdomen soft bowel and sounds are heard. Extremities are intact. No cyanosis clubbing or edema. Skin without rash. Neurologic examination is brief but nonfocal. - Labs CBC & Chem 7: 11/14/20 08:29 11/14/20 08:29 Labs: Abnormal Lab Results - Last 24 Hours (Table) 11/13/20 11/13/20 11/14/20 Range/Units 16:42 20:05 06:15 RBC (4.30-5.90) m/uL Hgb (13.0-17.5) gm/dL Hct (39.0-53.0) % Plt Count (150-450) k/uL Sodium (137-145) mmol/L BUN (9-20) mg/dL Glucose (74-99) mg/dL POC Glucose (mg/dL) 140 H 137 H 120 H (75-99) mg/dL 11/14/20 11/14/20 Range/Units 08:29 08:29 RBC 2.83 L (4.30-5.90) m/uL Hgb 9.5 L (13.0-17.5) gm/dL Hct 27.6 L (39.0-53.0) % Plt Count 104 L (150-450) k/uL Sodium 133 L (137-145) mmol/L BUN 21 H (9-20) mg/dL Glucose 169 H (74-99) mg/dL POC Glucose (mg/dL) (75-99) mg/dL Assessment and Plan Assessment: Acute non-ST segment elevation myocardial infarction, with severe triple-vessel coronary disease. Postop day #3, status post four-vessel bypass grafting. Routine postoperative ventilator management, with extubation less than 3 hours after leaving the operating room. History of heavy tobacco use, without symptoms of COPD, and apparently, relatively normal spirometry. History of hypertension. History of hyperlipidemia. History of coronary artery disease, with previous PCI and stent placement. Hypothyroidism. Ongoing tobacco use with nicotine addiction. Prior history of myocardial infarction. Plan: Plan dated 11/14/2020. The patient has been weaned off of oxygen therapy. He continues to use his incentive spirometer. He's doing well with that. We encourage deep breathing coughing and clearing his secretions. After the patient is discharged, we'll see him in the office. At that time, we'll repeat a chest x-ray. All along, the patient is progressing very nicely. His respiratory status is stable. Chest x-ray shows some mild bibasilar atelectasis. Lung sounds are excellent. We will continue to follow along. Time with Patient: Less than 30
[2020-11-14] MEDS: ACETAMINOPHEN TAB 500 MG TAB PO PRN ×2 (15:41→23:57)
[2020-11-14 16:53] LABS: Glucose,Whole Blood 131 mg/dL (75-99)
[2020-11-14 21:01] LABS: Glucose,Whole Blood 132 mg/dL (75-99)
[2020-11-14] MEDS: SENNOSIDES-DOCUSATE SODIUM 1 EACH TAB PO SCH (21:04)
[2020-11-15 06:50] LABS: Glucose,Whole Blood 111 mg/dL (75-99)
[2020-11-15] MEDS: PANTOPRAZOLE 40 MG TABLET PO SCH (07:00)
[2020-11-15] MEDS: LEVOTHYROXINE 88 MCG TAB PO SCH (07:00)
[2020-11-15] MEDS: INSULIN ASPART (NovoLOG) 100 UNIT/ML VIAL SQ SCH ×2 (07:02→12:54)
[2020-11-15 07:42] LABS: African American GFR (CKD) >90 (>60 ml/min/1.73 sqM); Anion Gap 6 mmol/L; Blood Urea Nitrogen 19 mg/dL (9-20); Calcium 8.9 mg/dL (8.4-10.2); Carbon Dioxide 30 mmol/L (22-30); Chloride 100 mmol/L (98-107); Glucose 115 mg/dL (74-99); Non-African American GFR(CKD) >90 (>60 ml/min/1.73 sqM); Potassium 4.5 mmol/L (3.5-5.1); Sodium 136 mmol/L (137-145)
[2020-11-15] MEDS: IPRATROPIUM-ALBUTEROL 3 ML NEB INHALATION SCH ×2 (07:52→11:49)
--- NOTE | 2020-11-15 08:02 | XR ---
EXAMINATION TYPE: XR chest 1V portable DATE OF EXAM: 11/15/2020 CLINICAL HISTORY: Difficulty breathing progress study. "Open cardiac surgery. TECHNIQUE: Single AP portable upright view of the chest is obtained. COMPARISON: Chest x-ray from one day earlier and older studies. FINDINGS: Overlying sternal wires and mediastinal clips along with left atrial appendage clip are al l redemonstrated. Stable mild cardiomegaly and mild chronic parenchymal change with patchy left basilar atelectasis and /or scarring. No pneumothorax seen bilaterally. Visualized osseous structures are intact. Tiny left pleural effusion is likely stable. IMPRESSION: Cardiomegaly and chronic parenchymal changes with patchy left basilar atelectasis and tin y left pleural effusion all remain present and stable. No significant interval change from 1 day layton ier.
[2020-11-15 08:06] LABS: HCT 30.6 % (39.0-53.0); HGB 10.4 gm/dL (13.0-17.5); MCH 33.6 pg (25.0-35.0); MCV 98.6 fL (80.0-100.0); Mean Platelet Volume 8.5; WBC 8.8 k/uL (3.8-10.6)
[2020-11-15 08:11] LABS: Platelet Count 170 k/uL (150-450)
[2020-11-15] MEDS: METOPROLOL TARTRATE 25 MG TAB PO SCH (08:32)
[2020-11-15] MEDS: ASPIRIN 325 MG TAB PO SCH (08:32)
[2020-11-15] MEDS: HEPARIN SODIUM,PORCINE 5,000 UNIT/ML 1 ML VIAL SQ SCH (08:32)
[2020-11-15] MEDS: CLOPIDOGREL 75 MG TAB PO SCH (08:32)
[2020-11-15] MEDS: ATORVASTATIN 80 MG TAB PO SCH (08:32)
[2020-11-15] MEDS: FOLIC ACID 1 MG TAB PO SCH (08:32)
[2020-11-15] MEDS: MULTIVITAMINS, THERA 1 EACH TAB PO SCH (08:32)
[2020-11-15] MEDS: amLODIPine 5 MG TAB PO SCH (08:33)
[2020-11-15 08:34] VITALS: RESP 16
[2020-11-15] MEDS: ACETAMINOPHEN TAB 500 MG TAB PO PRN (09:45)
--- NOTE | 2020-11-15 11:38 | P.PN ---
Subjective Progress Note Date: 11/15/20 This is a 60-year-old male presented to the emergency department on November 07, at 553. The patient apparently complained of feeling weird and dizzy. He was lightheaded, and just felt like his balance was off especially with quick head movements. He denied any nausea, vomiting, or changes in his speech as well as any complaints of weakness in the upper or lower extremities. He denied any chest pain or pressure, jaw pain, back pain, etc. He does have a previous history of cardiac catheterization with stent placement, and previous myocardial infarction at age 40. The patient was more recently evaluated by cardiac catheterization, and was found to have an extremely calcified right and left co ronary system, with critical disease involving the mid right coronary artery and severe disease involving the distal right coronary artery. The patient had a normal left main coronary artery, and critical disease involving the proximal and mid left anterior descending artery, as well as severe disease involving the proximal first obtuse marginal branch of the left circumflex, which was a large caliber vessel. Bypass grafting was recommended. He apparently is going to have bypass surgery towards the end of this week. We were asked to see him for preop clearance. The patient is a heavy smoker having been smoking for about 35-40 years or so. The patient denies a prior history of lung disease and actually did very well on his preoperative spirometry. It was reported to me that his FEV1 was 109% of predicted. I've yet to see his PFTs. He denies any shortness of breath, coughing, wheezing, or phlegm production. His past medical history includes coronary artery disease, gastroesophageal reflux disease, hyperlipidemia, hypertension, myocardial infarction, and hypothyroidism. On 11/10/2020 patient seen in follow-up on selective care unit, he is ambulating around the hallway, denied any chest pain with exertion, no shortness of breath, he is on room air, he is breathing comfortably, pulse ox on room air is 97%, vital signs have been stable, heparin was discontinued yesterday. Today's labs have been reviewed, CBC was done only. Relatively unremarkable, no acute events overnight. No cough, no chest pain, no wheezing or phlegm production. On 11/11/2020 patient seen in follow-up in the intensive care unit following his four-vessel bypass with PHAM to the LAD, left radial graft to the OM, SVG to the diagonal, and SVG to the PLB, and exclusion of the left atrial appendage with 35 mm atriclip. Patient is sedated, intubated on mechanical ventilator, with assist control mode of ventilation, with a rate of 12, tidal volume is 400, FiO2 100% and PEEP of 5, postoperative blood gases showed pO2 of 322, pCO2 44, and pH of 7.35, this was done 100%, and FiO2 was cut back to 40%. He is currently on lactated Ringer's at 50 ML per hour, Diprivan and is at 20 mics per kilo per minute, Cardizem drip is at 5 mg per hour, and nitroglycerin is at 5 mics per kilo per minute. He is in sinus mechanism with a rate of 59-60 BPM, PA pressures 29/16, CVP is 12, cardiac output is 8.2, and cardiac index is 4.0. Postoperative blood gas shows a new lateral left basilar atelectasis. Labs have been reviewed, white blood cell count is 11.2, hemoglobin is 11.8, renal profile and electrolytes are unremarkable, mediastinal chest tubes 2 with a total of 400 mL of sanguinous output, and left pleural chest tube with no output. Hemodynamically patient is stable. He is starting to wake up. Progress note dated 11/12/2020. 60-year-old male, postop day #1, status post four-vessel bypass grafting. The patient was extubated in less than 3 hours after leaving the operating room. C urrently, he is on 2 L nasal cannula. He is getting lactated Ringer's at 50 mL an hour, Cardizem drip at 5 mg an hour, nitroglycerin drip at 5 mcg/m, and insulin drip at 3.5 units per hour. Currently, he sitting up in a chair. He is very stable. He has no major complaints other than pain at the surgical site. He had a four-vessel bypass grafting. It was done by Dr. Alicea. Current white count is 10.2, hemoglobin 10.7, hematocrit 31.6, and platelet count 135,000. Sodium 133, potassium 4.2, chlorides 101, CO2 23, anion gap is 9, BUN 21, and creatinine 0.86. Chest x-ray shows typical postoperative changes, with some bibasilar atelectasis. There also may be small effusions bilaterally. Progress note dated 11/13/2020. 60-year-old male, postop day #2, status post four-vessel bypass grafting. The patient's currently on 2 L nasal cannula, and lactated Ringer's at 20 mL an hour. He is getting about 1500 on his incentive spirometer. Patient is doing well without major complaints. The Cardizem drip and nitroglycerin drip at both been turned off. Also, his insulin drip has been turned off. His vital signs are stable. He is not having any issues with his breathing very chest x-ray looks excellent. We encourage him to continue with incentive spirometer every hour, and also deep breathing, coughing, clearing of secretions. Current laboratory data includes a white count of 8.7, hemoglobin 9.6, hematocrit 28.0, platelet count 102,000. Sodium 128, potassium 4.3, chlorides 98, CO2 26, anion gap 4, BUN 20, creatinine 0.87. Progress note dated 11/14/2020. 60-year-old male, postop day #3, status post four-vessel bypass grafting. Currently, the patient has been weaned off of oxygen therapy. He's not receiving any IV fluids. He is doing very well on his incentive spirometer. He is resting comfortably without major complaints. He denies any cough, wheezing, phlegm production, chest pain, or chest pressure. He does have pain at the surgical site. White count is 7.7, hemoglobin 9.5, hematocrit 27.6, and platelet count 104,000. Sodium 133, potassium 3.9, chlorides 98, CO2 26, anion gap 9, BUN 21, and creatinine 0.89. Chest x-rays consistent with cardiomegaly, with some chronic parenchymal changes, basilar atelectasis, and small effusions. Vital signs are stable and room air saturations are 96%. On today's evaluation of 11/15/2020, the patient is doing very well and is ambulating on room air oxygen. The chest x-ray from today shows no evidence of any pleural effusion or pneumothorax. The patient is using incentive spirometer and he is pulling more than 1000. His hemoglobin today is at 10.4 and the patient has no chest pain or any shortness of breath. His sternal wound is dry clean and intact. No altered mentation. Cardiac rhythm is sinus. He has undergone four-vessel bypass surgery and today's postop day #4 with possibility of him going home today. Objective - Vital Signs Vital signs: Vital Signs Temp 98.5 F 11/15/20 08:00 Pulse 72 11/15/20 08:06 Resp 16 11/15/20 08:00 BP 123/64 11/15/20 08:00 Pulse Ox 96 11/15/20 08:00 Intake & Output 11/14/20 11/15/20 11/15/20 18:59 06:59 18:59 Intake Total 2100 560 Output Total 275 Balance 1825 560 Weight 92.5 kg Intake: Oral 2100 560 Output: Urine 275 Other: Voiding Method Urinal Toilet Urinal # Bowel Movements 1 ABP, PAP, CO, CI - Last Documented Arterial Blood Pressure 95/45 Pulmonary Artery Pressure 22/10 Cardiac Output 6.4 Cardiac Index 3.1 - Exam No acute distress, resting comfortably. Not requiring any supplemental oxygen. HEENT examination is grossly unremarkable. Mucous membranes are moist. Neck supple. Full range of motion. No adenopathy, thyromegaly, or neck vein distention. Cardiovascular examination reveals regular rhythm rate. Heart rate 85 bpm. S1- S2 normal. There is no murmur. Lungs are mostly clear. A few scattered rhonchi noted. No wheezes or crackles. Abdomen soft bowel and sounds are heard. Extremities are intact. No cyanosis clubbing or edema. Skin without rash. Neurologic examination is brief but nonfocal. - Labs CBC & Chem 7: 11/15/20 06:57 11/15/20 06:57 Labs: Abnormal Lab Results - Last 24 Hours (Table) 11/14/20 11/14/20 11/15/20 Range/Units 16:51 20:59 06:39 RBC (4.30-5.90) m/uL Hgb (13.0-17.5) gm/dL Hct (39.0-53.0) % Sodium (137-145) mmol/L Glucose (74-99) mg/dL POC Glucose (mg/dL) 131 H 132 H 111 H (75-99) mg/dL 11/15/20 11/15/20 Range/Units 06:57 06:57 RBC 3.10 L (4.30-5.90) m/uL Hgb 10.4 L (13.0-17.5) gm/dL Hct 30.6 L (39.0-53.0) % Sodium 136 L (137-145) mmol/L Glucose 115 H (74-99) mg/dL POC Glucose (mg/dL) (75-99) mg/dL Assessment and Plan Plan: 1 Acute non-ST segment elevation myocardial infarction, with severe triple- vessel coronary disease. 2 Postop day #4, status post four-vessel bypass grafting. 3 Routine postoperative ventilator management, with extubation less than 3 hours after leaving the operating room. 4 History of heavy tobacco use, without symptoms of COPD, and apparently, relatively normal spirometry. 5 History of hypertension. 6 History of hyperlipidemia. 7 History of coronary artery disease, with previous PCI and stent placement. 8 Hypothyroidism. 9Ongoing tobacco use with nicotine addiction. 10 Prior history of myocardial infarction. Plan: Condition is stable Chest x-ray was reviewed and the findings are essentially showing some atelectatic changes and left lung bases otherwise clear Patient is on room air oxygen Cardiac medications were all reviewed Blood pressure is stable Using incentive spirometer and is ambulating and possibly is going home today.
[2020-11-15 12:07] LABS: Glucose,Whole Blood 97 mg/dL (75-99)
[2020-11-15] MEDS: THIAMINE 100 MG TAB PO SCH (13:09)
--- NOTE | 2020-11-15 13:37 | P.DS ---
Providers Date of admission: 11/08/20 09:00 Expected date of discharge: 11/15/20 Attending physician: Gloria Nugent Consults: 11/07/20 07:38 Consult Physician Urgent Consulting Provider: Titus Miguel Consult Reason/Comments: NSTEMI Do you want consulting provider notified?: Yes 11/08/20 06:27 Consult Physician Urgent Consulting Provider: Dennis Hernandez Consult Reason/Comments: Consult for CABG Do you want consulting provider notified?: Yes, Notify in am 11/09/20 08:51 Consult Physician Routine Consulting Provider: Zelalem Oscar Consult Reason/Comments: preop cabg Do you want consulting provider notified?: Already Contacted 11/10/20 08:11 Consult to Anesthesia Routine Consulting Provider: Anesthesia,Services Consult Reason/Comments: Cardiac Surgery Pre-Op 11/11/20 13:51 Consult Physician Routine Consulting Provider: Gloria Nugent Consult Reason/Comments: med mgmt Do you want consulting provider notified?: Already Contacted Primary care physician: Gloria Nugent Hospital Course: FINAL DIAGNOSIS: 1. Triple-vessel coronary artery disease, non-STEMI this admission, status post four-vessel coronary artery bypass grafting surgery 2. History of coronary artery disease with myocardial infarction and multiple stent placement 3. History of hypertension, treated 4. History of hyperlipidemia, treated, cholesterol 179, LDL 107 5. Hypothyroid 6. Current chronic tobacco dependence, current FEV1 109% of predicted 7. Daily EtOH use 8. Postoperative acute blood loss anemia, expected PRINCIPAL PROCEDURE: 1. Coronary artery bypass grafting surgery 4 vessels, left internal mammary artery to the left anterior descending coronary artery, radial artery to the obtuse marginal coronary artery, a reverse greater saphenous vein graft from the diagonal coronary artery, a reverse greater saphenous vein graft to the posterior lateral branch of the right coronary artery. 2. Endoscopic harvesting of the left greater saphenous vein. 3. Endoscopic harvesting of the left radial artery. 4. Epi-aortic ultrasound. 5. Ligation of the left atrial appendage using a 35 mm Atriclip. 6. Intraoperative transesophageal echocardiogram. 7. Biopsy of mammary bed lymph node. HISTORY OF PRESENT ILLNESS: This is a 60-year-old active gentleman who follows with Dr. Nugent on an outpatient basis for his primary care service. He also follows with Dr Carolina Ruiz for his cardiology needs. He is a past medical history significant for coronary artery disease with myocardial infarction and multiple stent placement, hypertension, hyperlipidemia, hypothyroid, chronic ongoing tobacco dependence, and daily EtOH use. On 11/07/2020 the patient presented to the emergency department here at [facility] with complaints of shoulder discomfort similar to the symptoms he had with his previous stent placement. His troponins were mildly elevated, an EKG was completed which showed normal sinus rhythm with PVCs and nonspecific ST changes. He was subsequently ruled in for a non-STEMI and admitted to the hospital for further evaluation and treatment recommendations. Subsequently he underwent a cardiac catheterization which demonstrated a proximal left anterior descending coronary artery with in-stent restenosis, a 60-70% stenosis to his mid left anterior descending coronary artery, a 40-50% stenosis to his first diagonal coronary artery, a 70% stenosis to his first obtuse marginal branch of the circumflex coronary artery, patent stent in the second obtuse marginal coronary artery, a 99% stenosis to his mid right coronary artery with 70-80% stenosis to his distal right coronary artery. Due to the patient's presenting symptoms and findings on the cardiac catheterization films a consult was placed to Dr. Dennis Hernandez from cardiothoracic surgery for further evaluation and treatment recommendations including myocardial revascularization surgery. HOSPITAL COURSE: The patient was admitted to the hospital, Dr. Hernandez from cardiac surgery met with the patient, discussed the findings on the cardiac catheterization films and discussed treatment options including myocardial revascularization surgery. Risks and benefits of surgery including the STS risk score were discussed with the patient and knowing and understanding these risks would wish to proceed with the surgical option. On 11/11/2020 after obtaining consent the patient was taken to the operating room where Dr. Roberto Alicea performed a coronary artery bypass grafting surgery 4 vessels, left internal mammary artery to the left anterior descending coronary artery, radial artery to the obtuse marginal coronary artery, a reverse greater saphenous vein graft from the diagonal coronary artery, a reverse greater saphenous vein graft to the posterior lateral branch of the right coronary artery, endoscopic harvesting of the left greater saphenous vein, endoscopic harvesting of the left radial artery, epi-aortic ultrasound, ligation of the left atrial appendage using a 35 mm Atriclip, intraoperative transesophageal echocardiogram, and biopsy of mammary bed lymph node. Upon completion of the surgery the patient was taken to the cardiovascular intensive care unit where he was recovered, monitored hemodynamically and where he progressed cardiac rehabilitation phase 1. He was extubated, all lines, tubes and supportive drips were discontinued and appropriate and he was transferred to the cardiac stepdown unit for further monitoring and rehabilitation. His oxygen was titrated down, he continued to work with physical/occupational therapy and cardiac rehabilitation, he was tolerating an oral diet, his pain was well controlled without narcotics and he was ready to be discharged home with [facility] care on postoperative day #4. He has received written and verbal instructions regarding his medications, activity restrictions, signs and symptoms requiring physician notification and his follow-up appointments. COMPLICATIONS: there were no postoperative complications. CONSULTATIONS: 1. Dr. Ruiz for cardiology management. 2. Dr. Oscar for pulmonary ventilator management. 3. Dr. Nugent for medical management. Patient Condition at Discharge: Stable Plan - Discharge Summary Discharge Rx Participant: No New Discharge Prescriptions: New Aspirin 325 mg PO DAILY tab Metoprolol Tartrate [Lopressor] 25 mg PO BID #60 tab amLODIPine [Norvasc] 5 mg PO DAILY #30 tab Pantoprazole [Protonix] 40 mg PO AC-BRKFST #30 tablet. Acetaminophen Tab [Tylenol] 1,000 mg PO Q6HR PRN tab PRN Reason: Fever And/ Or Pain Continue Clopidogrel Bisulfate [Clopidogrel] 75 mg PO DAILY Levothyroxine Sodium [Synthroid] 175 mcg PO DAILY Simvastatin 80 mg PO DAILY Discontinued Enalapril [Vasotec] 5 mg PO DAILY Aspirin [[place] Aspirin EC] 81 mg PO DAILY Discharge Medication List Clopidogrel Bisulfate [Clopidogrel] 75 mg PO DAILY 09/26/15 [History] Levothyroxine Sodium [Synthroid] 175 mcg PO DAILY 09/26/15 [History] Simvastatin 80 mg PO DAILY 11/07/20 [History] Acetaminophen Tab [Tylenol] 1,000 mg PO Q6HR PRN tab 11/15/20 [Rx] Aspirin 325 mg PO DAILY tab 11/15/20 [Rx] Metoprolol Tartrate [Lopressor] 25 mg PO BID #60 tab 11/15/20 [Rx] Pantoprazole [Protonix] 40 mg PO AC-BRKFST #30 tablet. 11/15/20 [Rx] amLODIPine [Norvasc] 5 mg PO DAILY #30 tab 11/15/20 [Rx] Follow up Appointment(s)/Referral(s): [facility],Cardiac [NON-STAFF] - 4 Weeks (You will receive a call in approximately 4-6 weeks for cardiac rehab eval) Gloria Nugent MD [Primary Care Provider] - 11/26/20 12:00 pm Geovanny Torrez NPC [Nurse Practitioner] - 11/22/20 11:00 am (Please follow-up in the office located at [address] [place] [address], [address], [place] [address]. The office number is [phone].) Zelalem Oscar DO [Doctor of Osteopathic Medicine] - 12/10/20 9:45 am [facility], [NON-STAFF] - Roberto Alicea MD [STAFF PHYSICIAN] - 12/06/20 9:30 am Calderon Ruiz MD [STAFF PHYSICIAN] - 11/22/20 3:00 pm Ambulatory/Diagnostic Orders: Complete Blood Count w/diff [LAB.AMB] Time Frame: 11/18/20, Facility: [facility], Location: [facility] Comprehensive Metabolic Panel [LAB.AMB] Time Frame: 11/18/20, Facility: [facility], Location: [facility] Activity/Diet/Wound Care/Special Instructions: DISCHARGE INSTRUCTIONS: 1. No driving for 4 weeks, or until physician gives their ok. 2. The patient should sleep in their own bed, no medical bed needed. 3. Stairs are not an issue. If the bedroom is upstairs, it is advised that the patient go up at night and down in the morning for the first week. Go slowly, using handrail and take 1 step at a time. 4. EDITH hose are to be worn for 30 days or until physician discontinues. 5. Heart hugger is to be worn 100% of the time until physician discontinues.(except when showering) 6. No lifting, pushing, or pulling more than 10 pounds for 12 weeks. The physician will advise of any restriction changes. 7. The patient is expected to continue the prescribed walking program. 8. Continue pain control per as needed orders. 9. Continue with incentive spirometry and splinting/heart hugger until otherwise directed by the physician. 10. Must shower daily using liquid antibacterial soap and a separate white washcloth for each individual incision. 11. Routine sternal incision care. No powders, lotions, ointments on incisions. No dressings are necessary on incisions unless they are draining. Dermabond tape is to remain on sternal incision until surgeon follow-up. 12. Please call surgeon/[employer] S[employer] FRAME CARPENTER for temp greater than 101 F or purulent drainage from incisions. 13. All prescriptions given by surgeon for 30 days. Refills need to be filled through employment attorney/primary care physician. 14. A Red armband has been placed on the patient. It should be worn for 30 days post surgery and will be removed by the cardiac surgeons. If an ER visit is necessary, please make sure the number on the Red armband is called. 15. You have been referred to and are expected to begin Cardiac Rehab in approximately 4-6 weeks. 16. Risk modifications have been discussed with the patient, and the importance of smoking cessation were reviewed. HOME HEALTH SERVICES TO PROVIDE: RN SKILLED HOME CARE SERVICES FOR POST-OP SURGICAL PATIENTS WITH THE FOLLOWING: Coronary Artery Bypass Surgery (CABG), Mitral Valve Replacement/Repair ( MVR), Aortic Valve Replacement/Repair (AVR) RN TO CONTINUE EDUCATION FROM ``ROAD TO A HEALTH HEART PATIENT EDUCATION MANUAL (GIVEN TO PATIENT IN THE HOSPITAL) MEDICATION RECONCILIATION WITH EDUCATION NEEDED ON FIRST HOME VISIT EMPHASIZE IMPORTANCE OF WEARING BREAST SUPPORT/HEART HUGGER ENCOURAGE USE OF INCENTIVE SPIROMETER 10 X EVERY HOUR WHILE AWAKE ENCOURAGE UTILIZATION OF LOWER EXTREMITY COMPRESSION STOCKINGS/EDITH HOSE and ELEVATE LEGS ABOVE LEVEL OF HEART WHILE AT REST. ENCOURAGE AMBULATION 3-5x/day INCREASING TOLERATES, WHILE AVOIDING EXTREMES IN TEMPERATURE FREQUENCY: RN TO OPEN THE PATIENT WITHIN 24 HOURS OF DISCHARGE FROM THE HOSPITAL WITH TELEHEALTH INSTALLED AT [facility], RN TO VISIT 2-3 X A WEEK FOR 4 WEEKS ESTABLISHED BY PATIENT NEEDS. LABORATORY: CBC, CMP TO BE DRAWN ON THE THIRD DAY HOME, (RAN STAT) FAX RESULTS TO [phone]. TELEHEALTH PARAMETERS: WEIGHT: NOTIFY MD OF WEIGHT GAIN OF 2 LBS IN 24 HOURS OR 5 LBS IN ONE WEEK HR: NOTIFY MD OF HR <55 BPM OR HR>100 BPM BP: NOTIFY MD IF BP <90/55 OR BP>140/100 O2 SAT: NOTIFY MD IF PO2<93% ON ROOM AIR SEND TELEHEALTH REPORT TO TONSORIAL ARTIST AND CARDIOVASCULAR SURGEON THE FIRST WEEK OF CARE AND THEN BI-WEEKLY. PLEASE ADDITIONALLY COMMUNICATE ANY ABNORMALS AND NEW FINDINGS TO THE SURGEONS OFFICE. For any questions or concerns please call boilermaker assembly and erection Marie @ or Valentín @ Discharge Disposition: HOME WITH HOME HEALTH SERVICES
--- NOTE | 2020-11-15 13:51 | P.PN ---
Subjective Progress Note Date: 11/15/20 This is a 60-year-old gentleman one of my patient with known history of hypertension and hypertensive cardio vascular disease,, hyperlipidemia, nicotine dependence, coronary artery disease with multivessel intervention. In 2000 and 2006 patient underwent stenting of the LAD and circumflex. On September 28 in 2015 patient underwent a cardiac catheterization which revealed a patent right coronary artery and LAD stent, circumflex with that was also stented in the proximal section was patent. The LAD had approximately 30% lesion at the end of the stented segment and the right coronary artery and a 40-50% mid lesion. There was moderate calcification in both of these vessels, the circumflex which was stented was patent but the mid circumflex had a long area of 80% stenosis for which the patient underwent angioplasty with stent placement by Dr. Geoff Espinoza. Following that patient did return to the hospital with symptoms, cardiac catheterization was unchanged. Patient overall has been doing well, today he woke up at around 5:30 in the morning went to the bathroom and suddenly developed to have bilateral shoulder pain with shoulder numbness and he was breaking out into cold sweats, he felt a bit nauseated, he ended up coming to the emergency care for evaluation, his troponin was slightly elevated, his EKG showed nonspecific ST-T wave changes, patient was ruled in for non-ST elevat ion myocardial infarction and had a long conversation with the patient and his at the bedside we are going to go for a left heart catheterization with Dr. Miguel today. 11/08: Patient underwent left heart catheterization yesterday that did show 3 vessel disease patient will be seen by cardiothoracic surgery, the plan is to have a coronary artery bypass graft scheduled hopefully later on this week or next week, patient denies any chest pain, he has no shortness breath at this time has no abdominal pain, nausea vomiting or diarrhea he is maintained on aspirin 81 mg once every day, Lipitor 80 mg orally once every day, he is not on beta blockers because of bradycardia. 11/09: patient is sitting up in bed in distress, a bit anxious about upcoming procedure, was seen today by ,we will continue with heparin drip, ASA 81 mg orally daily, Atorvastatin 80 mg orally daily, no beta blockers due to bradycardia, seems to be ready for his CABG in the near future, had his 5 minute walk test, echocardiogram that showed moderate impairment in LVF 40-45 % with apical anterio, lateral and inferior hypokinesia, US of the carotids no hemodynamically significant stenosis, LHC showed severe proximal RCA disease, critical distal RCA disease, moderate OM1 disease, critical proximal LAD and di stal LAD disease, and normal Left main, patient is aware of smoking cessation and total life style changes as a must prior to his heart surgery. 11/10: She denies having any chest pain or shortness of breath. He has no complaints of lightheadedness or dizziness. Patient denies having any cough, sp utum production, fever or chills. He has been ambulating without difficulty. Patient is scheduled to see cardiothoracic surgery today. Patient is followed by cardiology and pulmonary medicine. Patient is afebrile, heart rate 62, blood pressure 133/81, pulse ox 96% on 2 L nasal cannula. pvc monitor is a sinus rhythm with PVCs. Repeat CBC today is unremarkable. Patient is off heparin drip. Patient is reaching 3000 miles on incentive spirometry. 11/11: Patient underwent coronary artery bypass grafting 4 vessels, left internal mammary artery to left anterior descending artery, radial artery to the obtuse marginal artery, reverse saphenous vein graft to the diagonal artery, reverse saphenous vein graft to the posterior lateral branch of the right coronary artery by Dr. Alicea, postop day 0. Patient is seen today sitting up in the ICU room. He was intubated and on mechanical ventilation with tidal volume 400, FiO2 100% and PEEP of 5. He has mediastinal chest tubes [address] with sanguinous output. A left pleural chest tube is also in place with no output. pvc monitor is a sinus rhythm. Patient is not requiring vasopressors. Plan is for patient to be extubated this afternoon. 11/12: Patient is found sitting in a chair in the room in ICU and appears to be in no acute distress. Patient was successfully extubated yesterday afternoon and currently on 2 L nasal cannula blood pressure 118/52, heart rate 60s, afebrile. pvc monitor is a sinus rhythm. Patient is continued on insulin drip but sugars are running in the 120s to 160. WBC 10.2, hemoglobin 10.7, p latelet count 135. Sodium 133, potassium 4.2, chloride 101, CO2 23, BUN 21 and creatinine 0.86. Repeat chest x-ray reveals no acute abnormality. 11/15: Patient is status post coronary artery bypass grafting 4 vessels, left internal mammary artery to left anterior descending artery, radial artery to the obtuse marginal coronary artery, a reverse greater saphenous vein graft to the diagonal coronary artery, a reverse greater saphenous vein graft to the posterior lateral branch of the right coronary artery. [facility] Patient is seen today on the cardiac stepdown unit. He denies having any significant chest pain, shortness of breath, lightheadedness or dizziness. No nausea or vomiting. No abdominal pain. He does relate that he had a blood blister on his scrotum that seemed drained and resolved. He has been afebrile, heart rate 76, blood pressure 90/59, pulse ox 97% on room air. Blood sugars are running between 111 and 131. Sodium 136, potassium 4.5, chloride 100, CO2 30, BUN 19 and creatinine 0.85. Blood sugar 115. Chest x-ray shows cardiomegaly, chronic gradual changes and patchy left basilar atelectasis and tiny left pleural effusion. Patient scheduled for discharge home today. Patient will follow-up in the office in a week Objective - Vital Signs Vital signs: Vital Signs Temp 98 F 11/15/20 03:44 Pulse 72 11/15/20 08:06 Resp 19 11/15/20 03:44 BP 98/59 11/15/20 03:44 Pulse Ox 97 11/15/20 03:44 Intake & Output 11/14/20 11/15/20 11/15/20 18:59 06:59 18:59 Intake Total 2100 Output Total 275 Balance 1825 Weight 92.5 kg Intake: Oral 2100 Output: Urine 275 Other: Voiding Method Urinal Toilet Urinal # Bowel Movements 1 ABP, PAP, CO, CI - Last Documented Arterial Blood Pressure 95/45 Pulmonary Artery Pressure 22/10 Cardiac Output 6.4 Cardiac Index 3.1 - Exam Review of Systems Constitutional: Reports chronic pain, Reports fatigue, Reports weakness, Denies anorexia, Denies chronic headaches Eyes: denies blurred vision, denies bulging eye, denies decreased vision Ears: deny: decreased hearing Ears, nose, mouth and throat: Denies dysphagia, Denies neck lump, Denies sore throat Cardiovascular: Denies chest pain, Reports decreased exercise tolerance, Reports dyspnea on exertion, Denies lightheadedness, Denies rapid heart beat, Denies shortness of breath, Denies syncope Respiratory: Denies congestion, Denies cough, Denies cough with sputum, Denies pain, Denies sleep apnea, Denies snoring, Denies wheezing Gastrointestinal: Reports nausea, Denies abdominal pain, Denies change in bowel habits, Denies heartburn, Denies melena, Denies vomiting Genitourinary: Reports nocturia, Denies dysuria Musculoskeletal: Denies myalgias Musculoskeletal: bilateral: shoulder pain, shoulder stiffness, absent: ankle pain, ankle stiffness, ankle swelling, elbow pain, elbow stiffness, elbow swelling, foot pain, foot stiffness, foot swelling, hand pain, hand stiffness, hand swelling, hip pain, hip stiffness, hip swelling, knee pain, knee stiffness, knee swelling, shoulder swelling, wrist pain, wrist stiffness, wrist swelling Integumentary: Denies pruritus, Denies rash Neurological: Denies numbness, Denies weakness Psychiatric: Reports anxiety, Denies depression, Denies sadness/tearfulness, Denies sleep disturbances, Denies suicidal ideation Endocrine: Denies fatigue, Denies weight change Physical examination: HEENT: Head is atraumatic, normocephalic, pupils were equal round reactive to light recommendation, extraocular muscle movement were intact, sclera nonicteric, conjunctivae were slightly pale, mucous membranes of mouth are somewhat dry. Neck: Supple, no JVD, no carotid bruits of adenopathy. Chest: Decreased breath sounds at the bases, few rhonchi, no expiratory wheezes, no chest wall tenderness, no intercostal retractions. Heart: First heart sound is depressed, second heart sound is normal, there is no gallop or murmur. Abdomen: Soft, nontender, nondistended, positive bowel sounds. Extremities: There is no edema, no calf tenderness, dorsalis is +2 bilaterally. Neurologic examination: Patient is awake alert and oriented in 3, cranial nerves 3-12 appear grossly intact, muscle power 5 out of 5 in upper and lower extremities bilaterally. - Labs CBC & Chem 7: 11/15/20 06:57 11/15/20 06:57 Labs: Abnormal Lab Results - Last 24 Hours (Table) 11/14/20 11/14/20 11/14/20 Range/Units 08:29 08:29 16:51 RBC 2.83 L (4.30-5.90) m/uL Hgb 9.5 L (13.0-17.5) gm/dL Hct 27.6 L (39.0-53.0) % Plt Count 104 L (150-450) k/uL Sodium 133 L (137-145) mmol/L BUN 21 H (9-20) mg/dL Glucose 169 H (74-99) mg/dL POC Glucose (mg/dL) 131 H (75-99) mg/dL 11/14/20 11/15/20 11/15/20 Range/Units 20:59 06:39 06:57 RBC (4.30-5.90) m/uL Hgb (13.0-17.5) gm/dL Hct (39.0-53.0) % Plt Count (150-450) k/uL Sodium 136 L (137-145) mmol/L BUN (9-20) mg/dL Glucose 115 H (74-99) mg/dL POC Glucose (mg/dL) 132 H 111 H (75-99) mg/dL Assessment and Plan Plan: 1. Non-ST elevation [place]. Post left heart catheterization that showed triple- vessel disease with critical disease in the proximal RCA and severe disease in the distal RCA, critical disease in the proximal and mid LAD and severe disease in the OM1 off the LCX with moderate impairement of the LVF. Patient is status post coronary artery bypass grafting 4 vessels, left internal mammary artery to left anterior descending artery, radial artery to the obtuse marginal coronary artery, a reverse greater saphenous vein graft to the diagonal coronary artery, a reverse greater saphenous vein graft to the posterior lateral branch of the right coronary artery. Continue aspirin, Lipitor 80 mg once every day, Lopressor 25 mg twice daily. 2. History of CAD post multiple PCI. Continue ASA orally daily, Atorvastatin 80 mg orally daily. 3. Hypertension and hypertensive cardiovascular disease. Continue amlodipine 5 mg daily, Lopressor. 4. Hyperlipidemia. Continue patient on low-cholesterol diet, total lifestyle changes and risk factor modification, continue with Lipitor 80 mg orally once every day per 5. Hypothyroidism. Continue patient on Synthroid 175 g orally once every day. 6. Enlarged prostate. Patient is off Flomax. 7. Chronic tobacco use and dependence. Patient was counseled about smoking cessation and increased risk of CAD, CVA, and malignancies. 8. DVT prophylaxis. 9. GI prophylaxis. Discharge plan:home today Impression and plan of care have been directed as dictated by the signing ph ysician. Payton Santos nurse practitioner acting as scribe for signing physician.
[2020-11-15 14:28] VITALS: BP 111/76; PULSE 64; TEMP 97.9
--- NOTE | 2020-11-15 15:21 | P.PN ---
Subjective This is a pleasant 60- male who presented to the hospital with non-ST elevated myocardial infarction and underwent cardiac catheterization with Dr. Miguel. He was found to have severe triple vessel disease with ossified arteries. He follows in the office with Dr. Ruiz. He is status post coronary artery bypass grafting with PHAM to LAD, EMMA to OM, SVG to diagonal and SVG to RCA. He is seen and examined up ambulating around the room. He denies chest pain, shortness of breath, dizziness or palpitations. He is using his incentive s pirometer regularly. Blood pressure 99/61 heart rate 73 afebrile maintaining oxygen saturation on room air. Laboratory data reviewed, WBC 7.7, hemoglobin 9.5, platelets 104, sodium 133, potassium 3.9, creatinine 0.89. Currently maintained on amlodipine 5 mg daily, aspirin 325 mg daily, atorvastatin 80 mg daily, Plavix 75 mg daily and metoprolol 25 mg twice a day. Chest xray reveals chronic parenchymal changes with patchy left basilar atelectasis and tiny left pleural effusion present and stable. No pneumothorax noted at the site of the chest tube removal. 11/15/2020 Pt seen and examined ambulating in the room in no acute distress. No chest pain, shortness of breath, dizziness or palpitations. Blood pressure 123/64 heart rate 72 afebrile and maintaining oxygens saturation on room air. Laboratory data reviewed. GENERAL: Well-appearing, well-nourished and in no acute distress. NECK: Supple without JVD or thyromegaly. LUNGS: Breath sounds clear to auscultation bilaterally. Respiration equal and unlabored. No wheezes, rales or rhonchi. HEART: Regular rate and rhythm with systolic ejection murmur at the base, no rubs or gallops. S1 and S2 heard. Heart hugger in place. Dressing to mid-sternal incision clean and dry with no evidence of drainage or bleeding. EXTREMITIES: Normal range of motion, no edema. No clubbing or cyanosis. Peripheral pulses intact. ASSESSMENT Non-ST elevated myocardial infarction Severe triple-vessel coronary artery disease POD# 4V CABG Dyslipidemia Ischemic cardiomyopathy Hypertension PLAN Continue current medical regimen. Increase activity as tolerated. Encourage incentive spirometer use. Follow up upon discharge with Dr. Ruiz. Further recommendations to follow based upon clinical course. Nurse Practitioner note has been reviewed, I agree with a documented findings and plan of care. Patient was seen and examined. Objective - Vital Signs Vital signs: Vital Signs Temp 97.9 F 11/15/20 12:00 Pulse 64 11/15/20 12:00 Resp 16 11/15/20 12:00 BP 111/76 11/15/20 12:00 Pulse Ox 93 L 11/15/20 12:00 Intake & Output 11/14/20 11/15/20 11/15/20 18:59 06:59 18:59 Intake Total 2100 560 Output Total 275 Balance 1825 560 Weight 92.5 kg Intake: Oral 2100 560 Output: Urine 275 Other: Voiding Method Urinal Toilet Toilet Urinal Urinal # Bowel Movements 1 ABP, PAP, CO, CI - Last Documented Arterial Blood Pressure 95/45 Pulmonary Artery Pressure 22/10 Cardiac Output 6.4 Cardiac Index 3.1 - Labs CBC & Chem 7: 11/15/20 06:57 11/15/20 06:57 Labs: Abnormal Lab Results - Last 24 Hours (Table) 11/14/20 11/14/20 11/15/20 Range/Units 16:51 20:59 06:39 RBC (4.30-5.90) m/uL Hgb (13.0-17.5) gm/dL Hct (39.0-53.0) % Sodium (137-145) mmol/L Glucose (74-99) mg/dL POC Glucose (mg/dL) 131 H 132 H 111 H (75-99) mg/dL 11/15/20 11/15/20 Range/Units 06:57 06:57 RBC 3.10 L (4.30-5.90) m/uL Hgb 10.4 L (13.0-17.5) gm/dL Hct 30.6 L (39.0-53.0) % Sodium 136 L (137-145) mmol/L Glucose 115 H (74-99) mg/dL POC Glucose (mg/dL) (75-99) mg/dL
== END 2020-11-15 15:31 | disposition home health service (06) | DRG 234 ==
LOC: EC 05:53 → 3SCARD 07:58 → OBSVTOIN 11-08 09:00 → 2SICU 11-11 05:58 → 3SCARD 11-13 16:23
PROVIDERS: ADMIT Internal Medicine; ATTEND Internal Medicine
PROC: B2151ZZ Fluoroscopy of Left Heart using Low Osmolar Contrast (ICD-10-PCS; 2020-11-07)
PROC: 4A023N7 Measurement of Cardiac Sampling and Pressure, Left Heart, Percutaneous Approach (ICD-10-PCS; 2020-11-07)
PROC: B2111ZZ Fluoroscopy of Multiple Coronary Arteries using Low Osmolar Contrast (ICD-10-PCS; 2020-11-07)
PROC: 02L70CK Occlusion of Left Atrial Appendage with Extraluminal Device, Open Approach (ICD-10-PCS; principal; 2020-11-11 08:00)
PROC: 02100Z9 Bypass Coronary Artery, One Artery from Left Internal Mammary, Open Approach (ICD-10-PCS; principal; 2020-11-11 08:00)
PROC: 03BC3ZZ Excision of Left Radial Artery, Percutaneous Approach (ICD-10-PCS; principal; 2020-11-11 08:00)
PROC: 0212093 Bypass Coronary Artery, Three Arteries from Coronary Artery with Autologous Venous Tissue, Open Approach (ICD-10-PCS; principal; 2020-11-11 08:00)
PROC: 06BP4ZZ Excision of Right Saphenous Vein, Percutaneous Endoscopic Approach (ICD-10-PCS; principal; 2020-11-11 08:00)
PROC: B246ZZ4 Ultrasonography of Right and Left Heart, Transesophageal (ICD-10-PCS; principal; 2020-11-11 08:00)
PROC: 5A1221Z Performance of Cardiac Output, Continuous (ICD-10-PCS; principal; 2020-11-11 08:00)
DX: I21.4 Non-ST elevation (NSTEMI) myocardial infarction (principal); D62 Acute posthemorrhagic anemia; J98.11 Atelectasis; T82.855A Stenosis of coronary artery stent, initial encounter; I25.10 Atherosclerotic heart disease of native coronary artery without angina pectoris; I11.9 Hypertensive heart disease without heart failure; I25.2 Old myocardial infarction; Z20.822 Contact with and (suspected) exposure to COVID-19; Z71.6 Tobacco abuse counseling; F17.210 Nicotine dependence, cigarettes, uncomplicated; E03.9 Hypothyroidism, unspecified; E78.5 Hyperlipidemia, unspecified; H91.92 Unspecified hearing loss, left ear; I25.5 Ischemic cardiomyopathy; I49.3 Ventricular premature depolarization; N40.0 Benign prostatic hyperplasia without lower urinary tract symptoms; Y83.1 Surgical operation with implant of artificial internal device as the cause of abnormal reaction of the patient, or of later complication, without mention of misadventure at the time of the procedure; Z79.02 Long term (current) use of antithrombotics/antiplatelets; Z79.82 Long term (current) use of aspirin; Z79.890 Hormone replacement therapy; Z79.899 Other long term (current) drug therapy; Z82.5 Family history of asthma and other chronic lower respiratory diseases; Z83.3 Family history of diabetes mellitus; Z95.5 Presence of coronary angioplasty implant and graft; Z82.0 Family history of epilepsy and other diseases of the nervous system; Z80.42 Family history of malignant neoplasm of prostate; Z53.29 Procedure and treatment not carried out because of patient's decision for other reasons
CPT/HCPCS: 36415; 70450; 71045; 71046; 80048; 80053; 80061; 80074; 81003; 82330; 82805; 83036; 83735; 84439; 84443; 84484; 85025; 85027; 85520; 85610; 85730; 86850; 86891; 86900; 86901; 86920; 87070; 87635; 88305; 93005; 93306; 93458; 93880; 93922; 93930; 93970; 94002; 94150; 94640; 94760; 96374; 96376; 99285

== ENCOUNTER → 2021-02-03 | Outpatient (CLI) | payer BC ==
--- NOTE | 2021-02-03 13:48 | XR ---
EXAMINATION TYPE: XR chest 2V DATE OF EXAM: 02/03/2021 COMPARISON: 11/15/2020 HISTORY: Shortness of breath TECHNIQUE: Frontal and lateral views of the chest are obtained. FINDINGS: Scattered senescent parenchymal changes noted. Hyperinflation compatible with COPD. No evidence for infiltrate. No evidence for atelectasis. Heart size is stable. Mediastinal structures are stable and grossly unremarkable. No evidence for hilar prominence. Degenerative changes dorsal spine. IMPRESSION: 1. No evidence for acute pulmonary disease.
== END | disposition home or self-care (01) ==
LOC: RADXRMAIN 13:17
PROVIDERS: ATTEND Internal Medicine
DX: R06.02 Shortness of breath (principal)
CPT/HCPCS: 71046

== ENCOUNTER → 2022-08-30 | Outpatient (CLI) | payer BC ==
--- NOTE | 2022-08-30 21:59 | XR ---
EXAMINATION TYPE: XR sacrum coccyx DATE OF EXAM: 08/30/2022 COMPARISON: NONE HISTORY: Sacrococcygeal disorders. TECHNIQUE: 2 views of the sacrum and coccyx. FINDINGS: There is no acute displaced sacral or coccygeal fracture. Sacral alar maintained bilaterall y. There is moderate to severe overlying arterial vascular calcification in the bilateral pelvis. IMPRESSION: As above.
== END | disposition home or self-care (01) ==
LOC: RADXRMAIN 11:25
PROVIDERS: ATTEND Internal Medicine
DX: M53.3 Sacrococcygeal disorders, not elsewhere classified (principal)
CPT/HCPCS: 72220

== ENCOUNTER 2023-09-05 09:48 | Day surgery (SDC) | payer BC ==
[~2023-09-05 09:48] MED LIST: LACTATED RINGERS 1,000 ML IV SCH
[2023-09-05 10:19] VITALS: PULSE 48; RESP 16; TEMP 96.8
[2023-09-05] MEDS ORDERED: LIDOCAINE 1% INJ 10MG/ML (20 ML MDV) ONE (10:38)
[2023-09-05] MEDS ORDERED: PROPOFOL 10 MG/ML 20 ML VIAL IV ONE (10:38)
--- NOTE | 2023-09-05 11:00 | P.PCN ---
Date of Procedure: 09/05/23 Procedure(s) Performed: BRIEF HISTORY: Patient is a 62-year-old pleasant male scheduled for an elective colonoscopy as a part of screening for colon cancer. His colonoscopy was 10 years ago. PROCEDURE PERFORMED: Colonoscopy with snare polypectomy. PREOPERATIVE DIAGNOSIS: Screening for colon cancer. IV sedation per Anesthesia. PROCEDURE: After informed consent was obtained, the patient, was brought into the endoscopy unit. IV sedation was administered by Anesthesia under continuous monitoring. Digital rectal examination was normal. Initially the Olympus CF-160 flexible video colonoscope was then inserted in the rectum, gradually advanced into the cecum without any difficulty. Careful examination was performed as the scope was gradually being withdrawn. Ileocecal valve and the appendiceal orifice were visualized and appeared normal. Prep was excellent. Mucosa of the cecum, ascending colon, appeared normal. The proximal transverse colon there was a 5 limited polyp removed by cold snare polypectomy. Rest of the transverse colon, descending colon, sigmoid colon, and rectum appeared normal. In the rectosigmoid colon there was a 4 mm polyp removed by cold snare polypectomy. Scattered sigmoid diverticulosis. With snare polypectomy Retroflexion was performed in the rectum and no lesions were seen. The patient tolerated the procedure well. IMPRESSION: 5 mm proximal transverse colon polyp status post snare polypectomy 4 mm rectosigmoid polyp status post cold snare polypectomy Scattered sigmoid diverticulosis RECOMMENDATIONS: Findings of this examination were discussed with the patient as well as his family. He was advised to follow with the biopsy results. If the biopsy reveals adenoma recommended repeat colonoscopy in 10 years.
[2023-09-05 11:38] VITALS: BP 111/67
== END 2023-09-05 11:39 | disposition home or self-care (01) ==
LOC: ORWHC2ENDO 09:48
PROVIDERS: ATTEND Internal Medicine Gastroenterology
DX: Z12.11 Encounter for screening for malignant neoplasm of colon (principal); K63.5 Polyp of colon; K57.30 Diverticulosis of large intestine without perforation or abscess without bleeding; I25.10 Atherosclerotic heart disease of native coronary artery without angina pectoris; I25.2 Old myocardial infarction; I10 Essential (primary) hypertension; E78.5 Hyperlipidemia, unspecified; M19.90 Unspecified osteoarthritis, unspecified site; Z87.891 Personal history of nicotine dependence; Z79.899 Other long term (current) drug therapy
CPT/HCPCS: 88305; 45385; J2001; J2704

== ENCOUNTER 2024-03-29 06:54 | Emergency (ER) | payer BC, MEDICARE ==
[2024-03-29 06:58] VITALS: RESP 18; TEMP 97.4
[2024-03-29] MEDS: METOCLOPRAMIDE 5 MG/ML 2 ML VIAL IVP STA (07:22)
[2024-03-29] MEDS: MECLIZINE 25 MG TAB PO STA (07:22)
[2024-03-29 07:31] LABS: Basophils # (A) 0.1 k/uL (0-0.2); Basophils % (A) 1 %; Eosinophils # (A) 0.3 k/uL (0-0.7); Eosinophils % (A) 5 %; HCT 42.7 % (39.0-53.0); HGB 13.9 gm/dL (13.0-17.5); Lymphocytes # (A) 1.9 k/uL (1.0-4.8); Lymphocytes % (A) 33 %; MCH 31.8 pg (25.0-35.0); MCHC 32.6 g/dL (31.0-37.0); MCV 97.5 fL (80.0-100.0); Mean Platelet Volume 8.4; Monocytes # (A) 0.5 k/uL (0-1.0); Monocytes % (A) 8 %; Neutrophils # (A) 2.8 k/uL (1.3-7.7); Neutrophils % (A) 50 %; Platelet Count 171 k/uL (150-450); RBC 4.38 m/uL (4.30-5.90); RDW 13.3 % (11.5-15.5); WBC 5.7 k/uL (3.8-10.6)
--- NOTE | 2024-03-29 07:31 | ED ---
General Adult HPI - General Chief complaint: Dizziness Stated complaint: Light headed, dizziness Time Seen by Provider: 03/29/24 07:00 Source: patient, RN notes reviewed, old records reviewed Mode of arrival: wheelchair Limitations: no limitations - History of Present Illness Initial comments: This is a 63-year-old male who presents to the emergency department complaining of dizziness. Patient states she was sitting on the toilet and all of a sudden everything started spinning and he felt very dizzy and he said he had to hold onto things to walk. Patient states he became very nauseated and was having some dry heaves. Patient denies any headache patient denies numbness weakness. Patient denies any chest pain palpitations difficulty breathing shortness of breath. Patient does have a past medical history significant for bypass surgery. - Related Data Home Medications Medication Instructions Recorded Confirmed Levothyroxine Sodium [Synthroid] 175 mcg PO DAILY 09/26/15 09/03/23 Aspirin 81 mg PO DAILY 09/03/23 09/03/23 Ezetimibe [Zetia] 10 mg PO DAILY 09/03/23 09/03/23 Nitroglycerin Sl Tabs [Nitrostat] 0.4 mg SUBLINGUAL Q5M PRN 09/03/23 09/03/23 Rosuvastatin Calcium 1 tab PO DAILY 09/03/23 09/03/23 lisinopriL [Zestril] 5 mg PO DAILY 09/03/23 09/03/23 Previous Rx's Medication Instructions Recorded Acetaminophen Tab [Tylenol] 1,000 mg PO Q6HR PRN tab 11/15/20 amLODIPine [Norvasc] 5 mg PO DAILY #30 tab 11/15/20 Meclizine [Antivert] 25 mg PO TID #20 tab 03/29/24 Allergies Allergy/AdvReac Type Severity Reaction Status Date / Time No Known Allergies Allergy Verified 03/29/24 06:58 Review of Systems ROS Statement: Those systems with pertinent positive or pertinent negative responses have been documented in the HPI. ROS Other: All systems not noted in ROS Statement are negative. Past Medical History Past Medical History: Coronary Artery Disease (CAD), Chest Pain / Angina, Hyperlipidemia, Hypertension, Myocardial Infarction (DC), Osteoarthritis (OA), Prostate Disorder, Thyroid Disorder Additional Past Medical History / Comment(s): "prostate enlarged", DC 2000 Last Myocardial Infarction Date:: 2000 History of Any Multi-Drug Resistant Organisms: None Reported Past Surgical History: Coronary Bypass/CABG, Heart Catheterization With Stent Additional Past Surgical History / Comment(s): Ruptured bicep, CABG 2020 - no stents now Past Anesthesia/Blood Transfusion Reactions: No Reported Reaction Date of Last Stent Placement:: 09/28/14 Past Psychological History: No Psychological Hx Reported Smoking Status: Former smoker - Past Family History Mother History Unknown: Yes Family Medical History: No Reported History Brother(s) Family Medical History: Diabetes Mellitus Daughter(s) Family Medical History: No Reported History Father Family Medical History: Cancer, COPD, Dementia Additional Family Medical History / Comment(s): Had prostate surg General Exam - General Exam Comments Initial Comments: GENERAL: Patient is well-developed and well-nourished. Patient is nontoxic and well- hydrated and is in mild distress. ENT: Neck is soft and supple. No significant lymphadenopathy is noted. Oropharynx is clear. Moist mucous membranes. Neck has full range of motion without eliciting any pain. EYES: The sclera were anicteric and conjunctiva were pink and moist. Extraocular movements were intact and pupils were equal round and reactive to light. Eyelids were unremarkable. PULMONARY: Unlabored respirations. Good breath sounds bilaterally. No audible rales rhonchi or wheezing was noted. CARDIOVASCULAR: There is a regular rate and rhythm without any murmurs gallops or rubs. ABDOMEN: Soft and nontender with normal bowel sounds. SKIN: Skin is clear with no lesions or rashes and otherwise unremarkable. NEUROLOGIC: Patient is alert and oriented x3. Cranial nerves II through XII are grossly intact. Motor and sensory are also intact. Normal speech, volume and content. Symmetrical smile. MUSCULOSKELETAL: Normal extremities with adequate strength and full range of motion. No lower extremity swelling or edema. No calf tenderness. LYMPHATICS: No significant lymphadenopathy is noted PSYCHIATRIC: Normal psychiatric evaluation. Limitations: no limitations Course Vital Signs 03/29/24 06:56 Temperature 97.4 F L Pulse Rate 50 L Respiratory 18 Rate Blood Pressure 164/89 O2 Sat by Pulse 98 Oximetry Medical Decision Making - Medical Decision Making EKG is interpreted by myself. EKG shows sinus bradycardia [address] interval 190 QRS is 107 QT interval is 520 QTc is 482. Patient's EKG has some slight ST segment elevation in 2 3 and aVF but not enough to call a STEMI. I did speak with cardiology at [address] Chua did not feel the need to look at the EKG Repeat EKG was done because of the slight elevation in the inferior leads on first EKG this EKG was interpreted by myself but EKG shows a sinus bradycardia [address] interval 188 QRS is 104 QT interval is 502 QTc is 471. Patient's EKG shows no ST segment elevation. Was pt. sent in by a medical professional or institution (, [facility], [facility], urgent care, hospital, or detention...) When possible be specific @ -No Did you speak to anyone other than the patient for history (EMS, parent, family, police, friend...)? What history was obtained from this source @ -No Did you review nursing and triage notes (agree or disagree)? Why? @ -I reviewed and agree with nursing and triage notes Were old charts reviewed (outside hosp., previous admission, EMS record, old EKG, old radiological studies, urgent care reports/EKG's, detention records)? Report findings @ -No old charts were reviewed Differential Diagnosis? @ -Differential Dizziness: Benign paroxysmal positional Vertigo, Menieres disease, otitis media, acoustic neuroma, vertebrobasilar insufficiency, cerebellar stroke, encephalitis, hypovolemic, arrhythmia, coronary artery syndrome, anemia, this is not meant to be an all-inclusive list EKG interpreted by me (3pts min.). @ -As above X-rays interpreted by me (1pt min.). @ -Chest x-ray shows no acute abnormality CT interpreted by me (1pt min.). @ -CT of the brain shows no acute normality U/S interpreted by me (1pt. min.). @ -None done What testing was considered but not performed or refused? (CT, X-rays, U/S, labs)? Why? @ -None What meds were considered but not given or refused? Why? @ -None Did you discuss the management of the patient with other professionals (professionals i.e. [facility] Lozano, [employer], lab, RT, psych nurse, social work professor, vice president of compliance, teacher, commercial loan collection officer, piano case maker)? Give summary @ -No Was smoking cessation discussed for >3mins.? @ -No Was critical care preformed (if so, how long)? @ -No Were there social determinants of health that impacted care today? How? (Homelessness, low income, unemployed, alcoholism, drug addiction, tr ansportation, low edu. Level, literacy, decrease access to med. care, fdc, rehab)? @ -No Was there de-escalation of care discussed even if they declined (Discuss DNR or withdrawal of care, Hospice)? DNR status @ -No What co-morbidities impacted this encounter? (DM, HTN, Smoking, COPD, CAD, Cancer, CVA, ARF, Chemo, Hep., AIDS, mental health diagnosis, sleep apnea, morbid obesity)? @ -None Was patient admitted / discharged? Hospital course, mention meds given and route, prescriptions, significant lab abnormalities, going to OR and other pertinent info. @ -Patient came in with dizziness classic for vertigo. Patient was given Antivert Valium and Reglan and was doing much better. Patient's lab work came back within normal range. Patient's CT and chest x-ray were normal as well. Patient was sent home in an effort. Undiagnosed new problem with uncertain prognosis? @ -No Drug Therapy requiring intensive monitoring for toxicity (Heparin, Nitro, Insulin, Cardizem)? @ -No Were any procedures done? @ -No Diagnosis/symptom? @ -Vertigo Acute, or Chronic, or Acute on Chronic? @ -Acute Uncomplicated (without systemic symptoms) or Complicated (systemic symptoms)? @ -Complicated Side effects of treatment? @ -No Exacerbation, Progression, or Severe Exacerbation? @ -No Poses a threat to life or bodily function? How? (Chest pain, USA, DC, pneumonia, PE, COPD, DKA, ARF, appy, cholecystitis, CVA, Diverticulitis, Homicidal, Suicidal, threat to staff... and all critical care pts) @ -No - Lab Data Result diagrams: 03/29/24 07:05 03/29/24 07:05 Lab Results 03/29/24 03/29/24 03/29/24 Range/Units 07:05 07:05 07:05 WBC 5.7 (3.8-10.6) k/uL RBC 4.38 (4.30-5.90) m/uL Hgb 13.9 (13.0-17.5) gm/dL Hct 42.7 (39.0-53.0) % MCV 97.5 (80.0-100.0) fL MCH 31.8 (25.0-35.0) pg MCHC 32.6 (31.0-37.0) g/dL RDW 13.3 (11.5-15.5) % Plt Count 171 (150-450) k/uL MPV 8.4 Neutrophils % 50 % Lymphocytes % 33 % Monocytes % 8 % Eosinophils % 5 % Basophils % 1 % Neutrophils # 2.8 (1.3-7.7) k/uL Lymphocytes # 1.9 (1.0-4.8) k/uL Monocytes # 0.5 (0-1.0) k/uL Eosinophils # 0.3 (0-0.7) k/uL Basophils # 0.1 (0-0.2) k/uL PT 10.1 (10.0-12.5) sec INR 0.9 (<1.2) APTT 22.9 (22.0-30.0) sec Sodium 136 L (137-145) mmol/L Potassium 4.7 (3.5-5.1) mmol/L Chloride 107 (98-107) mmol/L Carbon Dioxide 25 (22-30) mmol/L Anion Gap 4 mmol/L BUN 18 (9-20) mg/dL Creatinine 0.81 (0.66-1.25) mg/dL Est GFR (CKD-EPI)AfAm >90 (>60 ml/min/1.73 sqM) Est GFR (CKD-EPI)NonAf >90 (>60 ml/min/1.73 sqM) Glucose 131 H (74-99) mg/dL Calcium 8.9 (8.4-10.2) mg/dL Magnesium 2.2 (1.6-2.3) mg/dL Total Bilirubin 0.8 (0.2-1.3) mg/dL AST 33 (17-59) U/L ALT 31 (4-49) U/L Alkaline Phosphatase 51 (38-126) U/L Troponin I (0.000-0.034) ng/mL Total Protein 6.7 (6.3-8.2) g/dL Albumin 4.3 (3.5-5.0) g/dL 03/29/24 Range/Units 07:05 WBC (3.8-10.6) k/uL RBC (4.30-5.90) m/uL Hgb (13.0-17.5) gm/dL Hct (39.0-53.0) % MCV (80.0-100.0) fL MCH (25.0-35.0) pg MCHC (31.0-37.0) g/dL RDW (11.5-15.5) % Plt Count (150-450) k/uL MPV Neutrophils % % Lymphocytes % % Monocytes % % Eosinophils % % Basophils % % Neutrophils # (1.3-7.7) k/uL Lymphocytes # (1.0-4.8) k/uL Monocytes # (0-1.0) k/uL Eosinophils # (0-0.7) k/uL Basophils # (0-0.2) k/uL PT (10.0-12.5) sec INR (<1.2) APTT (22.0-30.0) sec Sodium (137-145) mmol/L Potassium (3.5-5.1) mmol/L Chloride (98-107) mmol/L Carbon Dioxide (22-30) mmol/L Anion Gap mmol/L BUN (9-20) mg/dL Creatinine (0.66-1.25) mg/dL Est GFR (CKD-EPI)AfAm (>60 ml/min/1.73 sqM) Est GFR (CKD-EPI)NonAf (>60 ml/min/1.73 sqM) Glucose (74-99) mg/dL Calcium (8.4-10.2) mg/dL Magnesium (1.6-2.3) mg/dL Total Bilirubin (0.2-1.3) mg/dL AST (17-59) U/L ALT (4-49) U/L Alkaline Phosphatase (38-126) U/L Troponin I <0.012 (0.000-0.034) ng/mL Total Protein (6.3-8.2) g/dL Albumin (3.5-5.0) g/dL Disposition Clinical Impression: Vertigo Disposition: HOME SELF-CARE Condition: Good Instructions (If sedation given, give patient instructions): Vertigo (ED) Prescriptions: Meclizine [Antivert] 25 mg PO TID #20 tab Is patient prescribed a controlled substance at d/c from ED?: No Referrals: Gloria Nugent MD [Primary Care Provider] - 1-2 days Time of Disposition: 09:08
[2024-03-29 07:32] LABS: INR 0.9 (<1.2); Partial Thromboplastin Time 22.9 sec (22.0-30.0); Prothrombin Time 10.1 sec (10.0-12.5)
[2024-03-29 07:37] LABS: ALT 31 U/L (4-49); AST 33 U/L (17-59); African American GFR (CKD) >90 (>60 ml/min/1.73 sqM); Albumin 4.3 g/dL (3.5-5.0); Alkaline Phosphatase 51 U/L (38-126); Anion Gap 4 mmol/L; Blood Urea Nitrogen 18 mg/dL (9-20); Calcium 8.9 mg/dL (8.4-10.2); Carbon Dioxide 25 mmol/L (22-30); Chloride 107 mmol/L (98-107); Glucose 131 mg/dL (74-99); Magnesium 2.2 mg/dL (1.6-2.3); Non-African American GFR(CKD) >90 (>60 ml/min/1.73 sqM); Potassium 4.7 mmol/L (3.5-5.1); Sodium 136 mmol/L (137-145); Total Bilirubin 0.8 mg/dL (0.2-1.3); Total Protein 6.7 g/dL (6.3-8.2)
--- NOTE | 2024-03-29 08:02 | XR ---
EXAMINATION TYPE: XR chest 2V DATE OF EXAM: 03/29/2024 COMPARISON: 02/03/2021 INDICATION: Chest pain dizziness TECHNIQUE: Frontal and lateral views of the chest are obtained. FINDINGS: The heart size is normal. The pulmonary vasculature is normal. The lungs are clear. IMPRESSION: 1. No acute pulmonary process.
--- NOTE | 2024-03-29 08:13 | CT ---
EXAMINATION TYPE: CT brain wo con DATE OF EXAM: 03/29/2024 COMPARISON: 11/07/2020 INDICATION: dizzy DLP: 1153.1 mGycm, Automated exposure control for dose reduction was used. CONTRAST: None CT of the brain is performed utilizing 3 mm thick sections through the posterior fossa and 3 mm thick sections through the remaining calvarium. Study is performed within 24 hours of arrival to the hosp ital. No abnormal hyperdensity is present to suggest an acute intracranial hemorrhage. No mass lesion is evident. No acute infarcts are evident. Ventricles and sulci are appropriate for the patient age. Paranasal sinuses and mastoid air cells within the [id number] are clear. IMPRESSION: 1. No acute intracranial process. Findings appear stable from comparison. Follow-up MRI can be perf ormed as clinically indicated
[2024-03-29 09:24] VITALS: BP 122/75; PULSE 52
== END 2024-03-29 09:20 | disposition home or self-care (01) ==
LOC: EC 06:54
DX: R42 Dizziness and giddiness (principal); Z87.891 Personal history of nicotine dependence
CPT/HCPCS: 36415; 93005; 80053; 83735; 84484; 85025; 85610; 85730; 71046; 70450; 99284; 96374; 96375; J2765; J3360